=== PATIENT | male | born 1960 | race African-American/Black ===

== ENCOUNTER 2016-12-20 08:03 | Emergency (ER) | payer OTHER ==
--- NOTE | 2016-12-20 08:38 | ED ---
General Adult HPI - General Chief complaint: Extremity Problem,Nontraumatic Stated complaint: leg pain Time Seen by Provider: 12/20/16 08:15 Source: patient, RN notes reviewed Mode of arrival: ambulatory Limitations: no limitations - History of Present Illness Initial comments: Patient 56-year-old male who presents emergency room today with a chief complaint of increased numbness tingling down the left leg with decreased range of motion of his left foot. He states he notices symptoms yesterday. He does admit that he's had history of chronic back pain. States that he's had numbness and tingling down the left leg in the past. States he's had increased numbness and tingling to his left foot with decreased feeling. He states he noticed that his had decreased range of motion of his toes and his ankle on the left side. He states he noticed this yesterday morning. Patient denies any new injury or trauma to the area. He admits that he has some numbness tingling sensation to the right lower leg on the medial aspect of his calf area which she states she's never had in the past. He denies any bowel or bladder incontinence or retention. He denies any saddle anesthesia. Denies any other complaints at this time. Patient denies any recent fever, chills, shortness of breath, chest pain, abdominal pain, nausea or vomiting, dysuria or hematuria, constipation or diarrhea, headaches or visual changes, or any other complaints. - Related Data Previous Rx's Medication Instructions Recorded predniSONE 60 mg PO DAILY 5 Days 12/20/16 Allergies Allergy/AdvReac Type Severity Reaction Status Date / Time No Known Allergies Allergy Verified 12/20/16 08:11 Review of Systems ROS Statement: Those systems with pertinent positive or pertinent negative responses have been documented in the HPI. ROS Other: All systems not noted in ROS Statement are negative. Past Medical History Past Medical History: Hypertension Additional Past Medical History / Comment(s): chronic back pain History of Any Multi-Drug Resistant Organisms: None Reported Past Surgical History: Orthopedic Surgery Additional Past Surgical History / Comment(s): arm Past Psychological History: No Psychological Hx Reported Smoking Status: Never smoker Past Alcohol Use History: None Reported Past Drug Use History: None Reported General Exam - General Exam Comments Initial Comments: General: The patient is awake and alert, in no distress, and does not appear acutely ill. Eye: Pupils are equal, round and reactive to light, extra-ocular movements are intact. No nystagmus. There is normal conjunctiva bilaterally. No signs of icterus. Ears, nose, mouth and throat: There are moist mucous membranes and no oral lesions. Neck: The neck is supple, there is no tenderness or JVD. Cardiovascular: There is a regular rate and rhythm. No murmur, rub or gallop is appreciated. Respiratory: Lungs are clear to auscultation, respirations are non-labored, breath sounds are equal. No wheezes, stridor, rales, or rhonchi. Gastrointestinal: Soft, non-distended, non-tender abdomen without masses or organomegaly noted. There is no rebound or guarding present. No CVA tenderness. Bowel sounds are unremarkable. Musculoskeletal: Patient has normal appearance of thoracic and lumbar spine. No step-offs forms appreciated. Mild tenderness left side of the lower paravertebral area of the lumbar spine. Patient shows limited range of motion with both plantar and dorsiflexion of the left ankle. Sensation is intact to light touch but he admits that it is different feeling than usual and different from the other side. He does have sensation to the medial aspect of the right calf area but again admits that this feels different compared to other areas of the leg. Sensation fully intact to the upper thighs bilaterally. Shows full range of motion of the hips bilaterally, knees bilaterally. Has full range of motion of the right ankle and toes. Patient is able to fully flex and extend at the left ankle with passive range of motion with no pain. There is no redness or swelling in any areas. Pulses equal bilaterally 2+. Neurological: A&O x 3. CN II-XII intact, Coordination appears grossly intact. Speech is normal. Skin: Skin is warm and dry and no rashes or lesions are noted. Psychiatric: Cooperative, appropriate mood & affect, normal judgment. : Normal rectal tone. Limitations: no limitations Course Vital Signs 12/20/16 08:08 Temperature 99.4 F Pulse Rate 89 Respiratory 16 Rate Blood Pressure 138/100 O2 Sat by Pulse 98 Oximetry Medical Decision Making - Medical Decision Making Patient's CT of the lumbar spine reviewed and does show multilevel foraminal encroachment, degenerative disc disease, spinal stenosis, possible mass effect on the left S1 nerve root. Patient does have numbness tingling down to the left foot with decreased range of motion. Case was discussed in detail with attending physician Dr. Foster. Patient states has not had any bowel or bladder incontinence or retention. Patient states he did void just before he came to the emergency room does not need to use the bathroom here. Patient's be given dose of steroids here in the emergency room. No evidence for cauda equina, syndrome. Rectal tone good. Patient will be discharged advised close follow- up tomorrow with family doctor or his orthopedic doctor. He'll be continued on steroids at home. He is advised return if there is any increased worsening of symptoms or any other concerns. Patient states understanding and is in agreement with this plan. Disposition Clinical Impression: Lumbar radiculopathy, acute Disposition: HOME SELF-CARE Condition: Stable Instructions: Lumbar Radiculopathy (ED) Additional Instructions: Please follow-up with orthopedic or family doctor tomorrow. Please use steroids as prescribed. Please return to emergency room if there is any increase or worsening symptoms as discussed or for any other concerns. Prescriptions: predniSONE 60 mg PO DAILY 5 Days Referrals: Christopher Bradshaw DO [Primary Care Provider] - 1-2 days Ravinder Peralta MD [STAFF PHYSICIAN] - 1-2 days Time of Disposition: 09:46
--- NOTE | 2016-12-20 09:34 | CT ---
EXAMINATION TYPE: CT lumbar spine wo con DATE OF EXAM: 12/20/2016 COMPARISON: MR lumbar spine one August 2015 HISTORY: Lt leg numbness and low back pain CT DLP: 867.2 mGycm Automated exposure control for dose reduction was used. An unenhanced CT of the lumbar spine was performed. Bone and soft tissue window settings are submitt ed as well as coronal and sagittal reconstructions. FINDINGS: Alignment is stable, minimal anterolisthesis grade 1 L4-5, retrolisthesis grade 1 L5-S1. Loss of disc height at L4-5 compatible with disc desiccation and degenerative disc disease. Lumbar vertebral bodi es show stable height. Multilevel spondylosis again noted. Hypertrophic changes present at the left s acroiliac joint, there is ankylosis present. L1-L2: Broad-based posterior disc bulge causes mild anterior mass effect on the thecal sac. Circumfer ential extension of endplate disc complex encroaches somewhat on the neural foramina L2-L3: Posterior broad-based disc bulge causes mild anterior mass effect on the thecal sac. Circumfer ential extension endplate disc complex encroaches somewhat on the neural foramina. L3-L4: Hypertrophic change of the ligamentum flavum encroaches somewhat on the lateral recesses. Shor t pedicles contribute to cause foraminal encroachment. Posterior mild disc bulge causes only slight a nterior mass effect on the thecal sac, there is mild central stenosis L4-L5: Listhesis contributes to cause bilateral foraminal encroachment. There is moderate central can al stenosis. There is hypertrophy of ligamentum flavum. Facet arthropathy is present. Broad-based pos terior disc bulge causes slight anterior mass effect on the thecal sac. L5-S1: Broad-based posterior disc bulge is present, suspect there is eccentric disc bulge towards the left which may contact the proximal S1 nerve root. There is facet arthropathy change. Bilateral fora eloisa encroachment is suspected. Some mild central canal stenosis may be present. IMPRESSION: Multilevel foraminal encroachment, degenerative disc disease, spinal stenosis as described, possible mass effect on the left S1 nerve root, correlate for left S1 radiculopathy.
[2016-12-20] MEDS ORDERED: methylPREDNISolone SOD SUCCI 125 MG/2 ML VIAL IM STA (09:43)
[2016-12-20] MEDS ORDERED: HYDROmorphone 1 MG/ML 1 ML SYRINGE IM STA (09:57)
[2016-12-20 10:04] VITALS: BP 163/97; PULSE 71; RESP 18; TEMP 98.2
== END 2016-12-20 10:04 | disposition home or self-care (01) ==
LOC: EC 08:03
DX: M48.07 Spinal stenosis, lumbosacral region (principal); M51.17 Intervertebral disc disorders with radiculopathy, lumbosacral region
CPT/HCPCS: 51798; 72131; 99283; J2930; J1170

== ENCOUNTER 2017-02-11 10:51 | Inpatient (IN) | payer OTHER ==
[2017-02-11 13:07] VITALS: BMI 30.7
[2017-02-11 13:18] LABS: Basophils % (A) 0 %; CH 30.6; CHCM 33.8; Eosinophils # (A) 0.1 k/uL (0-0.7); Eosinophils % (A) 1 %; HCT 36.3 % (39.0-53.0); HGB 12.2 gm/dL (13.0-17.5); Luc # (Auto) 0.12; Luc % (Auto) 1; Lymphocytes # (A) 0.5 k/uL (1.0-4.8); Lymphocytes % (A) 3 %; MCH 30.6 pg (25.0-35.0); MCHC 33.7 g/dL (31.0-37.0); MCV 90.9 fL (80.0-100.0); Mean Platelet Volume 7.5; Monocytes # (A) 0.8 k/uL (0-1.0); Monocytes % (A) 4 %; Neutrophils # (A) 16.9 k/uL (1.3-7.7); Neutrophils % (A) 92 %; RBC 3.99 m/uL (4.30-5.90); RDW 14.3 % (11.5-15.5); WBC 18.4 k/uL (3.8-10.6)
[2017-02-11 13:34] LABS: Anion Gap 12 mmol/L; Blood Urea Nitrogen 22 mg/dL (9-20); Calcium 9.5 mg/dL (8.4-10.2); Carbon Dioxide 24 mmol/L (22-30); Chloride 103 mmol/L (98-107); Glucose 109 mg/dL (74-99); Non-African American GFR(MDRD) >60 (>60 ml/min/1.73 sqM); Potassium 4.5 mmol/L (3.5-5.1); Sodium 139 mmol/L (137-145)
--- NOTE | 2017-02-11 14:21 | P.HPIM ---
History of Present Illness H&P Date: 02/11/17 Chief Complaint: Scrotal swelling and spider bite Mr. Kaiser is a 56-year-old male with a known history of hypertension, sarcoidosis, chronic back pain and other medical problems was sent from Dr. Augustine Wheat's office with complaints of cellulitis. Apparently patient had spider bite on his penis about 3-4 days back and since then patient is having increased swelling of his penis and subjective fevers at home. Patient went to PCPs office and patient was sent to the hospital for IV antibiotics. Otherwise patient denied any, soft chest pain or short of breath no nausea vomiting or abdominal pain. No recent illnesses. Patient does take OxyContin and Percocet for chronic back pain and left hip pain. No recent travel or sick contacts. Patient has failed outpatient therapy with Bactrim. Review of Systems Constitutional: Patient denies any fever or chills . No generalized weakness or weight loss. Abdomen: Patient denied nausea vomiting and diarrhea and abdominal pain. Cardiovascular: Patient denies any chest pain or short of breath no palpitations. Respiratory: patient denied any cough is from production. No shortness of breath Neurologic: Patient denied any numbness or tingling headache. Musculoskeletal: Patient denies any complaints of joint swelling or deformity. Skin: Patient does have left wrist skin wound. Psychiatric: Negative Endocrine: No heat or cold intolerance. No recent weight gain. Genitourinary: No dysuria or hematuria.penile swelling and pain. All other 14 point ROS negative except the above Past Medical History Past Medical History: Hypertension Additional Past Medical History / Comment(s): chronic back pain secondary to injury, sarcoidosis, injury as teenager (fell into plate of glass), History of Any Multi-Drug Resistant Organisms: None Reported Past Surgical History: Orthopedic Surgery Additional Past Surgical History / Comment(s): arm surgery (secondary to injury fell through plate glass). Past Anesthesia/Blood Transfusion Reactions: No Reported Reaction Past Psychological History: No Psychological Hx Reported Smoking Status: Former smoker Past Alcohol Use History: None Reported Past Drug Use History: None Reported - Past Family History Mother Family Medical History: Myocardial Infarction ([place]) Father Family Medical History: Myocardial Infarction ([place]) Medications and Allergies Home Medications Medication Instructions Recorded Confirmed Type Albuterol Inhaler [Ventolin Hfa 2 puff INHALATION RT-Q6H PRN 02/11/17 02/11/17 History Inhaler] Amitriptyline HCl 25 mg PO HS 02/11/17 02/11/17 History Betamethasone Dipropionate 1 applic TOPICAL DAILY 02/11/17 02/11/17 History [Diprolene AF 0.05% Cream] Clotrimazole Cream [Lotrimin Cream] 1 applic TOPICAL BID 02/11/17 02/11/17 History Desvenlafaxine [Pristiq ER] 100 mg PO DAILY 02/11/17 02/11/17 History Hydroxychloroquine Sulfate 200 mg PO DAILY 02/11/17 02/11/17 History [Plaquenil] Ibuprofen [Motrin] 800 mg PO Q8H PRN 02/11/17 02/11/17 History Lisinopril-Hctz 20-25 mg 1 tab PO DAILY 02/11/17 02/11/17 History [Zestoretic 20-25] Multivitamins, Thera [Multivitamin 1 tab PO DAILY 02/11/17 02/11/17 History (formulary)] Niacin 1,000 mg PO HS 02/11/17 02/11/17 History Omeprazole [PriLOSEC] 20 mg PO BID 02/11/17 02/11/17 History Sildenafil Citrate [Viagra] 100 mg PO DAILY PRN 02/11/17 02/11/17 History Sulfamethoxazole/Trimethoprim 1 tab PO BID 02/11/17 02/11/17 History [Bactrim DS 800-160 mg] amLODIPine BESYLATE [Norvasc] 5 mg PO DAILY 02/11/17 02/11/17 History oxyCODONE HCL/ACETAMINOPHEN 1 tab PO Q6HR PRN 02/11/17 02/11/17 History [Percocet 7.5-325 mg] predniSONE 10 mg PO DAILY 02/11/17 02/11/17 History Allergies Allergy/AdvReac Type Severity Reaction Status Date / Time No Known Allergies Allergy Verified 02/11/17 12:38 Physical Exam Vitals: Vital Signs Temp Pulse Resp BP Pulse Ox 02/11/17 12:16 98.6 F 96 18 111/63 98 Intake and Output 02/10/17 02/11/17 02/11/17 22:59 06:59 14:59 Other: Weight 99.7 kg Patient Weight 02/12/17 06:59 Weight 99.7 kg PHYSICAL EXAMINATION: Patient is lying in the bed comfortably, no acute distress, awake alert and oriented.. HEENT: Normocephalic. Neck is supple. Pupils reactive. Nostrils clear. Oral cavity is moist. Ears reveal no drainage. Neck reveals no JVD, carotid bruits, or thyromegaly. CHEST EXAMINATION: Trachea is central. Symmetrical expansion. Lung bhagat clear to auscultation and percussion. CARDIAC: Normal S1, S2 with no gallops. No murmurs ABDOMEN: Soft. Bowel sounds normal. No organomegaly. No abdominal bruits. swelling, redness and tenderness of penis with minimal scrotal swelling. Extremities: reveal no edema. No clubbing or cyanosis Neurologically awake, alert, oriented x3 with well-coordinated movements. No focal deficits noted Skin: No rash or skin lesions. Psychiatric: Operative. Non-suicidal Musculoskeletal: No joint swelling or deformity. Normal range of motion. Results CBC & Chem 7: 02/11/17 13:05 02/11/17 13:05 Labs: Abnormal Lab Results - Last 24 Hours (Table) 02/11/17 02/11/17 Range/Units 13:05 13:05 WBC 18.4 H (3.8-10.6) k/uL RBC 3.99 L (4.30-5.90) m/uL Hgb 12.2 L (13.0-17.5) gm/dL Hct 36.3 L (39.0-53.0) % Neutrophils # 16.9 H (1.3-7.7) k/uL Lymphocytes # 0.5 L (1.0-4.8) k/uL BUN 22 H (9-20) mg/dL Glucose 109 H (74-99) mg/dL Thrombosis Risk Factor Assmnt - DVT/VTE Prophylaxis DVT/VTE Prophylaxis: Pharmacologic Prophylaxis ordered - Choose All That Apply Any of the Below Risk Factors Present?: Yes Each Factor Represents 1 point: Age 41-60 years Other Risk Factors: No Other congenital or acquired thrombophilia - If yes, enter type in comment: No Thrombosis Risk Factor Assessment Total Risk Factor Score: 1 Thrombosis Risk Factor Assessment Level: Low Risk Assessment and Plan Plan: Sepsis secondary to penile cellulitis and patient has leukocytosis and tachycardia on admission Spider bite 3-4 days back Hypertension controlled Sarcoidosis on prednisone and Plaquenil Chronic back pain and left hip pain DVT prophylaxis PLAN: Patient will be continued on antibiotics in the form of Zosyn at this time and urology has been consulted for possible abscess and for further evaluation. Patient currently does not have any problem with urination. Will get blood cultures and follow up closely Further recommendations based on the clinical course. We'll start back on his home medications including pain management. Time with Patient: Greater than 30
[2017-02-11] MEDS: HEPARIN SODIUM,PORCINE 5,000 UNIT/ML 1 ML VIAL SQ SCH ×2 (14:39→23:55)
[2017-02-11] MEDS: DESVENLAFAXINE SUCCINATE 50 MG TAB.ER.24H PO SCH (14:39)
[2017-02-11] MEDS: oxyCODONE-APAP 7.5-325MG 1 EACH TAB PO PRN ×2 (14:41→22:07)
--- NOTE | 2017-02-11 15:46 | P.GSCN ---
History of Present Illness Consult date: 02/11/17 Reason for Consult: Penile abcess/cellulitis History of present illness: The patient is a 56-year-old male who was admitted from Dr. Bradshaw's office for evaluation of a penile infection. The patient says that his problem began approximately 3 days ago when he noted some small openings on the left side of his penis. He thought that this could be from a spider bite although he never actually saw a spider. He initially had some itching and slight puffiness in this region. He said that he squeezed a small area on the side of the penis and some "pus and blood" drained out. He began experiencing more swelling two days ago says that he was given an antibiotic shot and placed on Bactrim by Dr. Bradshaw. The swelling has increased since then. The patient has had no fever or chills and has remained afebrile. He denies any difficulty in voiding and says that he has been voiding in his normal pattern. Review of Systems - Constitutional Denies chills, Denies fever, Denies sweats - Cardiovascular Denies shortness of breath - Respiratory Denies cough, Denies wheezing - Gastrointestinal Denies abdominal pain - Genitourinary Reports as per HPI, Denies discharge, Denies dysuria, Denies hematuria - Integumentary Denies boils Past Medical History Past Medical History: Hypertension Additional Past Medical History / Comment(s): chronic back pain secondary to injury, sarcoidosis, injury as teenager (fell into plate of glass), History of Any Multi-Drug Resistant Organisms: None Reported Past Surgical History: Cholecystectomy, Orthopedic Surgery, Prostate Surgery ( Transurethral incision of prostate-2014) Additional Past Surgical History / Comment(s): arm surgery (secondary to injury fell through plate glass). Past Anesthesia/Blood Transfusion Reactions: No Reported Reaction Past Psychological History: No Psychological Hx Reported Smoking Status: Former smoker (Stopped in 2004) Past Alcohol Use History: None Reported Past Drug Use History: None Reported - Past Family History Mother Family Medical History: Myocardial Infarction ([place]) Father Family Medical History: Myocardial Infarction ([place]) Medications and Allergies Home Medications Medication Instructions Recorded Confirmed Type Albuterol Inhaler [Ventolin Hfa 2 puff INHALATION RT-Q6H PRN 02/11/17 02/11/17 History Inhaler] Amitriptyline HCl 25 mg PO HS 02/11/17 02/11/17 History Betamethasone Dipropionate 1 applic TOPICAL DAILY 02/11/17 02/11/17 History [Diprolene AF 0.05% Cream] Clotrimazole Cream [Lotrimin Cream] 1 applic TOPICAL BID 02/11/17 02/11/17 History Desvenlafaxine [Pristiq ER] 100 mg PO DAILY 02/11/17 02/11/17 History Hydroxychloroquine Sulfate 200 mg PO DAILY 02/11/17 02/11/17 History [Plaquenil] Ibuprofen [Motrin] 800 mg PO Q8H PRN 02/11/17 02/11/17 History Lisinopril-Hctz 20-25 mg 1 tab PO DAILY 02/11/17 02/11/17 History [Zestoretic 20-25] Multivitamins, Thera [Multivitamin 1 tab PO DAILY 02/11/17 02/11/17 History (formulary)] Niacin 1,000 mg PO HS 02/11/17 02/11/17 History Omeprazole [PriLOSEC] 20 mg PO BID 02/11/17 02/11/17 History Sildenafil Citrate [Viagra] 100 mg PO DAILY PRN 02/11/17 02/11/17 History Sulfamethoxazole/Trimethoprim 1 tab PO BID 02/11/17 02/11/17 History [Bactrim DS 800-160 mg] amLODIPine BESYLATE [Norvasc] 5 mg PO DAILY 02/11/17 02/11/17 History oxyCODONE HCL/ACETAMINOPHEN 1 tab PO Q6HR PRN 02/11/17 02/11/17 History [Percocet 7.5-325 mg] predniSONE 10 mg PO DAILY 02/11/17 02/11/17 History Allergies Allergy/AdvReac Type Severity Reaction Status Date / Time No Known Allergies Allergy Verified 02/11/17 12:38 Surgical - Exam Vital Signs Temp Pulse Resp BP Pulse Ox 98.6 F 96 18 111/63 98 02/11/17 12:16 02/11/17 12:16 02/11/17 12:16 02/11/17 12:16 02/11/17 12:16 - General well developed, no distress, no pain - Eyes no icteric - ENT no congestion - Neck no masses, no lymphadectomy - Respiratory normal expansion - Abdomen Abdomen: non tender, no organomegaly, no masses - Genitourinary testicles present, testicles non-tender, other (There is marked edema of the penis and some induration in the suprapubic area. There is a 3 or 4 mm area which appears to be an eschar on the left mid penile shaft. There is no discharge expressible. On the dorsum of the penis there appears to be an area with a hemorrhagic bulla measuring 7-8 mm in diameter. It is no penile crepitance or palpable abscess.) - Psychiatric oriented to time, oriented to place, memory intact Results - Labs 02/11/17 13:05 02/11/17 13:05 Abnormal Lab Results - Last 24 Hours (Table) 02/11/17 02/11/17 Range/Units 13:05 13:05 WBC 18.4 H (3.8-10.6) k/uL RBC 3.99 L (4.30-5.90) m/uL Hgb 12.2 L (13.0-17.5) gm/dL Hct 36.3 L (39.0-53.0) % Neutrophils # 16.9 H (1.3-7.7) k/uL Lymphocytes # 0.5 L (1.0-4.8) k/uL BUN 22 H (9-20) mg/dL Glucose 109 H (74-99) mg/dL Diabetes panel 02/11/17 Range/Units 13:05 Sodium 139 (137-145) mmol/L Potassium 4.5 (3.5-5.1) mmol/L Chloride 103 (98-107) mmol/L Carbon Dioxide 24 (22-30) mmol/L BUN 22 H (9-20) mg/dL Creatinine 1.20 (0.66-1.25) mg/dL Glucose 109 H (74-99) mg/dL Calcium 9.5 (8.4-10.2) mg/dL Calcium panel 02/11/17 Range/Units 13:05 Calcium 9.5 (8.4-10.2) mg/dL Pituitary panel 02/11/17 Range/Units 13:05 Sodium 139 (137-145) mmol/L Potassium 4.5 (3.5-5.1) mmol/L Chloride 103 (98-107) mmol/L Carbon Dioxide 24 (22-30) mmol/L BUN 22 H (9-20) mg/dL Creatinine 1.20 (0.66-1.25) mg/dL Glucose 109 H (74-99) mg/dL Calcium 9.5 (8.4-10.2) mg/dL Adrenal panel 02/11/17 Range/Units 13:05 Sodium 139 (137-145) mmol/L Potassium 4.5 (3.5-5.1) mmol/L Chloride 103 (98-107) mmol/L Carbon Dioxide 24 (22-30) mmol/L BUN 22 H (9-20) mg/dL Creatinine 1.20 (0.66-1.25) mg/dL Glucose 109 H (74-99) mg/dL Calcium 9.5 (8.4-10.2) mg/dL Assessment and Plan (1) Penis, cellulitis Narrative/Plan: The patient appears to have cellulitis involving the penis. It's unclear whether this was related to a spider bite or whether the patient had a superficial infection which became secondarily infected. Unfortunately he is taking prednisone which will compromise his immune response. He did not appear to respond to Bactrim as an outpatient. He was not certain what antibiotic shot he was given by Dr. Bradshaw but I suspect that this was ceftriaxone. Status: Acute (2) Sarcoidosis of lung Status: Chronic (3) Benign hypertension Status: Chronic Plan: The patient is currently being treated with Zosyn. I believe infectious disease consultation through Dr. Lanier would be helpful as this appears to be a complicated infection due to the patient's chronic use of prednisone. At least at this time did there does not appear to be an underlying penile abscess which will require surgical treatment. Time with Patient: Greater than 30
[2017-02-11] MEDS: PANTOPRAZOLE 40 MG TABLET PO SCH (16:39)
[2017-02-11] MEDS: PIPERACILLIN-TAZOBACTAM 3.375 GM in DEXTROSE/WATER 1 50ML.BAG IVPB SCH ×2 (16:39→23:55)
[2017-02-11 17:52] LABS: Appearance,Urine Clear (Clear); Bilirubin,Urine Negative (Negative); Glucose,Urine (UA) Negative (Negative); Ketones,Urine Negative (Negative); Leukocyte Esterase,Urine Negative (Negative); Nitrite,Urine Negative (Negative); Protein,Urine Trace (Negative); Specific Gravity,Urine 1.023 (1.001-1.035); UA Billing (MACRO vs. MICRO) CHEM; Urobilinogen,Urine >12.0 mg/dL (<2.0)
[2017-02-11] MEDS: DAPTOmycin 500 MG in SODIUM CHLORIDE 0.9% 50 ML IV SCH (20:12)
[2017-02-11] MEDS: IBUPROFEN 800 MG TAB PO PRN (20:17)
[2017-02-11] MEDS: NIACIN TR 500 MG CAPSULE.ER PO SCH (21:03)
[2017-02-11] MEDS: AMITRIPTYLINE HCL 25 MG TAB PO SCH (21:03)
--- NOTE | 2017-02-11 23:07 | P.CONS ---
History of Present Illness - Reason for Consult Consult date: 02/11/17 - Chief Complaint penile abscess - History of Present Illness 56-year-old -[place] male presents to Hospital for further evaluation of infection to his penis. The patient relates several days prior he had developed what he thought was a bug bite on his penis. Possibly a spider bite. He manipulated multiple times trying to get the drainage out. It then became more swollen. He sought care at his primary care physician's office. He received an injection for swelling possibly a steroid as well as oral Bactrim. Despite that he had worsening he was seen today and advised for admission. He has been seen by urological surgery without the need for surgical intervention at this time. Infectious diseases consult for antibiotic therapy. This very is a gentleman does have a known history of sarcoidosis and is on plaque on all and steroids. He has not had significant troubles with infections over time. He is not any difficulties with prior genital infections. He is and has sexual relations only with his . Review of Systems HEENT:Denies headache or acute visual change. Denies sinus or mouth discomforts. Denies neck stiffness or pain. Denies significant oral cavity pain. Denies difficulty on swallowing.did have fever and chills before admiss Lungs: Denies significant shortness of breath, cough, sputum production, or hemoptysis. Cardiovascular: Denies significant shortness of breath, chest pain, chest wall pain, orthopnea, dyspnea on exertion, syncope Gastrointestinal:Denies nausea, vomiting, diarrhea, constipation, hematemesis, melena, hematochezia. No no significant change of bowel habit noticed. Musculoskeletal: denies significant myalgias or arthralgias. No new joint swelling. Denies new back pain. Skin: as per the HPI swelling and lesions of the penis Neuro: Denies headache or visual change. Denies any new onset weakness or difficulty with ambulation. Denies falls or seizures. Psychiatric:Denies anxiety or depression. Endocrine: Denies significant fatigue, denies significant weight loss or weight gain. Past Medical History Past Medical History: Hypertension Additional Past Medical History / Comment(s): chronic back pain secondary to injury, sarcoidosis, injury as teenager (fell into plate of glass), History of Any Multi-Drug Resistant Organisms: None Reported Past Surgical History: Cholecystectomy, Orthopedic Surgery, Prostate Surgery ( Transurethral incision of prostate-2014) Additional Past Surgical History / Comment(s): arm surgery (secondary to injury fell through plate glass). Past Anesthesia/Blood Transfusion Reactions: No Reported Reaction Past Psychological History: No Psychological Hx Reported Additional Psychological History / Comment(s): lives in the family home with his and 2 grandchildren no analysis still. 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 No experience. No international travel. No animal exposures. No tobacco use. No alcohol or recreational drug use. his only sexual partner Smoking Status: Former smoker (Stopped in 2004) Past Alcohol Use History: None Reported Past Drug Use History: None Reported - Past Family History Mother Family Medical History: Myocardial Infarction ([place]) Father Family Medical History: Myocardial Infarction ([place]) Medications and Allergies Home Medications and Allergies Comment(s): Current Medications Amitriptyline HCl (Elavil) 25 mg PO HS [facility] Last Admin: 02/11/17 21:03 Dose: 25 mg Betamethasone Dipropionate (Diprolene Af) 1 applic TOPICAL DAILY [facility] Desvenlafaxine Succinate (Pristiq Er) 100 mg PO DAILY [facility] Last Admin: 02/11/17 14:39 Dose: 100 mg Heparin Sodium (Porcine) (Heparin) 5,000 unit SQ Q8HR [facility] Last Admin: 02/11/17 14:39 Dose: 5,000 unit Hydroxychloroquine Sulfate (Plaquenil) 200 mg PO DAILY [facility] Piperacillin/Tazobactam/ (Dextrose 3.375 gm/ IV Solution) 50 mls @ 12.5 mls/hr IVPB Q8HR [facility] Last Admin: 02/11/17 16:39 Dose: 12.5 mls/hr Daptomycin 500 mg/ Sodium (Chloride) 50 mls @ 100 mls/hr IV Q24H [facility] Last Admin: 02/11/17 20:12 Dose: 100 mls/hr Ibuprofen (Motrin) 800 mg PO Q8H PRN PRN Reason: Mild Pain Last Admin: 02/11/17 20:17 Dose: 800 mg Multivitamins (Theragran) 1 each PO DAILY@1200 [facility] Niacin (Niacin Tr) 1,000 mg PO HS [facility] Last Admin: 02/11/17 21:03 Dose: 1,000 mg Oxycodone/Acetaminophen (Percocet 7.5-325) 1 each PO Q6HR PRN PRN Reason: Pain Last Admin: 02/11/17 22:07 Dose: 1 each Pantoprazole Sodium (Protonix) 40 mg PO AC-BID [facility] Last Admin: 02/11/17 16:39 Dose: 40 mg Prednisone () 10 mg PO DAILY [facility] Home Medications Medication Instructions Recorded Confirmed Type Albuterol Inhaler [Ventolin Hfa 2 puff INHALATION RT-Q6H PRN 02/11/17 02/11/17 History Inhaler] Amitriptyline HCl 25 mg PO HS 02/11/17 02/11/17 History Betamethasone Dipropionate 1 applic TOPICAL DAILY 02/11/17 02/11/17 History [Diprolene AF 0.05% Cream] Clotrimazole Cream [Lotrimin Cream] 1 applic TOPICAL BID 02/11/17 02/11/17 History Desvenlafaxine [Pristiq ER] 100 mg PO DAILY 02/11/17 02/11/17 History Hydroxychloroquine Sulfate 200 mg PO DAILY 02/11/17 02/11/17 History [Plaquenil] Ibuprofen [Motrin] 800 mg PO Q8H PRN 02/11/17 02/11/17 History Lisinopril-Hctz 20-25 mg 1 tab PO DAILY 02/11/17 02/11/17 History [Zestoretic 20-25] Multivitamins, Thera [Multivitamin 1 tab PO DAILY 02/11/17 02/11/17 History (formulary)] Niacin 1,000 mg PO HS 02/11/17 02/11/17 History Omeprazole [PriLOSEC] 20 mg PO BID 02/11/17 02/11/17 History Sildenafil Citrate [Viagra] 100 mg PO DAILY PRN 02/11/17 02/11/17 History Sulfamethoxazole/Trimethoprim 1 tab PO BID 02/11/17 02/11/17 History [Bactrim DS 800-160 mg] amLODIPine BESYLATE [Norvasc] 5 mg PO DAILY 02/11/17 02/11/17 History oxyCODONE HCL/ACETAMINOPHEN 1 tab PO Q6HR PRN 02/11/17 02/11/17 History [Percocet 7.5-325 mg] predniSONE 10 mg PO DAILY 02/11/17 02/11/17 History Allergies Allergy/AdvReac Type Severity Reaction Status Date / Time No Known Allergies Allergy Verified 02/11/17 12:38 Physical Exam Vitals: Vital Signs Temp Pulse Resp BP Pulse Ox 02/11/17 20:15 100.2 F H 02/11/17 15:00 97.9 F 83 16 116/58 98 02/11/17 12:16 98.6 F 96 18 111/63 98 Intake and Output 02/11/17 02/11/17 02/11/17 06:59 14:59 22:59 Other: # Voids 1 Weight 99.7 kg Patient Weight 02/12/17 06:59 Weight 99.7 kg Pleasant 56-year-old male who is somewhat uncomfortable. HEENT: Anicteric conjunctiva are pink and moist nasal mucosa grossly intact without significant lesions, there is no thrush. Neck: The neck is supple without significant lymphadenopathy or thyromegaly. Lungs: There is symmetrical air entry. There are expiratory wheezes. No crackles or bronchial sounds are noted. Heart: Regular rate and rhythm with an audible S1-S2, no S3 no S4. There is no significant murmur click or rub, PMI was nondisplaced. Abdomen: Positive bowel sounds soft and nontender without palpable masses or organomegaly. There was no guarding or rebound. Extremities: The upper extremities have excellent pulses they are symmetric, no significant petechiae or telangiectasia. No splinter hemorrhages were noted. The lower extremities are free from significant edema. The peripheral pulses were 2+ and symmetric. Neuro: Awake alert oriented to person place and time. There are no acute new gross focal sensory motor deficits. Genitalia reveals evidence of the extensive swelling to the penis in the suprapubic area. There is evidence of a bulla on the shaft of the penis midline and then the ulceration that's a bit more lateral. There is no expressible purulence from the ulceration. The bulla is opened and cultures are sent to the laboratory. Results CBC & Chem 7: 02/11/17 13:05 02/11/17 13:05 Labs: Abnormal Lab Results - Last 24 Hours (Table) 02/11/17 02/11/17 02/11/17 Range/Units 13:05 13:05 17:30 WBC 18.4 H (3.8-10.6) k/uL RBC 3.99 L (4.30-5.90) m/uL Hgb 12.2 L (13.0-17.5) gm/dL Hct 36.3 L (39.0-53.0) % Neutrophils # 16.9 H (1.3-7.7) k/uL Lymphocytes # 0.5 L (1.0-4.8) k/uL BUN 22 H (9-20) mg/dL Glucose 109 H (74-99) mg/dL Urine Protein Trace H (Negative) Laboratory Results WBC 18.4 k/uL (3.8-10.6) H 02/11/17 13:05 RBC 3.99 m/uL (4.30-5.90) L 02/11/17 13:05 Hgb 12.2 gm/dL (13.0-17.5) L 02/11/17 13:05 Hct 36.3 % (39.0-53.0) L 02/11/17 13:05 MCV 90.9 fL (80.0-100.0) 02/11/17 13:05 MCH 30.6 pg (25.0-35.0) 02/11/17 13:05 MCHC 33.7 g/dL (31.0-37.0) 02/11/17 13:05 RDW 14.3 % (11.5-15.5) 02/11/17 13:05 Plt Count 248 k/uL (150-450) 02/11/17 13:05 Neutrophils % 92 % 02/11/17 13:05 Lymphocytes % 3 % 02/11/17 13:05 Monocytes % 4 % 02/11/17 13:05 Eosinophils % 1 % 02/11/17 13:05 Basophils % 0 % 02/11/17 13:05 Neutrophils # 16.9 k/uL (1.3-7.7) H 02/11/17 13:05 Lymphocytes # 0.5 k/uL (1.0-4.8) L 02/11/17 13:05 Monocytes # 0.8 k/uL (0-1.0) 02/11/17 13:05 Eosinophils # 0.1 k/uL (0-0.7) 02/11/17 13:05 Basophils # 0.0 k/uL (0-0.2) 02/11/17 13:05 Sodium 139 mmol/L (137-145) 02/11/17 13:05 Potassium 4.5 mmol/L (3.5-5.1) 02/11/17 13:05 Chloride 103 mmol/L (98-107) 02/11/17 13:05 Carbon Dioxide 24 mmol/L (22-30) 02/11/17 13:05 Anion Gap 12 mmol/L 02/11/17 13:05 BUN 22 mg/dL (9-20) H 02/11/17 13:05 Creatinine 1.20 mg/dL (0.66-1.25) 02/11/17 13:05 Est GFR (MDRD) Af Amer >60 (>60 ml/min/1.73 sqM) 02/11/17 13:05 Est GFR (MDRD) Non-Af >60 (>60 ml/min/1.73 sqM) 02/11/17 13:05 Glucose 109 mg/dL (74-99) H 02/11/17 13:05 Plasma Lactic Acid Ger 1.9 mmol/L (0.7-2.0) 02/11/17 15:49 Calcium 9.5 mg/dL (8.4-10.2) 02/11/17 13:05 Urine Color Yellow 02/11/17 17:30 Urine Appearance Clear (Clear) 02/11/17 17:30 Urine pH 6.0 (5.0-8.0) 02/11/17 17:30 Ur Specific [place] 1.023 (1.001-1.035) 02/11/17 17:30 Urine Protein Trace (Negative) H 02/11/17 17:30 Urine Glucose (UA) Negative (Negative) 02/11/17 17:30 Urine Ketones Negative (Negative) 02/11/17 17:30 Urine Blood Negative (Negative) 02/11/17 17:30 Urine Nitrite Negative (Negative) 02/11/17 17:30 Urine Bilirubin Negative (Negative) 02/11/17 17:30 Urine Urobilinogen >12.0 mg/dL (<2.0) 02/11/17 17:30 Ur Leukocyte Esterase Negative (Negative) 02/11/17 17:30 Assessment and Plan (1) Abscess of penis Narrative/Plan: 56-year-old male presents to Hospital with a several-day history of increasing pain and swelling to the shaft of his penis. The patient relates it started as what was like a pimple. It with manipulation it worsen. Despite outpatient oral antibiotic therapy it markedly worsened and upon reevaluation was sent to hospital. He's been seen by urological surgery without the need for surgical intervention. Patient likely has a staphylococcal infection of the penis. Concerns discussed also be streptococcal. Antibiotic therapy with daptomycin and piperacillin tazobactam and use until we have further data. Debility is opened and a thin serous material is drained. There is no evidence of any necrosis of the base of the bulla. There is evidence of some cellulitis that has ascended to the suprapubic area. Bacterial and viral cultures are sent. Not likely to be an STD given his lack of exposure. The patient is immunocompromised. Status: Acute (2) Sarcoidosis of lung Status: Chronic
[2017-02-12] MEDS: oxyCODONE-APAP 7.5-325MG 1 EACH TAB PO PRN ×2 (05:15→15:03)
[2017-02-12] MEDS: PANTOPRAZOLE 40 MG TABLET PO SCH ×2 (07:35→17:48)
[2017-02-12] MEDS: DESVENLAFAXINE SUCCINATE 50 MG TAB.ER.24H PO SCH (07:36)
[2017-02-12] MEDS: BETAMETHASONE DIPROPIONATE 0.05% CREAM 15 GM TUBE TOPICAL SCH (07:36)
[2017-02-12] MEDS: HEPARIN SODIUM,PORCINE 5,000 UNIT/ML 1 ML VIAL SQ SCH ×2 (07:36→15:04)
[2017-02-12] MEDS: PIPERACILLIN-TAZOBACTAM 3.375 GM in DEXTROSE/WATER 1 50ML.BAG IVPB SCH ×2 (07:36→16:45)
[2017-02-12] MEDS: predniSONE 10 MG TAB PO SCH (07:37)
[2017-02-12] MEDS: HYDROXYCHLOROQUINE SULFATE 200 MG TAB PO SCH (07:37)
[2017-02-12 09:22] LABS: Basophils % (A) 0 %; CH 30.4; CHCM 33.5; Eosinophils # (A) 0.2 k/uL (0-0.7); Eosinophils % (A) 1 %; HCT 35.4 % (39.0-53.0); HDW 2.88; HGB 11.9 gm/dL (13.0-17.5); Luc # (Auto) 0.48; Luc % (Auto) 2; Lymphocytes # (A) 1.7 k/uL (1.0-4.8); Lymphocytes % (A) 8 %; MCH 30.6 pg (25.0-35.0); MCHC 33.5 g/dL (31.0-37.0); MCV 91.3 fL (80.0-100.0); Mean Platelet Volume 7.7; Monocytes # (A) 1.6 k/uL (0-1.0); Monocytes % (A) 8 %; Neutrophils # (A) 16.6 k/uL (1.3-7.7); Neutrophils % (A) 81 %; RBC 3.88 m/uL (4.30-5.90); RDW 14.6 % (11.5-15.5); WBC 20.6 k/uL (3.8-10.6); WBC (Perox) 20.27
[2017-02-12 09:38] LABS: Anion Gap 10 mmol/L; Blood Urea Nitrogen 22 mg/dL (9-20); Carbon Dioxide 27 mmol/L (22-30); Chloride 100 mmol/L (98-107); Glucose 96 mg/dL (74-99); Non-African American GFR(MDRD) 56 (>60 ml/min/1.73 sqM); Potassium 3.6 mmol/L (3.5-5.1); Sodium 137 mmol/L (137-145)
[2017-02-12] MEDS: MULTIVITAMINS, THERA 1 EACH TAB PO SCH (12:05)
--- NOTE | 2017-02-12 17:11 | P.PN ---
Subjective Mr. Kaiser is a 56-year-old male with a known history of hypertension, sarcoidosis, chronic back pain and other medical problems was sent from Dr. Augustine Wheat's office with complaints of cellulitis. Apparently patient had spider bite on his penis about 3-4 days back and since then patient is having increased swelling of his penis and subjective fevers at home. Patient went to PCPs office and patient was sent to the hospital for IV antibiotics. Otherwise patient denied any, soft chest pain or short of breath no nausea vomiting or abdominal pain. No recent illnesses. Patient does take OxyContin and Percocet for chronic back pain and left hip pain. No recent travel or sick contacts. Patient has failed outpatient therapy with Bactrim. 02/12/2017 Patient denies having any fevers chills nausea vomiting diarrhea Objective - Vital Signs Vital signs: Vital Signs Temp 99.7 F H 02/12/17 15:00 Pulse 103 H 02/12/17 15:00 Resp 18 02/12/17 15:00 BP 113/57 02/12/17 15:00 Pulse Ox 96 02/12/17 15:00 Intake & Output 02/11/17 02/12/17 02/12/17 18:59 06:59 18:59 Intake Total 700 Balance 700 Weight 99.7 kg Intake: Oral 700 Other: # Voids 1 1 2 # Bowel Movements 1 - Exam Physical exam Gen. appearance oriented 3 in no distress Neck is supple no JVD Lungs good air entry clear to auscultation no rhonchi or wheezing Heart S1-S2 heard regular rate and rhythm no murmurs appreciated Abdomen is soft nontender no organomegaly bowel sounds are intact Neurologically cranial nerves II-12 grossly intact no focal motor or sensory deficits noted Skin no abnormalities appreciated Penile edema with induration no significant tenderness to palpation - Labs CBC & Chem 7: 02/12/17 08:22 02/12/17 08:22 Labs: Abnormal Lab Results - Last 24 Hours (Table) 02/11/17 02/12/17 02/12/17 Range/Units 17:30 08:22 08:22 WBC 20.6 H (3.8-10.6) k/uL RBC 3.88 L (4.30-5.90) m/uL Hgb 11.9 L (13.0-17.5) gm/dL Hct 35.4 L (39.0-53.0) % Neutrophils # 16.6 H (1.3-7.7) k/uL Monocytes # 1.6 H (0-1.0) k/uL BUN 22 H (9-20) mg/dL Creatinine 1.34 H (0.66-1.25) mg/dL Urine Protein Trace H (Negative) Microbiology - Last 24 Hours (Table) 02/11/17 18:11 Gram Stain - Preliminary Penis Wound Culture - Preliminary 02/11/17 18:11 Anaerobic Culture - Preliminary Penis 02/11/17 17:30 Urine Culture - Preliminary Urine,Voided Assessment and Plan Plan: Over 1 acute cellulitis of the penile region due to suspected spider bite #2 history of sarcoidosis #3 chronic lower back pain #4 depression 5 acute kidney injury with slight worsening Plan Continue with empiric antibiotic therapy Continue monitoring of kidney function If patient's clinical A is not improved we'll need to consider if it's a rare granulomatosis of the penis
[2017-02-12] MEDS: DAPTOmycin 500 MG in SODIUM CHLORIDE 0.9% 50 ML IV SCH (20:59)
[2017-02-12] MEDS: AMITRIPTYLINE HCL 25 MG TAB PO SCH (21:17)
[2017-02-12] MEDS: NIACIN TR 500 MG CAPSULE.ER PO SCH (21:17)
[2017-02-12] MEDS: IBUPROFEN 800 MG TAB PO PRN (21:17)
[2017-02-13] MEDS: HEPARIN SODIUM,PORCINE 5,000 UNIT/ML 1 ML VIAL SQ SCH ×4 (00:29→23:50)
[2017-02-13] MEDS: PIPERACILLIN-TAZOBACTAM 3.375 GM in DEXTROSE/WATER 1 50ML.BAG IVPB SCH ×4 (00:29→23:49)
[2017-02-13] MEDS: oxyCODONE-APAP 7.5-325MG 1 EACH TAB PO PRN ×3 (00:31→19:50)
--- NOTE | 2017-02-13 07:23 | P.PN ---
Progress Note - Text The patient is afebrile. His pain has not changed significantly. He is had no difficulty voiding or moving his bowels and is ambulatory. Preliminary wound cultures are growing staph aureus. Physical exam: There continues to be moderately severe edema of the skin of the penis and some slight induration at the base of the penis. No fluctuance or crepitance is present. There is a raw area dorsally measuring approximately 10 x 13 mm which corresponds to an area of bulla which was opened 2 days ago. Impression: Cellulitis with superficial skin infection-probably secondary to Staphylococcus aureus. Patient's infection appears to be more severe due to his immunocompromised state. Recommendation: The patient will be continued on his current antibiotics as per infectious disease's recommendations.
[2017-02-13] MEDS ORDERED: HEPARIN SODIUM,PORCINE 5,000 UNIT/ML 1 ML VIAL SQ SCH (08:00)
[2017-02-13] MEDS: PANTOPRAZOLE 40 MG TABLET PO SCH ×2 (08:54→17:48)
[2017-02-13] MEDS: BETAMETHASONE DIPROPIONATE 0.05% CREAM 15 GM TUBE TOPICAL SCH (08:54)
[2017-02-13] MEDS: predniSONE 10 MG TAB PO SCH (08:55)
[2017-02-13] MEDS: HYDROXYCHLOROQUINE SULFATE 200 MG TAB PO SCH (08:55)
[2017-02-13] MEDS: DESVENLAFAXINE SUCCINATE 50 MG TAB.ER.24H PO SCH (08:55)
[2017-02-13 09:21] LABS: ALT 57 U/L (21-72); AST 34 U/L (17-59); Alkaline Phosphatase 104 U/L (38-126); Anion Gap 10 mmol/L; Blood Urea Nitrogen 20 mg/dL (9-20); Calcium 8.9 mg/dL (8.4-10.2); Carbon Dioxide 26 mmol/L (22-30); Chloride 104 mmol/L (98-107); Glucose 83 mg/dL (74-99); Non-African American GFR(MDRD) >60 (>60 ml/min/1.73 sqM); Potassium 3.5 mmol/L (3.5-5.1); Sodium 140 mmol/L (137-145); Total Bilirubin 0.5 mg/dL (0.2-1.3); Total Protein 5.6 g/dL (6.3-8.2)
[2017-02-13] MEDS: MULTIVITAMINS, THERA 1 EACH TAB PO SCH (13:47)
--- NOTE | 2017-02-13 14:39 | P.PN ---
Subjective Mr. Kaiser is a 56-year-old male with a known history of hypertension, sarcoidosis, chronic back pain and other medical problems was sent from Dr. Augustine Wheat's office with complaints of cellulitis. Apparently patient had spider bite on his penis about 3-4 days back and since then patient is having increased swelling of his penis and subjective fevers at home. Patient went to PCPs office and patient was sent to the hospital for IV antibiotics. Otherwise patient denied any, soft chest pain or short of breath no nausea vomiting or abdominal pain. No recent illnesses. Patient does take OxyContin and Percocet for chronic back pain and left hip pain. No recent travel or sick contacts. Patient has failed outpatient therapy with Bactrim. 02/12/2017 Patient denies having any fevers chills nausea vomiting diarrhea 08/16/2016 Patient denies having any fevers chills nausea vomiting. Patient states that he 's had slight improvement however there is some discharge that is noted from the penile region Objective - Vital Signs Vital signs: Vital Signs Temp 96.4 F L 02/13/17 07:00 Pulse 54 L 02/13/17 07:00 Resp 18 02/13/17 07:00 BP 122/63 02/13/17 07:00 Pulse Ox 97 02/13/17 07:00 Intake & Output 02/12/17 02/13/17 02/13/17 18:59 06:59 18:59 Other: Voiding Method Toilet # Voids 2 1 1 # Bowel Movements 1 1 - Exam Physical exam Gen. appearance oriented 3 in no distress Neck is supple no JVD Lungs good air entry clear to auscultation no rhonchi or wheezing Heart S1-S2 heard regular rate and rhythm no murmurs appreciated Abdomen is soft nontender no organomegaly bowel sounds are intact Neurologically cranial nerves II-12 grossly intact no focal motor or sensory deficits noted Skin no abnormalities appreciated Penile edema with induration no significant tenderness to palpation - Labs CBC & Chem 7: 02/12/17 08:22 02/13/17 07:45 Labs: Abnormal Lab Results - Last 24 Hours (Table) 02/13/17 Range/Units 07:45 Total Protein 5.6 L (6.3-8.2) g/dL Albumin 3.1 L (3.5-5.0) g/dL Microbiology - Last 24 Hours (Table) 02/11/17 17:30 Urine Culture - Final Urine,Voided 02/11/17 18:11 Gram Stain - Preliminary Penis Wound Culture - Preliminary Presumptive Staph aureus 02/11/17 15:07 Blood Culture - Preliminary Blood No Growth after 24 hours Assessment and Plan Plan: Over 1 acute cellulitis of the penile region due to suspected spider bite #2 history of sarcoidosis #3 chronic lower back pain #4 depression 5 acute kidney injury with slight worsening Plan Continue with empiric antibiotic therapy Continue monitoring of kidney function may need detention abx via IV
[2017-02-13] MEDS: DAPTOmycin 500 MG in SODIUM CHLORIDE 0.9% 50 ML IV SCH (19:54)
[2017-02-13] MEDS: NIACIN TR 500 MG CAPSULE.ER PO SCH (21:53)
[2017-02-13] MEDS: AMITRIPTYLINE HCL 25 MG TAB PO SCH (21:53)
[2017-02-14] MEDS: PIPERACILLIN-TAZOBACTAM 3.375 GM in DEXTROSE/WATER 1 50ML.BAG IVPB SCH ×2 (08:30→18:08)
[2017-02-14] MEDS: oxyCODONE-APAP 7.5-325MG 1 EACH TAB PO PRN ×3 (08:30→22:45)
[2017-02-14] MEDS: predniSONE 10 MG TAB PO SCH (08:34)
[2017-02-14] MEDS: HEPARIN SODIUM,PORCINE 5,000 UNIT/ML 1 ML VIAL SQ SCH ×3 (08:34→23:38)
[2017-02-14] MEDS: DESVENLAFAXINE SUCCINATE 50 MG TAB.ER.24H PO SCH (08:34)
[2017-02-14] MEDS: HYDROXYCHLOROQUINE SULFATE 200 MG TAB PO SCH (08:34)
[2017-02-14] MEDS: PANTOPRAZOLE 40 MG TABLET PO SCH ×2 (08:34→18:09)
[2017-02-14] MEDS: BETAMETHASONE DIPROPIONATE 0.05% CREAM 15 GM TUBE TOPICAL SCH (08:35)
[2017-02-14] MEDS: MULTIVITAMINS, THERA 1 EACH TAB PO SCH (12:23)
--- NOTE | 2017-02-14 12:38 | P.PN ---
Progress Note - Text The patient's penile pain continues and he appears to have more significant penile edema. There also appears to be several areas of necrotic tissue both dorsally and near the cruz. The findings are suggestive of necrotizing fasciitis. I discussed penile exploration with excision of devitalized tissue with the patient and this will be set up later today.
[2017-02-14] MEDS ORDERED: HYDROmorphone 1 MG/ML 1 ML SYRINGE IVP STA (14:19)
[2017-02-14] MEDS ORDERED: LACTATED RINGERS 1,000 ML IV ONE (14:43)
[2017-02-14] MEDS ORDERED: HYDROmorphone 1 MG/ML 1 ML SYRINGE IVP PRN (14:48)
[2017-02-14] MEDS ORDERED: ONDANSETRON 4 MG/2 ML VIAL IVP PRN (14:48)
[2017-02-14] MEDS ORDERED: ONDANSETRON 4 MG/2 ML VIAL IVP ONE (14:49)
[2017-02-14] MEDS: LACTATED RINGERS 1,000 ML IV SCH (15:31)
[2017-02-14] MEDS ORDERED: fentaNYL (PF) 50 MCG/ML 2 ML AMP ONE (15:45)
[2017-02-14] MEDS ORDERED: MIDAZOLAM 2 MG/2 ML VIAL ONE (15:45)
[2017-02-14] MEDS ORDERED: HYDROmorphone (PF) 1 MG/ML ONE (15:45)
[2017-02-14] MEDS ORDERED: LIDOCAINE 1% INJ 10MG/ML (20 ML MDV) ONE (15:45)
[2017-02-14] MEDS ORDERED: PROPOFOL 10 MG/ML 20 ML VIAL IV ONE (15:45)
[2017-02-14] MEDS ORDERED: SUCCINYLCHOLINE CHLORIDE 100 MG/5 ML SYR IV ONE (15:45)
--- NOTE | 2017-02-14 17:15 | P.OP ---
Date of Procedure: 02/14/17 Preoperative Diagnosis: Cellulitis of penis-possible necrotizing fasciitis Postoperative Diagnosis: Severe cellulitis of penis with possible necrotizing fasciitis Procedure(s) Performed: Penile and suprapubic exploration with excision of devitalized tissue Implants: Anesthesia: GETA Pathology: other (Wound culture from deep penis) Condition: stable Disposition: PACU Indications for Procedure: The patient is a 56-year-old male with a one-week history of progressive penile swelling. The patient initially thought he had a spider bite on the left side of the penis. He has an treated with IV Zosyn and daptomycin for the last 4 days and over the last 24 hours has developed spontaneous areas of necrosis dorsally and near the cruz of the penis which appeared to be draining necrotic tissue. Penile exploration is planned due to the possibility of necrotizing fasciitis Operative Findings: Description of Procedure: The patient was taken to the operative suite where adequate general anesthesia via orotracheal intubation was instituted. The patient was placed in the supine position. Pneumatic compression stockings were applied to the lower legs. The suprapubic area was shaved. The lower abdomen and groins penis and scrotum were then prepped with Betadine soap, painted with Betadine solution and draped in a sterile fashion. A nearly circumferential skin incision was made near the cruz of the penis in the skin. In doing this several areas of skin necrosis were opened. Necrotic tissue was present and cultures were submitted from this. There appeared to be areas of fat necrosis present in the skin of the penis and underlying penile tissue. Necrotic areas of fat were debrided sharply. Dissection was continued dorsally and to the right and left the midline to near the urethra. Dorsally in the mid penile shaft there was an area of skin necrosis measuring approximately 1.5 cm in diameter. Incision from this was continued more proximally to expose the the is of the penis dorsally where additional necrotic tissue was excised. After excising all tissue that appeared nonviable attention was directed to the suprapubic area where there appeared to be a considerable amount of induration. A 3 cm skin incision was made in the midline over the pubis and carried down to near the pubic bone. There did not appear to be any fat necrosis in this area and for that reason additional dissection in this region was not performed. Saline soaked gauze was placed between the skin and deep tissue the penis and in the suprapubic area. The urethral meatus was prepped with Betadine solution and a 14-Kittitian Urena catheter was inserted and left to gravity drainage. Patient tolerated the procedure well and left the operative room awake in satisfactory condition. Blood loss was less than 30 mL. Final sponge and needle count was correct.
--- NOTE | 2017-02-14 17:34 | P.PN ---
Objective - Vital Signs Vital signs: Vital Signs Temp 97.4 F L 02/14/17 16:54 Pulse 74 02/14/17 17:16 Resp 16 02/14/17 17:16 BP 167/77 02/14/17 17:16 Pulse Ox 100 02/14/17 17:16 Intake & Output 02/13/17 02/14/17 02/14/17 18:59 06:59 18:59 Intake Total 100 100 700 Output Total 10 Balance 100 100 690 Intake: IV 700 Intake, IV Titration 100 100 Amount DAPTOmycin 500 mg In 50 50 Sodium Chloride 0.9% 50 ml @ 100 mls/hr IV Q24H [facility] Rx#:[id number] Piperacillin-Tazobactam 3 50 50 .375 gm In Dextrose/Water 1 50ml.bag @ 12.5 mls/hr IVPB Q8HR [facility] Rx#: [id number] Output: Estimated Blood Loss 10 Other: Voiding Method Toilet Toilet Toilet # Voids 1 2 3 # Bowel Movements 1 - Labs CBC & Chem 7: 02/12/17 08:22 02/13/17 07:45 Labs: Microbiology - Last 24 Hours (Table) 02/11/17 15:07 Blood Culture - Preliminary Blood No Growth after 72 hours 02/11/17 18:11 Anaerobic Culture - Preliminary Penis 02/11/17 18:11 Gram Stain - Final Penis Wound Culture - Final Staphylococcus aureus Assessment and Plan Plan: 1 acute cellulitis of the penile region due to suspected spider bite #2 history of sarcoidosis #3 chronic lower back pain #4 depression 5 acute kidney injury with improvement Plan Continue with empiric antibiotic therapy Continue monitoring of kidney function may need senior care abx via IV s/p i/D was not able to see the pt today, as pt was in the OR attempted twice
[2017-02-14] MEDS: DAPTOmycin 500 MG in SODIUM CHLORIDE 0.9% 50 ML IV SCH (20:16)
[2017-02-14] MEDS: AMITRIPTYLINE HCL 25 MG TAB PO SCH (20:16)
[2017-02-14] MEDS: NIACIN TR 500 MG CAPSULE.ER PO SCH (20:16)
--- NOTE | 2017-02-14 22:23 | P.PN ---
Subjective Principal diagnosis: penile abscess 56-year-old -[place] male presents to Hospital for further evaluation of infection to his penis. The patient relates several days prior he had developed what he thought was a bug bite on his penis. Possibly a spider bite. He manipulated multiple times trying to get the drainage out. It then became more swollen. He sought care at his primary care physician's office. He received an injection for swelling possibly a steroid as well as oral Bactrim. Despite that he had worsening he was seen today and advised for admission. He has been seen by urological surgery without the need for surgical intervention at this time. Infectious diseases consult for antibiotic therapy. This very is a gentleman does have a known history of sarcoidosis and is on plaque on all and steroids. He has not had significant troubles with infections over time. He is not any difficulties with prior genital infections. He is and has sexual relations only with his . Patient had some worsening to the abscess of the penis. He was taken to the operating room today where the incision and drainage of the penis occurred. Not related there was evidence of necrotizing fasciitis. He is doing well pain in the postoperative time frame. Cultures show evidence of staph aureus. Objective - Vital Signs Vital signs: Vital Signs Temp 97.4 F L 02/14/17 16:54 Pulse 77 02/14/17 17:30 Resp 16 02/14/17 17:30 BP 158/88 02/14/17 17:30 Pulse Ox 97 02/14/17 17:30 Intake & Output 02/14/17 02/14/17 02/15/17 06:59 18:59 06:59 Intake Total 100 725 200 Output Total 10 Balance 100 715 200 Intake: IV 725 Intake, IV Titration 100 Amount DAPTOmycin 500 mg In 50 Sodium Chloride 0.9% 50 ml @ 100 mls/hr IV Q24H [facility] Rx#:[id number] Piperacillin-Tazobactam 3 50 .375 gm In Dextrose/Water 1 50ml.bag @ 12.5 mls/hr IVPB Q8HR [facility] Rx#: [id number] Oral 200 Output: Estimated Blood Loss 10 Other: Voiding Method Toilet Toilet # Voids 2 3 - Exam Pleasant 56-year-old male who is somewhat uncomfortable. HEENT: Anicteric conjunctiva are pink and moist nasal mucosa grossly intact without significant lesions, there is no thrush. Neck: The neck is supple without significant lymphadenopathy or thyromegaly. Lungs: There is symmetrical air entry. There are expiratory wheezes. No crackles or bronchial sounds are noted. Heart: Regular rate and rhythm with an audible S1-S2, no S3 no S4. There is no significant murmur click or rub, PMI was nondisplaced. Abdomen: Positive bowel sounds soft and nontender without palpable masses or organomegaly. There was no guarding or rebound. Extremities: The upper extremities have excellent pulses they are symmetric, no significant petechiae or telangiectasia. No splinter hemorrhages were noted. The lower extremities are free from significant edema. The peripheral pulses were 2+ and symmetric. Neuro: Awake alert oriented to person place and time. There are no acute new gross focal sensory motor deficits. Genitalia reveals evidence of the extensive swelling to the penis in the suprapubic area. The postoperative dressings are not removed given the short timeframe since surgery - Labs CBC & Chem 7: 02/12/17 08:22 02/13/17 07:45 Labs: Microbiology - Last 24 Hours (Table) 02/11/17 15:07 Blood Culture - Preliminary Blood No Growth after 72 hours 02/11/17 18:11 Anaerobic Culture - Preliminary Penis Laboratory Results WBC 20.6 k/uL (3.8-10.6) H 02/12/17 08:22 RBC 3.88 m/uL (4.30-5.90) L 02/12/17 08:22 Hgb 11.9 gm/dL (13.0-17.5) L 02/12/17 08:22 Hct 35.4 % (39.0-53.0) L 02/12/17 08:22 MCV 91.3 fL (80.0-100.0) 02/12/17 08:22 MCH 30.6 pg (25.0-35.0) 02/12/17 08:22 MCHC 33.5 g/dL (31.0-37.0) 02/12/17 08:22 RDW 14.6 % (11.5-15.5) 02/12/17 08:22 Plt Count 249 k/uL (150-450) 02/12/17 08:22 Neutrophils % 81 % 02/12/17 08:22 Lymphocytes % 8 % 02/12/17 08:22 Monocytes % 8 % 02/12/17 08:22 Eosinophils % 1 % 02/12/17 08:22 Basophils % 0 % 02/12/17 08:22 Neutrophils # 16.6 k/uL (1.3-7.7) H 02/12/17 08:22 Lymphocytes # 1.7 k/uL (1.0-4.8) 02/12/17 08:22 Monocytes # 1.6 k/uL (0-1.0) H 02/12/17 08:22 Eosinophils # 0.2 k/uL (0-0.7) 02/12/17 08:22 Basophils # 0.0 k/uL (0-0.2) 02/12/17 08:22 Sodium 140 mmol/L (137-145) 02/13/17 07:45 Potassium 3.5 mmol/L (3.5-5.1) 02/13/17 07:45 Chloride 104 mmol/L (98-107) 02/13/17 07:45 Carbon Dioxide 26 mmol/L (22-30) 02/13/17 07:45 Anion Gap 10 mmol/L 02/13/17 07:45 BUN 20 mg/dL (9-20) 02/13/17 07:45 Creatinine 1.07 mg/dL (0.66-1.25) 02/13/17 07:45 Est GFR (MDRD) Af Amer >60 (>60 ml/min/1.73 sqM) 02/13/17 07:45 Est GFR (MDRD) Non-Af >60 (>60 ml/min/1.73 sqM) 02/13/17 07:45 Glucose 83 mg/dL (74-99) 02/13/17 07:45 Plasma Lactic Acid Ger 1.9 mmol/L (0.7-2.0) 02/11/17 15:49 Calcium 8.9 mg/dL (8.4-10.2) 02/13/17 07:45 Total Bilirubin 0.5 mg/dL (0.2-1.3) 02/13/17 07:45 AST 34 U/L (17-59) 02/13/17 07:45 ALT 57 U/L (21-72) 02/13/17 07:45 Alkaline Phosphatase 104 U/L (38-126) 02/13/17 07:45 Total Protein 5.6 g/dL (6.3-8.2) L 02/13/17 07:45 Albumin 3.1 g/dL (3.5-5.0) L 02/13/17 07:45 Urine Color Yellow 02/11/17 17:30 Urine Appearance Clear (Clear) 02/11/17 17:30 Urine pH 6.0 (5.0-8.0) 02/11/17 17:30 Ur Specific [place] 1.023 (1.001-1.035) 02/11/17 17:30 Urine Protein Trace (Negative) H 02/11/17 17:30 Urine Glucose (UA) Negative (Negative) 02/11/17 17:30 Urine Ketones Negative (Negative) 02/11/17 17:30 Urine Blood Negative (Negative) 02/11/17 17:30 Urine Nitrite Negative (Negative) 02/11/17 17:30 Urine Bilirubin Negative (Negative) 02/11/17 17:30 Urine Urobilinogen >12.0 mg/dL (<2.0) 02/11/17 17:30 Ur Leukocyte Esterase Negative (Negative) 02/11/17 17:30 Virus Source See Below 02/11/17 18:11 Viral Test See Below 02/11/17 18:11 Virus Analysis Interp See Below 02/11/17 18:11 Microbiology 02/11/17 15:07 Blood Blood Culture - Preliminary No Growth after 72 hours 02/11/17 18:11 Penis Anaerobic Culture - Preliminary 02/11/17 18:11 Penis Gram Stain - Final 02/11/17 18:11 Penis Wound Culture - Final Staphylococcus aureus 02/11/17 17:30 Urine,Voided Urine Culture - Final Assessment and Plan (1) Abscess of penis Narrative/Plan: 56-year-old male presents to Hospital with a several-day history of increasing pain and swelling to the shaft of his penis. The patient relates it started as what was like a pimple. It with manipulation it worsen. Despite outpatient oral antibiotic therapy it markedly worsened and upon reevaluation was sent to hospital. He's been seen by urological surgery without the need for surgical intervention. Patient likely has a staphylococcal infection of the penis. Concerns discussed also be streptococcal. Antibiotic therapy with daptomycin and piperacillin tazobactam and use until we have further data. Debility is opened and a thin serous material is drained. There is no evidence of any necrosis of the base of the bulla. There is evidence of some cellulitis that has ascended to the suprapubic area. Bacterial and viral cultures are sent. Bacterial culture show evidence of MSSA. Viral cultures are negative. At this time and a by therapy can be altered to high-dose cefazolin and with no other pathogens being found. We'll plan outpatient intravenous antibiotic therapy at discharge given his complex infection in his immunocompromised status. Status: Acute (2) Sarcoidosis of lung Status: Chronic
[2017-02-15] MEDS: ceFAZolin 2 GM in SODIUM CHLORIDE 0.9% 100 ML IVPB SCH ×4 (01:18→23:39)
--- NOTE | 2017-02-15 07:33 | P.PN ---
Progress Note - Text The patient is afebrile. He has penile pain as expected following debridement of devitalized tissue along the penile shaft. On examination there is less edema of the penile skin. All skin areas appear viable. There is some serous drainage from the incisions on the packing but no gross purulence. The patient' s dressings will be changed every shift he will he continued on his current antibiotics. Tissue culture from the necrotic material was obtained at the time of surgery yesterday.
[2017-02-15] MEDS ORDERED: MORPHINE SULFATE 10 MG/ML SYRINGE IVP PRN (08:04)
[2017-02-15] MEDS: PANTOPRAZOLE 40 MG TABLET PO SCH ×2 (08:07→16:31)
[2017-02-15] MEDS: BETAMETHASONE DIPROPIONATE 0.05% CREAM 15 GM TUBE TOPICAL SCH (08:08)
[2017-02-15] MEDS: DESVENLAFAXINE SUCCINATE 50 MG TAB.ER.24H PO SCH (08:08)
[2017-02-15] MEDS: HEPARIN SODIUM,PORCINE 5,000 UNIT/ML 1 ML VIAL SQ SCH ×3 (08:08→23:39)
[2017-02-15] MEDS: predniSONE 10 MG TAB PO SCH (08:09)
[2017-02-15] MEDS: HYDROXYCHLOROQUINE SULFATE 200 MG TAB PO SCH (08:09)
[2017-02-15] MEDS: oxyCODONE-APAP 7.5-325MG 1 EACH TAB PO PRN ×3 (08:14→23:42)
[2017-02-15 09:07] LABS: Basophils # (A) 0.1 k/uL (0-0.2); Basophils % (A) 1 %; CH 29.9; CHCM 32.9; Eosinophils # (A) 0.3 k/uL (0-0.7); Eosinophils % (A) 3 %; HCT 33.4 % (39.0-53.0); HDW 3.02; HGB 11.2 gm/dL (13.0-17.5); Luc # (Auto) 0.33; Luc % (Auto) 3; Lymphocytes # (A) 2.4 k/uL (1.0-4.8); Lymphocytes % (A) 24 %; MCH 30.5 pg (25.0-35.0); MCHC 33.4 g/dL (31.0-37.0); MCV 91.4 fL (80.0-100.0); Mean Platelet Volume 7.3; Monocytes # (A) 0.6 k/uL (0-1.0); Monocytes % (A) 6 %; Neutrophils # (A) 6.3 k/uL (1.3-7.7); Neutrophils % (A) 63 %; RBC 3.65 m/uL (4.30-5.90); RDW 14.4 % (11.5-15.5); WBC (Perox) 10.12
[2017-02-15] MEDS: MULTIVITAMINS, THERA 1 EACH TAB PO SCH (13:05)
[2017-02-15] MEDS: MORPHINE SULFATE ER 15 MG TABLET PO SCH ×2 (16:30→20:18)
[2017-02-15] MEDS: LACTATED RINGERS 1,000 ML IV SCH (16:32)
--- NOTE | 2017-02-15 17:48 | P.PN ---
Subjective Mr. Kaiser is a 56-year-old male with a known history of hypertension, sarcoidosis, chronic back pain and other medical problems was sent from Dr. Augustine Wheat's office with complaints of cellulitis. Apparently patient had spider bite on his penis about 3-4 days back and since then patient is having increased swelling of his penis and subjective fevers at home. Patient went to PCPs office and patient was sent to the hospital for IV antibiotics. Otherwise patient denied any, soft chest pain or short of breath no nausea vomiting or abdominal pain. No recent illnesses. Patient does take OxyContin and Percocet for chronic back pain and left hip pain. No recent travel or sick contacts. Patient has failed outpatient therapy with Bactrim. 02/12/2017 Patient denies having any fevers chills nausea vomiting diarrhea 08/16/2016 Patient denies having any fevers chills nausea vomiting. Patient states that he 's had slight improvement however there is some discharge that is noted from the penile region 02/15/17 seen today s/p surgical exploration of the penis in significant pain NO fevers, chills, nausea, vomiting, diarrhea is reported Objective - Vital Signs Vital signs: Vital Signs Temp 97.7 F 02/15/17 15:00 Pulse 77 02/15/17 15:00 Resp 18 02/15/17 15:00 BP 141/67 02/15/17 15:00 Pulse Ox 95 02/15/17 15:00 Intake & Output 02/14/17 02/15/17 02/15/17 18:59 06:59 18:59 Intake Total 725 300 Output Total 10 800 650 Balance 715 -500 -650 Intake: IV 725 Oral 300 Output: Urine 800 650 Urine/Stool Mix 0 Estimated Blood Loss 10 Other: Voiding Method Toilet Indwelling Catheter Indwelling Catheter # Voids 3 400 1 # Bowel Movements 1 - Exam Physical exam Gen. appearance oriented 3 in no distress Neck is supple no JVD Lungs good air entry clear to auscultation no rhonchi or wheezing Heart S1-S2 heard regular rate and rhythm no murmurs appreciated Abdomen is soft nontender no organomegaly bowel sounds are intact Neurologically cranial nerves II-12 grossly intact no focal motor or sensory deficits noted Skin no abnormalities appreciated Penile edema suprapubic incision multiple penile incisions with dressing - Labs CBC & Chem 7: 02/15/17 08:39 02/13/17 07:45 Labs: Abnormal Lab Results - Last 24 Hours (Table) 02/15/17 Range/Units 08:39 RBC 3.65 L (4.30-5.90) m/uL Hgb 11.2 L (13.0-17.5) gm/dL Hct 33.4 L (39.0-53.0) % Microbiology - Last 24 Hours (Table) 02/11/17 15:07 Blood Culture - Preliminary Blood No Growth after 96 hours 02/14/17 16:12 Gram Stain - Preliminary Penis Wound Culture - Preliminary 02/14/17 16:12 Anaerobic Culture - Preliminary Penis Assessment and Plan Plan: 1 acute cellulitis of the penile region due to suspected spider bite #2 history of sarcoidosis #3 chronic lower back pain #4 depression 5 acute kidney injury with improvement Plan Continue with empiric antibiotic therapy Continue monitoring of kidney function may need group home abx via IV s/p i/D start morphine 15mg bid xr slowly titrate down use of iv narcotics
[2017-02-15] MEDS: NIACIN TR 500 MG CAPSULE.ER PO SCH (20:20)
[2017-02-15] MEDS: AMITRIPTYLINE HCL 25 MG TAB PO SCH (20:21)
--- NOTE | 2017-02-15 22:39 | P.PN ---
Subjective Principal diagnosis: penile abscess 56-year-old -[place] male presents to Hospital for further evaluation of infection to his penis. The patient relates several days prior he had developed what he thought was a bug bite on his penis. Possibly a spider bite. He manipulated multiple times trying to get the drainage out. It then became more swollen. He sought care at his primary care physician's office. He received an injection for swelling possibly a steroid as well as oral Bactrim. Despite that he had worsening he was seen today and advised for admission. He has been seen by urological surgery without the need for surgical intervention at this time. Infectious diseases consult for antibiotic therapy. This very is a gentleman does have a known history of sarcoidosis and is on plaque on all and steroids. He has not had significant troubles with infections over time. He is not any difficulties with prior genital infections. He is and has sexual relations only with his . Patient had some worsening to the abscess of the penis. He was taken to the operating room today where the incision and drainage of the penis occurred. Not related there was evidence of necrotizing fasciitis. He is doing well pain in the postoperative time frame. Cultures show evidence of staph aureus. Is having some pain at the time of dressing changes. Objective - Vital Signs Vital signs: Vital Signs Temp 97.7 F 02/15/17 15:00 Pulse 77 02/15/17 15:00 Resp 18 02/15/17 15:00 BP 141/67 02/15/17 15:00 Pulse Ox 95 02/15/17 15:00 Intake & Output 02/15/17 02/15/17 02/16/17 06:59 18:59 06:59 Intake Total 300 Output Total 800 650 Balance -500 -650 Intake: Oral 300 Output: Urine 800 650 Urine/Stool Mix 0 Other: Voiding Method Indwelling Catheter Indwelling Catheter # Voids 400 1 # Bowel Movements 1 - Exam Pleasant 56-year-old male who is somewhat uncomfortable. HEENT: Anicteric conjunctiva are pink and moist nasal mucosa grossly intact without significant lesions, there is no thrush. Neck: The neck is supple without significant lymphadenopathy or thyromegaly. Lungs: There is symmetrical air entry. There are expiratory wheezes. No crackles or bronchial sounds are noted. Heart: Regular rate and rhythm with an audible S1-S2, no S3 no S4. There is no significant murmur click or rub, PMI was nondisplaced. Abdomen: Positive bowel sounds soft and nontender without palpable masses or organomegaly. There was no guarding or rebound. Extremities: The upper extremities have excellent pulses they are symmetric, no significant petechiae or telangiectasia. No splinter hemorrhages were noted. The lower extremities are free from significant edema. The peripheral pulses were 2+ and symmetric. Neuro: Awake alert oriented to person place and time. There are no acute new gross focal sensory motor deficits. Genitalia reveals evidence of the extensive swelling to the penis in the suprapubic area. The postoperative dressings are not removed given the short timeframe since surgery - Labs CBC & Chem 7: 02/15/17 08:39 02/13/17 07:45 Labs: Abnormal Lab Results - Last 24 Hours (Table) 02/15/17 Range/Units 08:39 RBC 3.65 L (4.30-5.90) m/uL Hgb 11.2 L (13.0-17.5) gm/dL Hct 33.4 L (39.0-53.0) % Microbiology - Last 24 Hours (Table) 02/14/17 16:12 Gram Stain - Preliminary Penis Wound Culture - Preliminary Presumptive Staph aureus 02/11/17 18:11 Anaerobic Culture - Final Penis 02/11/17 15:07 Blood Culture - Preliminary Blood No Growth after 96 hours 02/14/17 16:12 Anaerobic Culture - Preliminary Penis Laboratory Results WBC 10.0 k/uL (3.8-10.6) 02/15/17 08:39 RBC 3.65 m/uL (4.30-5.90) L 02/15/17 08:39 Hgb 11.2 gm/dL (13.0-17.5) L 02/15/17 08:39 Hct 33.4 % (39.0-53.0) L 02/15/17 08:39 MCV 91.4 fL (80.0-100.0) 02/15/17 08:39 MCH 30.5 pg (25.0-35.0) 02/15/17 08:39 MCHC 33.4 g/dL (31.0-37.0) 02/15/17 08:39 RDW 14.4 % (11.5-15.5) 02/15/17 08:39 Plt Count 328 k/uL (150-450) 02/15/17 08:39 Neutrophils % 63 % 02/15/17 08:39 Lymphocytes % 24 % 02/15/17 08:39 Monocytes % 6 % 02/15/17 08:39 Eosinophils % 3 % 02/15/17 08:39 Basophils % 1 % 02/15/17 08:39 Neutrophils # 6.3 k/uL (1.3-7.7) 02/15/17 08:39 Lymphocytes # 2.4 k/uL (1.0-4.8) 02/15/17 08:39 Monocytes # 0.6 k/uL (0-1.0) 02/15/17 08:39 Eosinophils # 0.3 k/uL (0-0.7) 02/15/17 08:39 Basophils # 0.1 k/uL (0-0.2) 02/15/17 08:39 Sodium 140 mmol/L (137-145) 02/13/17 07:45 Potassium 3.5 mmol/L (3.5-5.1) 02/13/17 07:45 Chloride 104 mmol/L (98-107) 02/13/17 07:45 Carbon Dioxide 26 mmol/L (22-30) 02/13/17 07:45 Anion Gap 10 mmol/L 02/13/17 07:45 BUN 20 mg/dL (9-20) 02/13/17 07:45 Creatinine 1.07 mg/dL (0.66-1.25) 02/13/17 07:45 Est GFR (MDRD) Af Amer >60 (>60 ml/min/1.73 sqM) 02/13/17 07:45 Est GFR (MDRD) Non-Af >60 (>60 ml/min/1.73 sqM) 02/13/17 07:45 Glucose 83 mg/dL (74-99) 02/13/17 07:45 Plasma Lactic Acid Ger 1.9 mmol/L (0.7-2.0) 02/11/17 15:49 Calcium 8.9 mg/dL (8.4-10.2) 02/13/17 07:45 Total Bilirubin 0.5 mg/dL (0.2-1.3) 02/13/17 07:45 AST 34 U/L (17-59) 02/13/17 07:45 ALT 57 U/L (21-72) 02/13/17 07:45 Alkaline Phosphatase 104 U/L (38-126) 02/13/17 07:45 Total Protein 5.6 g/dL (6.3-8.2) L 02/13/17 07:45 Albumin 3.1 g/dL (3.5-5.0) L 02/13/17 07:45 Urine Color Yellow 02/11/17 17:30 Urine Appearance Clear (Clear) 02/11/17 17:30 Urine pH 6.0 (5.0-8.0) 02/11/17 17:30 Ur Specific [place] 1.023 (1.001-1.035) 02/11/17 17:30 Urine Protein Trace (Negative) H 02/11/17 17:30 Urine Glucose (UA) Negative (Negative) 02/11/17 17:30 Urine Ketones Negative (Negative) 02/11/17 17:30 Urine Blood Negative (Negative) 02/11/17 17:30 Urine Nitrite Negative (Negative) 02/11/17 17:30 Urine Bilirubin Negative (Negative) 02/11/17 17:30 Urine Urobilinogen >12.0 mg/dL (<2.0) 02/11/17 17:30 Ur Leukocyte Esterase Negative (Negative) 02/11/17 17:30 Virus Source See Below 02/11/17 18:11 Viral Test See Below 02/11/17 18:11 Virus Analysis Interp See Below 02/11/17 18:11 Microbiology 02/14/17 16:12 Penis Gram Stain - Preliminary 02/14/17 16:12 Penis Wound Culture - Preliminary Presumptive Staph aureus 02/11/17 18:11 Penis Anaerobic Culture - Final 02/11/17 15:07 Blood Blood Culture - Preliminary No Growth after 96 hours 02/14/17 16:12 Penis Anaerobic Culture - Preliminary 02/11/17 18:11 Penis Gram Stain - Final 02/11/17 18:11 Penis Wound Culture - Final Staphylococcus aureus 02/11/17 17:30 Urine,Voided Urine Culture - Final Assessment and Plan (1) Abscess of penis Narrative/Plan: 56-year-old male presents to Hospital with a several-day history of increasing pain and swelling to the shaft of his penis. The patient relates it started as what was like a pimple. It with manipulation it worsen. Despite outpatient oral antibiotic therapy it markedly worsened and upon reevaluation was sent to hospital. He's been seen by urological surgery without the need for surgical intervention. Patient likely has a staphylococcal infection of the penis. Concerns discussed also be streptococcal. Antibiotic therapy with daptomycin and piperacillin tazobactam and use until we have further data. Debility is opened and a thin serous material is drained. There is no evidence of any necrosis of the base of the bulla. There is evidence of some cellulitis that has ascended to the suprapubic area. Bacterial and viral cultures are sent. Bacterial culture show evidence of MSSA. Viral cultures are negative. At this time and a by therapy can be altered to high-dose cefazolin and with no other pathogens being found. We'll plan outpatient intravenous antibiotic therapy at discharge given his complex infection in his immunocompromised status. PICC line requested. Dressing changes twice per day May change to a silver dressing Status: Acute (2) Sarcoidosis of lung Status: Chronic
[2017-02-16] MEDS: MORPHINE SULFATE 4 MG/ML SYRINGE IVP PRN ×2 (05:04→17:28)
[2017-02-16] MEDS: HEPARIN SODIUM,PORCINE 5,000 UNIT/ML 1 ML VIAL SQ SCH ×3 (08:47→23:16)
[2017-02-16] MEDS: ceFAZolin 2 GM in SODIUM CHLORIDE 0.9% 100 ML IVPB SCH ×3 (08:47→23:17)
[2017-02-16] MEDS: BETAMETHASONE DIPROPIONATE 0.05% CREAM 15 GM TUBE TOPICAL SCH (08:47)
[2017-02-16] MEDS: PANTOPRAZOLE 40 MG TABLET PO SCH ×2 (08:47→16:15)
[2017-02-16] MEDS: DESVENLAFAXINE SUCCINATE 50 MG TAB.ER.24H PO SCH (08:48)
[2017-02-16] MEDS: HYDROXYCHLOROQUINE SULFATE 200 MG TAB PO SCH (08:48)
[2017-02-16] MEDS: predniSONE 10 MG TAB PO SCH (08:48)
[2017-02-16] MEDS: oxyCODONE-APAP 7.5-325MG 1 EACH TAB PO PRN ×3 (08:49→23:21)
[2017-02-16] MEDS: MORPHINE SULFATE ER 15 MG TABLET PO SCH ×2 (08:52→20:08)
--- NOTE | 2017-02-16 08:57 | P.PN ---
Progress Note - Text The patient continues to improve. He is afebrile and says he wants to go home today. He will be having a PICC line placed for IV antibiotics following discharge. An examination there appears to be much less penile edema. All skin flaps are viable and there appears to be less drainage. There is less edema of the glans as well. Suprapubic opening is clean. I told the patient that from my standpoint he could go home on IV antibiotics if we can set up home nursing for dressing changes. I will be gone for the next 2 weeks and ideally the patient could be seen back either by Dr. Lanier or Clif next week. The patient's catheter could be removed either later today or in the morning.
[2017-02-16] MEDS ORDERED: LIDOCAINE 2% INJ 20 MG/ML SQ ONE (10:45)
[2017-02-16] MEDS: MULTIVITAMINS, THERA 1 EACH TAB PO SCH (12:07)
--- NOTE | 2017-02-16 13:39 | IR ---
EXAMINATION TYPE: IR cvc insert >=5 years DATE OF EXAM: 02/16/2017 COMPARISON: NONE CLINICAL HISTORY: Infection Needs long-term intravenous access for antibiotics. PROCEDURE: After informed consent, the skin overlying the upper extremity vein was localized with ultrasound and noted to be compressible and patent. An ultrasound image was obtained and submitted on the patient' s chart. The overlying skin was prepped and draped and Lidocaine was used for local anesthesia. A s kin areli was made with a scalpel. Access was gained to the vein under ultrasound guidance with a 21 gauge needle and a 0.018 inch wire was advanced. Access site was dilated with Peel-Away sheath and c atheter tailored to the appropriate length and advanced such that the distal tip is at the cavoatrial junction. Spot image was obtained verifying placement. Catheter was fixed to the skin with suture and a sterile dressing was placed following hemostasis. Catheter was aspirated and flushed with sali ne. Patient was discharged in stable condition without complication. Maximal barrier technique is ut ilized. Ultrasound image is documented on the chart. Ultrasound used with sterile technique. Fluoro time and fluoroscopic images submitted to document procedure: 0.3 minutes fluoroscopy time, 19 1 intraoperative C-arm images document the procedure IMPRESSION: STATUS POST ULTRASOUND AND FLUOROSCOPIC GUIDED PICC LINE PLACEMENT, READY FOR USE. THIS PROCEDURE WAS PERFORMED BY THE UNDERSIGNED.
[2017-02-16] MEDS: LACTATED RINGERS 1,000 ML IV SCH (16:13)
--- NOTE | 2017-02-16 16:39 | P.PN ---
Subjective Mr. Kaiser is a 56-year-old male with a known history of hypertension, sarcoidosis, chronic back pain and other medical problems was sent from Dr. Augustine Wheat's office with complaints of cellulitis. Apparently patient had spider bite on his penis about 3-4 days back and since then patient is having increased swelling of his penis and subjective fevers at home. Patient went to PCPs office and patient was sent to the hospital for IV antibiotics. Otherwise patient denied any, soft chest pain or short of breath no nausea vomiting or abdominal pain. No recent illnesses. Patient does take OxyContin and Percocet for chronic back pain and left hip pain. No recent travel or sick contacts. Patient has failed outpatient therapy with Bactrim. 02/12/2017 Patient denies having any fevers chills nausea vomiting diarrhea 08/16/2016 Patient denies having any fevers chills nausea vomiting. Patient states that he 's had slight improvement however there is some discharge that is noted from the penile region 02/15/17 seen today s/p surgical exploration of the penis in significant pain NO fevers, chills, nausea, vomiting, diarrhea is reported 02/16/17 pain is better controlled no fevers, chills, nausea, vomiting, diarrhea Objective - Vital Signs Vital signs: Vital Signs Temp 97.7 F 02/16/17 07:00 Pulse 73 02/16/17 07:00 Resp 18 02/16/17 07:00 BP 137/85 02/16/17 07:00 Pulse Ox 99 02/16/17 07:00 Intake & Output 02/15/17 02/16/17 02/16/17 18:59 06:59 18:59 Intake Total 240 Output Total 650 800 Balance -650 -560 Intake: Oral 240 Output: Urine 650 800 Other: Voiding Method Indwelling Catheter Indwelling Catheter # Voids 1 # Bowel Movements 1 - Exam Physical exam Gen. appearance oriented 3 in no distress Neck is supple no JVD Lungs good air entry clear to auscultation no rhonchi or wheezing Heart S1-S2 heard regular rate and rhythm no murmurs appreciated Abdomen is soft nontender no organomegaly bowel sounds are intact Neurologically cranial nerves II-12 grossly intact no focal motor or sensory deficits noted Skin no abnormalities appreciated Penile edema suprapubic incision multiple penile incisions with dressing - Labs CBC & Chem 7: 02/15/17 08:39 02/13/17 07:45 Labs: Microbiology - Last 24 Hours (Table) 02/14/17 16:12 Gram Stain - Preliminary Penis Wound Culture - Preliminary Presumptive Staph aureus 02/11/17 18:11 Anaerobic Culture - Final Penis 02/11/17 15:07 Blood Culture - Preliminary Blood No Growth after 96 hours Assessment and Plan Plan: 1 acute cellulitis of the penile region due to suspected spider bite #2 history of sarcoidosis #3 chronic lower back pain #4 depression 5 acute kidney injury with improvement Plan PICC in place iv abx dc to [facility] for dressing changes iv abx s/p i/D start morphine 15mg bid xr slowly titrate down use of iv narcotics
[2017-02-16] MEDS: NIACIN TR 500 MG CAPSULE.ER PO SCH (20:08)
[2017-02-16] MEDS: AMITRIPTYLINE HCL 25 MG TAB PO SCH (20:08)
--- NOTE | 2017-02-16 21:15 | P.PN ---
Subjective Principal diagnosis: penile abscess 56-year-old -[place] male presents to Hospital for further evaluation of infection to his penis. The patient relates several days prior he had developed what he thought was a bug bite on his penis. Possibly a spider bite. He manipulated multiple times trying to get the drainage out. It then became more swollen. He sought care at his primary care physician's office. He received an injection for swelling possibly a steroid as well as oral Bactrim. Despite that he had worsening he was seen today and advised for admission. He has been seen by urological surgery without the need for surgical intervention at this time. Infectious diseases consult for antibiotic therapy. This very is a gentleman does have a known history of sarcoidosis and is on plaque on all and steroids. He has not had significant troubles with infections over time. He is not any difficulties with prior genital infections. He is and has sexual relations only with his . Patient had some worsening to the abscess of the penis. He was taken to the operating room where the incision and drainage of the penis occurred. related there was NO evidence of necrotizing fasciitis. He is doing well pain in the postoperative time frame. Cultures show evidence of staph aureus. Is having some pain at the time of dressing changes. Objective - Vital Signs Vital signs: Vital Signs Temp 98.5 F 02/16/17 15:00 Pulse 90 02/16/17 15:00 Resp 16 02/16/17 15:00 BP 156/80 02/16/17 15:00 Pulse Ox 98 02/16/17 15:00 Intake & Output 02/16/17 02/16/17 02/17/17 06:59 18:59 06:59 Intake Total 240 Output Total 800 700 Balance -560 -700 Intake: Oral 240 Output: Urine 800 700 Other: Voiding Method Indwelling Catheter - Exam Pleasant 56-year-old male who is somewhat uncomfortable. HEENT: Anicteric conjunctiva are pink and moist nasal mucosa grossly intact without significant lesions, there is no thrush. Neck: The neck is supple without significant lymphadenopathy or thyromegaly. Lungs: There is symmetrical air entry. There are expiratory wheezes. No crackles or bronchial sounds are noted. Heart: Regular rate and rhythm with an audible S1-S2, no S3 no S4. There is no significant murmur click or rub, PMI was nondisplaced. Abdomen: Positive bowel sounds soft and nontender without palpable masses or organomegaly. There was no guarding or rebound. Extremities: The upper extremities have excellent pulses they are symmetric, no significant petechiae or telangiectasia. No splinter hemorrhages were noted. The lower extremities are free from significant edema. The peripheral pulses were 2+ and symmetric. Neuro: Awake alert oriented to person place and time. There are no acute new gross focal sensory motor deficits. Genitalia reveals evidence of the extensive swelling to the penis in the suprapubic area. The dressing is changed. The areas of surgical debridement are cleaned with saline and Aquacel silver is put into place. Wrapped and place and packed into the suprapubic site also. - Labs CBC & Chem 7: 02/15/17 08:39 02/13/17 07:45 Labs: Microbiology - Last 24 Hours (Table) 02/14/17 16:12 Gram Stain - Final Penis Wound Culture - Final Staphylococcus aureus 02/11/17 15:07 Blood Culture - Preliminary Blood No Growth after 120 hours 02/11/17 18:11 Anaerobic Culture - Final Penis Laboratory Results WBC 10.0 k/uL (3.8-10.6) 02/15/17 08:39 RBC 3.65 m/uL (4.30-5.90) L 02/15/17 08:39 Hgb 11.2 gm/dL (13.0-17.5) L 02/15/17 08:39 Hct 33.4 % (39.0-53.0) L 02/15/17 08:39 MCV 91.4 fL (80.0-100.0) 02/15/17 08:39 MCH 30.5 pg (25.0-35.0) 02/15/17 08:39 MCHC 33.4 g/dL (31.0-37.0) 02/15/17 08:39 RDW 14.4 % (11.5-15.5) 02/15/17 08:39 Plt Count 328 k/uL (150-450) 02/15/17 08:39 Neutrophils % 63 % 02/15/17 08:39 Lymphocytes % 24 % 02/15/17 08:39 Monocytes % 6 % 02/15/17 08:39 Eosinophils % 3 % 02/15/17 08:39 Basophils % 1 % 02/15/17 08:39 Neutrophils # 6.3 k/uL (1.3-7.7) 02/15/17 08:39 Lymphocytes # 2.4 k/uL (1.0-4.8) 02/15/17 08:39 Monocytes # 0.6 k/uL (0-1.0) 02/15/17 08:39 Eosinophils # 0.3 k/uL (0-0.7) 02/15/17 08:39 Basophils # 0.1 k/uL (0-0.2) 02/15/17 08:39 Sodium 140 mmol/L (137-145) 02/13/17 07:45 Potassium 3.5 mmol/L (3.5-5.1) 02/13/17 07:45 Chloride 104 mmol/L (98-107) 02/13/17 07:45 Carbon Dioxide 26 mmol/L (22-30) 02/13/17 07:45 Anion Gap 10 mmol/L 02/13/17 07:45 BUN 20 mg/dL (9-20) 02/13/17 07:45 Creatinine 1.07 mg/dL (0.66-1.25) 02/13/17 07:45 Est GFR (MDRD) Af Amer >60 (>60 ml/min/1.73 sqM) 02/13/17 07:45 Est GFR (MDRD) Non-Af >60 (>60 ml/min/1.73 sqM) 02/13/17 07:45 Glucose 83 mg/dL (74-99) 02/13/17 07:45 Plasma Lactic Acid Ger 1.9 mmol/L (0.7-2.0) 02/11/17 15:49 Calcium 8.9 mg/dL (8.4-10.2) 02/13/17 07:45 Total Bilirubin 0.5 mg/dL (0.2-1.3) 02/13/17 07:45 AST 34 U/L (17-59) 02/13/17 07:45 ALT 57 U/L (21-72) 02/13/17 07:45 Alkaline Phosphatase 104 U/L (38-126) 02/13/17 07:45 Total Protein 5.6 g/dL (6.3-8.2) L 02/13/17 07:45 Albumin 3.1 g/dL (3.5-5.0) L 02/13/17 07:45 Urine Color Yellow 02/11/17 17:30 Urine Appearance Clear (Clear) 02/11/17 17:30 Urine pH 6.0 (5.0-8.0) 02/11/17 17:30 Ur Specific [place] 1.023 (1.001-1.035) 02/11/17 17:30 Urine Protein Trace (Negative) H 02/11/17 17:30 Urine Glucose (UA) Negative (Negative) 02/11/17 17:30 Urine Ketones Negative (Negative) 02/11/17 17:30 Urine Blood Negative (Negative) 02/11/17 17:30 Urine Nitrite Negative (Negative) 02/11/17 17:30 Urine Bilirubin Negative (Negative) 02/11/17 17:30 Urine Urobilinogen >12.0 mg/dL (<2.0) 02/11/17 17:30 Ur Leukocyte Esterase Negative (Negative) 02/11/17 17:30 Virus Source See Below 02/11/17 18:11 Viral Test See Below 02/11/17 18:11 Virus Analysis Interp See Below 02/11/17 18:11 Microbiology 02/14/17 16:12 Penis Gram Stain - Final 02/14/17 16:12 Penis Wound Culture - Final Staphylococcus aureus 02/11/17 15:07 Blood Blood Culture - Preliminary No Growth after 120 hours 02/11/17 18:11 Penis Anaerobic Culture - Final 02/14/17 16:12 Penis Anaerobic Culture - Preliminary 02/11/17 18:11 Penis Gram Stain - Final 02/11/17 18:11 Penis Wound Culture - Final Staphylococcus aureus 02/11/17 17:30 Urine,Voided Urine Culture - Final Assessment and Plan (1) Abscess of penis Narrative/Plan: 56-year-old male presents to Hospital with a several-day history of increasing pain and swelling to the shaft of his penis. The patient relates it started as what was like a pimple. It with manipulation it worsen. Despite outpatient oral antibiotic therapy it markedly worsened and upon reevaluation was sent to hospital. He's been seen by urological surgery without the need for surgical intervention. Patient likely has a staphylococcal infection of the penis. Concerns discussed also be streptococcal. Antibiotic therapy with daptomycin and piperacillin tazobactam and use until we have further data. Debility is opened and a thin serous material is drained. There is no evidence of any necrosis of the base of the bulla. There is evidence of some cellulitis that has ascended to the suprapubic area. Bacterial and viral cultures are sent. Bacterial culture show evidence of MSSA. Viral cultures are negative. At this time and a by therapy can be altered to high-dose cefazolin and with no other pathogens being found. We'll plan outpatient intravenous antibiotic therapy at discharge given his complex infection in his immunocompromised status. PICC line requested. Dressings are now switched to Aquacel Silver. This can be changed every Tuesday. This anymore amenable to home care. Hopefully receive the infusion in the office setting. Status: Acute (2) Sarcoidosis of lung Status: Chronic
[2017-02-17 08:01] VITALS: RESP 16
[2017-02-17] MEDS: HEPARIN SODIUM,PORCINE 5,000 UNIT/ML 1 ML VIAL SQ SCH (08:03)
[2017-02-17] MEDS: PANTOPRAZOLE 40 MG TABLET PO SCH (08:03)
[2017-02-17] MEDS: ceFAZolin 2 GM in SODIUM CHLORIDE 0.9% 100 ML IVPB SCH (08:03)
[2017-02-17] MEDS: MORPHINE SULFATE ER 15 MG TABLET PO SCH (08:05)
[2017-02-17] MEDS: HYDROXYCHLOROQUINE SULFATE 200 MG TAB PO SCH (08:05)
[2017-02-17] MEDS: predniSONE 10 MG TAB PO SCH (08:05)
[2017-02-17] MEDS: oxyCODONE-APAP 7.5-325MG 1 EACH TAB PO PRN ×2 (08:08→16:31)
[2017-02-17 08:51] LABS: ALT 73 U/L (21-72); AST 63 U/L (17-59); Alkaline Phosphatase 116 U/L (38-126); Anion Gap 7 mmol/L; Blood Urea Nitrogen 11 mg/dL (9-20); Carbon Dioxide 32 mmol/L (22-30); Chloride 102 mmol/L (98-107); Glucose 90 mg/dL (74-99); Non-African American GFR(MDRD) >60 (>60 ml/min/1.73 sqM); Sodium 141 mmol/L (137-145); Total Bilirubin 0.2 mg/dL (0.2-1.3); Total Protein 5.6 g/dL (6.3-8.2)
[2017-02-17 08:58] LABS: Basophils # (A) 0.1 k/uL (0-0.2); Basophils % (A) 1 %; CH 29.7; CHCM 33.2; Eosinophils # (A) 0.4 k/uL (0-0.7); Eosinophils % (A) 3 %; HCT 36.1 % (39.0-53.0); HDW 2.99; HGB 11.9 gm/dL (13.0-17.5); Luc # (Auto) 0.28; Luc % (Auto) 2; Lymphocytes # (A) 3.1 k/uL (1.0-4.8); Lymphocytes % (A) 24 %; MCH 29.7 pg (25.0-35.0); MCV 90.2 fL (80.0-100.0); Mean Platelet Volume 6.9; Monocytes # (A) 0.6 k/uL (0-1.0); Monocytes % (A) 5 %; Neutrophils # (A) 8.5 k/uL (1.3-7.7); Neutrophils % (A) 66 %; RBC 4.01 m/uL (4.30-5.90); RDW 14.6 % (11.5-15.5); WBC 12.9 k/uL (3.8-10.6); WBC (Perox) 12.82
[2017-02-17] MEDS: DESVENLAFAXINE SUCCINATE 50 MG TAB.ER.24H PO SCH (09:20)
[2017-02-17] MEDS: BETAMETHASONE DIPROPIONATE 0.05% CREAM 15 GM TUBE TOPICAL SCH (09:21)
[2017-02-17] MEDS: MULTIVITAMINS, THERA 1 EACH TAB PO SCH (11:54)
[2017-02-17 14:19] VITALS: BP 152/94; PULSE 90; TEMP 98.9
--- NOTE | 2017-02-17 15:19 | P.DS ---
Providers Date of admission: 02/11/17 11:40 Attending physician: Radha Stark Consults: 02/11/17 12:53 Consult Physician Routine Consulting Provider: Woody Dwyer Consult Reason/Comments: penile abscess Do you want consulting provider notified?: Yes 02/11/17 15:21 Consult Physician Routine Consulting Provider: Dany Lanier Consult Reason/Comments: penile abscess Do you want consulting provider notified?: Yes Primary care physician: Christopherkat Bradshaw [facility] Course: Mr. Kaiser is a 56-year-old male with a known history of hypertension, sarcoidosis, chronic back pain and other medical problems was sent from Dr. Augustine Wheat's office with complaints of cellulitis. Apparently patient had spider bite on his penis about 3-4 days back and since then patient is having increased swelling of his penis and subjective fevers at home. Patient went to PCPs office and patient was sent to the hospital for IV antibiotics. Otherwise patient denied any, soft chest pain or short of breath no nausea vomiting or abdominal pain. No recent illnesses. Patient does take OxyContin and Percocet for chronic back pain and left hip pain. No recent travel or sick contacts. Patient has failed outpatient therapy with Bactrim. 02/12/2017 Patient denies having any fevers chills nausea vomiting diarrhea 08/16/2016 Patient denies having any fevers chills nausea vomiting. Patient states that he 's had slight improvement however there is some discharge that is noted from the penile region 02/15/17 seen today s/p surgical exploration of the penis in significant pain NO fevers, chills, nausea, vomiting, diarrhea is reported 02/16/17 pain is better controlled no fevers, chills, nausea, vomiting, diarrhea Objective - Vital Signs Vital signs: Vital Signs Temp 97.7 F 02/16/17 07:00 Pulse 73 02/16/17 07:00 Resp 18 02/16/17 07:00 BP 137/85 02/16/17 07:00 Pulse Ox 99 02/16/17 07:00 Intake & Output 02/15/17 02/16/17 02/16/17 18:59 06:59 18:59 Intake Total 240 Output Total 650 800 Balance -650 -560 Intake: Oral 240 Output: Urine 650 800 Other: Voiding Method Indwelling Catheter Indwelling Catheter # Voids 1 # Bowel Movements 1 - Exam Physical exam Gen. appearance oriented 3 in no distress Neck is supple no JVD Lungs good air entry clear to auscultation no rhonchi or wheezing Heart S1-S2 heard regular rate and rhythm no murmurs appreciated Abdomen is soft nontender no organomegaly bowel sounds are intact Neurologically cranial nerves II-12 grossly intact no focal motor or sensory deficits noted Skin no abnormalities appreciated Penile edema suprapubic incision multiple penile incisions with dressing Assessment and Plan Plan: 1 acute cellulitis of the penile region due to suspected spider bite #2 history of sarcoidosis #3 chronic lower back pain #4 depression 5 acute kidney injury likely prerenal with improvement Continue IV antibiotics with Invanz Wound care with Dr. Lanier 3 times a week Follow-up with Dr. Dwyer Plan - Discharge Summary New Discharge Prescriptions: New cefTRIAXone [Rocephin] 2,000 mg IVPB DAILY #21 vial Morphine Sulfate ER [Ms Contin] 15 mg PO Q12HR #30 tab Continue Albuterol Inhaler [Ventolin Hfa Inhaler] 2 puff INHALATION RT-Q6H PRN PRN Reason: Shortness Of Breath predniSONE 10 mg PO DAILY oxyCODONE HCL/ACETAMINOPHEN [Percocet 7.5-325 mg] 1 tab PO Q6HR PRN PRN Reason: Pain Hydroxychloroquine Sulfate [Plaquenil] 200 mg PO DAILY Desvenlafaxine [Pristiq ER] 100 mg PO DAILY amLODIPine BESYLATE [Norvasc] 5 mg PO DAILY Omeprazole [PriLOSEC] 20 mg PO BID Betamethasone Dipropionate [Diprolene AF 0.05% Cream] 1 applic TOPICAL DAILY Niacin 1,000 mg PO HS Lisinopril-Hctz 20-25 mg [Zestoretic 20-25] 1 tab PO DAILY Ibuprofen [Motrin] 800 mg PO Q8H PRN PRN Reason: Pain Multivitamins, Thera [Multivitamin (formulary)] 1 tab PO DAILY Amitriptyline HCl 25 mg PO HS Discontinued Sildenafil Citrate [Viagra] 100 mg PO DAILY PRN PRN Reason: ERECTILE DYSFUNCTION Clotrimazole Cream [Lotrimin Cream] 1 applic TOPICAL BID Sulfamethoxazole/Trimethoprim [Bactrim DS 800-160 mg] 1 tab PO BID Discharge Medication List Albuterol Inhaler [Ventolin Hfa Inhaler] 2 puff INHALATION RT-Q6H PRN 02/11/17 [ History] Amitriptyline HCl 25 mg PO HS 02/11/17 [History] Betamethasone Dipropionate [Diprolene AF 0.05% Cream] 1 applic TOPICAL DAILY [History] Desvenlafaxine [Pristiq ER] 100 mg PO DAILY 02/11/17 [History] Hydroxychloroquine Sulfate [Plaquenil] 200 mg PO DAILY 02/11/17 [History] Ibuprofen [Motrin] 800 mg PO Q8H PRN 02/11/17 [History] Lisinopril-Hctz 20-25 mg [Zestoretic 20-25] 1 tab PO DAILY 02/11/17 [History] Multivitamins, Thera [Multivitamin (formulary)] 1 tab PO DAILY 02/11/17 [History ] Niacin 1,000 mg PO HS 02/11/17 [History] Omeprazole [PriLOSEC] 20 mg PO BID 02/11/17 [History] amLODIPine BESYLATE [Norvasc] 5 mg PO DAILY 02/11/17 [History] oxyCODONE HCL/ACETAMINOPHEN [Percocet 7.5-325 mg] 1 tab PO Q6HR PRN 02/11/17 [ History] predniSONE 10 mg PO DAILY 02/11/17 [History] cefTRIAXone [Rocephin] 2,000 mg IVPB DAILY #21 vial 02/15/17 [Rx] Morphine Sulfate ER [Ms Contin] 15 mg PO Q12HR #30 tab 02/17/17 [Rx] Follow up Appointment(s)/Referral(s): Dany Lanier MD [STAFF PHYSICIAN] - 02/18/17 (anytime between 830-3) [facility], [NON-STAFF] - Woody Dwyer MD [STAFF PHYSICIAN] - 02/24/17 9:00 am Christopher Bradshaw DO [Primary Care Provider] - 02/22/17 1:45 pm Patient Instructions/Handouts: Urena Catheter Placement and Care (DC), Acute Wound Care (GEN), Urinary Leg Bag (GEN) Activity/Diet/Wound Care/Special Instructions: Go to Dr Lanier's office for daily iv antibiotic infusion. Begin on 02/18 any time between 8:30-3 pm and then they will assign you a daily time [id number] #[phone] Discharge Disposition: HOME WITH HOME HEALTH SERVICES
[2017-02-17] MEDS: LACTATED RINGERS 1,000 ML IV SCH (16:30)
== END 2017-02-17 16:36 | disposition home health service (06) | DRG 855 ==
LOC: 4MS4W 11:40
PROVIDERS: ADMIT Internal Medicine; ATTEND Internal Medicine
PROC: 0HBAXZZ Excision of Inguinal Skin, External Approach (ICD-10-PCS; principal; 2017-02-14 08:40)
PROC: 02HV33Z Insertion of Infusion Device into Superior Vena Cava, Percutaneous Approach (ICD-10-PCS; 2017-02-16 10:05)
PROC: B548ZZA Ultrasonography of Superior Vena Cava, Guidance (ICD-10-PCS; 2017-02-16 10:05)
DX: A41.9 Sepsis, unspecified organism (principal); D89.9 Disorder involving the immune mechanism, unspecified; N48.22 Cellulitis of corpus cavernosum and penis; N48.21 Abscess of corpus cavernosum and penis; B95.61 Methicillin susceptible Staphylococcus aureus infection as the cause of diseases classified elsewhere; N48.89 Other specified disorders of penis; N50.89 Other specified disorders of the male genital organs; G89.21 Chronic pain due to trauma; I10 Essential (primary) hypertension; T63.301A Toxic effect of unspecified spider venom, accidental (unintentional), initial encounter; D86.0 Sarcoidosis of lung; M54.5 Low back pain; M25.552 Pain in left hip; F32.9 Major depressive disorder, single episode, unspecified; Z90.49 Acquired absence of other specified parts of digestive tract; Z79.891 Long term (current) use of opiate analgesic; Z79.52 Long term (current) use of systemic steroids; Z79.899 Other long term (current) drug therapy; Z87.891 Personal history of nicotine dependence
CPT/HCPCS: 36569; 76937; 77001; 80048; 80053; 81003; 83605; 85025; 87040; 87070; 87075; 87077; 87086; 87186; 87205; 87252; 87498; 87529; 87798

== ENCOUNTER 2017-04-06 03:43 | Inpatient (IN) | payer OTHER ==
[2017-04-06] MEDS ORDERED: HYDROcodone/APAP 10-325MG 1 EACH TAB PO ONE (04:15)
--- NOTE | 2017-04-06 04:27 | ED ---
Fall HPI - General Chief Complaint: Fall Stated Complaint: SOB, Fall Time Seen by Provider: 04/06/17 03:49 Source: patient, EMS Mode of arrival: EMS - History of Present Illness Initial Comments: This patient is a 56-year-old man who presents following a left foot injury. The patient reports losing his balance in the bathroom falling and having his foot straight something. Family heard a fall and found the patient in the bathroom and there was broken glass on the floor as well. They noted that his left foot was bleeding so they brought him here to be evaluated. The patient's daughter states that she did wrap the injury at home. Patient denies loss sensation to the foot. Patient states that his last tetanus shot was within the past couple years. MD Complaint: other -: minutes(s) Fall From: standing When Fall Occurred: 1 hour DRI[employer]SF[employer] Fall Witnessed: no Place Fall Occurred: home Loss of Consciousness: none Prolonged Down Time?: no Symptoms Prior to Fall: none Location - Extremities: Left: Foot Severity: moderate Quality: sharp Context: tripped/slipped, history of frequent falls Associated Symptoms: denies - Related Data Home Medications Medication Instructions Recorded Confirmed Albuterol Inhaler [Ventolin Hfa 2 puff INHALATION RT-Q6H PRN 02/11/17 02/11/17 Inhaler] Amitriptyline HCl 25 mg PO HS 02/11/17 02/11/17 Betamethasone Dipropionate 1 applic TOPICAL DAILY 02/11/17 02/11/17 [Diprolene AF 0.05% Cream] Desvenlafaxine [Pristiq ER] 100 mg PO DAILY 02/11/17 02/11/17 Hydroxychloroquine Sulfate 200 mg PO DAILY 02/11/17 02/11/17 [Plaquenil] Ibuprofen [Motrin] 800 mg PO Q8H PRN 02/11/17 02/11/17 Lisinopril-Hctz 20-25 mg 1 tab PO DAILY 02/11/17 02/11/17 [Zestoretic 20-25] Multivitamins, Thera [Multivitamin 1 tab PO DAILY 02/11/17 02/11/17 (formulary)] Niacin 1,000 mg PO HS 02/11/17 02/11/17 Omeprazole [PriLOSEC] 20 mg PO BID 02/11/17 02/11/17 amLODIPine BESYLATE [Norvasc] 5 mg PO DAILY 02/11/17 02/11/17 oxyCODONE HCL/ACETAMINOPHEN 1 tab PO Q6HR PRN 02/11/17 02/11/17 [Percocet 7.5-325 mg] predniSONE 10 mg PO DAILY 02/11/17 02/11/17 Previous Rx's Medication Instructions Recorded cefTRIAXone [Rocephin] 2,000 mg IVPB DAILY #21 vial 02/15/17 Morphine Sulfate ER [Ms Contin] 15 mg PO Q12HR #30 tab 02/17/17 Allergies Allergy/AdvReac Type Severity Reaction Status Date / Time No Known Allergies Allergy Verified 02/14/17 14:44 Review of Systems ROS Statement: Those systems with pertinent positive or pertinent negative responses have been documented in the HPI. ROS Other: All systems not noted in ROS Statement are negative. Constitutional: Denies: fever Respiratory: Reports: dyspnea (Chronic, due to sarcoidosis). Denies: cough Cardiovascular: Denies: chest pain Gastrointestinal: Denies: abdominal pain Genitourinary: Reports: other ((Injury) Musculoskeletal: Reports: back pain (Chronic) Skin: Reports: other (Left foot injury). Denies: rash Neurological: Denies: weakness, numbness Hematological/Lymphatic: Denies: easy bleeding Past Medical History Past Medical History: Hypertension Additional Past Medical History / Comment(s): chronic back pain secondary to injury, sarcoidosis, injury as teenager (fell into plate of glass), History of Any Multi-Drug Resistant Organisms: None Reported Past Surgical History: Cholecystectomy, Orthopedic Surgery, Prostate Surgery Additional Past Surgical History / Comment(s): arm surgery (secondary to injury fell through plate glass). Past Anesthesia/Blood Transfusion Reactions: No Reported Reaction Past Psychological History: No Psychological Hx Reported Smoking Status: Former smoker Past Alcohol Use History: None Reported Past Drug Use History: None Reported - Past Family History Mother Family Medical History: Myocardial Infarction (MD) Father Family Medical History: Myocardial Infarction (MD) General Exam General appearance: alert, in no apparent distress Respiratory exam: Present: respiratory distress (There is mild tachypnea), wheezes. Absent: rales, rhonchi, stridor Cardiovascular Exam: Present: normal rhythm, tachycardia, normal heart sounds GI/Abdominal exam: Present: soft. Absent: distended, tenderness, guarding Extremities exam: Present: full ROM, tenderness, normal capillary refill, other (See the skin exam). Absent: normal inspection Neurological exam: Present: alert. Absent: motor sensory deficit Skin exam: Present: warm, dry, normal color, other (The patient has had sloughing of the epidermis of the left foot involving the first great toe and the plantar aspect of the foot below the first MTP joint area) Course Vital Signs 04/06/17 04/06/17 03:45 04:17 Temperature 98.1 F Pulse Rate 110 H Respiratory 24 22 Rate Blood Pressure 118/60 O2 Sat by Pulse 92 L Oximetry - Reevaluation(s) Reevaluation #1: 04/06/17 06:34 Repeatedly during my exam, the patient had stated that his breathing seemed okay , however the pulse ox numbers remained in the 80s. When I attempted to take him off the nasal cannula the numbers decreased below that. The patient is not on home oxygen, and despite his initially declining workup, I did not feel comfortable sending him home with these numbers, and the patient did agree to have further workup. Medical Decision Making - Lab Data Result diagrams: 04/06/17 04:00 04/06/17 04:00 Lab Results 04/06/17 04/06/17 04/06/17 Range/Units 04:00 04:00 04:00 WBC 13.0 H (3.8-10.6) k/uL RBC 3.82 L (4.30-5.90) m/uL Hgb 11.5 L (13.0-17.5) gm/dL Hct 34.6 L (39.0-53.0) % MCV 90.5 (80.0-100.0) fL MCH 30.2 (25.0-35.0) pg MCHC 33.3 (31.0-37.0) g/dL RDW 16.0 H (11.5-15.5) % Plt Count 206 (150-450) k/uL Neutrophils % 83 % Lymphocytes % 7 % Monocytes % 6 % Eosinophils % 2 % Basophils % 0 % Neutrophils # 10.8 H (1.3-7.7) k/uL Lymphocytes # 0.9 L (1.0-4.8) k/uL Monocytes # 0.8 (0-1.0) k/uL Eosinophils # 0.2 (0-0.7) k/uL Basophils # 0.1 (0-0.2) k/uL PT (9.0-12.0) sec INR (<1.2) APTT (22.0-30.0) sec D-Dimer (<0.60) mg/L FEU Sodium 144 (137-145) mmol/L Potassium 4.2 (3.5-5.1) mmol/L Chloride 108 H (98-107) mmol/L Carbon Dioxide 19 L (22-30) mmol/L Anion Gap 17 mmol/L BUN 38 H (9-20) mg/dL Creatinine 2.11 H (0.66-1.25) mg/dL Est GFR (MDRD) Af Amer 40 (>60 ml/min/1.73 sqM) Est GFR (MDRD) Non-Af 33 (>60 ml/min/1.73 sqM) Glucose 69 L (74-99) mg/dL Calcium 9.2 (8.4-10.2) mg/dL Total Bilirubin 0.5 (0.2-1.3) mg/dL AST 68 H (17-59) U/L ALT 61 (21-72) U/L Alkaline Phosphatase 105 (38-126) U/L Total Creatine Kinase 697 H (55-170) U/L NT-Pro-B Natriuret Pep pg/mL Total Protein 6.8 (6.3-8.2) g/dL Albumin 3.8 (3.5-5.0) g/dL 04/06/17 04/06/17 Range/Units 04:00 04:00 WBC (3.8-10.6) k/uL RBC (4.30-5.90) m/uL Hgb (13.0-17.5) gm/dL Hct (39.0-53.0) % MCV (80.0-100.0) fL MCH (25.0-35.0) pg MCHC (31.0-37.0) g/dL RDW (11.5-15.5) % Plt Count (150-450) k/uL Neutrophils % % Lymphocytes % % Monocytes % % Eosinophils % % Basophils % % Neutrophils # (1.3-7.7) k/uL Lymphocytes # (1.0-4.8) k/uL Monocytes # (0-1.0) k/uL Eosinophils # (0-0.7) k/uL Basophils # (0-0.2) k/uL PT 11.2 (9.0-12.0) sec INR 1.1 (<1.2) APTT 26.1 (22.0-30.0) sec D-Dimer 1.78 H (<0.60) mg/L FEU Sodium (137-145) mmol/L Potassium (3.5-5.1) mmol/L Chloride (98-107) mmol/L Carbon Dioxide (22-30) mmol/L Anion Gap mmol/L BUN (9-20) mg/dL Creatinine (0.66-1.25) mg/dL Est GFR (MDRD) Af Amer (>60 ml/min/1.73 sqM) Est GFR (MDRD) Non-Af (>60 ml/min/1.73 sqM) Glucose (74-99) mg/dL Calcium (8.4-10.2) mg/dL Total Bilirubin (0.2-1.3) mg/dL AST (17-59) U/L ALT (21-72) U/L Alkaline Phosphatase (38-126) U/L Total Creatine Kinase (55-170) U/L NT-Pro-B Natriuret Pep 1260 pg/mL Total Protein (6.3-8.2) g/dL Albumin (3.5-5.0) g/dL - EKG Data -: EKG Interpreted by Co EKG shows normal: sinus rhythm, axis (Normal), intervals (Normal), ST-T waves ( Normal) Rate: tachycardia (Rate approximately 110 bpm) Interpretation: other (There is possible left atrial enlargement) Disposition Clinical Impression: Fall, Sarcoidosis of lung, Dyspnea, Acute renal failure Disposition: ADMITTED IP TO THIS [facility] Condition: Poor
--- NOTE | 2017-04-06 05:16 | XR ---
EXAM: XR Left Foot Complete, 3 or More Views CLINICAL HISTORY: Reason: trauma TECHNIQUE: Frontal, lateral and oblique views of the left foot. COMPARISON: No relevant prior studies available. FINDINGS: Bones/joints: No acute fracture or malalignment. Small dorsal calcaneal enthesophyte. Soft tissues: Unremarkable. No radiopaque foreign body. IMPRESSION: No acute fracture or malalignment.
[2017-04-06 07:24] LABS: Basophils # (A) 0.1 k/uL (0-0.2); Basophils % (A) 0 %; CH 30.3; CHCM 33.7; Eosinophils # (A) 0.2 k/uL (0-0.7); Eosinophils % (A) 2 %; HCT 34.6 % (39.0-53.0); HDW 3.09; HGB 11.5 gm/dL (13.0-17.5); Luc # (Auto) 0.24; Luc % (Auto) 2; Lymphocytes # (A) 0.9 k/uL (1.0-4.8); Lymphocytes % (A) 7 %; MCH 30.2 pg (25.0-35.0); MCHC 33.3 g/dL (31.0-37.0); MCV 90.5 fL (80.0-100.0); Mean Platelet Volume 9.6; Monocytes # (A) 0.8 k/uL (0-1.0); Monocytes % (A) 6 %; Neutrophils # (A) 10.8 k/uL (1.3-7.7); Neutrophils % (A) 83 %; RBC 3.82 m/uL (4.30-5.90)
[2017-04-06 07:38] LABS: Calcium 9.2 mg/dL (8.4-10.2); Potassium 4.2 mmol/L (3.5-5.1); Total Bilirubin 0.5 mg/dL (0.2-1.3); Total Protein 6.8 g/dL (6.3-8.2)
[2017-04-06 07:39] LABS: INR 1.1 (<1.2); Partial Thromboplastin Time 26.1 sec (22.0-30.0); Prothrombin Time 11.2 sec (9.0-12.0)
[2017-04-06] MEDS ORDERED: methylPREDNISolone SOD SUCCI 125 MG/2 ML VIAL IV STA (07:39)
[2017-04-06] MEDS ORDERED: SODIUM CHLORIDE 0.9% 500 ML IV STA (07:43)
--- NOTE | 2017-04-06 07:43 | XR ---
EXAMINATION TYPE: XR chest 1V portable DATE OF EXAM: 04/06/2017 HISTORY: Shortness of breath. COMPARISON: 01/11/2011 TECHNIQUE: Single view of the chest is submitted. FINDINGS: Demonstrated are scattered senescent parenchymal change. Perihilar and basilar alveolar infiltrates identified. Correlate for underlying pneumonia. The heart is stable. Hilar and mediastinal structures are within normal limits. Degenerative changes are seen of the dorsal spine. IMPRESSION: 1. Perihilar and basilar alveolar infiltrates identified. Correlate for underlying pneumonia.
[2017-04-06] MEDS ORDERED: SODIUM CHLORIDE 0.9% 1,000 ML IV SCH (07:45)
[2017-04-06] MEDS ORDERED: ALBUTEROL NEBULIZED 2.5 MG/3 ML INHALATION SCH (08:00)
[2017-04-06 08:01] LABS: Creatine Kinase 697 U/L (55-170)
[2017-04-06] MEDS ORDERED: ENOXAPARIN 100 MG/ML SYRINGE SQ STA (08:08)
[2017-04-06 08:13] LABS: Troponin I <0.012 ng/mL (0.000-0.034)
[2017-04-06 08:14] LABS: Creatine Kinase MB 30.2 ng/mL (0.0-2.4)
[2017-04-06] MEDS: IPRATROPIUM-ALBUTEROL 3 ML NEB INHALATION SCH ×5 (08:33→20:17)
[2017-04-06] MEDS ORDERED: LEVOFLOXACIN 500 MG TAB PO SCH (09:00)
--- NOTE | 2017-04-06 11:27 | NM ---
EXAMINATION TYPE: NM pul vent and perfuse DATE OF EXAM: 04/06/2017 COMPARISON: NONE HISTORY: Shortness of breath TECHNIQUE: Utilizing inhalation of 71.5 mCi Tc 99m DTPA aerosol and intravenous injection of 5.5 mCi of Tc 99m MAA, ventilation and perfusion images are acquired post injection in multiple projections. FINDINGS: There is patchy distribution of the radiotracer on the ventilation portion of the study suggesting CO PD. Several matched defects are seen. No evidence for perfusion mismatch identified at this time. IMPRESSION: Low probability for pulmonary embolism.
[2017-04-06] MEDS ORDERED: methylPREDNISolone SOD SUCCI 125 MG/2 ML VIAL IV SCH (12:00)
--- NOTE | 2017-04-06 12:00 | US ---
EXAMINATION TYPE: US kidneys/renal and bladder DATE OF EXAM: 04/06/2017 COMPARISON: NONE CLINICAL HISTORY: marko. MARKO EXAM MEASUREMENTS: Right Kidney: 11.5 x 6.1 x 5.0 cm Left Kidney: 12.9 x 5.5 x 5.1 cm Right Kidney: appeared wnl Left Kidney: wnl, lower pole gassed out Bladder: wnl Bilateral Jets seen: No There is no evidence for hydronephrosis at this point in time. No nephrolithiasis is seen. No leana s are identified. The urinary bladder is anechoic. Bilateral ureteral jets are seen. IMPRESSION: No definite abnormality identified.
--- NOTE | 2017-04-06 12:14 | P.CNPUL ---
History of Present Illness Consult date: 04/06/17 Reason for consult: dyspnea, abnormal CXR/CT Chief complaint: Shortness of breath History of present illness: Consult dated 04/06/2017 This is a 56-year-old male with a history of a left foot injury. He apparently fell in the bathroom at home having injured his left foot. Family heard a fall and found the patient in the bathroom and he was broken glass on the floor as well. The left foot was bleeding so they applied pressure and brought him into the emergency room to be evaluated. The patient also apparently was complaining about being short of breath. The patient does have a history of hypertension and sarcoidosis. The patient's foot x-ray revealed no evidence of any fracture. Chest x-ray showed diffuse bilateral infiltrates. A ventilation perfusion scan was read as low probability. The patient's home medications included Ventolin elavil steroid cream Pristiq plaquenil ibuprofen lisinopril/ hydrochlorothiazide multiple vitamins and niacin Prilosec amlodipine oxycodone and prednisone. He previously was on morphine in the form of MS Contin and Rocephin. He has no ALLERGIES. It appears based on his medication profile that he is being treated for active sarcoidosis. He sees my partner for the sarcoidosis. Review of Systems A 12 point review of system is positive for shortness of breath and saturations in the emergency room and found to be low. Past Medical History Past Medical History: Hypertension Additional Past Medical History / Comment(s): Spouse states that pt has had increased congestion/cough last couple days-he was coughing and after that was experiencing difficulty hearing. Spouse states that the past couple days he has had some periods of confusion. 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 History of Any Multi-Drug Resistant Organisms: None Reported Past Surgical History: Cholecystectomy, Orthopedic Surgery, Prostate Surgery Additional Past Surgical History / Comment(s): 02/14/17 I&D penile abscess, PICC line since removed, R arm surgery (secondary to injury fell through plate glass) . Past Anesthesia/Blood Transfusion Reactions: No Reported Reaction Smoking Status: Former smoker - Past Family History Mother Family Medical History: Coronary Artery Disease (CAD) Additional Family Medical History / Comment(s): Mother at the age of 86yrs. Father Family Medical History: No Reported History Additional Family Medical History / Comment(s): Father was healthy and lived into his late 70's. Medications and Allergies Home Medications Medication Instructions Recorded Confirmed Type Albuterol Inhaler [Ventolin Hfa 2 puff INHALATION RT-Q6H PRN 02/11/17 04/06/17 History Inhaler] Amitriptyline HCl 25 mg PO HS 02/11/17 04/06/17 History Betamethasone Dipropionate 1 applic TOPICAL DAILY 02/11/17 04/06/17 History [Diprolene AF 0.05% Cream] Desvenlafaxine [Pristiq ER] 100 mg PO DAILY 02/11/17 04/06/17 History Hydroxychloroquine Sulfate 200 mg PO DAILY 02/11/17 04/06/17 History [Plaquenil] Ibuprofen [Motrin] 800 mg PO Q8H PRN 02/11/17 04/06/17 History Lisinopril-Hctz 20-25 mg 1 tab PO DAILY 02/11/17 04/06/17 History [Zestoretic 20-25] Multivitamins, Thera [Multivitamin 1 tab PO DAILY 02/11/17 04/06/17 History (formulary)] Niacin 1,000 mg PO HS 02/11/17 04/06/17 History Omeprazole [PriLOSEC] 20 mg PO BID 02/11/17 04/06/17 History predniSONE 10 mg PO DAILY 02/11/17 04/06/17 History Pregabalin [Lyrica] 75 mg PO BID 04/06/17 04/06/17 History amLODIPine [Norvasc] 10 mg PO DAILY 04/06/17 04/06/17 History Allergies Allergy/AdvReac Type Severity Reaction Status Date / Time No Known Allergies Allergy Verified 04/06/17 08:25 Physical Exam Osteopathic Statement: *. No significant issues noted on an osteopathic structural exam other than those noted in the History and Physical/Consult. Vitals: Vital Signs Temp Pulse Pulse Resp BP BP Pulse Ox 04/06/17 08:51 104 H 04/06/17 08:42 103 H 94 L 04/06/17 08:35 98.0 F 111 H 18 117/65 95 04/06/17 08:00 98.5 F 109 H 20 143/71 92 L 04/06/17 04:17 22 04/06/17 03:45 98.1 F 110 H 24 118/60 92 L Intake and Output 04/05/17 04/06/17 04/06/17 22:59 06:59 14:59 Other: Weight 86.183 kg No acute distress, oriented 3. HEENT examination is grossly unremarkable. Mixed mucous membranes are moist. Neck supple. Full range of motion. No adenopathy or thyromegaly. Cardiovascular examination reveals regular rhythm rate. S1-S2 normal. No S3- S4 or murmur. Lungs reveal few scattered rhonchi. No wheezes. No crackles. Abdomen soft bowel sounds are heard. Extremities are intact. No cyanosis clubbing or edema. Skin without rash. Neurologic examination is prepared nonfocal. Results - Laboratory Findings CBC and BMP: 04/06/17 04:00 04/06/17 04:00 PT/INR, D-dimer PT 11.2 sec (9.0-12.0) 04/06/17 04:00 INR 1.1 (<1.2) 04/06/17 04:00 D-Dimer 1.78 mg/L FEU (<0.60) H 04/06/17 04:00 Abnormal lab findings: Abnormal Labs 04/06/17 04/06/17 04/06/17 04:00 04:00 04:00 WBC 13.0 H RBC 3.82 L Hgb 11.5 L Hct 34.6 L RDW 16.0 H Neutrophils # 10.8 H Lymphocytes # 0.9 L D-Dimer Chloride 108 H Carbon Dioxide 19 L BUN 38 H Creatinine 2.11 H Glucose 69 L AST 68 H Total Creatine Kinase 697 H CK-MB (CK-2) 30.2 H* 04/06/17 04:00 WBC RBC Hgb Hct RDW Neutrophils # Lymphocytes # D-Dimer 1.78 H Chloride Carbon Dioxide BUN Creatinine Glucose AST Total Creatine Kinase CK-MB (CK-2) - Diagnostic Findings Chest x-ray: image reviewed (X-rays labs and medications are all reviewed.) Assessment and Plan (1) Pneumonia Status: Acute (2) Chronic back pain Status: Acute (3) Acute renal failure Status: Acute (4) Dyspnea Status: Acute (5) Fall Status: Acute (6) Sarcoidosis of lung Status: Chronic (7) Benign hypertension Status: Chronic Plan: Plan dated 04/06/2017 The patient's labs x-rays medications are all reviewed. The patient appears to be treated for active sarcoidosis as he is currently on hydroxychloroquine and prednisone. We'll look back to see what an old chest x-ray looks like. He may benefit from a CAT scan of the chest. Additional recommendations and suggestions are forthcoming. Time with Patient: Greater than 30
[2017-04-06] MEDS ORDERED: ALBUTEROL NEBULIZED 2.5 MG/3 ML INHALATION PRN (12:22)
[2017-04-06] MEDS ORDERED: HYDROXYCHLOROQUINE SULFATE 200 MG TAB PO SCH ×2 (12:30→21:00)
[2017-04-06] MEDS: PANTOPRAZOLE 40 MG TABLET PO SCH (13:08)
[2017-04-06] MEDS: amLODIPine 10 MG TAB PO SCH (13:08)
[2017-04-06] MEDS: LACTATED RINGERS 1,000 ML IV SCH ×2 (13:09→23:00)
[2017-04-06] MEDS: DESVENLAFAXINE SUCCINATE 50 MG TAB.ER.24H PO SCH (13:10)
[2017-04-06 13:46] LABS: Appearance,Urine Clear (Clear); Bilirubin,Urine Negative (Negative); Glucose,Urine (UA) Negative (Negative); Ketones,Urine Negative (Negative); Leukocyte Esterase,Urine Negative (Negative); Nitrite,Urine Negative (Negative); PH, Urine 5.5 (5.0-8.0); Protein,Urine Trace (Negative); Specific Gravity,Urine 1.013 (1.001-1.035); UA Billing (MACRO vs. MICRO) CHEM; Urobilinogen,Urine <2.0 mg/dL (<2.0)
--- NOTE | 2017-04-06 14:03 | HP ---
HISTORY AND PHYSICAL DATE OF ADMISSION: 04/06/2017 PRESENTING COMPLAINT: Left big toe injury. HISTORY OF PRESENTING COMPLAINT: This is a pleasant 56-year-old patient of Dr. Bradshaw, chronic stable medical conditions include sarcoidosis, depression, hypertension, and he has got longstanding left foot drop. Patient sometime wears a brace. Patient went to the bathroom, missed a step, fell down. His left foot hit the support of the sink breaking the ceramic and he cut it, hence he was brought in. There was nothing else that was precipitating the fall, though he does feel a bit weak and tired. Skin is avulsed superficially from the toe. REVIEW OF SYSTEMS: CONSTITUTIONAL: Tired. HEENT: None RESPIRATORY: None. CARDIOVASCULAR: None. GASTROINTESTINAL: None GENITOURINARY: None. MUSCULOSKELETAL: As above. DERMATOLOGICAL: As above. HEMATOLOGICAL: As above. PSYCHIATRY: Depression, controlled. NEUROLOGICAL: Left foot drop. PAST MEDICAL HISTORY: Depression, hypertension, sarcoidosis, chronic back pain, left foot drop. PAST SURGERY HISTORY: Cholecystectomy, prostate surgery, recent penile abscess, right arm surgery secondary injury from plate glass. SOCIAL HISTORY: , smoked for 25 years, stopped in 2003. Uses a cane. No alcohol. FAMILY HISTORY: Coronary artery disease. HOME MEDICATIONS: 1. Niacin 1000 mg p.o. q.h.s. 2. Prednisone 10 mg p.o. daily. 3. Norvasc 10 mg p.o. daily. 4. Lyrica 25 mg p.o. b.i.d. 5. Prilosec 20 mg b.i.d. 6. Multivitamin 1 tablet p.o. daily. 7. Zestoretic 25/25 one tablet p.o. daily. 8. Motrin 800 mg p.o. q.8 p.r.n. 9. Plaquenil 200 mg p.o. daily. 10.Pristiq ER 100 mg p.o. daily. 11.Diprolene on application topical daily. 12.Amitriptyline 25 mg p.o. q.h.s. 13.Ventolin HFA 2 puffs q.6 p.r.n. ALLERGIES: None. PHYSICAL EXAMINATION: Vital signs on presentation, Temperature 98.1, pulse 110, respirations 24, blood pressure 100/60, pulse ox 92% on 4 L. . GENERAL APPEARANCE: Average build, sitting up, not in distress. EYES: Pupils equal, conjunctivae normal. HEENT: Oral cavity normal. NECK: JVD not raised. Mass not palpable. RESPIRATORY: Effort normal. LUNGS: Decreased breath sounds. CARDIOVASCULAR: First and second sounds heard. No edema. ABDOMEN: Soft, nontender. Liver and spleen not palpable. LYMPHATIC: No lymph node enlargement in neck and axillae. PSYCHIATRY: Alert and oriented x3. Mood and affect slightly low-appearing. NEUROLOGICAL: Left foot drop. DERMATOLOGICAL: Status superficial avulsion of the skin of the left big toe. The nail is intact. INVESTIGATIONS: White count 13, hemoglobin 11.5, potassium 4.2, BUN 38, creatinine 2.11. The patient's BUN and creatinine on 02/17/17 was 11/0.76. ASSESSMENT: 1. Acute left big toe superficial skin avulsion secondary to local trauma from a fall. 2. Acute renal failure, probably drug induced. Could be acute tubular necrosis. Creatinine count from 0.76 to 2.11. 3. Chronic sarcoidosis, controlled. 4. Depression, not otherwise specified. 5. Essential hypertension. 6. Chronic left foot drop. Cause not known. PLAN: The patient is Zestoretic and Motrin both will be held. Patient will be put on IV fluids. Repeat labs in the morning. Silvadene cream will be used topically on the left big toe. Will get opinion from Orthopedics. Care was discussed with the patient. MMODL / IJN: [id number] /
--- NOTE | 2017-04-06 15:37 | CT ---
EXAMINATION TYPE: CT chest wo con DATE OF EXAM: 04/06/2017 COMPARISON: 03/19/2014 HISTORY: 56-year-old male Shortness of breath TECHNIQUE: Contiguous axial scanning of the chest without IV contrast. Coronal and sagittal reconstru ctions performed. CT DLP: 785 mGycm Automated exposure control for dose reduction was used. FINDINGS: The heart is normal size without pericardial effusion. Numerous calcified mediastinal and hilar lymph nodes are noted. Large caliber to the main right and the pulmonary arteries at 2.8 and 3.0 cm, respectively, suggestin g underlying pulmonary artery hypertension. Upper lung predominant interstitial fibrosis is redemonstrated with diffuse increased groundglass thr oughout the lungs. No pleural effusion. Visualized upper abdomen shows cholecystectomy clips and moderate stool burden. Bones: No osseous destructive process. IMPRESSION: 1. UPPER LUNG PREDOMINANT PULMONARY FIBROSIS REDEMONSTRATED. SOME DIFFERENTIAL CONSIDERATIONS ESPECIA LLY GIVEN THE EXTENSIVE CALCIFIED MEDIASTINAL/HILAR LYMPH NODES INCLUDE SARCOIDOSIS, PNEUMOCONIOSIS, AND PRIOR FUNGAL/MYCOBACTERIAL INFECTION. 2. NEW EXTENSIVE SUPERIMPOSED GROUNDGLASS THROUGHOUT THE LUNGS. SOME DIFFERENTIAL CONSIDERATIONS INCL UDE ACUTE ATYPICAL INFECTION, HYPERSENSITIVITY PNEUMONITIS, ACUTE EXACERBATION OF INTERSTITIAL LUNG D ISEASE, DRUG REACTION, DAH, AND INTERSTITIAL PNEUMONITIS. EARLY ARDS IS ALSO A POSSIBILITY. NO PLEURA L EFFUSIONS TO HELP SUPPORT PULMONARY EDEMA THOUGH THIS IS ALSO POSSIBLE. FURTHER CLINICAL CORRELATIO N RECOMMENDED.
[2017-04-06] MEDS: PREGABALIN 75 MG CAP PO SCH (15:56)
--- NOTE | 2017-04-06 16:28 | P.CNOR ---
History of Present Illness - [facility] Consult date: 04/06/17 Consult reason: other History of present illness: This is a 56-year-old male who was seen and evaluated today at [facility] after sustaining a fall in his home. Patient had immediate pain and bleeding noted at the left great toe. He is brought to the hospital, imaging and lab tests were done. Edges were negative for any acute fractures or dislocations. Wound care was provided. Patient had developed significant deficits in his O2 saturation, he was admitted for further workup. Patient was admitted under internal medicine, with both orthopedics and pulmonology consult. At bedside today, the patient is resting comfortably. He notes some discomfort in the left big toe with movement. He also notes diminished sensation to light touch throughout the left foot, he states this is been going on for months. He also has a known history of a foot drop involving the left side. He states there is been no significant workup with regards to this problem, he notes that he has mentioned it to his primary care provider. There is documentation from internal medicine that he does have a brace that he wears occasionally. Patient denies any previous surgery involving the left lower extremity. Patient denies any previous trauma besides the recent fall. Patient has a history of sarcoidosis, and does also see a information architect. He is being worked up for further treatment of this during this hospital stay. Review of Systems Constitutional: Reports as per [facility] Past Medical History Past Medical History: Hypertension Additional Past Medical History / Comment(s): Spouse states that pt has had increased congestion/cough last couple days-he was coughing and after that was experiencing difficulty hearing. Spouse states that the past couple days he has had some periods of confusion. 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 History of Any Multi-Drug Resistant Organisms: None Reported Past Surgical History: Cholecystectomy, Orthopedic Surgery, Prostate Surgery Additional Past Surgical History / Comment(s): 02/14/17 I&D penile abscess, PICC line since removed, R arm surgery (secondary to injury fell through plate glass) . Past Anesthesia/Blood Transfusion Reactions: No Reported Reaction Smoking Status: Former smoker - Past Family History Mother Family Medical History: Coronary Artery Disease (CAD) Additional Family Medical History / Comment(s): Mother at the age of 86yrs. Father Family Medical History: No Reported History Additional Family Medical History / Comment(s): Father was healthy and lived into his late 70's. Medications and Allergies Home Medications Medication Instructions Recorded Confirmed Type Albuterol Inhaler [Ventolin Hfa 2 puff INHALATION RT-Q6H PRN 02/11/17 04/06/17 History Inhaler] Amitriptyline HCl 25 mg PO HS 02/11/17 04/06/17 History Betamethasone Dipropionate 1 applic TOPICAL DAILY 02/11/17 04/06/17 History [Diprolene AF 0.05% Cream] Desvenlafaxine [Pristiq ER] 100 mg PO DAILY 02/11/17 04/06/17 History Hydroxychloroquine Sulfate 200 mg PO DAILY 02/11/17 04/06/17 History [Plaquenil] Ibuprofen [Motrin] 800 mg PO Q8H PRN 02/11/17 04/06/17 History Lisinopril-Hctz 20-25 mg 1 tab PO DAILY 02/11/17 04/06/17 History [Zestoretic 20-25] Multivitamins, Thera [Multivitamin 1 tab PO DAILY 02/11/17 04/06/17 History (formulary)] Niacin 1,000 mg PO HS 02/11/17 04/06/17 History Omeprazole [PriLOSEC] 20 mg PO BID 02/11/17 04/06/17 History predniSONE 10 mg PO DAILY 02/11/17 04/06/17 History Pregabalin [Lyrica] 75 mg PO BID 04/06/17 04/06/17 History amLODIPine [Norvasc] 10 mg PO DAILY 04/06/17 04/06/17 History Allergies Allergy/AdvReac Type Severity Reaction Status Date / Time No Known Allergies Allergy Verified 04/06/17 08:25 Physical Examination Left lower extremity: Initial bandage is removed for observation. There is Silvadene cream present along the medial aspect of the big toe. There is ecchymosis and dried blood noted along the medial aspect of the great toe down to the MTP joint. On the dorsal aspect, there is superficial loss of the skin. There is no obvious lacerations, no obvious tendon involvement. No other open lesions present throughout the left foot or ankle. His range of motion is very limited, he is unable to extend any of the toes this also including the ankle. Sensation to light touch is diminished significantly throughout the left foot and ankle. His dorsal pedis pulses 2+ Calf is soft, there is no tenderness with palpation. Results - Labs Labs: Abnormal Lab Results - Last 24 Hours (Table) 04/06/17 04/06/17 04/06/17 Range/Units 04:00 04:00 04:00 WBC 13.0 H (3.8-10.6) k/uL RBC 3.82 L (4.30-5.90) m/uL Hgb 11.5 L (13.0-17.5) gm/dL Hct 34.6 L (39.0-53.0) % RDW 16.0 H (11.5-15.5) % Neutrophils # 10.8 H (1.3-7.7) k/uL Lymphocytes # 0.9 L (1.0-4.8) k/uL D-Dimer (<0.60) mg/L FEU Chloride 108 H (98-107) mmol/L Carbon Dioxide 19 L (22-30) mmol/L BUN 38 H (9-20) mg/dL Creatinine 2.11 H (0.66-1.25) mg/dL Glucose 69 L (74-99) mg/dL AST 68 H (17-59) U/L Total Creatine Kinase 697 H (55-170) U/L CK-MB (CK-2) 30.2 H* (0.0-2.4) ng/mL Urine Protein (Negative) 04/06/17 04/06/17 Range/Units 04:00 12:05 WBC (3.8-10.6) k/uL RBC (4.30-5.90) m/uL Hgb (13.0-17.5) gm/dL Hct (39.0-53.0) % RDW (11.5-15.5) % Neutrophils # (1.3-7.7) k/uL Lymphocytes # (1.0-4.8) k/uL D-Dimer 1.78 H (<0.60) mg/L FEU Chloride (98-107) mmol/L Carbon Dioxide (22-30) mmol/L BUN (9-20) mg/dL Creatinine (0.66-1.25) mg/dL Glucose (74-99) mg/dL AST (17-59) U/L Total Creatine Kinase (55-170) U/L CK-MB (CK-2) (0.0-2.4) ng/mL Urine Protein Trace H (Negative) H & H 04/06/17 Range/Units 04:00 Hgb 11.5 L (13.0-17.5) gm/dL Hct 34.6 L (39.0-53.0) % Coagulation 04/06/17 Range/Units 04:00 INR 1.1 (<1.2) Result Diagrams: 04/06/17 04:00 04/06/17 04:00 - Diagnostic results Ankle/Foot x-ray: report reviewed, image reviewed Assessment and Plan Plan: Imaging: Multiple views of the left foot were obtained. Images demonstrate no acute fractures or dislocation. No obvious foreign objects visualized. Assessment: 1. Left big toe abrasion 2. Status post fall from standing 3. Left foot drop 4. Other medical comorbidities Plan: 1. I was able to discuss this case, including both physical exam findings and imaging studies with Dr. Trejo. No orthopedic surgical intervention needed at this time. Recommend local wound care with daily dressing changes. Advise ice and elevation for her symptomatically. Avoid excess activity left foot 2. Recommend neurology recommendation for further workup of left foot drop 3. Medical and pulmonary recommendations 4. Pain control 5. GI and DVT prophylaxis per medical recommendation 6. We'll be available for any further questions regarding this patient Time with Patient: Less than 30
--- NOTE | 2017-04-06 16:47 | P.NPCON ---
History of Present Illness - Reason for Consult acute renal failure - History of Present Illness Reason for consultation: Acute kidney injury History of present illness: Patient is a 56-year-old male seen in renal consultation for acute kidney injury. His baseline creatinine is 1 and elevated at 2.11 on admission. Patient presented after he sustained a fall at home and injured his left foot. There is no evidence of fracture. In his home medications I do note that he was taking an JERRY inhibitor as well as a thiazide diuretic. He also admits to taking Motrin 2-3 times daily for the last 2 months. States oral intake has been fair. Admits to good urine output. No hematuria or dysuria. Denies any vomiting or diarrhea. Denies any family history of renal disease. Urinalysis was noted to be quite benign and no evidence of hydronephrosis was noted on renal ultrasound. It appears patient has history of sarcoidosis and follows with pulmonology as an outpatient. Hemodynamically he's been quite stable. Vital signs are stable. General: The patient appeared well nourished and normally developed. HEENT: Head exam is unremarkable. Neck is without jugular venous distension. LUNGS: Lungs are clear to auscultation and percussion. Breath sounds decreased. HEART: Rate and Rhythm are regular. First and second heart sounds normal. No murmurs, rubs or gallops. ABDOMEN: Abdominal exam reveals normal bowel sounds. Non-tender and non- distended. No evidence of peritonitis. EXTREMITITES: No clubbing, cyanosis, or edema. Past Medical History Past Medical History: Hypertension Additional Past Medical History / Comment(s): Spouse states that pt has had increased congestion/cough last couple days-he was coughing and after that was experiencing difficulty hearing. Spouse states that the past couple days he has had some periods of confusion. 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 History of Any Multi-Drug Resistant Organisms: None Reported Past Surgical History: Cholecystectomy, Orthopedic Surgery, Prostate Surgery Additional Past Surgical History / Comment(s): 02/14/17 I&D penile abscess, PICC line since removed, R arm surgery (secondary to injury fell through plate glass) . Past Anesthesia/Blood Transfusion Reactions: No Reported Reaction Smoking Status: Former smoker - Past Family History Mother Family Medical History: Coronary Artery Disease (CAD) Additional Family Medical History / Comment(s): Mother at the age of 86yrs. Father Family Medical History: No Reported History Additional Family Medical History / Comment(s): Father was healthy and lived into his late 70's. Medications and Allergies Home Medications Medication Instructions Recorded Confirmed Type Albuterol Inhaler [Ventolin Hfa 2 puff INHALATION RT-Q6H PRN 02/11/17 04/06/17 History Inhaler] Amitriptyline HCl 25 mg PO HS 02/11/17 04/06/17 History Betamethasone Dipropionate 1 applic TOPICAL DAILY 02/11/17 04/06/17 History [Diprolene AF 0.05% Cream] Desvenlafaxine [Pristiq ER] 100 mg PO DAILY 02/11/17 04/06/17 History Hydroxychloroquine Sulfate 200 mg PO DAILY 02/11/17 04/06/17 History [Plaquenil] Ibuprofen [Motrin] 800 mg PO Q8H PRN 02/11/17 04/06/17 History Lisinopril-Hctz 20-25 mg 1 tab PO DAILY 02/11/17 04/06/17 History [Zestoretic 20-25] Multivitamins, Thera [Multivitamin 1 tab PO DAILY 02/11/17 04/06/17 History (formulary)] Niacin 1,000 mg PO HS 02/11/17 04/06/17 History Omeprazole [PriLOSEC] 20 mg PO BID 02/11/17 04/06/17 History predniSONE 10 mg PO DAILY 02/11/17 04/06/17 History Pregabalin [Lyrica] 75 mg PO BID 04/06/17 04/06/17 History amLODIPine [Norvasc] 10 mg PO DAILY 04/06/17 04/06/17 History Allergies Allergy/AdvReac Type Severity Reaction Status Date / Time No Known Allergies Allergy Verified 04/06/17 08:25 Physical Exam Vitals: Vital Signs Temp Pulse Pulse Resp BP BP Pulse Ox 04/06/17 16:00 91 L 04/06/17 15:49 89 L 04/06/17 15:48 109 H 18 04/06/17 15:38 109 H 18 04/06/17 15:00 97.8 F 110 H 18 114/73 87 L 04/06/17 08:51 104 H 04/06/17 08:42 103 H 94 L 04/06/17 08:35 98.0 F 111 H 18 117/65 95 04/06/17 08:00 98.5 F 109 H 20 143/71 92 L 04/06/17 04:17 22 04/06/17 03:45 98.1 F 110 H 24 118/60 92 L Intake and Output 04/06/17 04/06/17 04/06/17 06:59 14:59 22:59 Intake Total 200 Balance 200 Intake: IV 200 Lactated Ringers 1,000 ml 200 @ 100 mls/hr IV .Q10H JERAMY Rx#:[id number] Other: Weight 86.183 kg Results - Lab Results Most recent lab results Calcium 9.2 mg/dL (8.4-10.2) 04/06/17 04:00 04/06/17 04:00 04/06/17 04:00 Assessment and Plan Plan: Assessment: #1. Nonoliguric acute kidney injury mostly prerenal secondary to NSAIDs and further worsened with the use of diuretics and JERRY inhibitor. Creatinine 2.11 on admission. Urinalysis quite benign. No evidence of hydronephrosis. Baseline creatinine is 1. #2. Metabolic acidosis secondary to acute kidney injury. #3. History of sarcoidosis maintained on prednisone and Plaquenil. Pulmonology following. #4. Benign hypertension. Controlled. Plan: Continue lactated Ringer's at 100 mL an hour. Avoid nephrotoxic agents and hypotensive episodes. Diuretics, JERRY inhibitor as well as NSAIDs held for now. Repeat electrolytes in the morning. May need to add sodium bicarbonate if no improvement. Thank you for the consultation. I will continue to follow the patient with you during his hospital stay.
[2017-04-06] MEDS ORDERED: LORazepam 2 MG/ML SYRINGE IV PRN (17:29)
[2017-04-06] MEDS ORDERED: LORazepam 2 MG/ML SYRINGE IV STA (17:29)
[2017-04-06 19:04] LABS: ABG Base Excess -5.7 mmol/L; ABG HCO3 18 mmol/L (21-25); ABG PCO2 26 mmHg (35-45); ABG PH 7.45 (7.35-7.45); ABG PO2 48 mmHg (83-108); ABG TCO2 19 mmol/L (19-24)
[2017-04-06] MEDS ORDERED: PROPOFOL 1,000 MG/100 ML VIAL IV ONE (19:22)
[2017-04-06] MEDS: PROPOFOL 1,000 MG/100 ML VIAL IV SCH ×2 (20:00→22:14)
--- NOTE | 2017-04-06 20:15 | XR ---
EXAMINATION TYPE: XR chest 1V portable DATE OF EXAM: 04/06/2017 COMPARISON: Today HISTORY: Postintubation. Unresponsive. TECHNIQUE: Single frontal view of the chest is obtained. FINDINGS: There is moderate pulmonary edema. Endotracheal tube is in good position. There is a nasog astric tube. There are chest leads. IMPRESSION: Endotracheal tube is in good position. There is pulmonary edema there is slightly worse than exam this morning at 7:00 AM.
[2017-04-06] MEDS ORDERED: NALOXONE 0.4 MG/ML 1 ML VIAL IV PRN (20:16)
[2017-04-06] MEDS ORDERED: ACETAMINOPHEN IV (For NPO) 1,000 MG in EMPTY BAG 1 BAG IVPB PRN (20:16)
[2017-04-06 20:25] LABS: ABG PCO2 51 mmHg (35-45); ABG PH 7.25 (7.35-7.45)
[2017-04-06 20:26] LABS: ABG Base Excess -4.3 mmol/L; ABG HCO3 22 mmol/L (21-25); ABG PO2 55 mmHg (83-108); ABG TCO2 23 mmol/L (19-24)
[2017-04-06 20:47] LABS: Appearance,Urine Clear (Clear); Bilirubin,Urine Negative (Negative); Glucose,Urine (UA) Negative (Negative); Ketones,Urine Negative (Negative); Leukocyte Esterase,Urine Negative (Negative); Nitrite,Urine Negative (Negative); PH, Urine 5.5 (5.0-8.0); Protein,Urine Trace (Negative); Specific Gravity,Urine 1.013 (1.001-1.035); UA Billing (MACRO vs. MICRO) CHEM; Urobilinogen,Urine <2.0 mg/dL (<2.0)
[2017-04-06] MEDS: HYDROmorphone 1 MG/ML 1 ML SYRINGE IVP PRN (21:43)
[2017-04-06] MEDS: methylPREDNISolone SOD SUCCI 40 MG/ML 1 ML VIAL IV SCH (22:01)
[2017-04-06] MEDS: CHLORHEXIDINE GLUCONATE 15 ML CUP MUCOUS MEM SCH (22:02)
[2017-04-06] MEDS: AMITRIPTYLINE HCL 25 MG TAB PO SCH (22:02)
[2017-04-06] MEDS ORDERED: SODIUM CHLORIDE 0.9% 2,000 ML IV ONE (23:20)
[2017-04-07] MEDS: PROPOFOL 1,000 MG/100 ML VIAL IV SCH ×6 (00:19→19:56)
[2017-04-07] MEDS: HYDROmorphone 1 MG/ML 1 ML SYRINGE IVP PRN ×5 (00:27→20:39)
[2017-04-07] MEDS: methylPREDNISolone SOD SUCCI 40 MG/ML 1 ML VIAL IV SCH ×4 (02:18→17:04)
[2017-04-07] MEDS: PREGABALIN 75 MG CAP PO SCH ×3 (04:10→21:35)
[2017-04-07] MEDS: NIACIN TR 500 MG CAPSULE.ER PO SCH ×2 (04:10→20:13)
[2017-04-07 05:16] LABS: Basophils % (A) 0 %; CH 29.3; CHCM 32.7; Eosinophils % (A) 0 %; HCT 30.4 % (39.0-53.0); HGB 10.1 gm/dL (13.0-17.5); Luc # (Auto) 0.09; Luc % (Auto) 1; Lymphocytes # (A) 0.5 k/uL (1.0-4.8); Lymphocytes % (A) 5 %; MCH 30.1 pg (25.0-35.0); MCHC 33.3 g/dL (31.0-37.0); MCV 90.5 fL (80.0-100.0); Mean Platelet Volume 8.1; Monocytes # (A) 0.3 k/uL (0-1.0); Monocytes % (A) 3 %; Neutrophils # (A) 10.2 k/uL (1.3-7.7); Neutrophils % (A) 92 %; RBC 3.36 m/uL (4.30-5.90); RDW 14.9 % (11.5-15.5); WBC 11.1 k/uL (3.8-10.6); WBC (Perox) 12.13
[2017-04-07 05:22] LABS: ABG Base Excess -5.4 mmol/L; ABG HCO3 19 mmol/L (21-25); ABG PCO2 33 mmHg (35-45); ABG PH 7.37 (7.35-7.45); ABG PO2 58 mmHg (83-108); ABG TCO2 20 mmol/L (19-24)
[2017-04-07 05:28] LABS: ALT 53 U/L (21-72); AST 43 U/L (17-59); Alkaline Phosphatase 99 U/L (38-126); Anion Gap 12 mmol/L; Blood Urea Nitrogen 29 mg/dL (9-20); Calcium 8.2 mg/dL (8.4-10.2); Carbon Dioxide 17 mmol/L (22-30); Chloride 111 mmol/L (98-107); Glucose 120 mg/dL (74-99); Non-African American GFR(MDRD) 58 (>60 ml/min/1.73 sqM); Phosphorous 5.1 mg/dL (2.5-4.5); Potassium 4.2 mmol/L (3.5-5.1); Sodium 140 mmol/L (137-145); Total Bilirubin 0.3 mg/dL (0.2-1.3); Total Protein 5.8 g/dL (6.3-8.2)
[2017-04-07] MEDS ORDERED: Magnesium Replacement Protocol 1 EACH MISC MISCELLANE PRN (05:56)
[2017-04-07] MEDS ORDERED: CISATRACURIUM 2 MG/ML 5 ML VIAL IV ONE ×3 (06:30→10:24)
[2017-04-07] MEDS ORDERED: NOREPINEPHRIN 4 MG-0.9% NS PMX 4 MG/250 ML ML IV ONE (06:31)
[2017-04-07] MEDS ORDERED: SODIUM CHLORIDE 0.9% 1,000 ML IV ONE (06:36)
[2017-04-07] MEDS: CISATRACURIUM 200 MG in SODIUM CHLORIDE 0.9% 180 ML IV SCH (06:42)
[2017-04-07] MEDS ORDERED: NOREPINEPHRIN 4 MG-0.9% NS PMX 4 MG/250 ML ML IV SCH (06:45)
[2017-04-07] MEDS: IPRATROPIUM-ALBUTEROL 3 ML NEB INHALATION SCH ×5 (07:16→23:01)
[2017-04-07] MEDS: HYDROmorphone 2 MG/ML 1 ML SYRINGE IM PRN (07:17)
--- NOTE | 2017-04-07 07:32 | XR ---
EXAMINATION TYPE: XR chest 1V portable DATE OF EXAM: 04/07/2017 CLINICAL HISTORY: Difficulty breathing and intubated progress study. TECHNIQUE: Single AP portable upright view of the chest is obtained. COMPARISON: Chest x-ray from one day earlier and older studies. FINDINGS: An endotracheal tube and orogastric tube are stable in appearance. There is persistent igor eolar and reticular interstitial opacities bilaterally and diffusely. No large pleural effusion or pn eumothorax is seen. Cardiac silhouette size is upper limits of normal. Osseous structures are intact. IMPRESSION: Overall stable findings, background chronic upper lungs parenchymal fibrosis with diffu se bilateral alveolar and interstitial edema and/or infiltrates.
[2017-04-07] MEDS: MAGNESIUM SULFATE-D5W PMX 1 GM in DEXTROSE/WATER 1 100ML.BAG IVPB SCH ×2 (08:11→09:13)
[2017-04-07] MEDS: CHLORHEXIDINE GLUCONATE 15 ML CUP MUCOUS MEM SCH ×2 (08:12→19:53)
[2017-04-07] MEDS: ENOXAPARIN 40 MG/0.4 ML SYRINGE SQ SCH (08:13)
[2017-04-07] MEDS: BETAMETHASONE DIPROPIONATE 0.05% CREAM 15 GM TUBE TOPICAL SCH (08:35)
[2017-04-07] MEDS: ARTIFICIAL TEARS-HYPROMELLOSE DROPS 15 ML BTL BOTH EYES SCH ×4 (08:35→20:13)
[2017-04-07] MEDS ORDERED: predniSONE 10 MG TAB PO SCH (09:00)
[2017-04-07] MEDS ORDERED: predniSONE 20 MG TAB PO SCH (09:00)
[2017-04-07] MEDS ORDERED: LEVOFLOXACIN 250 MG TAB PO SCH (09:00)
[2017-04-07] MEDS: PANTOPRAZOLE 40 MG/10 ML VIAL IVP SCH (09:07)
[2017-04-07] MEDS: LEVOFLOXACIN 750MG-D5W PMX 750 MG in DEXTROSE/WATER 1 150ML.BAG IVPB SCH (09:08)
[2017-04-07] MEDS: amLODIPine 10 MG TAB PO SCH (09:16)
[2017-04-07] MEDS: LACTATED RINGERS 1,000 ML IV SCH ×3 (09:18→18:26)
--- NOTE | 2017-04-07 09:43 | P.PN ---
Subjective Progress note dated 04/07/2017 56-year-old white male who was seen yesterday. He initially was presented to the emergency department with complaints of having fallen and lacerating his left foot. Subsequent to that, the patient developed acute respiratory distress and an 18 was called. He was initially on the fourth floor. The patient was then transferred up to the ICU after I spoke to our charge nurse, Roxanne. The patient developed diffuse bilateral infiltrates. The etiology of which is not known. This could be infection fluid overload early acute lung injury/ARDS sepsis aspiration, etc. Anyway the patient gave us a lot of difficulty yesterday and initially was refusing all treatments. We ended up intubating the patient placement patient on the ventilator. Sedation and narcotics could not settle the patient downstairs the patient had be paralyzed. He was actually intubated on April 06. Currently is on lactated Ringer's at 100 mL an hour since atracurium at 1.5 mcg/kg/m DIP or van at 50 mcg/kg/m and the benefits currently on hold. He is on the ventilator on the assist control mode rate of 22 tidal Lyme 450 FiO2 100% PEEP of 13. Blood gases that were done on 90% and PEEP of 10 show a PaO2 of 58 pCO2 33. 7.37. Updrafts have been added every 4 hours. The patient will need a bronchoscopy BAL central line and an art line. That'll be done this morning. Objective - Vital Signs Vital signs: Vital Signs Temp 98.8 F 04/07/17 08:00 Pulse 107 H 04/07/17 08:00 Resp 14 04/07/17 08:00 BP 142/64 04/07/17 08:00 Pulse Ox 100 04/07/17 08:00 Intake & Output 04/06/17 04/07/17 04/07/17 18:59 06:59 18:59 Intake Total 200 3427.433 1222.493 Output Total 1570 155 Balance 200 7094.287 0974.493 Weight 103.8 kg Intake: IV 200 3200 1200 Lactated Ringers 1,000 ml 200 1200 200 @ 100 mls/hr IV .Q10H [facility] Rx#:[id number] Sodium Chloride 0.9% 2, 2000 1000 000 ml @ 999 mls/hr IV . Q2H1M ONE Rx#:[id number] Intake, IV Titration 227.433 22.493 Amount Propofol 1,000 mg In 100 227.433 22.493 ml @ Titrate IV .Q0M [facility] Rx#:[id number] Output: Urine 1570 155 Other: Voiding Method Indwelling Catheter - Exam The patient's sedated and paralyzed and intubated. No history or any other complaints could be obtained from him. HEENT examination is grossly unremarkable. Oral endotracheal tube and NG tube is noted. Neck supple. Full range of motion. No adenopathy or thyromegaly. Cardiac vascular examination reveals distant heart sounds. Heart rate 90. S1- S2 normal. No murmur. Lungs reveal coarse rhonchi. Breath sounds are diminished. No wheezes. No crackles. Abdomen soft bowel sounds are heard. Extremities are intact. Skin without rash. Laceration noted on left foot. Neurologic examination cannot be performed. - Labs CBC & Chem 7: 04/07/17 04:29 04/07/17 04:29 Labs: Abnormal Lab Results - Last 24 Hours (Table) 04/06/17 04/06/17 04/06/17 Range/Units 12:05 18:51 20:00 WBC (3.8-10.6) k/uL RBC (4.30-5.90) m/uL Hgb (13.0-17.5) gm/dL Hct (39.0-53.0) % Neutrophils # (1.3-7.7) k/uL Lymphocytes # (1.0-4.8) k/uL ABG pH (7.35-7.45) ABG pCO2 26 L (35-45) mmHg ABG pO2 48 L (83-108) mmHg ABG HCO3 18 L (21-25) mmol/L ABG O2 Saturation 87.0 L (94-97) % Chloride (98-107) mmol/L Carbon Dioxide (22-30) mmol/L BUN (9-20) mg/dL Creatinine (0.66-1.25) mg/dL Glucose (74-99) mg/dL Calcium (8.4-10.2) mg/dL Phosphorus (2.5-4.5) mg/dL Total Protein (6.3-8.2) g/dL Albumin (3.5-5.0) g/dL Urine Protein Trace H Trace H (Negative) 04/06/17 04/07/17 04/07/17 Range/Units 20:10 04:29 04:29 WBC 11.1 H (3.8-10.6) k/uL RBC 3.36 L (4.30-5.90) m/uL Hgb 10.1 L (13.0-17.5) gm/dL Hct 30.4 L (39.0-53.0) % Neutrophils # 10.2 H (1.3-7.7) k/uL Lymphocytes # 0.5 L (1.0-4.8) k/uL ABG pH 7.25 L (7.35-7.45) ABG pCO2 51 H (35-45) mmHg ABG pO2 55 L (83-108) mmHg ABG HCO3 (21-25) mmol/L ABG O2 Saturation 83.0 L (94-97) % Chloride 111 H (98-107) mmol/L Carbon Dioxide 17 L (22-30) mmol/L BUN 29 H (9-20) mg/dL Creatinine 1.30 H (0.66-1.25) mg/dL Glucose 120 H (74-99) mg/dL Calcium 8.2 L (8.4-10.2) mg/dL Phosphorus 5.1 H (2.5-4.5) mg/dL Total Protein 5.8 L (6.3-8.2) g/dL Albumin 3.0 L (3.5-5.0) g/dL Urine Protein (Negative) 04/07/17 Range/Units 05:19 WBC (3.8-10.6) k/uL RBC (4.30-5.90) m/uL Hgb (13.0-17.5) gm/dL Hct (39.0-53.0) % Neutrophils # (1.3-7.7) k/uL Lymphocytes # (1.0-4.8) k/uL ABG pH (7.35-7.45) ABG pCO2 33 L (35-45) mmHg ABG pO2 58 L (83-108) mmHg ABG HCO3 19 L (21-25) mmol/L ABG O2 Saturation 89.0 L (94-97) % Chloride (98-107) mmol/L Carbon Dioxide (22-30) mmol/L BUN (9-20) mg/dL Creatinine (0.66-1.25) mg/dL Glucose (74-99) mg/dL Calcium (8.4-10.2) mg/dL Phosphorus (2.5-4.5) mg/dL Total Protein (6.3-8.2) g/dL Albumin (3.5-5.0) g/dL Urine Protein (Negative) Microbiology - Last 24 Hours (Table) 04/06/17 20:07 Gram Stain - Preliminary Sputum Sputum Culture - Preliminary Assessment and Plan (1) Pneumonia Status: Acute (2) Chronic back pain Status: Acute (3) Acute renal failure Status: Acute (4) Dyspnea Status: Acute (5) Fall Status: Acute (6) Sarcoidosis of lung Status: Chronic (7) Benign hypertension Status: Chronic (8) Respiratory failure Status: Acute (9) ARDS (adult respiratory distress syndrome) Status: Acute Plan: Plan dated 04/06/2017 The patient's labs x-rays medications are all reviewed. The patient appears to be treated for active sarcoidosis as he is currently on hydroxychloroquine and prednisone. We'll look back to see what an old chest x-ray looks like. He may benefit from a CAT scan of the chest. Additional recommendations and suggestions are forthcoming. Plan dated 04/07/2017 The patient will need bronchoscopy airway examination BAL today. That will be sent for diagnostic purposes. In addition, we'll place an art line and a central line. No additional recommendations are made. Prognosis is guarded. We'll review labs x-rays a medications. Updrafts added every 4 hours with no vent changes at this time. The patient's currently paralyzed will be paralyzed for 48 hours. Additional recommendations and suggestions are forthcoming. Time with Patient: Greater than 30
--- NOTE | 2017-04-07 10:16 | P.PCN ---
Date of Procedure: 04/07/17 Preoperative Diagnosis: Acute respiratory distress syndrome Postoperative Diagnosis: Acute respiratory distress syndrome Procedure(s) Performed: Bronchoscopy with BAL Anesthesia: other (Propofol and Nimbex on and intubated ICU patient) Surgeon: Richard Ying [employer] Repairer #1: Vee Matute Estimated Blood Loss (ml): 0 Disposition: ICU (Current ICU patient, procedure done in ICU) Indications for Procedure: Acute hypoxic respiratory failure Operative Findings: Relatively normal bronchial findings Description of Procedure: This procedure was performed in the intensive care unit on the patient who is intubated and on the mechanical ventilator. He was previous sedated with propofol and Nimbex. An adapter was placed on the endobronchial tube which allowed passage of the bronchoscope. The tube was approximately 2 cm above the brad. The scope was then passed into the left mainstem to the left upper lobe, lingula and middle lobe segments. Following that the bronchoscope was passed into the right mainstem and into the right upper lobe, right middle lobe, right lower lobe with elevated segments examined as well. There was no significant mucous, no erythema. Relatively normal bronchial findings. A bronchial alveolar lavage was performed in the right middle lobe. Washings were sent to pathology and to the lab for evaluation including cultures and viral evaluation. The bronchoscope was subsequently removed. The endotracheal tube remained in place. There were no complications. The patient remained stable throughout the procedure.
--- NOTE | 2017-04-07 10:53 | P.PN ---
Subjective Patient is seen in follow-up for acute kidney injury. His baseline creatinine is 1 and was elevated at 2.1 on admission. He started maintain a lactated Ringer's at 100 mL an hour and creatinine is 1-1.3 today. Urinalysis is noted to be quite benign. Patient became dyspneic and went into acute hypoxic respiratory failure yesterday. He is currently in the intensive care unit requiring 100% FiO2 support. He underwent a bronchoscopy this morning as well. Hemodynamically he is stable. He is nonoliguric. Vital signs are stable. General: The patient appeared well nourished and normally developed. Intubated. HEENT: Head exam is unremarkable. Neck is without jugular venous distension. LUNGS: Rhonchi at bases. Breath sounds decreased. HEART: Rate and Rhythm are regular. First and second heart sounds normal. No murmurs, rubs or gallops. ABDOMEN: Abdominal exam reveals normal bowel sounds. Non-tender and non- distended. No evidence of peritonitis. EXTREMITITES: No clubbing, cyanosis, or edema. Objective - Vital Signs Vital signs: Vital Signs Temp 98.8 F 04/07/17 08:00 Pulse 107 H 04/07/17 08:00 Resp 14 04/07/17 08:00 BP 142/64 04/07/17 08:00 Pulse Ox 100 04/07/17 08:00 Intake & Output 04/06/17 04/07/17 04/07/17 18:59 06:59 18:59 Intake Total 200 3427.433 1222.493 Output Total 1570 155 Balance 200 0489.513 0288.493 Weight 103.8 kg 103.8 kg Intake: IV 200 3200 1200 Lactated Ringers 1,000 ml 200 1200 200 @ 100 mls/hr IV .Q10H [facility] Rx#:[id number] Sodium Chloride 0.9% 2, 2000 1000 000 ml @ 999 mls/hr IV . Q2H1M [facility] Rx#:[id number] Intake, IV Titration 227.433 22.493 Amount Propofol 1,000 mg In 100 227.433 22.493 ml @ Titrate IV .Q0M [facility] Rx#:[id number] Output: Urine 1570 155 Other: Voiding Method Indwelling Catheter - Labs CBC & Chem 7: 04/07/17 04:29 04/07/17 04:29 Labs: Abnormal Lab Results - Last 24 Hours (Table) 04/06/17 04/06/17 04/06/17 Range/Units 12:05 18:51 20:00 WBC (3.8-10.6) k/uL RBC (4.30-5.90) m/uL Hgb (13.0-17.5) gm/dL Hct (39.0-53.0) % Neutrophils # (1.3-7.7) k/uL Lymphocytes # (1.0-4.8) k/uL ABG pH (7.35-7.45) ABG pCO2 26 L (35-45) mmHg ABG pO2 48 L (83-108) mmHg ABG HCO3 18 L (21-25) mmol/L ABG O2 Saturation 87.0 L (94-97) % Chloride (98-107) mmol/L Carbon Dioxide (22-30) mmol/L BUN (9-20) mg/dL Creatinine (0.66-1.25) mg/dL Glucose (74-99) mg/dL Calcium (8.4-10.2) mg/dL Phosphorus (2.5-4.5) mg/dL Total Protein (6.3-8.2) g/dL Albumin (3.5-5.0) g/dL Urine Protein Trace H Trace H (Negative) 04/06/17 04/07/17 04/07/17 Range/Units 20:10 04:29 04:29 WBC 11.1 H (3.8-10.6) k/uL RBC 3.36 L (4.30-5.90) m/uL Hgb 10.1 L (13.0-17.5) gm/dL Hct 30.4 L (39.0-53.0) % Neutrophils # 10.2 H (1.3-7.7) k/uL Lymphocytes # 0.5 L (1.0-4.8) k/uL ABG pH 7.25 L (7.35-7.45) ABG pCO2 51 H (35-45) mmHg ABG pO2 55 L (83-108) mmHg ABG HCO3 (21-25) mmol/L ABG O2 Saturation 83.0 L (94-97) % Chloride 111 H (98-107) mmol/L Carbon Dioxide 17 L (22-30) mmol/L BUN 29 H (9-20) mg/dL Creatinine 1.30 H (0.66-1.25) mg/dL Glucose 120 H (74-99) mg/dL Calcium 8.2 L (8.4-10.2) mg/dL Phosphorus 5.1 H (2.5-4.5) mg/dL Total Protein 5.8 L (6.3-8.2) g/dL Albumin 3.0 L (3.5-5.0) g/dL Urine Protein (Negative) 04/07/17 Range/Units 05:19 WBC (3.8-10.6) k/uL RBC (4.30-5.90) m/uL Hgb (13.0-17.5) gm/dL Hct (39.0-53.0) % Neutrophils # (1.3-7.7) k/uL Lymphocytes # (1.0-4.8) k/uL ABG pH (7.35-7.45) ABG pCO2 33 L (35-45) mmHg ABG pO2 58 L (83-108) mmHg ABG HCO3 19 L (21-25) mmol/L ABG O2 Saturation 89.0 L (94-97) % Chloride (98-107) mmol/L Carbon Dioxide (22-30) mmol/L BUN (9-20) mg/dL Creatinine (0.66-1.25) mg/dL Glucose (74-99) mg/dL Calcium (8.4-10.2) mg/dL Phosphorus (2.5-4.5) mg/dL Total Protein (6.3-8.2) g/dL Albumin (3.5-5.0) g/dL Urine Protein (Negative) Microbiology - Last 24 Hours (Table) 04/06/17 20:07 Gram Stain - Preliminary Sputum Sputum Culture - Preliminary Assessment and Plan Plan: Assessment: #1. Nonoliguric acute kidney injury mostly prerenal secondary to NSAIDs and further worsened with the use of diuretics and JERRY inhibitor. Creatinine 2.11 on admission and down to 1.3 today. Urinalysis quite benign and no evidence of pulmonary renal syndrome or other glomerulonephritis. No evidence of hydronephrosis. Baseline creatinine is 1. #2. Metabolic acidosis secondary to acute kidney injury. #3. History of sarcoidosis maintained on prednisone and Plaquenil. Pulmonology following. #4. Benign hypertension. Controlled. #5. Acute hypoxic respiratory failure status post bronchoscopy this morning. Concern for aspiration pneumonia. Plan: Continue lactated Ringer's at 100 mL an hour for now but will decrease the rate to 70 mL an hour once tube feeds are initiated. Avoid nephrotoxic agents and hypotensive episodes. Diuretics, JERRY inhibitor as well as NSAIDs held for now. Repeat electrolytes in the morning. Add oral sodium bicarbonate.
--- NOTE | 2017-04-07 11:02 | PCN ---
PROCEDURE NOTE RIGHT RADIAL ARTERIAL LINE PLACEMENT: INDICATION: Hemodynamic monitoring. A time-out was completed verifying correct patient, procedure, site, positioning, and implant(s) or special equipment if applicable. Rk's test was performed to ensure adequate perfusion. The patient's right wrist was prepped and draped in sterile fashion. 1% Lidocaine was used to anesthetize the area. An 18G Arrow arterial line was introduced into the radial artery. The catheter was threaded over the guide wire and the needle was removed with appropriate pulsatile blood return. Blood loss was minimal. The catheter was then sutured in place to the skin and a sterile dressing applied. Perfusion to the extremity distal to the point of catheter insertion was checked and found to be adequate. The patient tolerated the procedure well and there were no complications. Good blood flow. Good wave form. The catheter was sutured in place. There were no immediate complications. Sterile dressing was applied by the nurse. LEFT INTERNAL JUGULAR TRIPLE-LUMEN CATHETER: PREOPERATIVE DIAGNOSIS: Administration of fluids and pressors. POSTOPERATIVE DIAGNOSIS: Administration of fluids and pressors. A time-out was completed verifying correct patient, procedure, site, positioning and implant or special equipment if applicable. The patient was placed in a dependent position for triple lumen catheter placement based on the vein to be cannulated. The patient's left neck was prepped and draped in sterile fashion. 1% Lidocaine was used to anesthetize the surrounding skin area. A triple lumen 9F Cordis catheter was introduced into the internal jugular vein using Seldinger technique. The catheter was threaded smoothly over the guidewire and appropriate blood return was obtained. Each lumen of the catheter was evaluated with air and flushed with sterile saline. The catheter was then sutured in place to the skin and a sterile dressing applied. Perfusion to the extremity distal to the catheter point of insertion was checked and found to be adequate. There was no immediate complication. Good blood return from all 3 ports. The catheter was sutured in place. Sterile dressing was applied by the nurse. Chest x-ray is ordered to check placement and rule out pneumothorax. Patient tolerated the procedure well. MMODL / IJN: [id number] /
--- NOTE | 2017-04-07 11:04 | XR ---
EXAMINATION TYPE: XR chest 1V portable DATE OF EXAM: 04/07/2017 CLINICAL HISTORY: Central line placement. TECHNIQUE: Single AP portable semiupright view of the chest is obtained. COMPARISON: Chest x-ray from earlier today FINDINGS: There is new left internal jugular central venous catheter with tip in right atrium. An endotracheal and orogastric tube are stable in appearance. There is persistent alveolar and reticu lar interstitial opacities bilaterally and diffusely. No large pleural effusion or pneumothorax is se en. Cardiac silhouette size is stable and upper limits of normal. Osseous structures are intact. IMPRESSION: New left internal jugular central venous catheter with tip in right atrium, no evidence o f sizable pneumothorax after central line placement. Other findings stable.
[2017-04-07 11:08] LABS: ABG PH 7.08 (7.35-7.45)
[2017-04-07 11:09] LABS: ABG Base Excess -5.6 mmol/L; ABG HCO3 23 mmol/L (21-25); ABG Oxygen Saturation 98.1 % (94-97); ABG PCO2 82 mmHg (35-45); ABG PO2 151 mmHg (83-108); ABG TCO2 26 mmol/L (19-24)
[2017-04-07 12:19] LABS: Glucose,Whole Blood 160 mg/dL (75-99)
[2017-04-07] MEDS: DESVENLAFAXINE SUCCINATE 50 MG TAB.ER.24H PO SCH (13:14)
[2017-04-07] MEDS: SODIUM BICARBONATE TAB 650 MG TAB PO SCH ×2 (13:23→20:24)
[2017-04-07] MEDS ORDERED: INSULIN LISPRO (humaLOG) 300 UNIT/3 ML VIAL SQ SCH (13:45)
[2017-04-07 14:06] LABS: Glucose,Whole Blood 156 mg/dL (75-99)
[2017-04-07] MEDS: INSULIN LISPRO (humaLOG) 300 UNIT/3 ML VIAL SQ SCH (17:08)
[2017-04-07 17:10] LABS: Glucose,Whole Blood 136 mg/dL (75-99)
[2017-04-07 19:34] LABS: Hemoglobin A1C 5.5 % (4.2-6.1)
[2017-04-07 20:01] LABS: Glucose,Whole Blood 159 mg/dL (75-99)
[2017-04-07] MEDS: AMITRIPTYLINE HCL 25 MG TAB PO SCH (20:13)
[2017-04-07 21:58] LABS: RBC, Body Fluid 5450 /uL
[2017-04-07] MEDS: PANTOPRAZOLE 40 MG TABLET PO SCH (22:54)
[2017-04-08] MEDS: CISATRACURIUM 200 MG in SODIUM CHLORIDE 0.9% 180 ML IV SCH ×2 (00:28→18:38)
[2017-04-08 00:39] LABS: Glucose,Whole Blood 131 mg/dL (75-99)
[2017-04-08] MEDS: INSULIN LISPRO (humaLOG) 300 UNIT/3 ML VIAL SQ SCH ×4 (00:44→18:04)
[2017-04-08] MEDS: methylPREDNISolone SOD SUCCI 40 MG/ML 1 ML VIAL IV SCH ×4 (00:45→18:05)
[2017-04-08] MEDS: ARTIFICIAL TEARS-HYPROMELLOSE DROPS 15 ML BTL BOTH EYES SCH ×6 (00:45→20:23)
[2017-04-08 01:15] LABS: Anion Gap 8 mmol/L; Blood Urea Nitrogen 23 mg/dL (9-20); Calcium 8.5 mg/dL (8.4-10.2); Carbon Dioxide 27 mmol/L (22-30); Chloride 109 mmol/L (98-107); Glucose 146 mg/dL (74-99); Non-African American GFR(MDRD) >60 (>60 ml/min/1.73 sqM); Potassium 5.1 mmol/L (3.5-5.1); Sodium 144 mmol/L (137-145)
[2017-04-08] MEDS: HYDROmorphone 1 MG/ML 1 ML SYRINGE IVP PRN ×7 (01:48→23:13)
[2017-04-08] MEDS: PROPOFOL 1,000 MG/100 ML VIAL IV SCH ×6 (01:49→23:12)
[2017-04-08] MEDS: IPRATROPIUM-ALBUTEROL 3 ML NEB INHALATION SCH ×6 (02:49→22:54)
[2017-04-08 04:22] LABS: Basophils % (A) 0 %; CH 29.9; CHCM 32.3; Eosinophils % (A) 0 %; HCT 32.9 % (39.0-53.0); HDW 3.18; HGB 10.4 gm/dL (13.0-17.5); Luc # (Auto) 0.16; Luc % (Auto) 1; Lymphocytes # (A) 0.4 k/uL (1.0-4.8); Lymphocytes % (A) 4 %; MCH 29.7 pg (25.0-35.0); MCHC 31.7 g/dL (31.0-37.0); MCV 93.6 fL (80.0-100.0); Mean Platelet Volume 8.6; Monocytes # (A) 0.6 k/uL (0-1.0); Monocytes % (A) 5 %; Neutrophils # (A) 10.6 k/uL (1.3-7.7); Neutrophils % (A) 90 %; RBC 3.52 m/uL (4.30-5.90); RDW 15.8 % (11.5-15.5); WBC 11.8 k/uL (3.8-10.6); WBC (Perox) 12.16
[2017-04-08 04:31] LABS: ALT 51 U/L (21-72); AST 31 U/L (17-59); Alkaline Phosphatase 110 U/L (38-126); Anion Gap 5 mmol/L; Blood Urea Nitrogen 22 mg/dL (9-20); Calcium 8.5 mg/dL (8.4-10.2); Carbon Dioxide 28 mmol/L (22-30); Chloride 110 mmol/L (98-107); Glucose 152 mg/dL (74-99); Magnesium 2.4 mg/dL (1.6-2.3); Non-African American GFR(MDRD) >60 (>60 ml/min/1.73 sqM); Phosphorous 3.7 mg/dL (2.5-4.5); Potassium 5.1 mmol/L (3.5-5.1); Sodium 143 mmol/L (137-145); Total Bilirubin 0.3 mg/dL (0.2-1.3); Total Protein 6.1 g/dL (6.3-8.2)
[2017-04-08 04:45] LABS: ABG Base Excess -0.1 mmol/L; ABG HCO3 26 mmol/L (21-25); ABG PCO2 63 mmHg (35-45); ABG PH 7.25 (7.35-7.45); ABG PO2 110 mmHg (83-108); ABG TCO2 28 mmol/L (19-24)
[2017-04-08 05:48] LABS: Glucose,Whole Blood 158 mg/dL (75-99)
--- NOTE | 2017-04-08 07:35 | XR ---
EXAMINATION TYPE: XR chest 1V portable DATE OF EXAM: 04/08/2017 COMPARISON: 04/07/2017 INDICATION: Tube placement TECHNIQUE: Single frontal view of the chest is obtained. FINDINGS: The heart size is normal. The pulmonary vasculature is prominent. There is diffuse increased lung markings. Correlate for underlying edema and ARDS. An endotracheal tube is present with tip above the brad. Nasogastric tube transverses the thorax th e tip in the left upper quadrant of the abdomen. Left central venous catheter is present with the tip in the right atrium. IMPRESSION: 1. Clinical correlation recommended for pulmonary edema or ARDS. 2. Lines and catheters discussed above
[2017-04-08] MEDS: CHLORHEXIDINE GLUCONATE 15 ML CUP MUCOUS MEM SCH ×2 (07:48→20:12)
[2017-04-08] MEDS: ENOXAPARIN 40 MG/0.4 ML SYRINGE SQ SCH (07:49)
[2017-04-08] MEDS: LEVOFLOXACIN 750MG-D5W PMX 750 MG in DEXTROSE/WATER 1 150ML.BAG IVPB SCH (07:56)
[2017-04-08] MEDS: PANTOPRAZOLE 40 MG/10 ML VIAL IVP SCH (07:56)
[2017-04-08] MEDS: BETAMETHASONE DIPROPIONATE 0.05% CREAM 15 GM TUBE TOPICAL SCH (08:50)
[2017-04-08] MEDS: DESVENLAFAXINE SUCCINATE 50 MG TAB.ER.24H PO SCH (08:52)
[2017-04-08] MEDS: SODIUM BICARBONATE TAB 650 MG TAB PO SCH (08:59)
[2017-04-08] MEDS: PREGABALIN 75 MG CAP PO SCH ×2 (09:00→20:27)
--- NOTE | 2017-04-08 09:40 | P.PN ---
Subjective Progress note dated 04/07/2017 56-year-old white male who was seen yesterday. He initially was presented to the emergency department with complaints of having fallen and lacerating his left foot. Subsequent to that, the patient developed acute respiratory distress and an 18 was called. He was initially on the fourth floor. The patient was then transferred up to the ICU after I spoke to our charge nurse, Roxanne. The patient developed diffuse bilateral infiltrates. The etiology of which is not known. This could be infection fluid overload early acute lung injury/ARDS sepsis aspiration, etc. Anyway the patient gave us a lot of difficulty yesterday and initially was refusing all treatments. We ended up intubating the patient placement patient on the ventilator. Sedation and narcotics could not settle the patient downstairs the patient had be paralyzed. He was actually intubated on April 06. Currently is on lactated Ringer's at 100 mL an hour since atracurium at 1.5 mcg/kg/m DIP or van at 50 mcg/kg/m and the benefits currently on hold. He is on the ventilator on the assist control mode rate of 22 tidal Lyme 450 FiO2 100% PEEP of 13. Blood gases that were done on 90% and PEEP of 10 show a PaO2 of 58 pCO2 33. 7.37. Updrafts have been added every 4 hours. The patient will need a bronchoscopy BAL central line and an art line. That'll be done this morning. Progress note dated 04/08/2017 56-year-old black male who came in because of a laceration to the foot side. Subsequently developed shortness of breath with acute respiratory failure with profound hypoxemia. The etiology of his acute respiratory failure is not clear. I'm not sure if this represents some sort of infection or possible aspiration. His of the sarcoidosis, he was on prednisone 10 mg a day and hydroxychloroquine 200 mg twice a day. This represents some sort of immunocompromise situation. Anyway, the patient is mechanically ventilated. INR line and central line replaced. We've goal gone with a low titer Lyme strategy and high PEEP levels. We will be able to wean his FiO2 down to 50%. Arterial blood gases are currently pending. The patient's vent settings include the assist control mode, respiratory rate 32 tidal Lyme's 4 50 mL FiO2 60% to be dropped on the 50% with PEEP of 13. Blood gases show a by mouth PaO2 of 110 PaCO2 63 and a pH of 7.25. The patient is getting lactated Ringer's at 70 mL an hour appointment 9 at 20 mL an hour since atracurium at 1.5 mcg/kg/m and propofol at 50 mcg/kg/m. In addition, the patient's on 2 feeds are vital HPI at a rate of 28 with a goal of 28. Chest x-ray shows improved bilateral infiltrates. We are having some blood pressure issues of advanced instructed the nurse to give the patient tended 20 mg of labetalol IV every 4 hours if the systolic blood pressures greater than 160 or the mean arterial pressures greater than 100. In addition, we may have to use cleviprex if we cannot control the blood pressure. Again blood gases are pending. Objective - Vital Signs Vital signs: Vital Signs Temp 98.1 F 04/08/17 08:00 Pulse 98 04/08/17 09:00 Resp 32 H 04/08/17 09:00 BP 147/77 04/08/17 08:00 Pulse Ox 100 04/08/17 09:00 Intake & Output 04/07/17 04/08/17 04/08/17 18:59 06:59 18:59 Intake Total 2272.949 1484.239 362 Output Total 1305 3390 1225 Balance 967.949 -1905.761 -863 Weight 103.8 kg 110.7 kg Intake: IV 2020 1060 250 0.9 Sodium Chloride 40 Lactated Ringers 1,000 ml 1020 560 210 @ 70 mls/hr IV .[id number] [facility] Rx#:[id number] Sodium Chloride 0.9% 2, 1000 500 000 ml @ 999 mls/hr IV . Q2H1M [facility] Rx#:[id number] Intake, IV Titration 252.949 384.239 Amount Cisatracurium 200 mg In 68.489 70.908 Sodium Chloride 0.9% 180 ml @ 2 MCG/KG/MIN 12.45 mls/hr IV .Q16H4M [facility] Rx# :[id number] Propofol 1,000 mg In 100 184.460 313.331 ml @ Titrate IV .Q0M [facility] Rx#:[id number] Tube Feeding 40 112 Output: Urine 1305 3390 1225 Other: Voiding Method Indwelling Catheter Indwelling Catheter Indwelling Catheter ABP, PAP, CO, CI - Last Documented Arterial Blood Pressure 123/56 - Exam The patient's sedated and paralyzed and intubated. No history or any other complaints could be obtained from him. HEENT examination is grossly unremarkable. Oral endotracheal tube and NG tube is noted. Neck supple. Full range of motion. No adenopathy or thyromegaly. Cardiac vascular examination reveals distant heart sounds. Heart rate 90. S1- S2 normal. No murmur. Lungs reveal coarse rhonchi. Breath sounds are diminished. No wheezes. No crackles. Abdomen soft bowel sounds are heard. Extremities are intact. Skin without rash. Laceration noted on left foot. Neurologic examination cannot be performed. - Labs CBC & Chem 7: 04/08/17 04:07 04/08/17 04:07 Labs: Abnormal Lab Results - Last 24 Hours (Table) 04/06/17 04/07/17 04/07/17 Range/Units 18:23 10:55 14:04 WBC (3.8-10.6) k/uL RBC (4.30-5.90) m/uL Hgb (13.0-17.5) gm/dL Hct (39.0-53.0) % RDW (11.5-15.5) % Neutrophils # (1.3-7.7) k/uL Lymphocytes # (1.0-4.8) k/uL ABG pH 7.08 L* (7.35-7.45) ABG pCO2 82 H* (35-45) mmHg ABG pO2 151 H (83-108) mmHg ABG HCO3 (21-25) mmol/L ABG Total CO2 26 H (19-24) mmol/L ABG O2 Saturation 98.1 H (94-97) % Chloride (98-107) mmol/L BUN (9-20) mg/dL Glucose (74-99) mg/dL POC Glucose (mg/dL) 160 H 156 H (75-99) mg/dL Magnesium (1.6-2.3) mg/dL Total Protein (6.3-8.2) g/dL Albumin (3.5-5.0) g/dL 04/07/17 04/07/17 04/08/17 Range/Units 17:07 19:48 00:35 WBC (3.8-10.6) k/uL RBC (4.30-5.90) m/uL Hgb (13.0-17.5) gm/dL Hct (39.0-53.0) % RDW (11.5-15.5) % Neutrophils # (1.3-7.7) k/uL Lymphocytes # (1.0-4.8) k/uL ABG pH (7.35-7.45) ABG pCO2 (35-45) mmHg ABG pO2 (83-108) mmHg ABG HCO3 (21-25) mmol/L ABG Total CO2 (19-24) mmol/L ABG O2 Saturation (94-97) % Chloride (98-107) mmol/L BUN (9-20) mg/dL Glucose (74-99) mg/dL POC Glucose (mg/dL) 136 H 159 H 131 H (75-99) mg/dL Magnesium (1.6-2.3) mg/dL Total Protein (6.3-8.2) g/dL Albumin (3.5-5.0) g/dL 04/08/17 04/08/17 04/08/17 Range/Units 00:59 04:07 04:07 WBC 11.8 H (3.8-10.6) k/uL RBC 3.52 L (4.30-5.90) m/uL Hgb 10.4 L (13.0-17.5) gm/dL Hct 32.9 L (39.0-53.0) % RDW 15.8 H (11.5-15.5) % Neutrophils # 10.6 H (1.3-7.7) k/uL Lymphocytes # 0.4 L (1.0-4.8) k/uL ABG pH (7.35-7.45) ABG pCO2 (35-45) mmHg ABG pO2 (83-108) mmHg ABG HCO3 (21-25) mmol/L ABG Total CO2 (19-24) mmol/L ABG O2 Saturation (94-97) % Chloride 109 H 110 H (98-107) mmol/L BUN 23 H 22 H (9-20) mg/dL Glucose 146 H 152 H (74-99) mg/dL POC Glucose (mg/dL) (75-99) mg/dL Magnesium 2.4 H (1.6-2.3) mg/dL Total Protein 6.1 L (6.3-8.2) g/dL Albumin 3.2 L (3.5-5.0) g/dL 04/08/17 04/08/17 Range/Units 04:39 05:46 WBC (3.8-10.6) k/uL RBC (4.30-5.90) m/uL Hgb (13.0-17.5) gm/dL Hct (39.0-53.0) % RDW (11.5-15.5) % Neutrophils # (1.3-7.7) k/uL Lymphocytes # (1.0-4.8) k/uL ABG pH 7.25 L (7.35-7.45) ABG pCO2 63 H (35-45) mmHg ABG pO2 110 H (83-108) mmHg ABG HCO3 26 H (21-25) mmol/L ABG Total CO2 28 H (19-24) mmol/L ABG O2 Saturation (94-97) % Chloride (98-107) mmol/L BUN (9-20) mg/dL Glucose (74-99) mg/dL POC Glucose (mg/dL) 158 H (75-99) mg/dL Magnesium (1.6-2.3) mg/dL Total Protein (6.3-8.2) g/dL Albumin (3.5-5.0) g/dL Microbiology - Last 24 Hours (Table) 04/07/17 10:05 Acid Fast Bacilli Smear - Final Bronchial Washings - Right Acid Fast Bacilli Culture - Preliminary 04/07/17 10:05 Gram Stain - Preliminary Bronchial Washings - Right Bronchial Washings Culture - Preliminary 04/06/17 21:10 Blood Culture - Preliminary Blood No Growth after 24 hours 04/06/17 20:00 Urine Culture - Preliminary Urine,Catheterized 04/07/17 10:05 Fungal Culture - Preliminary Bronchial Washings - Right Assessment and Plan (1) Pneumonia Status: Acute (2) Chronic back pain Status: Acute (3) Acute renal failure Status: Acute (4) Dyspnea Status: Acute (5) Fall Status: Acute (6) Sarcoidosis of lung Status: Chronic (7) Benign hypertension Status: Chronic (8) Respiratory failure Status: Acute (9) ARDS (adult respiratory distress syndrome) Status: Acute Plan: Plan dated 04/06/2017 The patient's labs x-rays medications are all reviewed. The patient appears to be treated for active sarcoidosis as he is currently on hydroxychloroquine and prednisone. We'll look back to see what an old chest x-ray looks like. He may benefit from a CAT scan of the chest. Additional recommendations and suggestions are forthcoming. Plan dated 04/07/2017 The patient will need bronchoscopy airway examination BAL today. That will be sent for diagnostic purposes. In addition, we'll place an art line and a central line. No additional recommendations are made. Prognosis is guarded. We'll review labs x-rays a medications. Updrafts added every 4 hours with no vent changes at this time. The patient's currently paralyzed will be paralyzed for 48 hours. Additional recommendations and suggestions are forthcoming. Plan dated 04/08/2017 The patient by definition has moderate ARDS. This is based on the new [place] criteria. The patient will remain be maintained on the ventilator. A blood gas is pending and 1 hour. The FiO2 was dropped to 60-50%. We may make a PEEP change if the blood gases are reasonable. The patient is being nourished enterally. Central line and art line were placed yesterday. Bronchoscopy was done yesterday. Microbiology is pending or negative. The bronchoscopic findings were relatively normal. There was no purulence. The patient's overall condition is slightly improved today. Again paralysis we'll continue to about 7:00 tomorrow morning. Additional recommendations suggestions are forthcoming. Labs x-rays a medications are reviewed. We'll attempt to control the blood pressure with IV labetalol. If that does not work we will use IV infusion of cleviprex. Time with Patient: Greater than 30
[2017-04-08 10:50] LABS: ABG HCO3 28 mmol/L (21-25); ABG PCO2 62 mmHg (35-45); ABG PH 7.28 (7.35-7.45); ABG PO2 104 mmHg (83-108)
[2017-04-08 10:51] LABS: ABG Base Excess 2.1 mmol/L; ABG TCO2 30 mmol/L (19-24)
--- NOTE | 2017-04-08 11:06 | P.PN ---
Subjective Patient is seen in follow-up for acute kidney injury. His baseline creatinine is 1 and was elevated at 2.1 on admission. He is maintained on lactated Ringer' s at 70 mL an hour and creatinine is 0.9 today. He is also on tube feeds. Urinalysis is noted to be quite benign. Patient became dyspneic and went into acute hypoxic respiratory failure and is currently requiring ventilator support. FiO2 requirements are down to 60%. He underwent a bronchoscopy on April 07 which is quite benign. Hemodynamically he is stable. He is nonoliguric. Vital signs are stable. General: The patient appeared well nourished and normally developed. Intubated. HEENT: Head exam is unremarkable. Neck is without jugular venous distension. LUNGS: Rhonchi at bases. Breath sounds decreased. HEART: Rate and Rhythm are regular. First and second heart sounds normal. No murmurs, rubs or gallops. ABDOMEN: Abdominal exam reveals normal bowel sounds. Non-tender and non- distended. No evidence of peritonitis. EXTREMITITES: No clubbing, cyanosis, or edema. Objective - Vital Signs Vital signs: Vital Signs Temp 98.1 F 04/08/17 08:00 Pulse 119 H 04/08/17 10:00 Resp 31 H 04/08/17 10:00 BP 144/71 04/08/17 10:00 Pulse Ox 100 04/08/17 10:00 Intake & Output 04/07/17 04/08/17 04/08/17 18:59 06:59 18:59 Intake Total 2272.949 1484.239 570 Output Total 1305 3390 1450 Balance 967.949 -1905.761 -880 Weight 103.8 kg 110.7 kg Intake: IV 2020 1060 340 0.9 Sodium Chloride 60 Lactated Ringers 1,000 ml 1020 560 280 @ 70 mls/hr IV .[id number] [facility] Rx#:[id number] Sodium Chloride 0.9% 2, 1000 500 000 ml @ 999 mls/hr IV . Q2H1M [facility] Rx#:[id number] Intake, IV Titration 252.949 384.239 Amount Cisatracurium 200 mg In 68.489 70.908 Sodium Chloride 0.9% 180 ml @ 2 MCG/KG/MIN 12.45 mls/hr IV .Q16H4M [facility] Rx# :[id number] Propofol 1,000 mg In 100 184.460 313.331 ml @ Titrate IV .Q0M [facility] Rx#:[id number] Tube Feeding 40 140 Other 90 Output: Urine 1305 3390 1450 Other: Voiding Method Indwelling Catheter Indwelling Catheter Indwelling Catheter ABP, PAP, CO, CI - Last Documented Arterial Blood Pressure 140/64 - Labs CBC & Chem 7: 04/08/17 04:07 04/08/17 04:07 Labs: Abnormal Lab Results - Last 24 Hours (Table) 04/06/17 04/07/17 04/07/17 Range/Units 18:23 10:55 14:04 WBC (3.8-10.6) k/uL RBC (4.30-5.90) m/uL Hgb (13.0-17.5) gm/dL Hct (39.0-53.0) % RDW (11.5-15.5) % Neutrophils # (1.3-7.7) k/uL Lymphocytes # (1.0-4.8) k/uL ABG pH 7.08 L* (7.35-7.45) ABG pCO2 82 H* (35-45) mmHg ABG pO2 151 H (83-108) mmHg ABG HCO3 (21-25) mmol/L ABG Total CO2 26 H (19-24) mmol/L ABG O2 Saturation 98.1 H (94-97) % Chloride (98-107) mmol/L BUN (9-20) mg/dL Glucose (74-99) mg/dL POC Glucose (mg/dL) 160 H 156 H (75-99) mg/dL Magnesium (1.6-2.3) mg/dL Total Protein (6.3-8.2) g/dL Albumin (3.5-5.0) g/dL 04/07/17 04/07/17 04/08/17 Range/Units 17:07 19:48 00:35 WBC (3.8-10.6) k/uL RBC (4.30-5.90) m/uL Hgb (13.0-17.5) gm/dL Hct (39.0-53.0) % RDW (11.5-15.5) % Neutrophils # (1.3-7.7) k/uL Lymphocytes # (1.0-4.8) k/uL ABG pH (7.35-7.45) ABG pCO2 (35-45) mmHg ABG pO2 (83-108) mmHg ABG HCO3 (21-25) mmol/L ABG Total CO2 (19-24) mmol/L ABG O2 Saturation (94-97) % Chloride (98-107) mmol/L BUN (9-20) mg/dL Glucose (74-99) mg/dL POC Glucose (mg/dL) 136 H 159 H 131 H (75-99) mg/dL Magnesium (1.6-2.3) mg/dL Total Protein (6.3-8.2) g/dL Albumin (3.5-5.0) g/dL 04/08/17 04/08/17 04/08/17 Range/Units 00:59 04:07 04:07 WBC 11.8 H (3.8-10.6) k/uL RBC 3.52 L (4.30-5.90) m/uL Hgb 10.4 L (13.0-17.5) gm/dL Hct 32.9 L (39.0-53.0) % RDW 15.8 H (11.5-15.5) % Neutrophils # 10.6 H (1.3-7.7) k/uL Lymphocytes # 0.4 L (1.0-4.8) k/uL ABG pH (7.35-7.45) ABG pCO2 (35-45) mmHg ABG pO2 (83-108) mmHg ABG HCO3 (21-25) mmol/L ABG Total CO2 (19-24) mmol/L ABG O2 Saturation (94-97) % Chloride 109 H 110 H (98-107) mmol/L BUN 23 H 22 H (9-20) mg/dL Glucose 146 H 152 H (74-99) mg/dL POC Glucose (mg/dL) (75-99) mg/dL Magnesium 2.4 H (1.6-2.3) mg/dL Total Protein 6.1 L (6.3-8.2) g/dL Albumin 3.2 L (3.5-5.0) g/dL 04/08/17 04/08/17 04/08/17 Range/Units 04:39 05:46 10:48 WBC (3.8-10.6) k/uL RBC (4.30-5.90) m/uL Hgb (13.0-17.5) gm/dL Hct (39.0-53.0) % RDW (11.5-15.5) % Neutrophils # (1.3-7.7) k/uL Lymphocytes # (1.0-4.8) k/uL ABG pH 7.25 L 7.28 L (7.35-7.45) ABG pCO2 63 H 62 H (35-45) mmHg ABG pO2 110 H (83-108) mmHg ABG HCO3 26 H 28 H (21-25) mmol/L ABG Total CO2 28 H 30 H (19-24) mmol/L ABG O2 Saturation (94-97) % Chloride (98-107) mmol/L BUN (9-20) mg/dL Glucose (74-99) mg/dL POC Glucose (mg/dL) 158 H (75-99) mg/dL Magnesium (1.6-2.3) mg/dL Total Protein (6.3-8.2) g/dL Albumin (3.5-5.0) g/dL Microbiology - Last 24 Hours (Table) 04/07/17 10:05 Acid Fast Bacilli Smear - Final Bronchial Washings - Right Acid Fast Bacilli Culture - Preliminary 04/07/17 10:05 Gram Stain - Preliminary Bronchial Washings - Right Bronchial Washings Culture - Preliminary 04/06/17 21:10 Blood Culture - Preliminary Blood No Growth after 24 hours 04/06/17 20:00 Urine Culture - Preliminary Urine,Catheterized 04/07/17 10:05 Fungal Culture - Preliminary Bronchial Washings - Right Assessment and Plan Plan: Assessment: #1. Nonoliguric acute kidney injury mostly prerenal secondary to NSAIDs and further worsened with the use of diuretics and JERRY inhibitor. Creatinine 2.11 on admission and down to 0.9 today. Urinalysis quite benign and no evidence of pulmonary renal syndrome or other glomerulonephritis. No evidence of hydronephrosis. Baseline creatinine is 1. #2. Metabolic acidosis secondary to acute kidney injury. Resolved. #3. History of sarcoidosis maintained on prednisone and Plaquenil. Pulmonology following. #4. Benign hypertension. Controlled. #5. Acute hypoxic respiratory failure status post bronchoscopy on April 07. Concern for aspiration pneumonia. Plan: Continue lactated Ringer's - further decrease rate to 50 mL an hour. Continue with tube feeds. Avoid nephrotoxic agents and hypotensive episodes. Diuretics, JERRY inhibitor as well as NSAIDs held for now. Repeat electrolytes in the morning. Discontinue sodium bicarbonate. Continue with labetalol as needed for blood pressure control. Follow-up cultures.
[2017-04-08] MEDS: LABETALOL SYRINGE 5 MG/ML IVP PRN ×2 (11:22→15:32)
[2017-04-08 12:44] LABS: Glucose,Whole Blood 152 mg/dL (75-99)
--- NOTE | 2017-04-08 15:25 | P.PN ---
Subjective Principal diagnosis: Respiratory failure secondary to ARDS Patient is a 56-year-old male with a known history of sarcoidosis, depression, hypertension and also has history of long-standing left foot drop was admitted to the hospital status post fall in the bathroom. Patient had injury to the left foot and was brought to the hospital. Patient felt that he is weak and tired. Patient was initially admitted to MedSurg unit. Patient went into respiratory failure while in the hospital and is currently intubated and sedated. Patient is also being treated for pneumonia. Patient was suspected to have ARDS. On 04/07/2017 Patient underwent bronchoscopy today and BAL was sent for analysis. patient is sedated and intubated. He is on assist control with PEEP of 13. Chest x-ray showed new left internal jugular central venous catheter with tip in the right atrium no evidence of sizable pneumothorax. No fever no chills. WBC count at 11.1 Complete review of systems could not be obtained from the patient Objective - Vital Signs Vital signs: Vital Signs Temp 99 F 04/07/17 19:00 Pulse 107 H 04/07/17 21:30 Resp 25 H 04/07/17 21:30 BP 149/70 04/07/17 19:30 Pulse Ox 99 04/07/17 21:30 Intake & Output 04/07/17 04/07/17 04/08/17 06:59 18:59 06:59 Intake Total 3427.433 2272.949 404.46 Output Total 1570 1305 630 Balance 1857.433 967.949 -225.54 Weight 103.8 kg 103.8 kg 106.3 kg Intake: IV 3200 2020 320 Lactated Ringers 1,000 ml 1200 1020 70 @ 70 mls/hr IV .[id number] [facility] Rx#:[id number] Sodium Chloride 0.9% 2, 2000 1000 250 000 ml @ 999 mls/hr IV . Q2H1M [facility] Rx#:[id number] Intake, IV Titration 227.433 252.949 84.46 Amount Cisatracurium 200 mg In 68.489 Sodium Chloride 0.9% 180 ml @ 2 MCG/KG/MIN 12.45 mls/hr IV .Q16H4M [facility] Rx# :[id number] Propofol 1,000 mg In 100 227.433 184.460 84.46 ml @ Titrate IV .Q0M [facility] Rx#:[id number] Output: Urine 1570 1305 630 Other: Voiding Method Indwelling Catheter Indwelling Catheter Indwelling Catheter ABP, PAP, CO, CI - Last Documented Arterial Blood Pressure 114/61 - Exam PHYSICAL EXAMINATION: Patient is lying in the bed comfortably, no acute distress. Currently on mechanical ventilator HEENT: Normocephalic. Neck is supple. Pupils reactive. Nostrils clear. Oral cavity is moist. Ears reveal no drainage. Neck reveals no JVD, carotid bruits, or thyromegaly. CHEST EXAMINATION: Trachea is central. Symmetrical expansion. Bilateral air entry is present. No wheezing. Mild rhonchi positive CARDIAC: Normal S1, S2 with no gallops. No murmurs ABDOMEN: Soft. Bowel sounds normal. No organomegaly. No abdominal bruits. Extremities: reveal no edema. No clubbing or cyanosis Neurologically patient is currently sedated and intubated. No focal deficits noted Skin: No rash or skin lesions. Except on the foot Psychiatric: Could not assessed Musculoskeletal: No joint swelling or deformity. - Labs CBC & Chem 7: 04/08/17 04:07 04/08/17 04:07 Labs: Abnormal Lab Results - Last 24 Hours (Table) 04/06/17 04/07/17 04/07/17 Range/Units 18:23 04:29 04:29 WBC 11.1 H (3.8-10.6) k/uL RBC 3.36 L (4.30-5.90) m/uL Hgb 10.1 L (13.0-17.5) gm/dL Hct 30.4 L (39.0-53.0) % Neutrophils # 10.2 H (1.3-7.7) k/uL Lymphocytes # 0.5 L (1.0-4.8) k/uL ABG pH (7.35-7.45) ABG pCO2 (35-45) mmHg ABG pO2 (83-108) mmHg ABG HCO3 (21-25) mmol/L ABG Total CO2 (19-24) mmol/L ABG O2 Saturation (94-97) % Chloride 111 H (98-107) mmol/L Carbon Dioxide 17 L (22-30) mmol/L BUN 29 H (9-20) mg/dL Creatinine 1.30 H (0.66-1.25) mg/dL Glucose 120 H (74-99) mg/dL POC Glucose (mg/dL) 160 H (75-99) mg/dL Calcium 8.2 L (8.4-10.2) mg/dL Phosphorus 5.1 H (2.5-4.5) mg/dL Total Protein 5.8 L (6.3-8.2) g/dL Albumin 3.0 L (3.5-5.0) g/dL 04/07/17 04/07/17 04/07/17 Range/Units 05:19 10:55 14:04 WBC (3.8-10.6) k/uL RBC (4.30-5.90) m/uL Hgb (13.0-17.5) gm/dL Hct (39.0-53.0) % Neutrophils # (1.3-7.7) k/uL Lymphocytes # (1.0-4.8) k/uL ABG pH 7.08 L* (7.35-7.45) ABG pCO2 33 L 82 H* (35-45) mmHg ABG pO2 58 L 151 H (83-108) mmHg ABG HCO3 19 L (21-25) mmol/L ABG Total CO2 26 H (19-24) mmol/L ABG O2 Saturation 89.0 L 98.1 H (94-97) % Chloride (98-107) mmol/L Carbon Dioxide (22-30) mmol/L BUN (9-20) mg/dL Creatinine (0.66-1.25) mg/dL Glucose (74-99) mg/dL POC Glucose (mg/dL) 156 H (75-99) mg/dL Calcium (8.4-10.2) mg/dL Phosphorus (2.5-4.5) mg/dL Total Protein (6.3-8.2) g/dL Albumin (3.5-5.0) g/dL 04/07/17 04/07/17 Range/Units 17:07 19:48 WBC (3.8-10.6) k/uL RBC (4.30-5.90) m/uL Hgb (13.0-17.5) gm/dL Hct (39.0-53.0) % Neutrophils # (1.3-7.7) k/uL Lymphocytes # (1.0-4.8) k/uL ABG pH (7.35-7.45) ABG pCO2 (35-45) mmHg ABG pO2 (83-108) mmHg ABG HCO3 (21-25) mmol/L ABG Total CO2 (19-24) mmol/L ABG O2 Saturation (94-97) % Chloride (98-107) mmol/L Carbon Dioxide (22-30) mmol/L BUN (9-20) mg/dL Creatinine (0.66-1.25) mg/dL Glucose (74-99) mg/dL POC Glucose (mg/dL) 136 H 159 H (75-99) mg/dL Calcium (8.4-10.2) mg/dL Phosphorus (2.5-4.5) mg/dL Total Protein (6.3-8.2) g/dL Albumin (3.5-5.0) g/dL Microbiology - Last 24 Hours (Table) 04/06/17 20:00 Urine Culture - Preliminary Urine,Catheterized 04/07/17 10:05 Acid Fast Bacilli Culture - Preliminary Bronchial Washings - Right 04/07/17 10:05 Bronchial Washings Culture - Preliminary Bronchial Washings - Right 04/07/17 10:05 Fungal Culture - Preliminary Bronchial Washings - Right 04/06/17 20:07 Gram Stain - Preliminary Sputum Sputum Culture - Preliminary Assessment and Plan Plan: #1 acute hypoxic respiratory failure. Suspected ARDS #2 status post fall and left foot injury #3 nonoliguric acute kidney injury with creatinine level II.11. Came down to 1.3 today. baseline creatinine 1.0 #4 suspected pneumonia #5 sarcoidosis on active treatment with prednisone and plaquenil #6 hypertension #7 chronic back pain. On NSAID use at home #8 DVT prophylaxis with Lovenox #9 depression #10 normocytic anemia Plan: Patient will be continued on breathing treatments and antibiotics. And mechanical ventilation for ARDS. Exact etiology is unknown at this time. Continue with the hydration and follow-up renal function. Patient had bronchoscopy done today and will follow up culture report. Pulmonary and nephrology is following this patient. Further recommendations based on the clinical course. Prognosis is guarded. Time with Patient: Greater than 30
--- NOTE | 2017-04-08 15:31 | P.PN ---
Subjective Principal diagnosis: Respiratory failure secondary to ARDS Patient is a 56-year-old male with a known history of sarcoidosis, depression, hypertension and also has history of long-standing left foot drop was admitted to the hospital status post fall in the bathroom. Patient had injury to the left foot and was brought to the hospital. Patient felt that he is weak and tired. Patient was initially admitted to MedSurg unit. Patient went into respiratory failure while in the hospital and is currently intubated and sedated. Patient is also being treated for pneumonia. Patient was suspected to have ARDS. On 04/07/2017 Patient underwent bronchoscopy today and BAL was sent for analysis. patient is sedated and intubated. He is on assist control with PEEP of 13. Chest x-ray showed new left internal jugular central venous catheter with tip in the right atrium no evidence of sizable pneumothorax. No fever no chills. WBC count at 11.1 On 04/08/2017 Patient is currently intubated and sedated. Patient was started on enteral nutrition. Chest x-ray showed clinical correlation recommended for pulmonary edema or ARDS. Improvement in clinical condition. No fever no chills overnight. Complete review of systems could not be obtained from the patient. Objective - Vital Signs Vital signs: Vital Signs Temp 98.1 F 04/08/17 12:00 Pulse 99 04/08/17 15:00 Resp 32 H 04/08/17 15:00 BP 144/71 04/08/17 11:00 Pulse Ox 99 04/08/17 15:00 Intake & Output 04/07/17 04/08/17 04/08/17 18:59 06:59 18:59 Intake Total 2272.949 4218.596 4012 Output Total 1305 3390 3900 Balance 967.949 -3960.971 -5664 Weight 103.8 kg 110.7 kg 110.7 kg Intake: IV 2019 1060 690 0.9 Sodium Chloride 160 Lactated Ringers 1,000 ml 1020 560 530 @ 50 mls/hr IV .Q20H [facility] Rx#:[id number] Sodium Chloride 0.9% 2, 1000 500 000 ml @ 999 mls/hr IV . Q2H1M [facility] Rx#:[id number] Intake, IV Titration 252.949 384.239 Amount Cisatracurium 200 mg In 68.489 70.908 Sodium Chloride 0.9% 180 ml @ 2 MCG/KG/MIN 12.45 mls/hr IV .Q16H4M [facility] Rx# :[id number] Propofol 1,000 mg In 100 184.460 313.331 ml @ Titrate IV .Q0M [facility] Rx#:[id number] Tube Feeding 40 252 Other 120 Output: Urine 1305 3390 3900 Other: Voiding Method Indwelling Catheter Indwelling Catheter Indwelling Catheter ABP, PAP, CO, CI - Last Documented Arterial Blood Pressure 157/76 - Exam PHYSICAL EXAMINATION: Patient is lying in the bed comfortably, no acute distress. Currently on mechanical ventilator HEENT: Normocephalic. Neck is supple. Pupils reactive. Nostrils clear. Oral cavity is moist. Ears reveal no drainage. Neck reveals no JVD, carotid bruits, or thyromegaly. CHEST EXAMINATION: Trachea is central. Symmetrical expansion. Bilateral air entry is present. No wheezing. Mild rhonchi positive CARDIAC: Normal S1, S2 with no gallops. No murmurs ABDOMEN: Soft. Bowel sounds normal. No organomegaly. No abdominal bruits. Extremities: reveal no edema. No clubbing or cyanosis Neurologically patient is currently sedated and intubated. No focal deficits noted Skin: No rash or skin lesions. Except on the foot Psychiatric: Could not assessed Musculoskeletal: No joint swelling or deformity. - Labs CBC & Chem 7: 04/08/17 04:07 04/08/17 04:07 Labs: Abnormal Lab Results - Last 24 Hours (Table) 04/07/17 04/07/17 04/07/17 Range/Units 10:05 17:07 19:48 WBC (3.8-10.6) k/uL RBC (4.30-5.90) m/uL Hgb (13.0-17.5) gm/dL Hct (39.0-53.0) % RDW (11.5-15.5) % Neutrophils # (1.3-7.7) k/uL Lymphocytes # (1.0-4.8) k/uL ABG pH (7.35-7.45) ABG pCO2 (35-45) mmHg ABG pO2 (83-108) mmHg ABG HCO3 (21-25) mmol/L ABG Total CO2 (19-24) mmol/L Chloride (98-107) mmol/L BUN (9-20) mg/dL Glucose (74-99) mg/dL POC Glucose (mg/dL) 136 H 159 H (75-99) mg/dL Magnesium (1.6-2.3) mg/dL Total Protein (6.3-8.2) g/dL Albumin (3.5-5.0) g/dL Viral Test See Below H 04/08/17 04/08/17 04/08/17 Range/Units 00:35 00:59 04:07 WBC 11.8 H (3.8-10.6) k/uL RBC 3.52 L (4.30-5.90) m/uL Hgb 10.4 L (13.0-17.5) gm/dL Hct 32.9 L (39.0-53.0) % RDW 15.8 H (11.5-15.5) % Neutrophils # 10.6 H (1.3-7.7) k/uL Lymphocytes # 0.4 L (1.0-4.8) k/uL ABG pH (7.35-7.45) ABG pCO2 (35-45) mmHg ABG pO2 (83-108) mmHg ABG HCO3 (21-25) mmol/L ABG Total CO2 (19-24) mmol/L Chloride 109 H (98-107) mmol/L BUN 23 H (9-20) mg/dL Glucose 146 H (74-99) mg/dL POC Glucose (mg/dL) 131 H (75-99) mg/dL Magnesium (1.6-2.3) mg/dL Total Protein (6.3-8.2) g/dL Albumin (3.5-5.0) g/dL Viral Test 04/08/17 04/08/17 04/08/17 Range/Units 04:07 04:39 05:46 WBC (3.8-10.6) k/uL RBC (4.30-5.90) m/uL Hgb (13.0-17.5) gm/dL Hct (39.0-53.0) % RDW (11.5-15.5) % Neutrophils # (1.3-7.7) k/uL Lymphocytes # (1.0-4.8) k/uL ABG pH 7.25 L (7.35-7.45) ABG pCO2 63 H (35-45) mmHg ABG pO2 110 H (83-108) mmHg ABG HCO3 26 H (21-25) mmol/L ABG Total CO2 28 H (19-24) mmol/L Chloride 110 H (98-107) mmol/L BUN 22 H (9-20) mg/dL Glucose 152 H (74-99) mg/dL POC Glucose (mg/dL) 158 H (75-99) mg/dL Magnesium 2.4 H (1.6-2.3) mg/dL Total Protein 6.1 L (6.3-8.2) g/dL Albumin 3.2 L (3.5-5.0) g/dL Viral Test 04/08/17 04/08/17 Range/Units 10:48 12:41 WBC (3.8-10.6) k/uL RBC (4.30-5.90) m/uL Hgb (13.0-17.5) gm/dL Hct (39.0-53.0) % RDW (11.5-15.5) % Neutrophils # (1.3-7.7) k/uL Lymphocytes # (1.0-4.8) k/uL ABG pH 7.28 L (7.35-7.45) ABG pCO2 62 H (35-45) mmHg ABG pO2 (83-108) mmHg ABG HCO3 28 H (21-25) mmol/L ABG Total CO2 30 H (19-24) mmol/L Chloride (98-107) mmol/L BUN (9-20) mg/dL Glucose (74-99) mg/dL POC Glucose (mg/dL) 152 H (75-99) mg/dL Magnesium (1.6-2.3) mg/dL Total Protein (6.3-8.2) g/dL Albumin (3.5-5.0) g/dL Viral Test Microbiology - Last 24 Hours (Table) 04/07/17 10:05 Acid Fast Bacilli Smear - Final Bronchial Washings - Right Acid Fast Bacilli Culture - Preliminary 04/07/17 10:05 Gram Stain - Preliminary Bronchial Washings - Right Bronchial Washings Culture - Preliminary 04/06/17 21:10 Blood Culture - Preliminary Blood No Growth after 24 hours 04/06/17 20:00 Urine Culture - Preliminary Urine,Catheterized 04/07/17 10:05 Fungal Culture - Preliminary Bronchial Washings - Right Assessment and Plan Plan: #1 acute hypoxic respiratory failure due to ARDS #2 status post fall and left foot injury #3 nonoliguric acute kidney injury with creatinine level II.11. Came down to 1.3 ---0.9 today. baseline creatinine 1.0 #4 suspected pneumonia #5 sarcoidosis on active treatment with prednisone and plaquenil #6 hypertension #7 chronic back pain. On NSAID use at home #8 DVT prophylaxis with Lovenox #9 depression #10 normocytic anemia Plan: Patient will be continued on breathing treatments and antibiotics. And mechanical ventilation for ARDS. Exact etiology is unknown at this time. Continue with the hydration and follow-up renal function. Patient had bronchoscopy done on 04/07/2017, BAL cultures including Gram stain, fungal culture and AFB is negative so far As per preliminary report. We will repeat chest x-ray tomorrow. Pulmonary and nephrology is following this patient. Further recommendations based on the clinical course. Prognosis is guarded. Time with Patient: Greater than 30
[2017-04-08 18:04] LABS: Glucose,Whole Blood 169 mg/dL (75-99)
[2017-04-08] MEDS: LACTATED RINGERS 1,000 ML IV SCH (19:14)
[2017-04-08] MEDS: AMITRIPTYLINE HCL 25 MG TAB PO SCH (20:27)
[2017-04-08] MEDS: NIACIN TR 500 MG CAPSULE.ER PO SCH (20:28)
[2017-04-09 00:16] LABS: Glucose,Whole Blood 142 mg/dL (75-99)
[2017-04-09] MEDS: INSULIN LISPRO (humaLOG) 300 UNIT/3 ML VIAL SQ SCH ×4 (00:18→17:59)
[2017-04-09] MEDS: methylPREDNISolone SOD SUCCI 40 MG/ML 1 ML VIAL IV SCH ×4 (00:20→18:03)
[2017-04-09] MEDS: ARTIFICIAL TEARS-HYPROMELLOSE DROPS 15 ML BTL BOTH EYES SCH ×6 (00:20→20:43)
[2017-04-09] MEDS: PROPOFOL 1,000 MG/100 ML VIAL IV SCH ×3 (01:16→11:40)
[2017-04-09] MEDS: HYDROmorphone 2 MG/ML 1 ML SYRINGE IM PRN ×10 (01:18→22:53)
[2017-04-09] MEDS: LACTATED RINGERS 1,000 ML IV SCH ×2 (02:20→05:44)
[2017-04-09] MEDS: IPRATROPIUM-ALBUTEROL 3 ML NEB INHALATION SCH ×6 (03:07→20:17)
[2017-04-09 03:26] LABS: Basophils % (A) 0 %; CH 29.3; CHCM 32.1; Eosinophils % (A) 0 %; HCT 34.3 % (39.0-53.0); HDW 3.17; Luc # (Auto) 0.12; Luc % (Auto) 1; Lymphocytes # (A) 0.5 k/uL (1.0-4.8); Lymphocytes % (A) 5 %; MCH 29.6 pg (25.0-35.0); MCHC 32.2 g/dL (31.0-37.0); MCV 91.9 fL (80.0-100.0); Monocytes # (A) 0.5 k/uL (0-1.0); Monocytes % (A) 4 %; Neutrophils # (A) 10.7 k/uL (1.3-7.7); Neutrophils % (A) 90 %; RBC 3.73 m/uL (4.30-5.90); RDW 14.8 % (11.5-15.5); WBC 11.9 k/uL (3.8-10.6); WBC (Perox) 12.45
[2017-04-09 03:37] LABS: ALT 41 U/L (21-72); AST 17 U/L (17-59); Alkaline Phosphatase 98 U/L (38-126); Anion Gap 6 mmol/L; Blood Urea Nitrogen 24 mg/dL (9-20); Calcium 8.9 mg/dL (8.4-10.2); Carbon Dioxide 33 mmol/L (22-30); Chloride 105 mmol/L (98-107); Glucose 159 mg/dL (74-99); Magnesium 2.2 mg/dL (1.6-2.3); Non-African American GFR(MDRD) >60 (>60 ml/min/1.73 sqM); Phosphorous 2.7 mg/dL (2.5-4.5); Potassium 4.5 mmol/L (3.5-5.1); Sodium 144 mmol/L (137-145); Total Bilirubin 0.3 mg/dL (0.2-1.3); Total Protein 5.9 g/dL (6.3-8.2)
[2017-04-09] MEDS: LABETALOL SYRINGE 5 MG/ML IVP PRN ×4 (04:01→22:18)
[2017-04-09 04:03] LABS: ABG HCO3 32 mmol/L (21-25); ABG PCO2 53 mmHg (35-45); ABG PO2 138 mmHg (83-108); ABG TCO2 34 mmol/L (19-24)
[2017-04-09 04:47] LABS: Glucose,Whole Blood 141 mg/dL (75-99)
[2017-04-09] MEDS: CISATRACURIUM 200 MG in SODIUM CHLORIDE 0.9% 180 ML IV SCH (05:51)
[2017-04-09 06:10] LABS: Glucose,Whole Blood 152 mg/dL (75-99)
--- NOTE | 2017-04-09 06:55 | XR ---
EXAMINATION TYPE: XR chest 1V portable DATE OF EXAM: 04/09/2017 HISTORY: Tube placement. REFERENCE: Previous study dated 04/08/2017. FINDINGS: The patient is ET tube and NG tube remain in place, unchanged in appearance. There is a rig ht internal jugular catheter in place. It is also unchanged. Its tip is in the right atrium. Heart size upper limits of normal. There is vascular congestion. There is slight improvement in the d egree of edema. I suspect do not see evidence of pleural fluid. IMPRESSION: SLIGHT IMPROVEMENT IN THE APPEARANCE OF THE CHEST, LIKELY REPRESENTING IMPROVING EDEMA.
[2017-04-09] MEDS: PANTOPRAZOLE 40 MG/10 ML VIAL IVP SCH (08:02)
[2017-04-09] MEDS: ENOXAPARIN 40 MG/0.4 ML SYRINGE SQ SCH (08:09)
[2017-04-09] MEDS: DESVENLAFAXINE SUCCINATE 50 MG TAB.ER.24H PO SCH (08:11)
[2017-04-09] MEDS: LEVOFLOXACIN 750MG-D5W PMX 750 MG in DEXTROSE/WATER 1 150ML.BAG IVPB SCH (08:30)
[2017-04-09] MEDS: BETAMETHASONE DIPROPIONATE 0.05% CREAM 15 GM TUBE TOPICAL SCH (08:38)
[2017-04-09] MEDS: CHLORHEXIDINE GLUCONATE 15 ML CUP MUCOUS MEM SCH (08:38)
[2017-04-09] MEDS: PREGABALIN 75 MG CAP PO SCH ×2 (08:54→20:43)
[2017-04-09] MEDS: DEXMEDETOMIDINE/0.9% NACL(PMX) 400 MCG in EMPTY BAG 1 BAG IV SCH (11:44)
[2017-04-09 12:03] LABS: ABG PCO2 51 mmHg (35-45); ABG PH 7.42 (7.35-7.45)
[2017-04-09 12:04] LABS: ABG Base Excess 7.7 mmol/L; ABG HCO3 32 mmol/L (21-25); ABG PO2 79 mmHg (83-108); ABG TCO2 34 mmol/L (19-24)
[2017-04-09 12:15] LABS: Glucose,Whole Blood 113 mg/dL (75-99)
--- NOTE | 2017-04-09 12:35 | P.PN ---
Subjective This is a 56-year-old male with a history of a left foot injury. He apparently fell in the bathroom at home having injured his left foot. Family heard a fall and found the patient in the bathroom and he was broken glass on the floor as well. The left foot was bleeding so they applied pressure and brought him into the emergency room to be evaluated. The patient also apparently was complaining about being short of breath. The patient does have a history of hypertension and sarcoidosis. The patient's foot x-ray revealed no evidence of any fracture. Chest x-ray showed diffuse bilateral infiltrates. A ventilation perfusion scan was read as low probability. The patient's home medications included Ventolin elavil steroid cream Pristiq plaquenil ibuprofen lisinopril/ hydrochlorothiazide multiple vitamins and niacin Prilosec amlodipine oxycodone and prednisone. He previously was on morphine in the form of MS Contin and Rocephin. He has no ALLERGIES. It appears based on his medication profile that he is being treated for active sarcoidosis. He sees my partner for the sarcoidosis. Patient is seen again today 04/09/2017 in follow-up in the intensive care unit. He remains intubated and on the mechanical ventilator. Current settings assist control 32, tidal volume 450, FiO2 50% and a PEEP of 10. Morning blood gases reveal pO2 of 138, pCO2 53, pH 7.4. He remains off the Nimbex since 7 AM this morning. He is currently on propofol at 40 mcg/m per nasal cannula. He has a lactated Ringer's running at 70 miles per hour. He is being nourished via tube feeds of Lance HP at 28 mL per hour which is his goal. Cultures from the bronchial BAL revealed no growth to date. Afebrile. Current white count 11.9. Hemoglobin 11.0. Hemodynamically stable. Objective - Vital Signs Vital signs: Vital Signs Temp 98.4 F 04/09/17 12:00 Pulse 98 04/09/17 12:00 Resp 12 04/09/17 12:00 BP 118/62 04/09/17 12:00 Pulse Ox 99 04/09/17 12:00 Intake & Output 04/08/17 04/09/17 04/09/17 18:59 06:59 18:59 Intake Total 1593.381 963.202 693.000 Output Total 4950 2185 675 Balance -3356.619 -1221.798 18.000 Weight 110.7 kg 108.1 kg Intake: IV 860 600 375 0.9 Sodium Chloride 180 200 75 Lactated Ringers 1,000 ml 680 400 300 @ 50 mls/hr IV .Q20H [facility] Rx#:[id number] Intake, IV Titration 275.381 223.202 318.000 Amount Cisatracurium 200 mg In 105.572 69.768 Sodium Chloride 0.9% 180 ml @ 2 MCG/KG/MIN 12.45 mls/hr IV .Q16H4M [facility] Rx# :[id number] Levofloxacin 750Mg-D5w 150 Pmx 750 mg In Dextrose/ Water 1 150ml.bag @ 100 mls/hr IVPB Q24H [facility] Rx#: [id number] Propofol 1,000 mg In 100 169.809 153.434 168.000 ml @ Titrate IV .Q0M [facility] Rx#:[id number] Tube Feeding 308 140 Other 150 Output: Urine 4950 2185 675 Other: Voiding Method Indwelling Catheter Indwelling Catheter Indwelling Catheter # Bowel Movements 0 ABP, PAP, CO, CI - Last Documented Arterial Blood Pressure 113/56 - Exam Intubated, sedated. HEENT examination is grossly unremarkable. NG tube remains in place. Mixed mucous membranes are moist. Neck supple. Full range of motion. No adenopathy or thyromegaly. Cardiovascular examination reveals regular rhythm rate. Frequent PACs. S1-S2 normal. No S3-S4 or murmur. Lungs reveal few scattered rhonchi. No wheezes. No crackles. Abdomen soft bowel sounds are heard. Extremities: Peripheral pulses are intact. No cyanosis clubbing or edema. Skin without rash. Neurologic examination, sedated. - Labs CBC & Chem 7: 04/09/17 03:15 04/09/17 03:15 Labs: Abnormal Lab Results - Last 24 Hours (Table) 04/07/17 04/08/17 04/08/17 Range/Units 10:05 12:41 18:02 WBC (3.8-10.6) k/uL RBC (4.30-5.90) m/uL Hgb (13.0-17.5) gm/dL Hct (39.0-53.0) % Neutrophils # (1.3-7.7) k/uL Lymphocytes # (1.0-4.8) k/uL ABG pCO2 (35-45) mmHg ABG pO2 (83-108) mmHg ABG HCO3 (21-25) mmol/L ABG Total CO2 (19-24) mmol/L ABG O2 Saturation (94-97) % Carbon Dioxide (22-30) mmol/L BUN (9-20) mg/dL Glucose (74-99) mg/dL POC Glucose (mg/dL) 152 H 169 H (75-99) mg/dL Total Protein (6.3-8.2) g/dL Albumin (3.5-5.0) g/dL Viral Test See Below H 04/09/17 04/09/17 04/09/17 Range/Units 00:13 03:15 03:15 WBC 11.9 H (3.8-10.6) k/uL RBC 3.73 L (4.30-5.90) m/uL Hgb 11.0 L (13.0-17.5) gm/dL Hct 34.3 L (39.0-53.0) % Neutrophils # 10.7 H (1.3-7.7) k/uL Lymphocytes # 0.5 L (1.0-4.8) k/uL ABG pCO2 (35-45) mmHg ABG pO2 (83-108) mmHg ABG HCO3 (21-25) mmol/L ABG Total CO2 (19-24) mmol/L ABG O2 Saturation (94-97) % Carbon Dioxide 33 H (22-30) mmol/L BUN 24 H (9-20) mg/dL Glucose 159 H (74-99) mg/dL POC Glucose (mg/dL) 142 H (75-99) mg/dL Total Protein 5.9 L (6.3-8.2) g/dL Albumin 3.0 L (3.5-5.0) g/dL Viral Test 04/09/17 04/09/17 04/09/17 Range/Units 04:02 04:33 06:09 WBC (3.8-10.6) k/uL RBC (4.30-5.90) m/uL Hgb (13.0-17.5) gm/dL Hct (39.0-53.0) % Neutrophils # (1.3-7.7) k/uL Lymphocytes # (1.0-4.8) k/uL ABG pCO2 53 H (35-45) mmHg ABG pO2 138 H (83-108) mmHg ABG HCO3 32 H (21-25) mmol/L ABG Total CO2 34 H (19-24) mmol/L ABG O2 Saturation 99.0 H (94-97) % Carbon Dioxide (22-30) mmol/L BUN (9-20) mg/dL Glucose (74-99) mg/dL POC Glucose (mg/dL) 141 H 152 H (75-99) mg/dL Total Protein (6.3-8.2) g/dL Albumin (3.5-5.0) g/dL Viral Test 04/09/17 04/09/17 Range/Units 11:55 12:11 WBC (3.8-10.6) k/uL RBC (4.30-5.90) m/uL Hgb (13.0-17.5) gm/dL Hct (39.0-53.0) % Neutrophils # (1.3-7.7) k/uL Lymphocytes # (1.0-4.8) k/uL ABG pCO2 51 H (35-45) mmHg ABG pO2 79 L (83-108) mmHg ABG HCO3 32 H (21-25) mmol/L ABG Total CO2 34 H (19-24) mmol/L ABG O2 Saturation (94-97) % Carbon Dioxide (22-30) mmol/L BUN (9-20) mg/dL Glucose (74-99) mg/dL POC Glucose (mg/dL) 113 H (75-99) mg/dL Total Protein (6.3-8.2) g/dL Albumin (3.5-5.0) g/dL Viral Test Microbiology - Last 24 Hours (Table) 04/06/17 20:07 Gram Stain - Final Sputum Sputum Culture - Final 04/07/17 10:05 Gram Stain - Final Bronchial Washings - Right Bronchial Washings Culture - Final 04/06/17 21:10 Blood Culture - Preliminary Blood No Growth after 48 hours 04/06/17 20:00 Urine Culture - Final Urine,Catheterized Assessment and Plan Plan: Impression: #1 Acute hypoxic respiratory failure secondary to acute pneumonia during intubation and mechanical ventilatory support. Underlying pulmonary edema and acute respiratory distress syndrome remain in the differential. Status post bronchoscopy with BAL on 04/07/2017. Cultures are negative. #2 history of pulmonary sarcoidosis. On Plaquenil and prednisone in the outpatient setting. #3 Nonoliguric acute kidney injury. #4 Hypertension. #5 History of depression. #6 Chronic back pain. Plan: The patient was seen and evaluated by Dr. Ying. Her chest x-ray, ABGs and labs were all reviewed. We will give the patient as sedation holiday and weaning trial. He may be able to be extubated later this morning. We'll continue with his current medications. We'll repeat a chest x-ray in the a.m. We'll continue to follow. Critical care time 38 minutes. I performed a history and physical examination of the patient along with my nurse practitioner. I agree with the above findings and discussed the plan of care. From the pulmonary standpoint lungs remain with scattered rhonchi bilaterally, few crackles in the bilateral posterior bases. Time with Patient: Greater than 30
[2017-04-09] MEDS ORDERED: cloNIDine 0.2 MG/24HR PATCH 1 PATCH PATCH TRANSDERM SCH (17:00)
--- NOTE | 2017-04-09 17:42 | P.PN ---
Subjective Patient is seen in follow-up for acute kidney injury. His baseline creatinine is 1 and was elevated at 2.1 on admission. He is maintained on lactated Ringer' s at 50 mL an hour and creatinine is 0.7 today. He was extubated this morning. He is quite confused. Urinalysis is noted to be quite benign. He underwent a bronchoscopy on April 07 which is quite benign. Hemodynamically he is stable. He is nonoliguric. Vital signs are stable. General: The patient appeared well nourished and normally developed. Intubated. HEENT: Head exam is unremarkable. Neck is without jugular venous distension. LUNGS: Rhonchi at bases. Breath sounds decreased. HEART: Rate and Rhythm are regular. First and second heart sounds normal. No murmurs, rubs or gallops. ABDOMEN: Abdominal exam reveals normal bowel sounds. Non-tender and non- distended. No evidence of peritonitis. EXTREMITITES: No clubbing, cyanosis, or edema. Objective - Vital Signs Vital signs: Vital Signs Temp 98.4 F 04/09/17 16:00 Pulse 96 04/09/17 16:00 Resp 12 04/09/17 16:00 BP 153/89 04/09/17 16:00 Pulse Ox 94 L 04/09/17 15:31 Intake & Output 04/08/17 04/09/17 04/09/17 18:59 06:59 18:59 Intake Total 1593.381 963.202 953.710 Output Total 4950 2185 1700 Balance -3356.619 -1221.798 -746.290 Weight 110.7 kg 108.1 kg Intake: IV 860 600 625 0.9 Sodium Chloride 180 200 75 Lactated Ringers 1,000 ml 680 400 550 @ 50 mls/hr IV .Q20H [facility] Rx#:[id number] Intake, IV Titration 275.381 223.202 328.710 Amount Cisatracurium 200 mg In 105.572 69.768 Sodium Chloride 0.9% 180 ml @ 2 MCG/KG/MIN 12.45 mls/hr IV .Q16H4M [facility] Rx# :[id number] Dexmedetomidine/0.9% NaCl 10.71 (Pmx) 400 mcg In Empty Bag 1 bag @ Titrate IV . Q0M [facility] Rx#:[id number] Levofloxacin 750Mg-D5w 150 Pmx 750 mg In Dextrose/ Water 1 150ml.bag @ 100 mls/hr IVPB Q24H [facility] Rx#: [id number] Propofol 1,000 mg In 100 169.809 153.434 168.000 ml @ Titrate IV .Q0M [facility] Rx#:[id number] Tube Feeding 308 140 Other 150 Output: Urine 4950 2185 1700 Other: Voiding Method Indwelling Catheter Indwelling Catheter Indwelling Catheter # Bowel Movements 0 ABP, PAP, CO, CI - Last Documented Arterial Blood Pressure 176/83 - Labs CBC & Chem 7: 04/09/17 03:15 04/09/17 03:15 Labs: Abnormal Lab Results - Last 24 Hours (Table) 04/08/17 04/09/17 04/09/17 Range/Units 18:02 00:13 03:15 WBC 11.9 H (3.8-10.6) k/uL RBC 3.73 L (4.30-5.90) m/uL Hgb 11.0 L (13.0-17.5) gm/dL Hct 34.3 L (39.0-53.0) % Neutrophils # 10.7 H (1.3-7.7) k/uL Lymphocytes # 0.5 L (1.0-4.8) k/uL ABG pCO2 (35-45) mmHg ABG pO2 (83-108) mmHg ABG HCO3 (21-25) mmol/L ABG Total CO2 (19-24) mmol/L ABG O2 Saturation (94-97) % Carbon Dioxide (22-30) mmol/L BUN (9-20) mg/dL Glucose (74-99) mg/dL POC Glucose (mg/dL) 169 H 142 H (75-99) mg/dL Total Protein (6.3-8.2) g/dL Albumin (3.5-5.0) g/dL 04/09/17 04/09/17 04/09/17 Range/Units 03:15 04:02 04:33 WBC (3.8-10.6) k/uL RBC (4.30-5.90) m/uL Hgb (13.0-17.5) gm/dL Hct (39.0-53.0) % Neutrophils # (1.3-7.7) k/uL Lymphocytes # (1.0-4.8) k/uL ABG pCO2 53 H (35-45) mmHg ABG pO2 138 H (83-108) mmHg ABG HCO3 32 H (21-25) mmol/L ABG Total CO2 34 H (19-24) mmol/L ABG O2 Saturation 99.0 H (94-97) % Carbon Dioxide 33 H (22-30) mmol/L BUN 24 H (9-20) mg/dL Glucose 159 H (74-99) mg/dL POC Glucose (mg/dL) 141 H (75-99) mg/dL Total Protein 5.9 L (6.3-8.2) g/dL Albumin 3.0 L (3.5-5.0) g/dL 04/09/17 04/09/17 04/09/17 Range/Units 06:09 11:55 12:11 WBC (3.8-10.6) k/uL RBC (4.30-5.90) m/uL Hgb (13.0-17.5) gm/dL Hct (39.0-53.0) % Neutrophils # (1.3-7.7) k/uL Lymphocytes # (1.0-4.8) k/uL ABG pCO2 51 H (35-45) mmHg ABG pO2 79 L (83-108) mmHg ABG HCO3 32 H (21-25) mmol/L ABG Total CO2 34 H (19-24) mmol/L ABG O2 Saturation (94-97) % Carbon Dioxide (22-30) mmol/L BUN (9-20) mg/dL Glucose (74-99) mg/dL POC Glucose (mg/dL) 152 H 113 H (75-99) mg/dL Total Protein (6.3-8.2) g/dL Albumin (3.5-5.0) g/dL Microbiology - Last 24 Hours (Table) 04/06/17 20:07 Gram Stain - Final Sputum Sputum Culture - Final 04/07/17 10:05 Gram Stain - Final Bronchial Washings - Right Bronchial Washings Culture - Final 04/06/17 21:10 Blood Culture - Preliminary Blood No Growth after 48 hours 04/06/17 20:00 Urine Culture - Final Urine,Catheterized Assessment and Plan Plan: Assessment: #1. Nonoliguric acute kidney injury mostly prerenal secondary to NSAIDs and further worsened with the use of diuretics and JERRY inhibitor. Creatinine 2.11 on admission and down to 0.7 today. Urinalysis quite benign and no evidence of pulmonary renal syndrome or other glomerulonephritis. No evidence of hydronephrosis. Baseline creatinine is 1. #2. Metabolic acidosis secondary to acute kidney injury. Resolved. #3. History of sarcoidosis maintained on prednisone and Plaquenil. Pulmonology following. #4. Benign hypertension. Controlled. #5. Acute hypoxic respiratory failure status post bronchoscopy on April 07. Concern for aspiration pneumonia. #6. Encephalopathy. This concern for anoxia secondary to hypoxia. May also be due to effects of anesthesia. Plan: Continue with maintenance fluids at 50 mL an hour. Avoid nephrotoxic agents and hypotensive episodes. Diuretics, JERRY inhibitor as well as NSAIDs held for now. Repeat electrolytes in the morning. Discontinued sodium bicarbonate. Continue with labetalol as needed for blood pressure control. Also on a clonidine patch. Follow-up cultures.
[2017-04-09 18:01] LABS: Glucose,Whole Blood 114 mg/dL (75-99)
[2017-04-09] MEDS ORDERED: IPRATROPIUM-ALBUTEROL 3 ML NEB INHALATION PRN (20:18)
[2017-04-09] MEDS: NIACIN TR 500 MG CAPSULE.ER PO SCH (20:43)
[2017-04-09] MEDS: AMITRIPTYLINE HCL 25 MG TAB PO SCH (20:43)
[2017-04-09 21:10] LABS: Anion Gap 4 mmol/L; Blood Urea Nitrogen 30 mg/dL (9-20); Calcium 9.2 mg/dL (8.4-10.2); Carbon Dioxide 34 mmol/L (22-30); Chloride 106 mmol/L (98-107); Glucose 135 mg/dL (74-99); Magnesium 2.1 mg/dL (1.6-2.3); Non-African American GFR(MDRD) >60 (>60 ml/min/1.73 sqM); Potassium 4.1 mmol/L (3.5-5.1); Sodium 144 mmol/L (137-145)
[2017-04-10 00:20] LABS: Glucose,Whole Blood 119 mg/dL (75-99)
[2017-04-10] MEDS: methylPREDNISolone SOD SUCCI 40 MG/ML 1 ML VIAL IV SCH ×4 (00:20→18:11)
[2017-04-10] MEDS: ARTIFICIAL TEARS-HYPROMELLOSE DROPS 15 ML BTL BOTH EYES SCH ×2 (00:20→04:49)
[2017-04-10] MEDS: INSULIN LISPRO (humaLOG) 300 UNIT/3 ML VIAL SQ SCH ×4 (00:22→18:18)
[2017-04-10] MEDS: DEXMEDETOMIDINE/0.9% NACL(PMX) 400 MCG in EMPTY BAG 1 BAG IV SCH (01:09)
[2017-04-10] MEDS: HYDROmorphone 2 MG/ML 1 ML SYRINGE IM PRN ×9 (01:31→21:30)
[2017-04-10] MEDS: HYDROmorphone 1 MG/ML 1 ML SYRINGE IVP PRN ×2 (03:58→23:17)
[2017-04-10 04:31] LABS: Basophils % (A) 0 %; CH 30.1; CHCM 33.5; Eosinophils % (A) 0 %; HCT 34.8 % (39.0-53.0); HDW 2.85; HGB 11.3 gm/dL (13.0-17.5); Luc # (Auto) 0.17; Luc % (Auto) 1; Lymphocytes # (A) 0.9 k/uL (1.0-4.8); Lymphocytes % (A) 7 %; MCH 29.4 pg (25.0-35.0); MCHC 32.5 g/dL (31.0-37.0); MCV 90.3 fL (80.0-100.0); Mean Platelet Volume 8.4; Monocytes # (A) 0.6 k/uL (0-1.0); Monocytes % (A) 4 %; Neutrophils # (A) 12.5 k/uL (1.3-7.7); Neutrophils % (A) 88 %; RBC 3.85 m/uL (4.30-5.90); RDW 14.9 % (11.5-15.5); WBC 14.2 k/uL (3.8-10.6); WBC (Perox) 14.34
[2017-04-10 04:44] LABS: ALT 45 U/L (21-72); AST 21 U/L (17-59); Alkaline Phosphatase 97 U/L (38-126); Anion Gap 6 mmol/L; Blood Urea Nitrogen 30 mg/dL (9-20); Calcium 9.1 mg/dL (8.4-10.2); Carbon Dioxide 34 mmol/L (22-30); Chloride 105 mmol/L (98-107); Glucose 118 mg/dL (74-99); Magnesium 2.2 mg/dL (1.6-2.3); Non-African American GFR(MDRD) >60 (>60 ml/min/1.73 sqM); Potassium 4.3 mmol/L (3.5-5.1); Sodium 145 mmol/L (137-145); Total Bilirubin 0.4 mg/dL (0.2-1.3); Total Protein 5.8 g/dL (6.3-8.2)
[2017-04-10 06:43] LABS: Glucose,Whole Blood 115 mg/dL (75-99)
[2017-04-10] MEDS: IPRATROPIUM-ALBUTEROL 3 ML NEB INHALATION SCH ×4 (07:19→19:59)
--- NOTE | 2017-04-10 07:28 | XR ---
EXAMINATION TYPE: XR chest 1V portable DATE OF EXAM: 04/10/2017 HISTORY: Tube placement. REFERENCE: Previous study dated 04/09/2017. FINDINGS: The patient has been extubated. The ET tube has been removed. There continues to be a left internal jugular catheter. Its tip is in the right atrium. Heart size appears more prominent on the previous study. There is continuing vascular congestion and interstitial change. This has improved slightly. I could not exclude small, bilateral effusions. IMPRESSION: 1. ENLARGING CARDIAC SILHOUETTE. 2. IMPROVING CHANGES OF PULMONARY EDEMA.
[2017-04-10] MEDS: DESVENLAFAXINE SUCCINATE 50 MG TAB.ER.24H PO SCH (08:29)
[2017-04-10] MEDS: PREGABALIN 75 MG CAP PO SCH ×2 (08:29→20:08)
[2017-04-10] MEDS: PANTOPRAZOLE 40 MG/10 ML VIAL IVP SCH (08:32)
[2017-04-10] MEDS: ENOXAPARIN 40 MG/0.4 ML SYRINGE SQ SCH (08:36)
[2017-04-10] MEDS: BETAMETHASONE DIPROPIONATE 0.05% CREAM 15 GM TUBE TOPICAL SCH (08:37)
[2017-04-10] MEDS: LEVOFLOXACIN 750MG-D5W PMX 750 MG in DEXTROSE/WATER 1 150ML.BAG IVPB SCH (09:07)
[2017-04-10] MEDS: LABETALOL SYRINGE 5 MG/ML IVP PRN ×2 (09:45→18:43)
[2017-04-10] MEDS ORDERED: CLEVIDIPINE BUTYRATE 25 MG/50 ML VIAL IV ONE (10:11)
[2017-04-10] MEDS: CLEVIDIPINE BUTYRATE 25 MG in EMPTY BAG 1 BAG IV SCH ×4 (10:20→16:24)
--- NOTE | 2017-04-10 10:21 | P.PN ---
Subjective Progress note dated 04/07/2017 56-year-old white male who was seen yesterday. He initially was presented to the emergency department with complaints of having fallen and lacerating his left foot. Subsequent to that, the patient developed acute respiratory distress and an 18 was called. He was initially on the fourth floor. The patient was then transferred up to the ICU after I spoke to our charge nurse, Roxanne. The patient developed diffuse bilateral infiltrates. The etiology of which is not known. This could be infection fluid overload early acute lung injury/ARDS sepsis aspiration, etc. Anyway the patient gave us a lot of difficulty yesterday and initially was refusing all treatments. We ended up intubating the patient placement patient on the ventilator. Sedation and narcotics could not settle the patient downstairs the patient had be paralyzed. He was actually intubated on April 06. Currently is on lactated Ringer's at 100 mL an hour since atracurium at 1.5 mcg/kg/m DIP or van at 50 mcg/kg/m and the benefits currently on hold. He is on the ventilator on the assist control mode rate of 22 tidal Lyme 450 FiO2 100% PEEP of 13. Blood gases that were done on 90% and PEEP of 10 show a PaO2 of 58 pCO2 33. 7.37. Updrafts have been added every 4 hours. The patient will need a bronchoscopy BAL central line and an art line. That'll be done this morning. Progress note dated 04/08/2017 56-year-old black male who came in because of a laceration to the foot side. Subsequently developed shortness of breath with acute respiratory failure with profound hypoxemia. The etiology of his acute respiratory failure is not clear. I'm not sure if this represents some sort of infection or possible aspiration. His of the sarcoidosis, he was on prednisone 10 mg a day and hydroxychloroquine 200 mg twice a day. This represents some sort of immunocompromise situation. Anyway, the patient is mechanically ventilated. INR line and central line replaced. We've goal gone with a low titer Lyme strategy and high PEEP levels. We will be able to wean his FiO2 down to 50%. Arterial blood gases are currently pending. The patient's vent settings include the assist control mode, respiratory rate 32 tidal Lyme's 4 50 mL FiO2 60% to be dropped on the 50% with PEEP of 13. Blood gases show a by mouth PaO2 of 110 PaCO2 63 and a pH of 7.25. The patient is getting lactated Ringer's at 70 mL an hour appointment 9 at 20 mL an hour since atracurium at 1.5 mcg/kg/m and propofol at 50 mcg/kg/m. In addition, the patient's on 2 feeds are vital HPI at a rate of 28 with a goal of 28. Chest x-ray shows improved bilateral infiltrates. We are having some blood pressure issues of advanced instructed the nurse to give the patient tended 20 mg of labetalol IV every 4 hours if the systolic blood pressures greater than 160 or the mean arterial pressures greater than 100. In addition, we may have to use cleviprex if we cannot control the blood pressure. Again blood gases are pending. Progress note dated 04/10/2017 56-year-old white male admitted with a diagnosis of hypoxemic respiratory failure and acute respiratory distress syndrome. The patient was extubated yesterday. Doing okay today. The patient's maintain on 7 L of high flow oxygen was on Precedex but has been discontinued. Also receiving lactated Ringer's at 50 mL an hour. The biggest issue for this patient remained his mental status. Seemed very confused. The patient on the CT of the brain and probably a neurology consult. No addition, for blood pressure control will start him on Cleviprex. He's also will be maintained nothing by mouth for now. He was extubated yesterday on the . Chest x-ray shows bilateral infiltrates which have improved. Again the biggest issue right now is his mental status. Hemodynamically the patient stable. Objective - Vital Signs Vital signs: Vital Signs Temp 98.0 F 04/10/17 08:00 Pulse 86 04/10/17 09:00 Resp 11 L 04/10/17 09:00 BP 160/80 04/10/17 09:00 Pulse Ox 92 L 04/10/17 09:00 Intake & Output 04/09/17 04/10/17 04/10/17 18:59 06:59 18:59 Intake Total 1053.710 741.705 160 Output Total 2350 2650 575 Balance -1296.290 -1908.295 -415 Weight 105.7 kg Intake: IV 725 690 160 0.9 Sodium Chloride 75 140 10 Lactated Ringers 1,000 ml 650 550 150 @ 50 mls/hr IV .Q20H [facility]ER[facility] Rx#:[id number] Intake, IV Titration 328.710 51.705 Amount Dexmedetomidine/0.9% NaCl 10.71 51.705 (Pmx) 400 mcg In Empty Bag 1 bag @ Titrate IV . Q0M [facility] Rx#:[id number] Levofloxacin 750Mg-D5w 150 Pmx 750 mg In Dextrose/ Water 1 150ml.bag @ 100 mls/hr IVPB Q24H [facility] Rx#: [id number] Propofol 1,000 mg In 100 168.000 ml @ Titrate IV .Q0M [facility] Rx#:[id number] Output: Urine 2350 2650 575 Other: Voiding Method Indwelling Catheter Indwelling Catheter Indwelling Catheter # Bowel Movements 0 ABP, PAP, CO, CI - Last Documented Arterial Blood Pressure 160/73 - Exam The patient's alert but not oriented. Nasal O2 in place HEENT examination is grossly unremarkable. Mucous membranes are moist. No oral lesions. Neck supple. Full range of motion. No adenopathy or thyromegaly. Cardiac vascular examination reveals distant heart sounds. Heart rate 90. S1- S2 normal. No murmur. Lungs reveal coarse rhonchi. Breath sounds are diminished. No wheezes. No crackles. Abdomen soft bowel sounds are heard. Extremities are intact. Skin without rash. Laceration noted on left foot. Neurologic examination cannot be accurately performed. - Labs CBC & Chem 7: 04/10/17 04:00 04/10/17 04:00 Labs: Abnormal Lab Results - Last 24 Hours (Table) 04/09/17 04/09/17 04/09/17 Range/Units 11:55 12:11 17:58 WBC (3.8-10.6) k/uL RBC (4.30-5.90) m/uL Hgb (13.0-17.5) gm/dL Hct (39.0-53.0) % Neutrophils # (1.3-7.7) k/uL Lymphocytes # (1.0-4.8) k/uL ABG pCO2 51 H (35-45) mmHg ABG pO2 79 L (83-108) mmHg ABG HCO3 32 H (21-25) mmol/L ABG Total CO2 34 H (19-24) mmol/L Carbon Dioxide (22-30) mmol/L BUN (9-20) mg/dL Glucose (74-99) mg/dL POC Glucose (mg/dL) 113 H 114 H (75-99) mg/dL Total Protein (6.3-8.2) g/dL Albumin (3.5-5.0) g/dL 04/09/17 04/10/17 04/10/17 Range/Units 20:25 00:17 04:00 WBC 14.2 H (3.8-10.6) k/uL RBC 3.85 L (4.30-5.90) m/uL Hgb 11.3 L (13.0-17.5) gm/dL Hct 34.8 L (39.0-53.0) % Neutrophils # 12.5 H (1.3-7.7) k/uL Lymphocytes # 0.9 L (1.0-4.8) k/uL ABG pCO2 (35-45) mmHg ABG pO2 (83-108) mmHg ABG HCO3 (21-25) mmol/L ABG Total CO2 (19-24) mmol/L Carbon Dioxide 34 H (22-30) mmol/L BUN 30 H (9-20) mg/dL Glucose 135 H (74-99) mg/dL POC Glucose (mg/dL) 119 H (75-99) mg/dL Total Protein (6.3-8.2) g/dL Albumin (3.5-5.0) g/dL 04/10/17 04/10/17 Range/Units 04:00 06:29 WBC (3.8-10.6) k/uL RBC (4.30-5.90) m/uL Hgb (13.0-17.5) gm/dL Hct (39.0-53.0) % Neutrophils # (1.3-7.7) k/uL Lymphocytes # (1.0-4.8) k/uL ABG pCO2 (35-45) mmHg ABG pO2 (83-108) mmHg ABG HCO3 (21-25) mmol/L ABG Total CO2 (19-24) mmol/L Carbon Dioxide 34 H (22-30) mmol/L BUN 30 H (9-20) mg/dL Glucose 118 H (74-99) mg/dL POC Glucose (mg/dL) 115 H (75-99) mg/dL Total Protein 5.8 L (6.3-8.2) g/dL Albumin 2.9 L (3.5-5.0) g/dL Microbiology - Last 24 Hours (Table) 04/06/17 21:10 Blood Culture - Preliminary Blood No Growth after 72 hours 04/06/17 20:07 Gram Stain - Final Sputum Sputum Culture - Final 04/07/17 10:05 Gram Stain - Final Bronchial Washings - Right Bronchial Washings Culture - Final Assessment and Plan (1) Pneumonia Status: Acute (2) Chronic back pain Status: Acute (3) Acute renal failure Status: Acute (4) Dyspnea Status: Acute (5) Fall Status: Acute (6) Sarcoidosis of lung Status: Chronic (7) Benign hypertension Status: Chronic (8) Respiratory failure Status: Acute (9) ARDS (adult respiratory distress syndrome) Status: Acute (10) Altered mental status Status: Acute Plan: Plan dated 04/06/2017 The patient's labs x-rays medications are all reviewed. The patient appears to be treated for active sarcoidosis as he is currently on hydroxychloroquine and prednisone. We'll look back to see what an old chest x-ray looks like. He may benefit from a CAT scan of the chest. Additional recommendations and suggestions are forthcoming. Plan dated 04/07/2017 The patient will need bronchoscopy airway examination BAL today. That will be sent for diagnostic purposes. In addition, we'll place an art line and a central line. No additional recommendations are made. Prognosis is guarded. We'll review labs x-rays a medications. Updrafts added every 4 hours with no vent changes at this time. The patient's currently paralyzed will be paralyzed for 48 hours. Additional recommendations and suggestions are forthcoming. Plan dated 04/08/2017 The patient by definition has moderate ARDS. This is based on the new [place] criteria. The patient will remain be maintained on the ventilator. A blood gas is pending and 1 hour. The FiO2 was dropped to 60-50%. We may make a PEEP change if the blood gases are reasonable. The patient is being nourished enterally. Central line and art line were placed yesterday. Bronchoscopy was done yesterday. Microbiology is pending or negative. The bronchoscopic findings were relatively normal. There was no purulence. The patient's overall condition is slightly improved today. Again paralysis we'll continue to about 7:00 tomorrow morning. Additional recommendations suggestions are forthcoming. Labs x-rays a medications are reviewed. We'll attempt to control the blood pressure with IV labetalol. If that does not work we will use IV infusion of cleviprex. Plan dated 04/10/2017 The patient was extubated yesterday. Patient seemed be doing relatively well from a hemodynamic and respiratory standpoint. The big issue right now some mental status. The patient will have a CT of the brain. We also put him on Cleviprex for blood pressure control. He is nothing by mouth. We'll concern about a swallowing. The dexmedetomidine was discontinued. Additional recommendations insect suggestions are forthcoming. Time with Patient: Less than 30
[2017-04-10] MEDS: hydrALAZINE HCL 20 MG/ML 1 ML VIAL IVP SCH ×3 (10:31→21:55)
--- NOTE | 2017-04-10 10:53 | P.PN ---
Subjective Patient is seen in follow-up for acute kidney injury. His baseline creatinine is 1 and was elevated at 2.1 on admission. He is maintained on lactated Ringer' s at 50 mL an hour and creatinine is 0.8 today. He was extubated on April 09. He remains quite confused. Urinalysis is noted to be quite benign. He underwent a bronchoscopy on April 07 which is quite benign. He is nonoliguric. Blood pressures have been running high. Vital signs are stable. General: The patient appeared well nourished and normally developed. Intubated. HEENT: Head exam is unremarkable. Neck is without jugular venous distension. LUNGS: Rhonchi at bases. Breath sounds decreased. HEART: Rate and Rhythm are regular. First and second heart sounds normal. No murmurs, rubs or gallops. ABDOMEN: Abdominal exam reveals normal bowel sounds. Non-tender and non- distended. No evidence of peritonitis. EXTREMITITES: No clubbing, cyanosis, or edema. Objective - Vital Signs Vital signs: Vital Signs Temp 98.0 F 04/10/17 08:00 Pulse 107 H 04/10/17 10:44 Resp 11 L 04/10/17 09:00 BP 160/80 04/10/17 09:00 Pulse Ox 92 L 04/10/17 09:00 Intake & Output 04/09/17 04/10/17 04/10/17 18:59 06:59 18:59 Intake Total 1053.710 741.705 160 Output Total 2350 2650 575 Balance -1296.290 -1908.295 -415 Weight 105.7 kg Intake: IV 725 690 160 0.9 Sodium Chloride 75 140 10 Lactated Ringers 1,000 ml 650 550 150 @ 50 mls/hr IV .Q20H [facility] Rx#:[id number] Intake, IV Titration 328.710 51.705 Amount Dexmedetomidine/0.9% NaCl 10.71 51.705 (Pmx) 400 mcg In Empty Bag 1 bag @ Titrate IV . Q0M [facility] Rx#:[id number] Levofloxacin 750Mg-D5w 150 Pmx 750 mg In Dextrose/ Water 1 150ml.bag @ 100 mls/hr IVPB Q24H [facility] Rx#: [id number] Propofol 1,000 mg In 100 168.000 ml @ Titrate IV .Q0M [facility] Rx#:[id number] Output: Urine 5794 6326 575 Other: Voiding Method Indwelling Catheter Indwelling Catheter Indwelling Catheter # Bowel Movements 0 ABP, PAP, CO, CI - Last Documented Arterial Blood Pressure 160/73 - Labs CBC & Chem 7: 04/10/17 04:00 04/10/17 04:00 Labs: Abnormal Lab Results - Last 24 Hours (Table) 04/09/17 04/09/17 04/09/17 Range/Units 11:55 12:11 17:58 WBC (3.8-10.6) k/uL RBC (4.30-5.90) m/uL Hgb (13.0-17.5) gm/dL Hct (39.0-53.0) % Neutrophils # (1.3-7.7) k/uL Lymphocytes # (1.0-4.8) k/uL ABG pCO2 51 H (35-45) mmHg ABG pO2 79 L (83-108) mmHg ABG HCO3 32 H (21-25) mmol/L ABG Total CO2 34 H (19-24) mmol/L Carbon Dioxide (22-30) mmol/L BUN (9-20) mg/dL Glucose (74-99) mg/dL POC Glucose (mg/dL) 113 H 114 H (75-99) mg/dL Total Protein (6.3-8.2) g/dL Albumin (3.5-5.0) g/dL 04/09/17 04/10/17 04/10/17 Range/Units 20:25 00:17 04:00 WBC 14.2 H (3.8-10.6) k/uL RBC 3.85 L (4.30-5.90) m/uL Hgb 11.3 L (13.0-17.5) gm/dL Hct 34.8 L (39.0-53.0) % Neutrophils # 12.5 H (1.3-7.7) k/uL Lymphocytes # 0.9 L (1.0-4.8) k/uL ABG pCO2 (35-45) mmHg ABG pO2 (83-108) mmHg ABG HCO3 (21-25) mmol/L ABG Total CO2 (19-24) mmol/L Carbon Dioxide 34 H (22-30) mmol/L BUN 30 H (9-20) mg/dL Glucose 135 H (74-99) mg/dL POC Glucose (mg/dL) 119 H (75-99) mg/dL Total Protein (6.3-8.2) g/dL Albumin (3.5-5.0) g/dL 04/10/17 04/10/17 Range/Units 04:00 06:29 WBC (3.8-10.6) k/uL RBC (4.30-5.90) m/uL Hgb (13.0-17.5) gm/dL Hct (39.0-53.0) % Neutrophils # (1.3-7.7) k/uL Lymphocytes # (1.0-4.8) k/uL ABG pCO2 (35-45) mmHg ABG pO2 (83-108) mmHg ABG HCO3 (21-25) mmol/L ABG Total CO2 (19-24) mmol/L Carbon Dioxide 34 H (22-30) mmol/L BUN 30 H (9-20) mg/dL Glucose 118 H (74-99) mg/dL POC Glucose (mg/dL) 115 H (75-99) mg/dL Total Protein 5.8 L (6.3-8.2) g/dL Albumin 2.9 L (3.5-5.0) g/dL Microbiology - Last 24 Hours (Table) 04/06/17 21:10 Blood Culture - Preliminary Blood No Growth after 72 hours 04/06/17 20:07 Gram Stain - Final Sputum Sputum Culture - Final 04/07/17 10:05 Gram Stain - Final Bronchial Washings - Right Bronchial Washings Culture - Final Assessment and Plan Plan: Assessment: #1. Nonoliguric acute kidney injury mostly prerenal secondary to NSAIDs and further worsened with the use of diuretics and JERRY inhibitor. Creatinine 2.11 on admission and stable at 0.8 today. Urinalysis quite benign and no evidence of pulmonary renal syndrome or other glomerulonephritis. No evidence of hydronephrosis. Baseline creatinine is 1. #2. Metabolic acidosis secondary to acute kidney injury. Resolved. #3. History of sarcoidosis maintained on prednisone and Plaquenil. Pulmonology following. #4. Benign hypertension. Uncontrolled. #5. Acute hypoxic respiratory failure status post bronchoscopy on April 07. Concern for aspiration pneumonia. #6. Encephalopathy. This concern for anoxia secondary to hypoxia. May also be due to effects of anesthesia. Plan: Continue with maintenance fluids at 50 mL an hour. Avoid nephrotoxic agents and hypotensive episodes. Diuretics, JERRY inhibitor as well as NSAIDs held for now. Repeat electrolytes in the morning. Discontinued sodium bicarbonate. Continue with labetalol as needed for blood pressure control. Also on a clonidine patch. Add hydralazine 10 mg every 4 hours. For now he will also be started on cleviprex per bar back. Follow-up cultures.
--- NOTE | 2017-04-10 12:37 | CT ---
EXAMINATION TYPE: CT brain wo con DATE OF EXAM: 04/10/2017 COMPARISON: NONE HISTORY: Altered mental status CT DLP: 995.50 mGycm Automated exposure control for dose reduction was used. FINDINGS: Central structures are midline. There is no evidence of hydrocephalus. No acute focal lesion, mass ef fect or midline shift is seen. I do not see evidence of intracranial blood. Visualized portions of the paranasal sinuses and mastoids are clear. IMPRESSION: NO ACUTE INTRACRANIAL ABNORMALITY.
[2017-04-10] MEDS: DILTIAZEM 125 MG in SODIUM CHLORIDE 0.9% 100 ML IV SCH ×2 (12:50→22:25)
[2017-04-10 13:08] LABS: Glucose,Whole Blood 126 mg/dL (75-99)
[2017-04-10] MEDS ORDERED: HALOPERIDOL LACTATE 5 MG/ML 1 ML VIAL IVP PRN ×2 (14:13)
[2017-04-10] MEDS: LACTATED RINGERS 1,000 ML IV SCH (18:15)
[2017-04-10 18:22] LABS: Glucose,Whole Blood 118 mg/dL (75-99)
--- NOTE | 2017-04-10 19:23 | P.CNNES ---
History of Present Illness Consult date: 04/10/17 Reason for Consult: Patient being evaluated for altered mental status following extubation. History of Present Illness: This patient is a 56-year-old right-handed -[place] male who was admitted to the hospital on 04/06/2017 after he sustained a fall at home. He apparently had a laceration to his left foot and was admitted to hospital for further treatment. Soon after admission the patient developed acute respiratory distress. An 18 code was called. Patient was transferred into the ICU where he apparently remained very combative and agitated. He was intubated and placed on sedation. He was extubated 2 days ago and was initially placed on a combination of Nimbex and Diprivan. He has been off of both medications for 2 days. His chest x-ray revealed evidence of early ARDS findings. Since extubation he has shown increase confusion and disorientation. He does not follow commands. He was sent for a computed tomography scan of the brain today which reveals no evidence of acute intracranial abnormality. The patient remains somewhat agitated in the ICU setting at this time. He has glove protection for both hands as he becomes slightly aggressive at times. The patient does not answer directly to questions. He does per doubt occasional words. According to the ICU nursing staff he developed new onset of atrial fibrillation today. According to the staff also he did show some confusion and multiple falls 2 days prior to his admission to the hospital. The patient appears to be encephalopathic at this time in the ICU. He does not answer questions directly. He seems to gaze off into space. Patient has no previous history of TIA or stroke. His clinical history is suggesting a degree of diffuse encephalopathy secondary to hypoxia. His blood pressure also has been very elevated for the last several days. This also brings up the possibility of hypertensive encephalopathy for the patient. The patient is now been admitted and neurology is been consulted for further evaluation and recommendations. Review of Systems Constitutional: Denies chills, Denies fever Eyes: denies blurred vision, denies pain Ears, nose, mouth and throat: Denies headache, Denies sore throat Cardiovascular: Denies chest pain, Denies shortness of breath Respiratory: Denies cough Gastrointestinal: Denies abdominal pain, Denies diarrhea, Denies nausea, Denies vomiting Musculoskeletal: Denies myalgias Integumentary: Denies pruritus, Denies rash Neurological: Reports aphasia, Reports change in mentation, Reports change in speech, Reports confusion, Reports lack of coordination, Reports memory loss, Denies numbness, Denies weakness Psychiatric: Denies anxiety, Denies depression Endocrine: Denies fatigue, Denies weight change Past Medical History Past Medical History: Hypertension Additional Past Medical History / Comment(s): Spouse states that pt has had increased congestion/cough last couple days-he was coughing and after that was experiencing difficulty hearing. Spouse states that the past couple days he has had some periods of confusion. 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 History of Any Multi-Drug Resistant Organisms: None Reported Past Surgical History: Cholecystectomy, Orthopedic Surgery, Prostate Surgery Additional Past Surgical History / Comment(s): 02/14/17 I&D penile abscess, PICC line since removed, R arm surgery (secondary to injury fell through plate glass) . Past Anesthesia/Blood Transfusion Reactions: No Reported Reaction Smoking Status: Former smoker - Past Family History Mother Family Medical History: Coronary Artery Disease (CAD) Additional Family Medical History / Comment(s): Mother at the age of 86yrs. Father Family Medical History: No Reported History Additional Family Medical History / Comment(s): Father was healthy and lived into his late 70's. Medications and Allergies Home Medications Medication Instructions Recorded Confirmed Type Albuterol Inhaler [Ventolin Hfa 2 puff INHALATION RT-Q6H PRN 02/11/17 04/06/17 History Inhaler] Amitriptyline HCl 25 mg PO HS 02/11/17 04/06/17 History Betamethasone Dipropionate 1 applic TOPICAL DAILY 02/11/17 04/06/17 History [Diprolene AF 0.05% Cream] Desvenlafaxine [Pristiq ER] 100 mg PO DAILY 02/11/17 04/06/17 History Hydroxychloroquine Sulfate 200 mg PO DAILY 02/11/17 04/06/17 History [Plaquenil] Ibuprofen [Motrin] 800 mg PO Q8H PRN 02/11/17 04/06/17 History Lisinopril-Hctz 20-25 mg 1 tab PO DAILY 02/11/17 04/06/17 History [Zestoretic 20-25] Multivitamins, Thera [Multivitamin 1 tab PO DAILY 02/11/17 04/06/17 History (formulary)] Niacin 1,000 mg PO HS 02/11/17 04/06/17 History Omeprazole [PriLOSEC] 20 mg PO BID 02/11/17 04/06/17 History predniSONE 10 mg PO DAILY 02/11/17 04/06/17 History Pregabalin [Lyrica] 75 mg PO BID 04/06/17 04/06/17 History amLODIPine [Norvasc] 10 mg PO DAILY 04/06/17 04/06/17 History Allergies Allergy/AdvReac Type Severity Reaction Status Date / Time No Known Allergies Allergy Verified 04/06/17 08:25 Physical Examination - Vital Signs Vital Signs: Vital Signs Temp Pulse Pulse Resp BP Pulse Ox 04/10/17 19:00 98.8 F 102 H 14 93 L 04/10/17 18:00 104 H 0 L 110/59 94 L 04/10/17 17:00 98.1 F 146 H 8 L 110/59 95 04/10/17 16:00 175 H 12 102/80 93 L 04/10/17 15:39 95 15 04/10/17 15:26 123 H 04/10/17 15:10 113 H 98 04/10/17 15:00 100 15 93 L 04/10/17 14:00 98.2 F 107 H 9 L 144/64 92 L 04/10/17 13:00 105 H 13 144/64 94 L 04/10/17 12:00 109 H 140/63 04/10/17 11:04 95 13 04/10/17 11:00 101 H 13 140/63 93 L 04/10/17 10:57 95 04/10/17 10:44 107 H 04/10/17 10:00 87 40 H 190/82 98 04/10/17 09:00 86 11 L 160/80 92 L 04/10/17 08:00 98.0 F 90 12 170/90 95 04/10/17 07:32 86 04/10/17 07:21 89 96 04/10/17 07:00 89 12 153/85 95 04/10/17 06:00 85 10 L 178/90 94 L 04/10/17 05:00 75 16 151/83 96 04/10/17 04:00 99 F 86 95 16 166/84 95 04/10/17 03:00 97 16 138/74 95 04/10/17 02:00 81 14 142/74 95 04/10/17 01:00 107 H 16 151/75 97 04/10/17 00:00 97.7 F 95 95 4 L 145/75 95 04/09/17 23:21 14 95 04/09/17 23:10 99 8 L 157/89 93 L 04/09/17 23:00 96 17 157/89 94 L 04/09/17 22:00 105 H 10 L 167/81 96 04/09/17 21:00 90 24 173/93 93 L 04/09/17 20:00 99 F 96 96 10 L 148/74 94 L 04/09/17 19:13 96 Intake and Output 04/10/17 04/10/17 04/10/17 06:59 14:59 22:59 Intake Total 509.035 397.167 326.266 Output Total 1675 1550 850 Balance -1165.965 -1152.833 -523.734 Intake: IV 490 310 250 0.9 Sodium Chloride 90 10 Lactated Ringers 1,000 ml 400 300 250 @ 50 mls/hr IV .Q20H [facility] Rx#:[id number] Intake, IV Titration 19.035 87.167 76.266 Amount Clevidipine Butyrate 25 77.167 76.266 mg In Empty Bag 1 bag @ 1 MG/HR 2 mls/hr IV .Q24H [facility] Rx#:[id number] Dexmedetomidine/0.9% NaCl 19.035 (Pmx) 400 mcg In Empty Bag 1 bag @ Titrate IV . Q0M [facility] Rx#:[id number] Diltiazem 125 mg In 10 Sodium Chloride 0.9% 100 ml @ 10 MG/HR 10 mls/hr IV .[id number] [facility] Rx#: [id number] Output: Urine 1675 1550 850 Other: Voiding Method Indwelling Catheter Indwelling Catheter Indwelling Catheter # Bowel Movements 0 Weight 105.7 kg ABP, PAP, CO, CI - Last 8 Hours Arterial Blood Pressure 122/66 Arterial Blood Pressure 122/52 Arterial Blood Pressure 107/54 Arterial Blood Pressure 112/57 Arterial Blood Pressure 125/70 Arterial Blood Pressure 122/68 Arterial Blood Pressure 134/67 - Constitutional General appearance: average body habitus, cooperative - EENT EENT: PERRL, mucous membranes moist - Respiratory Respiratory: lungs clear, normal breath sounds - Cardiovascular Cardiovascular: normal S1, normal S2 Extremities: no peripheral edema bilaterally - Gastrointestinal Gastrointestinal: normoactive bowel sounds - Integumentary Integumentary: normal - Neurologic Cranial nerve examination: PERRL, EOMI, VFF, V1/V2/V3 grossly intact, face symmetric, intact shoulder shrug, intact gag reflex, intact vestibulo-ocular reflex, normal palatal elevation Speech examination: intact Sensorimotor examination: intact Detailed motor examination: grossly full strength in all extremities Motor examination - right side: 4/5: biceps, triceps, wrist flexion, wrist extension, terminal block assembler, hip flexors, knee extensors, dorsiflexion, toe extension (EHL) , plantarflexion Motor examination - left side: 4/5: biceps, triceps, wrist flexion, wrist extension, terminal block assembler, hip flexors, knee extensors, dorsiflexion, toe extension (EHL) , plantarflexion Detailed sensory examination: intact Reflex and gait examination: intact Reflexes: 1+: ankle, bicep, knee, tricep - Musculoskeletal Musculoskeletal: no pain - Psychiatric Psychiatric: mood/affect appropriate, cooperative Results - Laboratory Findings CBC and BMP: 04/10/17 04:00 04/10/17 04:00 Abnormal Lab Findings: Abnormal Labs 04/06/17 04/06/17 04/06/17 04:00 04:00 04:00 WBC 13.0 H RBC 3.82 L Hgb 11.5 L Hct 34.6 L RDW 16.0 H Neutrophils # 10.8 H Lymphocytes # 0.9 L D-Dimer ABG pH ABG pCO2 ABG pO2 ABG HCO3 ABG Total CO2 ABG O2 Saturation Chloride 108 H Carbon Dioxide 19 L BUN 38 H Creatinine 2.11 H Glucose 69 L POC Glucose (mg/dL) Calcium Phosphorus Magnesium AST 68 H Total Creatine Kinase 697 H CK-MB (CK-2) 30.2 H* Total Protein Albumin Urine Protein Viral Test 04/06/17 04/06/17 04/06/17 04:00 12:05 18:23 WBC RBC Hgb Hct RDW Neutrophils # Lymphocytes # D-Dimer 1.78 H ABG pH ABG pCO2 ABG pO2 ABG HCO3 ABG Total CO2 ABG O2 Saturation Chloride Carbon Dioxide BUN Creatinine Glucose POC Glucose (mg/dL) 160 H Calcium Phosphorus Magnesium AST Total Creatine Kinase CK-MB (CK-2) Total Protein Albumin Urine Protein Trace H Viral Test 04/06/17 04/06/17 04/06/17 18:51 20:00 20:10 WBC RBC Hgb Hct RDW Neutrophils # Lymphocytes # D-Dimer ABG pH 7.25 L ABG pCO2 26 L 51 H ABG pO2 48 L 55 L ABG HCO3 18 L ABG Total CO2 ABG O2 Saturation 87.0 L 83.0 L Chloride Carbon Dioxide BUN Creatinine Glucose POC Glucose (mg/dL) Calcium Phosphorus Magnesium AST Total Creatine Kinase CK-MB (CK-2) Total Protein Albumin Urine Protein Trace H Viral Test 04/07/17 04/07/17 04/07/17 04:29 04:29 05:19 WBC 11.1 H RBC 3.36 L Hgb 10.1 L Hct 30.4 L RDW Neutrophils # 10.2 H Lymphocytes # 0.5 L D-Dimer ABG pH ABG pCO2 33 L ABG pO2 58 L ABG HCO3 19 L ABG Total CO2 ABG O2 Saturation 89.0 L Chloride 111 H Carbon Dioxide 17 L BUN 29 H Creatinine 1.30 H Glucose 120 H POC Glucose (mg/dL) Calcium 8.2 L Phosphorus 5.1 H Magnesium AST Total Creatine Kinase CK-MB (CK-2) Total Protein 5.8 L Albumin 3.0 L Urine Protein Viral Test 04/07/17 04/07/17 04/07/17 10:05 10:55 14:04 WBC RBC Hgb Hct RDW Neutrophils # Lymphocytes # D-Dimer ABG pH 7.08 L* ABG pCO2 82 H* ABG pO2 151 H ABG HCO3 ABG Total CO2 26 H ABG O2 Saturation 98.1 H Chloride Carbon Dioxide BUN Creatinine Glucose POC Glucose (mg/dL) 156 H Calcium Phosphorus Magnesium AST Total Creatine Kinase CK-MB (CK-2) Total Protein Albumin Urine Protein Viral Test See Below H 04/07/17 04/07/17 04/08/17 17:07 19:48 00:35 WBC RBC Hgb Hct RDW Neutrophils # Lymphocytes # D-Dimer ABG pH ABG pCO2 ABG pO2 ABG HCO3 ABG Total CO2 ABG O2 Saturation Chloride Carbon Dioxide BUN Creatinine Glucose POC Glucose (mg/dL) 136 H 159 H 131 H Calcium Phosphorus Magnesium AST Total Creatine Kinase CK-MB (CK-2) Total Protein Albumin Urine Protein Viral Test 04/08/17 04/08/17 04/08/17 00:59 04:07 04:07 WBC 11.8 H RBC 3.52 L Hgb 10.4 L Hct 32.9 L RDW 15.8 H Neutrophils # 10.6 H Lymphocytes # 0.4 L D-Dimer ABG pH ABG pCO2 ABG pO2 ABG HCO3 ABG Total CO2 ABG O2 Saturation Chloride 109 H 110 H Carbon Dioxide BUN 23 H 22 H Creatinine Glucose 146 H 152 H POC Glucose (mg/dL) Calcium Phosphorus Magnesium 2.4 H AST Total Creatine Kinase CK-MB (CK-2) Total Protein 6.1 L Albumin 3.2 L Urine Protein Viral Test 04/08/17 04/08/17 04/08/17 04:39 05:46 10:48 WBC RBC Hgb Hct RDW Neutrophils # Lymphocytes # D-Dimer ABG pH 7.25 L 7.28 L ABG pCO2 63 H 62 H ABG pO2 110 H ABG HCO3 26 H 28 H ABG Total CO2 28 H 30 H ABG O2 Saturation Chloride Carbon Dioxide BUN Creatinine Glucose POC Glucose (mg/dL) 158 H Calcium Phosphorus Magnesium AST Total Creatine Kinase CK-MB (CK-2) Total Protein Albumin Urine Protein Viral Test 04/08/17 04/08/17 04/09/17 12:41 18:02 00:13 WBC RBC Hgb Hct RDW Neutrophils # Lymphocytes # D-Dimer ABG pH ABG pCO2 ABG pO2 ABG HCO3 ABG Total CO2 ABG O2 Saturation Chloride Carbon Dioxide BUN Creatinine Glucose POC Glucose (mg/dL) 152 H 169 H 142 H Calcium Phosphorus Magnesium AST Total Creatine Kinase CK-MB (CK-2) Total Protein Albumin Urine Protein Viral Test 04/09/17 04/09/17 04/09/17 03:15 03:15 04:02 WBC 11.9 H RBC 3.73 L Hgb 11.0 L Hct 34.3 L RDW Neutrophils # 10.7 H Lymphocytes # 0.5 L D-Dimer ABG pH ABG pCO2 53 H ABG pO2 138 H ABG HCO3 32 H ABG Total CO2 34 H ABG O2 Saturation 99.0 H Chloride Carbon Dioxide 33 H BUN 24 H Creatinine Glucose 159 H POC Glucose (mg/dL) Calcium Phosphorus Magnesium AST Total Creatine Kinase CK-MB (CK-2) Total Protein 5.9 L Albumin 3.0 L Urine Protein Viral Test 04/09/17 04/09/17 04/09/17 04:33 06:09 11:55 WBC RBC Hgb Hct RDW Neutrophils # Lymphocytes # D-Dimer ABG pH ABG pCO2 51 H ABG pO2 79 L ABG HCO3 32 H ABG Total CO2 34 H ABG O2 Saturation Chloride Carbon Dioxide BUN Creatinine Glucose POC Glucose (mg/dL) 141 H 152 H Calcium Phosphorus Magnesium AST Total Creatine Kinase CK-MB (CK-2) Total Protein Albumin Urine Protein Viral Test 04/09/17 04/09/17 04/09/17 12:11 17:58 20:25 WBC RBC Hgb Hct RDW Neutrophils # Lymphocytes # D-Dimer ABG pH ABG pCO2 ABG pO2 ABG HCO3 ABG Total CO2 ABG O2 Saturation Chloride Carbon Dioxide 34 H BUN 30 H Creatinine Glucose 135 H POC Glucose (mg/dL) 113 H 114 H Calcium Phosphorus Magnesium AST Total Creatine Kinase CK-MB (CK-2) Total Protein Albumin Urine Protein Viral Test 04/10/17 04/10/17 04/10/17 00:17 04:00 04:00 WBC 14.2 H RBC 3.85 L Hgb 11.3 L Hct 34.8 L RDW Neutrophils # 12.5 H Lymphocytes # 0.9 L D-Dimer ABG pH ABG pCO2 ABG pO2 ABG HCO3 ABG Total CO2 ABG O2 Saturation Chloride Carbon Dioxide 34 H BUN 30 H Creatinine Glucose 118 H POC Glucose (mg/dL) 119 H Calcium Phosphorus Magnesium AST Total Creatine Kinase CK-MB (CK-2) Total Protein 5.8 L Albumin 2.9 L Urine Protein Viral Test 04/10/17 04/10/17 04/10/17 06:29 12:42 18:17 WBC RBC Hgb Hct RDW Neutrophils # Lymphocytes # D-Dimer ABG pH ABG pCO2 ABG pO2 ABG HCO3 ABG Total CO2 ABG O2 Saturation Chloride Carbon Dioxide BUN Creatinine Glucose POC Glucose (mg/dL) 115 H 126 H 118 H Calcium Phosphorus Magnesium AST Total Creatine Kinase CK-MB (CK-2) Total Protein Albumin Urine Protein Viral Test Assessment and Plan (1) Acute encephalopathy Status: Acute Code(s): G93.40 - ENCEPHALOPATHY, UNSPECIFIED (2) ARDS (adult respiratory distress syndrome) Status: Acute Code(s): J80 - ACUTE RESPIRATORY DISTRESS SYNDROME (3) Acute renal failure Status: Acute (4) Sarcoidosis of lung Status: Chronic Plan: This patient is a 56-year-old -[place] male who was transferred to the intensive care unit after developing severe respiratory distress. He was initially intubated in the ICU and was extubated 2 days ago. Since extubation he has shown very little improvement in his mental status. He remains very confused. He was sent for a computed tomography scan of the brain today which revealed no acute intracranial abnormality. He does have evidence of some degree of hypoxic injury following his pulmonary disorder. The patient does have history of sarcoidosis of the lung and does require close pulmonary follow- up. His neurological examination at this time is consistent with a diffuse metabolic encephalopathy. We recommend he undergo an MRI of the brain for further evaluation as he is now been found to have new onset of atrial fibrillation. We would like to rule out any possibility of small stroke. The patient's overall prognosis at this time remains very guarded. We will continue close neurological follow-up with this patient in the intensive care unit. His overall prognosis at this time remains very guarded. Time with Patient: Greater than 30
[2017-04-10] MEDS: AMITRIPTYLINE HCL 25 MG TAB PO SCH (20:08)
[2017-04-10] MEDS: NIACIN TR 500 MG CAPSULE.ER PO SCH (20:08)
--- NOTE | 2017-04-11 00:27 | P.PN ---
Subjective Principal diagnosis: Respiratory failure secondary to ARDS Patient is a 56-year-old male with a known history of sarcoidosis, depression, hypertension and also has history of long-standing left foot drop was admitted to the hospital status post fall in the bathroom. Patient had injury to the left foot and was brought to the hospital. Patient felt that he is weak and tired. Patient was initially admitted to MedSurg unit. Patient went into respiratory failure while in the hospital and is currently intubated and sedated. Patient is also being treated for pneumonia. Patient was suspected to have ARDS. On 04/07/2017 Patient underwent bronchoscopy today and BAL was sent for analysis. patient is sedated and intubated. He is on assist control with PEEP of 13. Chest x-ray showed new left internal jugular central venous catheter with tip in the right atrium no evidence of sizable pneumothorax. No fever no chills. WBC count at 11.1 On 04/08/2017 Patient is currently intubated and sedated. Patient was started on enteral nutrition. Chest x-ray showed clinical correlation recommended for pulmonary edema or ARDS. Improvement in clinical condition. No fever no chills overnight. 04/09/2017 Patient was successfully extubated today. Patient is seems to be confused and combative and trying to get out of bed patient was currently restrained. Neurology has been consulted. Denied any chest pain. Complete review of systems could not be obtained from the patient. Objective - Vital Signs Vital signs: Vital Signs Temp 98.4 F 04/09/17 12:00 Pulse 112 H 04/09/17 15:31 Resp 16 04/09/17 14:00 BP 166/86 04/09/17 14:00 Pulse Ox 94 L 04/09/17 15:31 Intake & Output 04/08/17 04/09/17 04/09/17 18:59 06:59 18:59 Intake Total 1593.381 963.202 848.940 Output Total 4950 2185 1150 Balance -3356.619 -1221.798 -301.060 Weight 110.7 kg 108.1 kg Intake: IV 860 600 525 0.9 Sodium Chloride 180 200 75 Lactated Ringers 1,000 ml 680 400 450 @ 50 mls/hr IV .Q20H [facility] Rx#:[id number] Intake, IV Titration 275.381 223.202 323.940 Amount Cisatracurium 200 mg In 105.572 69.768 Sodium Chloride 0.9% 180 ml @ 2 MCG/KG/MIN 12.45 mls/hr IV .Q16H4M [facility] Rx# :[id number] Dexmedetomidine/0.9% NaCl 5.94 (Pmx) 400 mcg In Empty Bag 1 bag @ Titrate IV . Q0M [facility] Rx#:[id number] Levofloxacin 750Mg-D5w 150 Pmx 750 mg In Dextrose/ Water 1 150ml.bag @ 100 mls/hr IVPB Q24H [facility] Rx#: [id number] Propofol 1,000 mg In 100 169.809 153.434 168.000 ml @ Titrate IV .Q0M [facility] Rx#:[id number] Tube Feeding 308 140 Other 150 Output: Urine 4950 2185 1150 Other: Voiding Method Indwelling Catheter Indwelling Catheter Indwelling Catheter # Bowel Movements 0 ABP, PAP, CO, CI - Last Documented Arterial Blood Pressure 189/81 - Exam PHYSICAL EXAMINATION: Patient is lying in the bed comfortably, no acute distress. Patient is confused and trying to get out of the bed. HEENT: Normocephalic. Neck is supple. Pupils reactive. Nostrils clear. Oral cavity is moist. Ears reveal no drainage. Neck reveals no JVD, carotid bruits, or thyromegaly. CHEST EXAMINATION: Trachea is central. Symmetrical expansion. Bilateral air entry is present. No wheezing. Mild rhonchi positive CARDIAC: Normal S1, S2 with no gallops. No murmurs ABDOMEN: Soft. Bowel sounds normal. No organomegaly. No abdominal bruits. Extremities: reveal no edema. No clubbing or cyanosis Neurologically : Patient is alert but confused and combative. No focal deficits noted Skin: No rash or skin lesions. Except on the foot Psychiatric: Could not assessed Musculoskeletal: No joint swelling or deformity. - Labs CBC & Chem 7: 04/10/17 04:00 04/10/17 04:00 Labs: Abnormal Lab Results - Last 24 Hours (Table) 04/08/17 04/09/17 04/09/17 Range/Units 18:02 00:13 03:15 WBC 11.9 H (3.8-10.6) k/uL RBC 3.73 L (4.30-5.90) m/uL Hgb 11.0 L (13.0-17.5) gm/dL Hct 34.3 L (39.0-53.0) % Neutrophils # 10.7 H (1.3-7.7) k/uL Lymphocytes # 0.5 L (1.0-4.8) k/uL ABG pCO2 (35-45) mmHg ABG pO2 (83-108) mmHg ABG HCO3 (21-25) mmol/L ABG Total CO2 (19-24) mmol/L ABG O2 Saturation (94-97) % Carbon Dioxide (22-30) mmol/L BUN (9-20) mg/dL Glucose (74-99) mg/dL POC Glucose (mg/dL) 169 H 142 H (75-99) mg/dL Total Protein (6.3-8.2) g/dL Albumin (3.5-5.0) g/dL 04/09/17 04/09/17 04/09/17 Range/Units 03:15 04:02 04:33 WBC (3.8-10.6) k/uL RBC (4.30-5.90) m/uL Hgb (13.0-17.5) gm/dL Hct (39.0-53.0) % Neutrophils # (1.3-7.7) k/uL Lymphocytes # (1.0-4.8) k/uL ABG pCO2 53 H (35-45) mmHg ABG pO2 138 H (83-108) mmHg ABG HCO3 32 H (21-25) mmol/L ABG Total CO2 34 H (19-24) mmol/L ABG O2 Saturation 99.0 H (94-97) % Carbon Dioxide 33 H (22-30) mmol/L BUN 24 H (9-20) mg/dL Glucose 159 H (74-99) mg/dL POC Glucose (mg/dL) 141 H (75-99) mg/dL Total Protein 5.9 L (6.3-8.2) g/dL Albumin 3.0 L (3.5-5.0) g/dL 04/09/17 04/09/17 04/09/17 Range/Units 06:09 11:55 12:11 WBC (3.8-10.6) k/uL RBC (4.30-5.90) m/uL Hgb (13.0-17.5) gm/dL Hct (39.0-53.0) % Neutrophils # (1.3-7.7) k/uL Lymphocytes # (1.0-4.8) k/uL ABG pCO2 51 H (35-45) mmHg ABG pO2 79 L (83-108) mmHg ABG HCO3 32 H (21-25) mmol/L ABG Total CO2 34 H (19-24) mmol/L ABG O2 Saturation (94-97) % Carbon Dioxide (22-30) mmol/L BUN (9-20) mg/dL Glucose (74-99) mg/dL POC Glucose (mg/dL) 152 H 113 H (75-99) mg/dL Total Protein (6.3-8.2) g/dL Albumin (3.5-5.0) g/dL Microbiology - Last 24 Hours (Table) 04/06/17 20:07 Gram Stain - Final Sputum Sputum Culture - Final 04/07/17 10:05 Gram Stain - Final Bronchial Washings - Right Bronchial Washings Culture - Final 04/06/17 21:10 Blood Culture - Preliminary Blood No Growth after 48 hours 04/06/17 20:00 Urine Culture - Final Urine,Catheterized Assessment and Plan Plan: #1 acute hypoxic respiratory failure due to ARDS. Extubated now. #2 status post fall and left foot injury #3 nonoliguric acute kidney injury with creatinine level II.11. Came down to 1.3 ---0.9--0.8 today. baseline creatinine 1.0 #4 suspected pneumonia #5 sarcoidosis on active treatment with prednisone and plaquenil #6 hypertension #7 chronic back pain. On NSAID use at home #8 DVT prophylaxis with Lovenox #9 depression #10 normocytic anemia Plan: Patient will be continued on breathing treatments and antibiotics. And mechanical ventilation for ARDS. Exact etiology is unknown at this time. Continue with the hydration and follow-up renal function. Patient had bronchoscopy done on 04/07/2017, BAL cultures including Gram stain, fungal culture and AFB is negative so far As per preliminary report. We will repeat chest x-ray tomorrow. Pulmonary and nephrology is following this patient. Further recommendations based on the clinical course. Prognosis is guarded.
[2017-04-11] MEDS: CLEVIDIPINE BUTYRATE 25 MG in EMPTY BAG 1 BAG IV SCH ×4 (00:30→14:23)
--- NOTE | 2017-04-11 00:35 | P.PN ---
Subjective Principal diagnosis: Respiratory failure secondary to ARDS Patient is a 56-year-old male with a known history of sarcoidosis, depression, hypertension and also has history of long-standing left foot drop was admitted to the hospital status post fall in the bathroom. Patient had injury to the left foot and was brought to the hospital. Patient felt that he is weak and tired. Patient was initially admitted to [facility] unit. Patient went into respiratory failure while in the hospital and is currently intubated and sedated. Patient is also being treated for pneumonia. Patient was suspected to have ARDS. On 04/07/2017 Patient underwent bronchoscopy today and BAL was sent for analysis. patient is sedated and intubated. He is on assist control with PEEP of 13. Chest x-ray showed new left internal jugular central venous catheter with tip in the right atrium no evidence of sizable pneumothorax. No fever no chills. WBC count at 11.1 On 04/08/2017 Patient is currently intubated and sedated. Patient was started on enteral nutrition. Chest x-ray showed clinical correlation recommended for pulmonary edema or ARDS. Improvement in clinical condition. No fever no chills overnight. 04/09/2017 Patient was successfully extubated today. Patient is seems to be confused and combative and trying to get out of bed patient was currently restrained. Neurology has been consulted. Denied any chest pain. 04/10/2017 Patient remained to be confused. Could not provide any history. Family is at bedside and discussed with the family in detail. Apparently patient has been confused 3-4 days prior to admission as well. Chest x-ray showed some improvement. In pulmonary edema. Neurology has seen the patient and CT head was done which showed no acute abnormality. Neurology records MRI in view of new onset atrial fibrillation. No fever no chills. Patient is on Cardizem drip due to new onset A. fib.. Complete review of systems could not be obtained from the patient. Objective - Vital Signs Vital signs: Vital Signs Temp 98.9 F 04/10/17 20:00 Pulse 93 04/10/17 20:16 Resp 14 04/10/17 20:00 BP 110/59 04/10/17 18:00 Pulse Ox 98 04/10/17 20:00 Intake & Output 04/10/17 04/10/17 04/11/17 06:59 18:59 06:59 Intake Total 741.705 723.433 60 Output Total 2650 2400 250 Balance -1908.295 -1676.567 -190 Weight 105.7 kg Intake: IV 690 560 60 0.9 Sodium Chloride 140 10 10 Lactated Ringers 1,000 ml 550 550 50 @ 50 mls/hr IV .Q20H [facility] Rx#:[id number] Intake, IV Titration 51.705 163.433 Amount Clevidipine Butyrate 25 153.433 mg In Empty Bag 1 bag @ 1 MG/HR 2 mls/hr IV .Q24H [facility] Rx#:[id number] Dexmedetomidine/0.9% NaCl 51.705 (Pmx) 400 mcg In Empty Bag 1 bag @ Titrate IV . Q0M [facility] Rx#:[id number] Diltiazem 125 mg In 10 Sodium Chloride 0.9% 100 ml @ 10 MG/HR 10 mls/hr IV .[id number] [facility] Rx#: [id number] Output: Urine 2650 2400 250 Other: Voiding Method Indwelling Catheter Indwelling Catheter Indwelling Catheter # Bowel Movements 0 0 ABP, PAP, CO, CI - Last Documented Arterial Blood Pressure 132/67 - Exam PHYSICAL EXAMINATION: Patient is lying in the bed comfortably, no acute distress. Patient is confused and trying to get out of the bed. HEENT: Normocephalic. Neck is supple. Pupils reactive. Nostrils clear. Oral cavity is moist. Ears reveal no drainage. Neck reveals no JVD, carotid bruits, or thyromegaly. CHEST EXAMINATION: Trachea is central. Symmetrical expansion. Bilateral air entry is present. No wheezing. Mild rhonchi positive CARDIAC: Normal S1, S2 with no gallops. No murmurs ABDOMEN: Soft. Bowel sounds normal. No organomegaly. No abdominal bruits. Extremities: reveal no edema. No clubbing or cyanosis Neurologically : Patient is alert but confused and combative. No focal deficits noted Skin: No rash or skin lesions. Except on the foot Psychiatric: Could not assessed Musculoskeletal: No joint swelling or deformity. - Labs CBC & Chem 7: 04/10/17 04:00 04/10/17 04:00 Labs: Abnormal Lab Results - Last 24 Hours (Table) 04/10/17 04/10/17 04/10/17 Range/Units :17 04:00 04:00 WBC 14.2 H (3.8-10.6) k/uL RBC 3.85 L (4.30-5.90) m/uL Hgb 11.3 L (13.0-17.5) gm/dL Hct 34.8 L (39.0-53.0) % Neutrophils # 12.5 H (1.3-7.7) k/uL Lymphocytes # 0.9 L (1.0-4.8) k/uL Carbon Dioxide 34 H (22-30) mmol/L BUN 30 H (9-20) mg/dL Glucose 118 H (74-99) mg/dL POC Glucose (mg/dL) 119 H (75-99) mg/dL Total Protein 5.8 L (6.3-8.2) g/dL Albumin 2.9 L (3.5-5.0) g/dL 04/10/17 04/10/17 04/10/17 Range/Units 06:29 12:42 18:17 WBC (3.8-10.6) k/uL RBC (4.30-5.90) m/uL Hgb (13.0-17.5) gm/dL Hct (39.0-53.0) % Neutrophils # (1.3-7.7) k/uL Lymphocytes # (1.0-4.8) k/uL Carbon Dioxide (22-30) mmol/L BUN (9-20) mg/dL Glucose (74-99) mg/dL POC Glucose (mg/dL) 115 H 126 H 118 H (75-99) mg/dL Total Protein (6.3-8.2) g/dL Albumin (3.5-5.0) g/dL Microbiology - Last 24 Hours (Table) 04/06/17 21:10 Blood Culture - Preliminary Blood No Growth after 72 hours Assessment and Plan Plan: #1 acute encephalopathy. Metabolic and hypoxic suspected #2 atrial fibrillation. Possible new onset. Rate controlled on Cardizem drip. #1 acute hypoxic respiratory failure due to ARDS. Extubated now. #2 status post fall and left foot injury #3 nonoliguric acute kidney injury with creatinine level II.11. Came down to 1.3 ---0.9--0.8 today. baseline creatinine 1.0 #4 suspected pneumonia #5 sarcoidosis on active treatment with prednisone and plaquenil #6 hypertension uncontrolled. On Catapres patch. #7 chronic back pain. On NSAID use at home #8 DVT prophylaxis with Lovenox #9 depression #10 normocytic anemia Plan: Patient will be continued on breathing treatments and antibiotics. Patient had CT of the head showed no acute abnormality. MRI was ordered as per neurology recommendations due to cephalopathy and it fibrillation Continue with the hydration and follow-up renal function. Patient had bronchoscopy done on 2016, BAL cultures including Gram stain, fungal culture and AFB is negative so far. We will repeat chest x-ray tomorrow. Pulmonary and nephrology is following this patient. Discussed with family at bedside in detail. Further recommendations based on the clinical course. Prognosis is guarded. Time with Patient: Greater than 30
[2017-04-11] MEDS: HYDROmorphone 1 MG/ML 1 ML SYRINGE IVP PRN ×3 (01:14→06:22)
[2017-04-11] MEDS: hydrALAZINE HCL 20 MG/ML 1 ML VIAL IVP SCH ×4 (01:14→11:57)
[2017-04-11] MEDS: methylPREDNISolone SOD SUCCI 40 MG/ML 1 ML VIAL IV SCH ×4 (01:15→17:38)
[2017-04-11] MEDS: INSULIN LISPRO (humaLOG) 300 UNIT/3 ML VIAL SQ SCH ×5 (01:27→22:05)
[2017-04-11 01:31] LABS: Glucose,Whole Blood 129 mg/dL (75-99)
[2017-04-11] MEDS: HYDROmorphone 2 MG/ML 1 ML SYRINGE IM PRN (04:22)
[2017-04-11 05:24] LABS: ALT 43 U/L (21-72); AST 27 U/L (17-59); Alkaline Phosphatase 94 U/L (38-126); Anion Gap 7 mmol/L; Blood Urea Nitrogen 31 mg/dL (9-20); Calcium 9.2 mg/dL (8.4-10.2); Carbon Dioxide 30 mmol/L (22-30); Chloride 107 mmol/L (98-107); Glucose 137 mg/dL (74-99); Magnesium 2.2 mg/dL (1.6-2.3); Non-African American GFR(MDRD) >60 (>60 ml/min/1.73 sqM); Phosphorous 3.8 mg/dL (2.5-4.5); Potassium 4.3 mmol/L (3.5-5.1); Sodium 144 mmol/L (137-145); Total Bilirubin 0.6 mg/dL (0.2-1.3); Total Protein 6.4 g/dL (6.3-8.2)
[2017-04-11 06:18] LABS: Glucose,Whole Blood 145 mg/dL (75-99)
[2017-04-11 06:25] LABS: Basophils % (A) 0 %; CHCM 33.7; Eosinophils % (A) 0 %; HDW 2.63; Luc # (Auto) 0.18; Luc % (Auto) 1; Lymphocytes % (A) 6 %; MCHC 32.4 g/dL (31.0-37.0); MCV 89.6 fL (80.0-100.0); Mean Platelet Volume 8.2; Monocytes # (A) 0.5 k/uL (0-1.0); Monocytes % (A) 3 %; Neutrophils # (A) 14.2 k/uL (1.3-7.7); Neutrophils % (A) 89 %; RBC 4.13 m/uL (4.30-5.90); RDW 14.8 % (11.5-15.5); WBC 15.9 k/uL (3.8-10.6)
--- NOTE | 2017-04-11 07:17 | XR ---
EXAMINATION TYPE: XR chest 1V portable DATE OF EXAM: 04/11/2017 Comparison: 04/10/2017 Clinical History: 56-year-old male Tube placement Findings: Left CVC tip remains in the right atrium. Heart remains borderline enlarged. Diffuse prominence and i ndistinctness of the pulmonary vasculature persists. Some hazy left basilar opacity may be minimally increased. Impression: Findings suggest CHF with pulmonary vascular congestion and interstitial edema relatively similar to prior. Trace left pleural effusion with adjacent atelectasis and/or consolidation.
[2017-04-11] MEDS: ENOXAPARIN 40 MG/0.4 ML SYRINGE SQ SCH (08:23)
[2017-04-11] MEDS: LEVOFLOXACIN 750MG-D5W PMX 750 MG in DEXTROSE/WATER 1 150ML.BAG IVPB SCH (08:29)
[2017-04-11] MEDS: BETAMETHASONE DIPROPIONATE 0.05% CREAM 15 GM TUBE TOPICAL SCH (08:29)
[2017-04-11] MEDS: PANTOPRAZOLE 40 MG/10 ML VIAL IVP SCH (08:29)
[2017-04-11] MEDS: IPRATROPIUM-ALBUTEROL 3 ML NEB INHALATION SCH ×5 (09:09→21:17)
[2017-04-11 09:25] VITALS: BMI 31.6
[2017-04-11] MEDS: DILTIAZEM 125 MG in SODIUM CHLORIDE 0.9% 100 ML IV SCH ×2 (09:54→22:07)
[2017-04-11] MEDS: SODIUM CHLORIDE 0.45% 1,000 ML IV SCH ×2 (09:54→23:59)
[2017-04-11] MEDS: DESVENLAFAXINE SUCCINATE 50 MG TAB.ER.24H PO SCH (09:54)
[2017-04-11] MEDS: PREGABALIN 75 MG CAP PO SCH ×2 (09:55→21:37)
--- NOTE | 2017-04-11 10:14 | P.PN ---
Subjective Patient is seen in follow-up for acute kidney injury. His baseline creatinine is 1 and was elevated at 2.1 on admission. He is maintained on lactated Ringer' s at 50 mL an hour and creatinine is 0.7 today. He was extubated on April 09. He remains quite confused. Urinalysis is noted to be quite benign. He underwent a bronchoscopy on April 07 which is quite benign. He is nonoliguric. Blood pressures have been labile. Patient remains quite agitated. Vital signs are stable. General: The patient appeared well nourished and normally developed. Intubated. HEENT: Head exam is unremarkable. Neck is without jugular venous distension. LUNGS: Rhonchi at bases. Breath sounds decreased. HEART: Rate and Rhythm are regular. First and second heart sounds normal. No murmurs, rubs or gallops. ABDOMEN: Abdominal exam reveals normal bowel sounds. Non-tender and non- distended. No evidence of peritonitis. EXTREMITITES: No clubbing, cyanosis, or edema. Objective - Vital Signs Vital signs: Vital Signs Temp 98.2 F 04/11/17 08:00 Pulse 117 H 04/11/17 09:21 Resp 24 04/11/17 09:00 BP 151/67 04/11/17 06:00 Pulse Ox 96 04/11/17 09:00 Intake & Output 04/10/17 04/11/17 04/11/17 18:59 06:59 18:59 Intake Total 723.433 910.900 375.466 Output Total 2400 2520 525 Balance -1676.567 -1609.100 -149.534 Weight 102.9 kg 102.9 kg Intake: IV 560 756 228 0.9 Sodium Chloride 10 110 10 Lactated Ringers 1,000 ml 550 550 100 @ 50 mls/hr IV .Q20H [facility] Rx#:[id number] Levofloxacin 750Mg-D5w 100 Pmx 750 mg In Dextrose/ Water 1 150ml.bag @ 100 mls/hr IVPB Q24H [facility] Rx#: [id number] pressure bags 96 18 Intake, IV Titration 163.433 154.900 147.466 Amount Clevidipine Butyrate 25 153.433 59.067 32.633 mg In Empty Bag 1 bag @ 1 MG/HR 2 mls/hr IV .Q24H [facility] Rx#:[id number] Diltiazem 125 mg In 10 95.833 114.833 Sodium Chloride 0.9% 100 ml @ 10 MG/HR 10 mls/hr IV .[id number] [facility] Rx#: [id number] Output: Urine 2400 2520 525 Other: Voiding Method Indwelling Catheter Indwelling Catheter # Bowel Movements 0 0 ABP, PAP, CO, CI - Last Documented Arterial Blood Pressure 122/68 - Labs CBC & Chem 7: 04/11/17 06:20 04/11/17 05:00 Labs: Abnormal Lab Results - Last 24 Hours (Table) 04/10/17 04/10/17 04/11/17 Range/Units 12:42 18:17 01:26 WBC (3.8-10.6) k/uL RBC (4.30-5.90) m/uL Hgb (13.0-17.5) gm/dL Hct (39.0-53.0) % Neutrophils # (1.3-7.7) k/uL BUN (9-20) mg/dL Glucose (74-99) mg/dL POC Glucose (mg/dL) 126 H 118 H 129 H (75-99) mg/dL Albumin (3.5-5.0) g/dL 04/11/17 04/11/17 04/11/17 Range/Units 05:00 06:17 06:20 WBC 15.9 H (3.8-10.6) k/uL RBC 4.13 L (4.30-5.90) m/uL Hgb 12.0 L (13.0-17.5) gm/dL Hct 37.0 L (39.0-53.0) % Neutrophils # 14.2 H (1.3-7.7) k/uL BUN 31 H (9-20) mg/dL Glucose 137 H (74-99) mg/dL POC Glucose (mg/dL) 145 H (75-99) mg/dL Albumin 3.2 L (3.5-5.0) g/dL Microbiology - Last 24 Hours (Table) 04/06/17 21:10 Blood Culture - Preliminary Blood No Growth after 96 hours Assessment and Plan Plan: Assessment: #1. Nonoliguric acute kidney injury mostly prerenal secondary to NSAIDs and further worsened with the use of diuretics and JERRY inhibitor. Creatinine 2.11 on admission and stable at 0.7 today. Urinalysis quite benign and no evidence of pulmonary renal syndrome or other glomerulonephritis. No evidence of hydronephrosis. Baseline creatinine is 1. #2. Metabolic acidosis secondary to acute kidney injury. Resolved. #3. History of sarcoidosis maintained on prednisone and Plaquenil. Pulmonology following. #4. Benign hypertension. Partially related to agitation. Blood pressures have been labile. #5. Acute hypoxic respiratory failure status post bronchoscopy on April 07. Concern for aspiration pneumonia. #6. Encephalopathy. This concern for anoxia secondary to hypoxia. #7. Mild hypernatremia related to lack of oral water intake. There may also be a component of centrally mediated diabetes insipidus. Plan: Discontinue lactated Ringer's. Start half normal saline to be run at 70 mL an hour. Check urine osmolality. Avoid nephrotoxic agents and hypotensive episodes. Diuretics, JERRY inhibitor as well as NSAIDs held for now. Repeat electrolytes in the morning. Discontinued sodium bicarbonate. Continue with labetalol as needed for blood pressure control. Also on a clonidine patch. Hydralazine 10 mg every 4 hours also added. Wean cleviprex. Neurology following.
[2017-04-11] MEDS ORDERED: METOPROLOL SUCCINATE (ER) 50 MG TAB.ER.24H PO SCH (11:00)
--- NOTE | 2017-04-11 11:08 | P.PN ---
Subjective This patient is a 56-year-old right-handed -[place] male who was admitted to the hospital on 04/06/2017 after he sustained a fall at home. He apparently had a laceration to his left foot and was admitted to hospital for further treatment. Soon after admission the patient developed acute respiratory distress. An 18 code was called. Patient was transferred into the ICU where he apparently remained very combative and agitated. He was intubated and placed on sedation. He was extubated 2 days ago and was initially placed on a combination of Nimbex and Diprivan. He has been off of both medications for 2 days. During this respiratory failure, the patient developed diffuse bilateral pulmonary infiltrates. He also had a CAT scan of the chest that showed that showed diffuse groundglass pulmonary infiltrates throughout the lung bhagat bilaterally. There was also evidence of extensive calcification of the mediastinal and hilar lymph nodes related to his previous sarcoidosis. The exact nature of this pulmonary infiltrates were not normal although the possibilities could've been CHF, acute interstitial pneumonias, acute atypical pneumonias, acute viral pneumonias, acute sarcoidosis flare which is felt to be less likely knowing that the patient sarcoidosis been essentially stable and burned out over this past 5-7 years. The patient has been maintained on 10 mg of prednisone on outpatient basis. In any rate, at a time of the intubation bronchoscopy and the bronchioloalveolar lavage was done and it showed no microbial growth. The patient was placed on Levaquin. The patient was placed on IV Solu-Medrol. Subsequently his infiltrates improved and the patient was extubated. This morning his chest x-ray shows improvement in the bilateral pulmonary infiltrates although they're not completely recovered. The patient is currently on oxygen at 5 L/m nasal cannula and his pulse ox is around 93-94% . He was able to recognize me. He mentioned my name. He is slow in answering questions. He does not have any lytic thinking yet. I was told that he was confused even prior to the intubation process. There was also a brief time where his pulse ox dropped below 90% and there could've been an underlying hypoxic encephalopathy in addition. No seizure activity has been noted. 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 Back then, the patient was seen by Dr. Hwang. The CAT scan of the brain showed no acute intracranial process. Also, the patient is having some cardiac arrhythmias. On his cardiac rhythm the patient's rhythm is sinus at this point however it looks like it's multifocal and there are frequent PACs and PVCs. He is also tachycardic. His blood pressure was also elevated. He was placed on a combination of Cardizem drip and Cleviprex. The first is running at 10 mg an hour and the second is running at 3 mg per hour. His blood pressure is under better control. Note that he was taken lisinopril/ hydrochlorothiazide on outpatient basis. No previous history of cardiac sarcoidosis. No cardiac blocks. MRI of the brain was scheduled and the patient will be taken down to an MRI after being off the the drips. Objective - Vital Signs Vital signs: Vital Signs Temp 98.2 F 04/11/17 08:00 Pulse 98 04/11/17 10:00 Resp 18 04/11/17 10:00 BP 151/67 04/11/17 06:00 Pulse Ox 97 04/11/17 10:00 Intake & Output 04/10/17 04/11/17 04/11/17 18:59 06:59 18:59 Intake Total 723.433 910.900 501.466 Output Total 2400 2520 760 Balance -1676.567 -1609.100 -258.534 Weight 102.9 kg 102.9 kg Intake: IV 560 756 284 0.9 Sodium Chloride 10 110 10 Lactated Ringers 1,000 ml 550 550 100 @ 50 mls/hr IV .Q20H [facility] Rx#:[id number] Levofloxacin 750Mg-D5w 150 Pmx 750 mg In Dextrose/ Water 1 150ml.bag @ 100 mls/hr IVPB Q24H [facility] Rx#: [id number] pressure bags 96 24 Intake, IV Titration 163.433 154.900 217.466 Amount Clevidipine Butyrate 25 153.433 59.067 32.633 mg In Empty Bag 1 bag @ 1 MG/HR 2 mls/hr IV .Q24H [facility] Rx#:[id number] Diltiazem 125 mg In 10 95.833 114.833 Sodium Chloride 0.9% 100 ml @ 10 MG/HR 10 mls/hr IV .[id number] [facility] Rx#: [id number] Sodium Chloride 0.45% 1, 70 000 ml @ 70 mls/hr IV . [id number] [facility] Rx#:[id number] Output: Urine 2400 2520 760 Other: Voiding Method Indwelling Catheter Indwelling Catheter Indwelling Catheter # Bowel Movements 0 0 ABP, PAP, CO, CI - Last Documented Arterial Blood Pressure 135/68 - Constitutional General appearance: Present: mild distress, obese - EENT Eyes: Present: normal appearance ENT: Present: normal oropharynx Ears: bilateral: normal - Neck Neck: Present: normal ROM Carotids: bilateral: upstroke normal Thyroid: bilateral: normal size - Respiratory Respiratory: bilateral: diminished, rales - Cardiovascular Rhythm: regularly irregular Heart sounds: normal: S1, S2 - Gastrointestinal General gastrointestinal: Present: normal bowel sounds, soft - Integumentary Integumentary: Present: normal, normal turgor - Neurologic Neurologic: Present: CNII-XII intact - Musculoskeletal Musculoskeletal: Present: generalized weakness - Labs CBC & Chem 7: 04/11/17 06:20 04/11/17 05:00 Labs: Abnormal Lab Results - Last 24 Hours (Table) 04/10/17 04/10/17 04/11/17 Range/Units 12:42 18:17 01:26 WBC (3.8-10.6) k/uL RBC (4.30-5.90) m/uL Hgb (13.0-17.5) gm/dL Hct (39.0-53.0) % Neutrophils # (1.3-7.7) k/uL BUN (9-20) mg/dL Glucose (74-99) mg/dL POC Glucose (mg/dL) 126 H 118 H 129 H (75-99) mg/dL Albumin (3.5-5.0) g/dL 04/11/17 04/11/17 04/11/17 Range/Units 05:00 06:17 06:20 WBC 15.9 H (3.8-10.6) k/uL RBC 4.13 L (4.30-5.90) m/uL Hgb 12.0 L (13.0-17.5) gm/dL Hct 37.0 L (39.0-53.0) % Neutrophils # 14.2 H (1.3-7.7) k/uL BUN 31 H (9-20) mg/dL Glucose 137 H (74-99) mg/dL POC Glucose (mg/dL) 145 H (75-99) mg/dL Albumin 3.2 L (3.5-5.0) g/dL Microbiology - Last 24 Hours (Table) 04/06/17 21:10 Blood Culture - Preliminary Blood No Growth after 96 hours Assessment and Plan Plan: Assessment 1 diffuse bilateral groundglass pulmonary infiltrates with secondary respiratory failure. The patient was extubated and the bronchoscopy and the bronchioloalveolar lavage showed no microbial growth. Exact cause of this diffuse bilateral pulmonary felt it is not clear. Rule out acute lung injury/ ARDS of an unknown cause, rule out acute viral pneumonias, rule out acute atypical pneumonias, rule out acute sarcoidosis, rule out CHF with decompensated heart failure. 2 acute hypoxic respiratory failure, requiring intubation mechanical ventilation and the patient was extubated without any major difficulties and currently is on 5 L of oxygen nasal cannula 3 mediastinal lymph node and hilar calcification related to history of sarcoidosis 4 sarcoidosis, history of 5 remote history of neurosarcoidosis 6 change in mental status with some episodes of confusion and agitation earlier. Currently is resting comfortably in bed and the patient is more appropriate. CAT scan of the brain is negative. Awaiting MRI of the brain 7 paroxysmal atrial fibrillation/supraventricular tachyarrhythmias with sinus tachycardia at this point. The patient is on Cardizem drip 8 hypertension with poor blood pressure control currently on Extra for blood pressure control 9 obesity 10 chronic back pain secondary to a remote history of an injury 11. Penile abscess related to staph aureus/MSSA 12 acute kidney injury at the time of admission, recovered Plan Monitor mental status very closely. MRI of the brain was the patient is off the drips. Start the patient on metoprolol 50 mg twice a day and is up to 20 mg by mouth daily. Obtain a stat echocardiogram. Obtain angiotensin enzyme inhibitor level. Obtain sed rate. Obtain Legionella urine antigen. Continue Levaquin. Continue the steroids. Wean off FiO2 as tolerated. Provide diet. Aspiration precautions. MRI of the brain once stable. We'll continue to follow. Condition is still critical.
[2017-04-11] MEDS: HYDROXYCHLOROQUINE SULFATE 200 MG TAB PO SCH (11:26)
[2017-04-11] MEDS: LISINOPRIL 20 MG TAB PO SCH (11:27)
[2017-04-11] MEDS: METOPROLOL TARTRATE 50 MG TAB PO SCH ×2 (11:36→21:37)
[2017-04-11 11:44] LABS: Glucose,Whole Blood 153 mg/dL (75-99)
[2017-04-11] MEDS ORDERED: cloNIDine 0.2 MG/24HR PATCH 1 PATCH PATCH TRANSDERM SCH (14:00)
[2017-04-11] MEDS: hydrALAZINE HCL 20 MG/ML 1 ML VIAL IVP PRN ×2 (14:15→19:12)
--- NOTE | 2017-04-11 15:30 | ECHOF ---
Referral Reason:chf, sarcoidosis MEASUREMENTS -------- HEIGHT: 180.3 cm WEIGHT: 102.5 kg BP: 135/68 RVIDd: 2.4 cm (< 3.3) IVSd: 1.1 cm (0.6 - 1.1) LVIDd: 3.9 cm (3.9 - 5.3) LVPWd: 1.2 cm (0.6 - 1.1) IVSs: 1.6 cm LVIDs: 2.9 cm LVPWs: 1.6 cm LAESV Index (A-L): 18.10 ml/m Ao Diam: 3.6 cm (2.0 - 3.7) AV Cusp: 1.4 cm (1.5 - 2.6) LA Diam: 3.0 cm (2.7 - 3.8) MV EXCURSION: 18.221 mm (> 18.000) MV EF SLOPE: 99 mm/s (70 - 150) EPSS: 1.1 cm MV E Jourdan: 1.17 m/s MV DecT: 245 ms MV A Jourdan: 0.98 m/s MV E/A Ratio: 1.20 RAP: 5.00 mmHg RVSP: 40.14 mmHg FINDINGS -------- Sinus rhythm. This was a technically adequate study. The left ventricular size is normal. Left ventricular wall thickness is normal. Overall left ventricular systolic function is normal with, an EF between 60 - 65 %. The right ventricle is normal in size and function. Normal LA size by volume 22+/-6 ml/m2. The right atrium is normal in size. Aortic valve is trileaflet and is mildly thickened. There is no evidence of aortic regurgitation. There is no evidence of aortic stenosis. The mitral valve leaflets are mildly thickened. There is trace mitral regurgitation. Trace tricuspid regurgitation present. There is mild pulmonary hypertension. The right ventricular systolic pressure, as measured by Doppler, is 40.14mmHg. The pulmonic valve was not well visualized. The aortic root size is normal. Normal inferior vena cava with normal inspiratory collapse consistent with estimated right atrial pressure of 5 mmHg. There is a trivial pericardial effusion present. CONCLUSIONS -------- 1. Sinus rhythm. 2. There is mild pulmonary hypertension. 3. The right ventricular systolic pressure, as measured by Doppler, is 40.14mmHg. 4. The pulmonic valve was not well visualized. 5. The aortic root size is normal. 6. There is a trivial pericardial effusion present. 7. This was a technically adequate study. 8. The left ventricular size is normal. 9. Overall left ventricular systolic function is normal with, an EF between 60 - 65 %. 10. Normal LA size by volume 22+/-6 ml/m2. 11. Aortic valve is trileaflet and is mildly thickened. 12. The mitral valve leaflets are mildly thickened. 13. There is trace mitral regurgitation. 14. Trace tricuspid regurgitation present. LEGAL TRANSCRIBER: Lukas Mccrary RDCS
[2017-04-11 16:35] LABS: Glucose,Whole Blood 128 mg/dL (75-99)
--- NOTE | 2017-04-11 17:59 | P.PN ---
Progress Note - Text DATE OF SERVICE: 04/11/2017 PRESENTING COMPLAINT: Fall at home HISTORY OF PRESENT ILLNESS: 56-year-old male admitted originally on 04/06/2017 after sustaining a fall at home. Patient developed acute respiratory distress, a team was called, patient transferred to the ICU, combative and agitated, intubated and placed on sedation . Developed bilateral pulmonary infiltrates, computed tomography scan showed diffuse groundglass pulmonary infiltrates throughout lung bhagat bilaterally. Bronchoscopy performed with bronchial alveolar lavage showed no microbial growth, placed on IV antibiotics and Solu-Medrol, infiltrates improved and was subsequently extubated. INTERVAL HISTORY: Patient in the ICU, sitting up in the bed, somewhat confused will not allow nursing staff to feed him place anything into his mouth. Appetite is poor, last BM 04/11/2017, has sarcoidosis does not move his extremities all at well very stiff. Alert to self, slow to respond to questions REVIEW OF SYSTEMS: Done for constitutional ,cardiovascular, GI, pulmonary with relevant findings as above. CURRENT MEDICATIONS DuoNeb's, Elavil 25 mg by mouth at bedtime, Diprolene AF, clevidipine 25 mg of IV solution, clonidine 0.2 mg patch, Haldol 2 mg IV push every 4 hours when necessary for agitation Apresoline 10 mg IV push every 4 hours when necessary Plaquenil 200 mg by mouth daily, labetalol 20 mg IV push every 4 hours, levofloxacin 750 mg in IV solution, Solu-Medrol 40 mg IV every 6 hours, Lopressor 50 mg by mouth twice a day. PHYSICAL EXAM VITAL SIGNS: Temperature 98.9, pulse 97, respiratory rate 16, blood pressure 129/75, oxygen saturation 97% on 4 L. GENERAL APPEARANCE: Sitting up in bed, looks dazed. EYES: Pupils equal. Conjunctiva normal. NECK: JVD not raised. Mass not palpable. RESPIRATORY: Respiratory effort normal. Lungs diminished bilaterally to auscultation. CARDIOVASCULAR: Irregular rhythm. No edema. ABDOMEN: Soft. Liver and spleen not palpable. No tenderness. No mass palpable. PSYCHIATRY: Alert to self, responses slow unable to answer even simple questions. Mood and affect slow to respond. NEUROLOGICAL: Power and sensation grossly intact, follows some very simple commands INVESTIGATIONS: White blood cell count 15.9, hemoglobin 12.0, BUN 31, creatinine 0.70, Accu- Cheks noted. Echocardiogram: EF between 60 and 65% ASSESSMENT: -Acute hypoxic respiratory failure, requiring intubation, mechanical ventilation patient subsequently and extubated currently on 5 L of oxygen nasal cannula. -Sarcoidosis, history of -Acute hypoxic versus metabolic encephalopathy likely due to hypoxic respiratory failure. -Paroxysmal atrial fibrillation/supraventricular tach arrhythmias, improving, currently sinus arrhythmia with PACs -Essential hypertension -Obesity body mass index 31.6 kg/m -Penile abscess related to staph aureus/MSSA -Acute kidney injury PLAN: We'll monitor until status closely, CT scans revealed no new findings, ICU drips for sedation are DC'd. Echocardiogram pleated, continue antibiotic and steroid therapy wean O2 as patient can tolerate. Continue aspiration precautions, when patient is more stabilized MRI to be completed. We'll continue to follow closely AMPOULE SEALER statement: Patient was seen and examined by nurse practitioner Lea Oneill and all elements of the case discussed with attending Dr. Mclaughlin
[2017-04-11] MEDS: NIACIN TR 500 MG CAPSULE.ER PO SCH (21:34)
[2017-04-11] MEDS: AMITRIPTYLINE HCL 25 MG TAB PO SCH (21:36)
[2017-04-11 22:06] LABS: Glucose,Whole Blood 164 mg/dL (75-99)
--- NOTE | 2017-04-11 22:57 | P.PN ---
Progress Note - Text Attending note. Date of service-04/11/2017 This patient was seen and examined by me . Discussed the patient with my nurse practitioner Ms. Oneill. Patient the ICU. I did see the patient initially and at that time patient is actively able to communicate normally. Patient denied suddenly became unwell and became hypoxic. Patient had diffuse infiltrates. Bronchoscopy was unremarkable and normal. Dr. Ross informs me today that the patient had rather burned out sarcoidosis. Patient had been ventilated. Today patient ate some and is coming around. On examination: Lungs-decreased breath sounds, cardiovascular first seconds are normal. Psych-patient knows the year 2016, not sure about a month, knows that he is at the hospital. Investigations: White count 15.9 Assessment and plan: -Acute hypoxic respiratory failure requiring ventilation now extubated likely from acute viral pneumonitis, causing ARDS. 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 Ross from pulmonary. Conjunctivae current medication treatment plan he did think patient's Solu-Medrol can be scaled back patient's the pain medicines are to be scaled back and patient to be switched to oral Cardizem.
--- NOTE | 2017-04-12 05:40 | EEG ---
ELECTROENCEPHALOGRAM REPORT DATE OF SERVICE: 04/11/2017. ELECTROENCEPHALOGRAPHIC EXAMINATION REPORT: INDICATION FOR EXAMINATION: This patient is a 56-year-old male, recently extubated off the ventilator for respiratory distress. The patient now remains confused and disoriented. AGE: 56. EEG FINDINGS: A routine 21 channel awake digital EEG recording was accomplished utilizing the 10-20 international system with bipolar and referential montages. The background activity in the most alert resting state consists of a low to medium amplitude, poorly developed and poorly sustained 6-7 Hertz activity over the posterior head regions. This posterior rhythm attenuates to eye opening. There is a small amount of low amplitude 18-20 Hertz beta activity seen maximally over the anterior head regions. Muscle and movement artifact was observed on a few occasions during the tracing. Hyperventilation was not performed. Photic stimulation at flash frequencies of 2-30 Hertz produced a minimal occipital driving response. The main feature of this tracing is the occurrence on 1 occasion of a right temporoparietal discharge of sharp wave activity lasting 1 second in duration. No other epileptiform discharges were seen. IMPRESSION: This EEG is abnormal due to the diffuse slowing of the EEG background. The EEG also revealed evidence of a right temporoparietal discharge with sharp wave activity. Would recommend a followup EEG for comparison. Also would recommend neuro imaging with MRI of the brain. Clinical correlation is strongly recommended. April 11, 2017 MMODL / IJN: [id number] /
[2017-04-12 05:47] LABS: ALT 48 U/L (21-72); AST 28 U/L (17-59); Alkaline Phosphatase 81 U/L (38-126); Anion Gap 7 mmol/L; Blood Urea Nitrogen 29 mg/dL (9-20); Calcium 8.8 mg/dL (8.4-10.2); Carbon Dioxide 26 mmol/L (22-30); Chloride 104 mmol/L (98-107); Glucose 129 mg/dL (74-99); Non-African American GFR(MDRD) >60 (>60 ml/min/1.73 sqM); Sodium 137 mmol/L (137-145); Total Bilirubin 0.7 mg/dL (0.2-1.3); Total Protein 5.7 g/dL (6.3-8.2)
[2017-04-12] MEDS: methylPREDNISolone SOD SUCCI 40 MG/ML 1 ML VIAL IV SCH ×4 (06:22→17:23)
[2017-04-12 07:02] LABS: Glucose,Whole Blood 79 mg/dL (75-99)
--- NOTE | 2017-04-12 07:10 | XR ---
EXAMINATION TYPE: XR chest 1V portable DATE OF EXAM: 04/12/2017 COMPARISON: 04/11/2017 HISTORY: Shortness of breath TECHNIQUE: Frontal and lateral views of the chest are obtained. FINDINGS: Central venous line unchanged in position. Pulmonary venous congestion with interstitial prominence persists. Continued cardiomegaly. The findin gs may reflect congestive failure. Infiltrates of other etiology not excluded. Mediastinal structures are stable and grossly unremarkable. No evidence for hilar prominence. Degenerative changes dorsal spine. IMPRESSION: 1. Pulmonary venous congestion with interstitial prominence persists. Continued cardiomegaly. The fin dings may reflect congestive failure. Infiltrates of other etiology not excluded.
[2017-04-12] MEDS: INSULIN LISPRO (humaLOG) 300 UNIT/3 ML VIAL SQ SCH ×4 (07:34→21:12)
[2017-04-12] MEDS: IPRATROPIUM-ALBUTEROL 3 ML NEB INHALATION SCH ×4 (07:46→20:08)
[2017-04-12] MEDS: LEVOFLOXACIN 750MG-D5W PMX 750 MG in DEXTROSE/WATER 1 150ML.BAG IVPB SCH (08:04)
[2017-04-12] MEDS: ENOXAPARIN 40 MG/0.4 ML SYRINGE SQ SCH (08:04)
[2017-04-12] MEDS: PANTOPRAZOLE 40 MG/10 ML VIAL IVP SCH (08:04)
[2017-04-12] MEDS: METOPROLOL TARTRATE 50 MG TAB PO SCH ×2 (08:05→21:10)
[2017-04-12] MEDS: HYDROXYCHLOROQUINE SULFATE 200 MG TAB PO SCH (08:06)
[2017-04-12] MEDS: BETAMETHASONE DIPROPIONATE 0.05% CREAM 15 GM TUBE TOPICAL SCH (08:06)
[2017-04-12] MEDS: DESVENLAFAXINE SUCCINATE 50 MG TAB.ER.24H PO SCH (08:06)
[2017-04-12] MEDS: PREGABALIN 75 MG CAP PO SCH ×2 (08:07→21:12)
[2017-04-12 08:18] LABS: Basophils % (A) 0 %; CH 28.9; CHCM 32.9; Eosinophils % (A) 0 %; HCT 33.8 % (39.0-53.0); HDW 2.58; HGB 11.4 gm/dL (13.0-17.5); Luc # (Auto) 0.13; Luc % (Auto) 1; Lymphocytes # (A) 1.3 k/uL (1.0-4.8); Lymphocytes % (A) 7 %; MCH 29.8 pg (25.0-35.0); MCHC 33.8 g/dL (31.0-37.0); MCV 88.2 fL (80.0-100.0); Mean Platelet Volume 8.2; Monocytes # (A) 0.5 k/uL (0-1.0); Monocytes % (A) 3 %; Neutrophils # (A) 16.3 k/uL (1.3-7.7); Neutrophils % (A) 89 %; RBC 3.83 m/uL (4.30-5.90); RDW 14.3 % (11.5-15.5); WBC 18.2 k/uL (3.8-10.6); WBC (Perox) 18.75
--- NOTE | 2017-04-12 09:59 | P.PN ---
Subjective Patient is seen in follow-up for acute kidney injury. His baseline creatinine is 1 and was elevated at 2.1 on admission. He is maintained on half normal saline running at 70 mL an hour and creatinine is 0.8 today. He was extubated on April 09. He is more alert today. Urinalysis noted to be quite benign. He underwent a bronchoscopy on April 07 which is quite benign. He is nonoliguric. Blood pressures are better controlled. He started oral intake yesterday. Vital signs are stable. General: The patient appeared well nourished and normally developed. Intubated. HEENT: Head exam is unremarkable. Neck is without jugular venous distension. LUNGS: Rhonchi at bases. Breath sounds decreased. HEART: Rate and Rhythm are regular. First and second heart sounds normal. No murmurs, rubs or gallops. ABDOMEN: Abdominal exam reveals normal bowel sounds. Non-tender and non- distended. No evidence of peritonitis. EXTREMITITES: No clubbing, cyanosis, or edema. Objective - Vital Signs Vital signs: Vital Signs Temp 98.5 F 04/12/17 08:00 Pulse 117 H 04/12/17 09:00 Resp 20 04/12/17 09:00 BP 133/81 04/12/17 09:00 Pulse Ox 96 04/12/17 09:00 Intake & Output 04/11/17 04/12/17 04/12/17 18:59 06:59 18:59 Intake Total 6077.450 1168.200 509 Output Total 2025 1335 250 Balance -813.334 -45.800 259 Weight 102.9 kg 101.4 kg Intake: IV 1042 1118 259 0.9 Sodium Chloride 90 130 10 Lactated Ringers 1,000 ml 100 @ 50 mls/hr IV .Q20H [facility] Rx#:[id number] Levofloxacin 750Mg-D5w 150 100 Pmx 750 mg In Dextrose/ Water 1 150ml.bag @ 100 mls/hr IVPB Q24H [facility] Rx#: [id number] Sodium Chloride 0.45% 1, 630 910 140 000 ml @ 70 mls/hr IV . [id number] [facility] Rx#:[id number] pressure bags 72 78 9 Intake, IV Titration 169.666 171.200 Amount Clevidipine Butyrate 25 54.833 27.700 mg In Empty Bag 1 bag @ 1 MG/HR 2 mls/hr IV .Q24H [facility] Rx#:[id number] Diltiazem 125 mg In 114.833 143.500 Sodium Chloride 0.9% 100 ml @ 10 MG/HR 10 mls/hr IV .[id number] [facility] Rx#: [id number] Oral 250 Output: Urine 2025 1335 250 Other: Voiding Method Indwelling Catheter Indwelling Catheter Indwelling Catheter # Bowel Movements 1 ABP, PAP, CO, CI - Last Documented Arterial Blood Pressure 126/62 - Labs CBC & Chem 7: 04/12/17 05:30 04/12/17 05:30 Labs: Abnormal Lab Results - Last 24 Hours (Table) 04/11/17 04/11/17 04/11/17 Range/Units 11:41 16:33 22:04 WBC (3.8-10.6) k/uL RBC (4.30-5.90) m/uL Hgb (13.0-17.5) gm/dL Hct (39.0-53.0) % Neutrophils # (1.3-7.7) k/uL BUN (9-20) mg/dL Glucose (74-99) mg/dL POC Glucose (mg/dL) 153 H 128 H 164 H (75-99) mg/dL Total Protein (6.3-8.2) g/dL Albumin (3.5-5.0) g/dL 04/12/17 04/12/17 Range/Units 05:30 05:30 WBC 18.2 H (3.8-10.6) k/uL RBC 3.83 L (4.30-5.90) m/uL Hgb 11.4 L (13.0-17.5) gm/dL Hct 33.8 L (39.0-53.0) % Neutrophils # 16.3 H (1.3-7.7) k/uL BUN 29 H (9-20) mg/dL Glucose 129 H (74-99) mg/dL POC Glucose (mg/dL) (75-99) mg/dL Total Protein 5.7 L (6.3-8.2) g/dL Albumin 2.8 L (3.5-5.0) g/dL Microbiology - Last 24 Hours (Table) 04/06/17 21:10 Blood Culture - Preliminary Blood No Growth after 120 hours Assessment and Plan Plan: Assessment: #1. Nonoliguric acute kidney injury mostly prerenal secondary to NSAIDs and further worsened with the use of diuretics and JERRY inhibitor. Creatinine 2.11 on admission and stable at 0.8 today. Urinalysis quite benign and no evidence of pulmonary renal syndrome or other glomerulonephritis. No evidence of hydronephrosis. Baseline creatinine is 1. #2. Metabolic acidosis secondary to acute kidney injury. Resolved. #3. History of sarcoidosis maintained on prednisone and Plaquenil. Pulmonology following. #4. Benign hypertension. Partially related to agitation. Blood pressures better controlled now. #5. Acute hypoxic respiratory failure status post bronchoscopy on April 07. Concern for aspiration pneumonia. Improved. #6. Encephalopathy. This concern for anoxia secondary to hypoxia. Improved. #7. Mild hypernatremia related to lack of oral water intake. Improved. No evidence of diabetes insipidus as urine osmolality is greater than 500. Plan: Hep-Lock IV fluids. Encouraged oral intake. Avoid nephrotoxic agents and hypotensive episodes. Repeat electrolytes in the morning. Discontinued sodium bicarbonate. Continue current antihypertensives. Cleviprex has been discontinued.
[2017-04-12] MEDS: LISINOPRIL 20 MG TAB PO SCH (10:08)
[2017-04-12 11:46] LABS: Glucose,Whole Blood 115 mg/dL (75-99)
--- NOTE | 2017-04-12 12:27 | P.PN ---
Subjective This patient is a 56-year-old right-handed -Cypriot male who was admitted to the hospital on 04/06/2017 after he sustained a fall at home. He apparently had a laceration to his left foot and was admitted to hospital for further treatment. Soon after admission the patient developed acute respiratory distress. An 18 code was called. Patient was transferred into the ICU where he apparently remained very combative and agitated. He was intubated and placed on sedation. He was extubated 2 days ago and was initially placed on a combination of Nimbex and Diprivan. He has been off of both medications for 2 days. During this respiratory failure, the patient developed diffuse bilateral pulmonary infiltrates. He also had a CAT scan of the chest that showed that showed diffuse groundglass pulmonary infiltrates throughout the lung bhagat bilaterally. There was also evidence of extensive calcification of the mediastinal and hilar lymph nodes related to his previous sarcoidosis. The exact nature of this pulmonary infiltrates were not normal although the possibilities could've been CHF, acute interstitial pneumonias, acute atypical pneumonias, acute viral pneumonias, acute sarcoidosis flare which is felt to be less likely knowing that the patient sarcoidosis been essentially stable and burned out over this past 5-7 years. The patient has been maintained on 10 mg of prednisone on outpatient basis. In any rate, at a time of the intubation bronchoscopy and the bronchioloalveolar lavage was done and it showed no microbial growth. The patient was placed on Levaquin. The patient was placed on IV Solu-Medrol. Subsequently his infiltrates improved and the patient was extubated. This morning his chest x-ray shows improvement in the bilateral pulmonary infiltrates although they're not completely recovered. The patient is currently on oxygen at 5 L/m nasal cannula and his pulse ox is around 93-94% . He was able to recognize me. He mentioned my name. He is slow in answering questions. He does not have any lytic thinking yet. I was told that he was confused even prior to the intubation process. There was also a brief time where his pulse ox dropped below 90% and there could've been an underlying hypoxic encephalopathy in addition. No seizure activity has been noted. 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 Back then, the patient was seen by Dr. Hwang. The CAT scan of the brain showed no acute intracranial process. Also, the patient is having some cardiac arrhythmias. On his cardiac rhythm the patient's rhythm is sinus at this point however it looks like it's multifocal and there are frequent PACs and PVCs. He is also tachycardic. His blood pressure was also elevated. He was placed on a combination of Cardizem drip and Cleviprex. The first is running at 10 mg an hour and the second is running at 3 mg per hour. His blood pressure is under better control. Note that he was taken lisinopril/ hydrochlorothiazide on outpatient basis. No previous history of cardiac sarcoidosis. No cardiac blocks. MRI of the brain was scheduled and the patient will be taken down to an MRI after being off the the drips. On 04/12/2017 I'm seeing this patient for a follow-up. He is much more awake and alert compared to yesterday. He is following commands and answering questions. He is oriented to place and time. He is not having any focal neurological deficits. No headaches. No seizure activity. EEG of the brain was repeated today. MRI of the pain is also to follow. Meanwhile, the patient a follow-up chest x-ray done today and the patient is still having increased incisional infiltrates bilaterally. Bronchoscopy and the bronchioloalveolar lavage was done and it showed no microbial growth and was positive for rhinovirus. The patient is not having any major stroke difficulties. Pulse ox is up to 95% 40s about 2 by nasal cannula. He is on Lovenox for DVT prophylaxis. He is on IV Solu-Medrol 40 mg every 6 hours. Echocardiac Seng was done and showed a preserved LV function. The cardiac arrhythmias have supple and the patient is having occasional PACs and PVCs. The patient is off the Cleviprex. The patient is off Cardizem drip. The patient is currently on a combination of metoprolol for rate control and lisinopril for blood pressure control. No other complaints otherwise for now. Cardiology is on the case. Awaiting Jey levels. Awaiting Legionella urine antigen. Objective - Vital Signs Vital signs: Vital Signs Temp 98.5 F 04/12/17 08:00 Pulse 89 04/12/17 12:03 Resp 20 04/12/17 11:00 BP 106/58 04/12/17 11:00 Pulse Ox 93 L 04/12/17 11:00 Intake & Output 04/11/17 04/12/17 04/12/17 18:59 06:59 18:59 Intake Total 0144.470 9833.200 665 Output Total 20245 485 Balance -813.334 -45.800 180 Weight 102.9 kg 101.4 kg Intake: IV 1042 1118 415 0.9 Sodium Chloride 90 130 40 Lactated Ringers 1,000 ml 100 @ 50 mls/hr IV .Q20H [facility] Rx#:[id number] Levofloxacin 750Mg-D5w 150 150 Pmx 750 mg In Dextrose/ Water 1 150ml.bag @ 100 mls/hr IVPB Q24H [facility] Rx#: [id number] Sodium Chloride 0.45% 1, 630 910 210 000 ml @ 70 mls/hr IV . [id number] [facility] Rx#:[id number] pressure bags 72 78 15 Intake, IV Titration 169.666 171.200 Amount Clevidipine Butyrate 25 54.833 27.700 mg In Empty Bag 1 bag @ 1 MG/HR 2 mls/hr IV .Q24H [facility] Rx#:[id number] Diltiazem 125 mg In 114.833 143.500 Sodium Chloride 0.9% 100 ml @ 10 MG/HR 10 mls/hr IV .[id number] [facility] Rx#: [id number] Oral 250 Output: Urine 2024 1334 485 Other: Voiding Method Indwelling Catheter Indwelling Catheter Indwelling Catheter # Bowel Movements 1 1 ABP, PAP, CO, CI - Last Documented Arterial Blood Pressure 130/63 - Exam - Constitutional General appearance: Present: mild distress, obese - EENT Eyes: Present: normal appearance ENT: Present: normal oropharynx Ears: bilateral: normal - Neck Neck: Present: normal ROM Carotids: bilateral: upstroke normal Thyroid: bilateral: normal size - Respiratory Respiratory: bilateral: diminished, rales, no wheezes or rhonchi - Cardiovascular Rhythm: regularly irregular Heart sounds: normal: S1, S2 - Gastrointestinal General gastrointestinal: Present: normal bowel sounds, soft - Integumentary Integumentary: Present: normal, normal turgor - Neurologic Neurologic: Present: CNII-XII intact, following commands and answering questions appropriately. Neurologic exam is nonfocal at this point. - Musculoskeletal Musculoskeletal: Present: generalized weakness - Labs CBC & Chem 7: 04/12/17 05:30 04/12/17 05:30 Labs: Abnormal Lab Results - Last 24 Hours (Table) 04/11/17 04/11/17 04/12/17 Range/Units 16:33 22:04 05:30 WBC (3.8-10.6) k/uL RBC (4.30-5.90) m/uL Hgb (13.0-17.5) gm/dL Hct (39.0-53.0) % Neutrophils # (1.3-7.7) k/uL BUN 29 H (9-20) mg/dL Glucose 129 H (74-99) mg/dL POC Glucose (mg/dL) 128 H 164 H (75-99) mg/dL Total Protein 5.7 L (6.3-8.2) g/dL Albumin 2.8 L (3.5-5.0) g/dL 04/12/17 04/12/17 Range/Units 05:30 11:45 WBC 18.2 H (3.8-10.6) k/uL RBC 3.83 L (4.30-5.90) m/uL Hgb 11.4 L (13.0-17.5) gm/dL Hct 33.8 L (39.0-53.0) % Neutrophils # 16.3 H (1.3-7.7) k/uL BUN (9-20) mg/dL Glucose (74-99) mg/dL POC Glucose (mg/dL) 115 H (75-99) mg/dL Total Protein (6.3-8.2) g/dL Albumin (3.5-5.0) g/dL Microbiology - Last 24 Hours (Table) 04/06/17 21:10 Blood Culture - Preliminary Blood No Growth after 120 hours Assessment and Plan Plan: Assessment 1 diffuse bilateral groundglass pulmonary infiltrates with secondary respiratory failure. The patient was extubated and the bronchoscopy and the bronchioloalveolar lavage showed no microbial growth. Exact cause of this diffuse bilateral pulmonary felt it is not clear. Rule out acute lung injury/ ARDS of an unknown cause, rule out acute viral pneumonias, rule out acute atypical pneumonias, rule out acute sarcoidosis, rule out CHF with decompensated heart failure. On 04/12/2017 the patient's chest x-ray looks essentially the same. He still has some interstitial infiltrates bilaterally. His bronchioloalveolar lavage was positive for rhinovirus. And the patient is on oxygen at 4 L of oxygen nasal cannula. The patient is not having any major history distress. Overall is improving. Is on systemic steroids. Echocardiogram was noted and the results showed a preserved LV function. 2 acute hypoxic respiratory failure, requiring intubation mechanical ventilation and the patient was extubated without any major difficulties and currently is on 5 L of oxygen nasal cannula On 04/12/2017 the patient is improving in terms of his oxygenation. 3 mediastinal lymph node and hilar calcification related to history of sarcoidosis 4 sarcoidosis, history of 5 remote history of neurosarcoidosis 6 change in mental status , improving and MRI of the brain is still pending for now. 7 paroxysmal atrial fibrillation/supraventricular tachyarrhythmias improved and the patient is currently off Cardizem drip and Cleviprex and the patient is currently on metoprolol 50 mg by mouth twice a day. 8 hypertension the blood pressure control improved with addition of lisinopril and metoprolol. 9 obesity 10 chronic back pain secondary to a remote history of an injury 11. Penile abscess related to staph aureus/MSSA 12 acute kidney injury at the time of admission, recovered Plan Monitor mental status very closely. MRI of the brain to be done today. The patient will be monitored very closely in the ICU. Repeat chest x-ray in the morning. Monitor the pulmonary infiltrates. Wean off FiO2 as tolerated. Continue same antibiotic coverage. Continue monitoring the hemodynamics and the cardiac rhythm. The patient will be asked to gradually advance his diet as tolerated. He is quite weak and he'll be asked to be seen by physical therapy. We'll continue to follow. Keep him in ICU for another 24 hours. Neurology on the case.
--- NOTE | 2017-04-12 17:03 | MR ---
EXAMINATION TYPE: MR brain wo con DATE OF EXAM: 04/12/2017 4:57 PM COMPARISON: September 29, 2009 HISTORY: Altered mental status and agitation FINDINGS: The ventricles, basal cisterns and sulci overlying the cerebral convexities are mildly enlarged. There is evidence of mild periventricular white matter ischemic demyelination. Remote deep white matter insults are also noted. No acute edema is seen on diffusion weighted imaging. There is no evidence for midline shift or mass effect. Acute intracranial hemorrhage or extra-axial collection is not evident. The paranasal sinuses and mastoid air cells are well-aerated. IMPRESSION: Age-related atrophic and chronic small vessel ischemic change. No acute intracranial process at this time.
--- NOTE | 2017-04-12 17:08 | P.PN ---
<Lea Oneill - Last Filed: 04/12/17 16:54> Progress Note - Text DATE OF SERVICE: 04/12/2017 PRESENTING COMPLAINT: Fall at home HISTORY OF PRESENT ILLNESS: 56-year-old male admitted originally on 04/06/2017 after sustaining a fall at home. Patient developed acute respiratory distress, a team was called, patient transferred to the ICU, combative and agitated, intubated and placed on sedation . Developed bilateral pulmonary infiltrates, computed tomography scan showed diffuse groundglass pulmonary infiltrates throughout lung bhagat bilaterally. Bronchoscopy performed with bronchial alveolar lavage showed no microbial growth, placed on IV antibiotics and Solu-Medrol, infiltrates improved and was subsequently extubated. INTERVAL HISTORY: 04/12/2017: Patient remains in the ICU, sitting up in bed, alert, conversing well, able to answer simple questions, able to perform gross motor movement. Appetite improved today, ate 100% of his breakfast, last BM 9017 2016, not yet been out of bed. 04/11/2017: Patient in the ICU, sitting up in the bed, somewhat confused will not allow nursing staff to feed him place anything into his mouth. Appetite is poor, last BM 04/11/2017, has sarcoidosis does not move his extremities all at well very stiff. Alert to self, slow to respond to questions REVIEW OF SYSTEMS: Done for constitutional ,cardiovascular, GI, pulmonary with relevant findings as above. CURRENT MEDICATIONS DuoNeb's, Elavil 25 mg by mouth at bedtime, Diprolene AF, clevidipine 25 mg of IV solution, clonidine 0.2 mg patch, Haldol 2 mg IV push every 4 hours when necessary for agitation Apresoline 10 mg IV push every 4 hours when necessary Plaquenil 200 mg by mouth daily, labetalol 20 mg IV push every 4 hours, levofloxacin 750 mg in IV solution, Solu-Medrol 40 mg IV every 6 hours, Lopressor 50 mg by mouth twice a day. PHYSICAL EXAM VITAL SIGNS: Temperature 99.1, pulse 85, respiratory rate 12, blood pressure 101/54, oxygen saturation 95% on room air. GENERAL APPEARANCE: Sitting up in bed, looks comfortable, initiating and participating in conversation. EYES: Pupils equal. Conjunctiva normal. NECK: JVD not raised. Mass not palpable. RESPIRATORY: Respiratory effort normal. Lungs diminished bilaterally to auscultation. CARDIOVASCULAR: Irregular rhythm. No edema. ABDOMEN: Soft. Liver and spleen not palpable. No tenderness. No mass palpable. PSYCHIATRY: Alert and oriented 3, response time has improved. Mood and affect slow . NEUROLOGICAL: Power and sensation grossly intact, follows some simple commands INVESTIGATIONS: White blood cell count 18.2, hemoglobin 11.4, Accu-Cheks noted. MRI of the brain: Pending ASSESSMENT: Acute hypoxic respiratory failure requiring ventilation now extubated likely from acute viral pneumonitis, causing ARDS. 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 -Acute metabolic encephalopathy multifactorial, improving -Paroxysmal atrial fibrillation -Essential hypertension -Acute kidney injury, nonoliguric, drug-induced present admission now resolved -Acute metabolic acidosis from renal failure now resolved -Acute left big toe superficial skin lotion secondary to local trauma from a fall on presentation -Depression not otherwise specified -Chronic left foot drop -Leukocytosis likely secondary to steroid use PLAN: We'll encourage oral intake, and stop IV fluids, continue to wean oxygen as patient can tolerate, IV antibiotics to continue, await MRI of the brain results. Plan of care discussed at the bedside. We'll continue to follow closely. Likely to be in ICU another 24 hours. SHIPWRIGHT HELPER statement: Patient was seen and examined by nurse practitioner Lea Oneill and all elements of the case discussed with attending Dr. Mclaughlin <Uriah Mclaughlin - Last Filed: 04/12/17 21:17> Progress Note - Text Attending note. Date of service-04/12/2017 This patient was seen and examined by me . Discussed the patient with my nurse practitioner Ms. Oneill. Patient ICU. For more awake. Answering questions more appropriately. Eating better. Able to feed himself. On examination: Lungs have decreased breath sounds, psych pharmacal medicated. Investigations: White count 18.2 Assessment and plan: Acute hypoxic respiratory failure requiring ventilation probably from acute viral pneumonitis causing Rx with clinical improvement. Acute metabolic encephalopathy from of much improved. We'll cutback on Solu-Medrol. Overall doing much better
[2017-04-12 17:24] LABS: Glucose,Whole Blood 123 mg/dL (75-99)
[2017-04-12 21:09] LABS: Glucose,Whole Blood 202 mg/dL (75-99)
[2017-04-12] MEDS: NIACIN TR 500 MG CAPSULE.ER PO SCH (21:10)
[2017-04-12] MEDS: AMITRIPTYLINE HCL 25 MG TAB PO SCH (21:10)
[2017-04-12] MEDS ORDERED: methylPREDNISolone SOD SUCCI 40 MG/ML 1 ML VIAL IV SCH (21:30)
[2017-04-13 05:29] LABS: Basophils % (A) 0 %; CH 29.3; CHCM 33.1; Eosinophils % (A) 0 %; HCT 34.8 % (39.0-53.0); HDW 2.62; HGB 11.6 gm/dL (13.0-17.5); Luc # (Auto) 0.15; Luc % (Auto) 1; Lymphocytes # (A) 0.9 k/uL (1.0-4.8); Lymphocytes % (A) 4 %; MCH 29.8 pg (25.0-35.0); MCHC 33.5 g/dL (31.0-37.0); MCV 89.1 fL (80.0-100.0); Mean Platelet Volume 8.1; Monocytes # (A) 0.7 k/uL (0-1.0); Monocytes % (A) 3 %; Neutrophils % (A) 91 %; RDW 14.3 % (11.5-15.5); WBC 19.7 k/uL (3.8-10.6); WBC (Perox) 19.78
[2017-04-13 05:39] LABS: ALT 68 U/L (21-72); AST 35 U/L (17-59); Alkaline Phosphatase 85 U/L (38-126); Anion Gap 5 mmol/L; Blood Urea Nitrogen 29 mg/dL (9-20); Calcium 8.9 mg/dL (8.4-10.2); Carbon Dioxide 25 mmol/L (22-30); Chloride 107 mmol/L (98-107); Glucose 124 mg/dL (74-99); Magnesium 2.1 mg/dL (1.6-2.3); Non-African American GFR(MDRD) >60 (>60 ml/min/1.73 sqM); Phosphorous 3.1 mg/dL (2.5-4.5); Potassium 4.2 mmol/L (3.5-5.1); Sodium 137 mmol/L (137-145); Total Bilirubin 0.4 mg/dL (0.2-1.3); Total Protein 5.5 g/dL (6.3-8.2)
--- NOTE | 2017-04-13 06:50 | XR ---
EXAMINATION TYPE: XR chest 1V portable DATE OF EXAM: 04/13/2017 CLINICAL HISTORY: Difficulty breathing progress study. TECHNIQUE: Single AP portable upright view of the chest is obtained. COMPARISON: Chest x-ray from one day earlier and older studies. FINDINGS: There is stable left internal jugular central venous catheter. Cardiac silhouette size is stable and within normal limits. There is bilateral upper lung interstitial fibrosis redemonstrated. There is more patchy left basilar atelectasis and/or infiltrate. There is improved diffuse alveolar a nd interstitial edema and/or infiltrates over last several days. Osseous structures are intact. IMPRESSION: Marked improvement in diffuse alveolar and interstitial edema and/or infiltrates since ad mission over last several radiographs suggest resolving ARDS. There is background of bilateral upper lung fibrosis with some residual patchy left basilar atelectasis and/or infiltrate seen. No significa nt change from one day earlier.
--- NOTE | 2017-04-13 07:04 | EEG ---
ELECTROENCEPHALOGRAM REPORT DATE OF SERVICE: 04/12/2017 ELECTROENCEPHALOGRAPHIC EXAMINATION REPORT: INDICATION FOR EXAMINATION: This patient is a 56-year-old male being evaluated for altered mental status and confusion. This is a followup EEG for comparison. AGE: 56 EEG FINDINGS: A routine 21 channel awake digital EEG recording was accomplished utilizing the 10-20 international system with bipolar and referential montages. The background activity in the most alert resting state consists of a low amplitude, poorly developed and poorly sustained 5-6 Hertz activity over the posterior head regions. This posterior rhythm attenuates to eye opening. There is a small amount of low amplitude 18-20 Hertz beta activity seen maximally over the anterior head regions. Muscle and movement artifact was observed on a few occasions during the tracing. Hyperventilation was not performed. Photic stimulation at flash frequencies of 2-30 Hertz produced a minimal occipital driving response. No epileptiform discharges were seen. IMPRESSION: This EEG is moderately abnormal in a diffuse fashion due to slowing of the EEG background. The EEG failed to reveal any focal, lateralized, or epileptiform abnormalities. Compared to a previous EEG performed on 04/11/2017, there is slight slowing of the EEG background. This finding would be consistent with diffuse encephalopathy. Clinical correlation is recommended. MMODL / IJN: [id number] /
[2017-04-13 07:50] LABS: Glucose,Whole Blood 111 mg/dL (75-99)
[2017-04-13] MEDS: INSULIN LISPRO (humaLOG) 300 UNIT/3 ML VIAL SQ SCH ×4 (07:50→20:34)
--- NOTE | 2017-04-13 08:15 | P.PN ---
Subjective This patient is a 56-year-old right-handed -[place] male who was admitted to the hospital on 04/06/2017 after he sustained a fall at home. He apparently had a laceration to his left foot and was admitted to hospital for further treatment. Soon after admission the patient developed acute respiratory distress. An 18 code was called. Patient was transferred into the ICU where he apparently remained very combative and agitated. He was intubated and placed on sedation. He was extubated 2 days ago and was initially placed on a combination of Nimbex and Diprivan. He has been off of both medications for 2 days. During this respiratory failure, the patient developed diffuse bilateral pulmonary infiltrates. He also had a CAT scan of the chest that showed that showed diffuse groundglass pulmonary infiltrates throughout the lung bhagat bilaterally. There was also evidence of extensive calcification of the mediastinal and hilar lymph nodes related to his previous sarcoidosis. The exact nature of this pulmonary infiltrates were not normal although the possibilities could've been CHF, acute interstitial pneumonias, acute atypical pneumonias, acute viral pneumonias, acute sarcoidosis flare which is felt to be less likely knowing that the patient sarcoidosis been essentially stable and burned out over this past 5-7 years. The patient has been maintained on 10 mg of prednisone on outpatient basis. In any rate, at a time of the intubation bronchoscopy and the bronchioloalveolar lavage was done and it showed no microbial growth. The patient was placed on Levaquin. The patient was placed on IV Solu-Medrol. Subsequently his infiltrates improved and the patient was extubated. This morning his chest x-ray shows improvement in the bilateral pulmonary infiltrates although they're not completely recovered. The patient is currently on oxygen at 5 L/m nasal cannula and his pulse ox is around 93-94% . He was able to recognize me. He mentioned my name. He is slow in answering questions. He does not have any lytic thinking yet. I was told that he was confused even prior to the intubation process. There was also a brief time where his pulse ox dropped below 90% and there could've been an underlying hypoxic encephalopathy in addition. No seizure activity has been noted. 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 Back then, the patient was seen by Dr. Hwang. The CAT scan of the brain showed no acute intracranial process. Also, the patient is having some cardiac arrhythmias. On his cardiac rhythm the patient's rhythm is sinus at this point however it looks like it's multifocal and there are frequent PACs and PVCs. He is also tachycardic. His blood pressure was also elevated. He was placed on a combination of Cardizem drip and Cleviprex. The first is running at 10 mg an hour and the second is running at 3 mg per hour. His blood pressure is under better control. Note that he was taken lisinopril/ hydrochlorothiazide on outpatient basis. No previous history of cardiac sarcoidosis. No cardiac blocks. MRI of the brain was scheduled and the patient will be taken down to an MRI after being off the the drips. On 04/12/2017 I'm seeing this patient for a follow-up. He is much more awake and alert compared to yesterday. He is following commands and answering questions. He is oriented to place and time. He is not having any focal neurological deficits. No headaches. No seizure activity. EEG of the brain was repeated today. MRI of the pain is also to follow. Meanwhile, the patient a follow-up chest x-ray done today and the patient is still having increased incisional infiltrates bilaterally. Bronchoscopy and the bronchioloalveolar lavage was done and it showed no microbial growth and was positive for rhinovirus. The patient is not having any major stroke difficulties. Pulse ox is up to 95% 40s about 2 by nasal cannula. He is on Lovenox for DVT prophylaxis. He is on IV Solu-Medrol 40 mg every 6 hours. Echo was done and showed a preserved LV function. The cardiac arrhythmias have supple and the patient is having occasional PACs and PVCs. The patient is off the Cleviprex. The patient is off Cardizem drip. The patient is currently on a combination of metoprolol for rate control and lisinopril for blood pressure control. No other complaints otherwise for now. Cardiology is on the case. Awaiting Jey levels. Awaiting Legionella urine antigen. On 04/13/2017 I'm seeing this patient for a follow-up. The patient is doing extremely well. He is up on a chair. Is tolerating his diet. Is currently off oxygen and his pulse ox is around 92%. His chest x-ray shows further clearing of the bilateral pulmonary infiltrates that were described earlier. MRI of the brain was done and showed diffuse atrophy. No acute abnormalities seen. EEG was repeated and the results are still pending for now. Meanwhile, the patient has no cough or sputum production. No chest that this pain no wheezing. His bronchioloalveolar lavage showed rhinovirus. The patient is on IV Solu-Medrol. The patient is on Levaquin. Cardiac condition is stable he has a normal ejection fraction. He is having frequent PACs. He is on beta blockers with metoprolol 50 mg twice a day. His blood pressures under good control. No other significant events overnight. Urena catheter will be discontinued. The patient will be moved to a medical floor with telemetry. Objective - Vital Signs Vital signs: Vital Signs Temp 98.3 F 04/12/17 20:00 Pulse 96 04/13/17 07:00 Resp 15 04/13/17 07:00 BP 118/78 04/13/17 07:00 Pulse Ox 94 L 04/13/17 07:00 Intake & Output 04/12/17 04/13/17 04/13/17 18:59 06:59 18:59 Intake Total 1251 243 20 Output Total 1070 800 50 Balance 181 -557 -30 Weight 102.9 kg Intake: IV 576 243 20 0.9 Sodium Chloride 180 220 20 Levofloxacin 750Mg-D5w 150 Pmx 750 mg In Dextrose/ Water 1 150ml.bag @ 100 mls/hr IVPB Q24H [facility] Rx#: [id number] Sodium Chloride 0.45% 1, 210 000 ml @ 70 mls/hr IV . [id number] [facility] Rx#:[id number] pressure bags 36 23 Oral 675 Output: Urine 1070 800 50 Other: Voiding Method Indwelling Catheter Indwelling Catheter # Bowel Movements 1 ABP, PAP, CO, CI - Last Documented Arterial Blood Pressure 118/88 - Exam - Constitutional General appearance: Present: Patient is not in acute distress and is calm and comfortable sitting up on a chair. - EENT Eyes: Present: normal appearance ENT: Present: normal oropharynx Ears: bilateral: normal - Neck Neck: Present: normal ROM Carotids: bilateral: upstroke normal Thyroid: bilateral: normal size - Respiratory Respiratory: bilateral: diminished, rales, no wheezes or rhonchi. There is adequate air entry bilaterally - Cardiovascular Rhythm: regularly irregular Heart sounds: normal: S1, S2 - Gastrointestinal General gastrointestinal: Present: normal bowel sounds, soft - Integumentary Integumentary: Present: normal, normal turgor - Neurologic Neurologic: Present: CNII-XII intact, following commands and answering questions appropriately. Neurologic exam is nonfocal at this point. - Musculoskeletal Musculoskeletal: Present: generalized weakness - Labs CBC & Chem 7: 04/13/17 05:00 04/13/17 05:00 Labs: Abnormal Lab Results - Last 24 Hours (Table) 04/12/17 04/12/17 04/12/17 Range/Units 05:30 11:45 17:21 WBC 18.2 H (3.8-10.6) k/uL RBC 3.83 L (4.30-5.90) m/uL Hgb 11.4 L (13.0-17.5) gm/dL Hct 33.8 L (39.0-53.0) % Neutrophils # 16.3 H (1.3-7.7) k/uL Lymphocytes # (1.0-4.8) k/uL BUN (9-20) mg/dL Glucose (74-99) mg/dL POC Glucose (mg/dL) 115 H 123 H (75-99) mg/dL Total Protein (6.3-8.2) g/dL Albumin (3.5-5.0) g/dL 04/12/17 04/13/17 04/13/17 Range/Units 21:06 05:00 05:00 WBC 19.7 H (3.8-10.6) k/uL RBC 3.90 L (4.30-5.90) m/uL Hgb 11.6 L (13.0-17.5) gm/dL Hct 34.8 L (39.0-53.0) % Neutrophils # 18.0 H (1.3-7.7) k/uL Lymphocytes # 0.9 L (1.0-4.8) k/uL BUN 29 H (9-20) mg/dL Glucose 124 H (74-99) mg/dL POC Glucose (mg/dL) 202 H (75-99) mg/dL Total Protein 5.5 L (6.3-8.2) g/dL Albumin 2.8 L (3.5-5.0) g/dL 04/13/17 Range/Units 07:48 WBC (3.8-10.6) k/uL RBC (4.30-5.90) m/uL Hgb (13.0-17.5) gm/dL Hct (39.0-53.0) % Neutrophils # (1.3-7.7) k/uL Lymphocytes # (1.0-4.8) k/uL BUN (9-20) mg/dL Glucose (74-99) mg/dL POC Glucose (mg/dL) 111 H (75-99) mg/dL Total Protein (6.3-8.2) g/dL Albumin (3.5-5.0) g/dL Microbiology - Last 24 Hours (Table) 04/06/17 21:10 Blood Culture - Final Blood No Growth after 144 hours Assessment and Plan Plan: Assessment 1 diffuse bilateral groundglass pulmonary infiltrates with secondary respiratory failure. The patient was extubated and the bronchoscopy and the bronchioloalveolar lavage showed no microbial growth. Exact cause of this diffuse bilateral pulmonary felt it is not clear. Rule out acute lung injury/ ARDS of an unknown cause, rule out acute viral pneumonias, rule out acute atypical pneumonias, rule out acute sarcoidosis, rule out CHF with decompensated heart failure. On 04/12/2017 the patient's chest x-ray looks essentially the same. He still has some interstitial infiltrates bilaterally. His bronchioloalveolar lavage was positive for rhinovirus. And the patient is on oxygen at 4 L of oxygen nasal cannula. The patient is not having any major history distress. Overall is improving. Is on systemic steroids. Echocardiogram was noted and the results showed a preserved LV function. On 04/13/2017 the patient shows complete clearing of the better pulmonary infiltrates. There is been further improvement in his oxygenation. Shows no signs of dyspnea. The patient's bronchioloalveolar lavage showed viral growth with rhinovirus. Otherwise the rest of the cultures were all negative. I'm very pleased with his overall recovery and the patient will be transferred to a medical floor for now. 2 acute hypoxic respiratory failure, requiring intubation mechanical ventilation and the patient was extubated without any major difficulties and currently is on 5 L of oxygen nasal cannula On 04/12/2017 the patient is improving in terms of his oxygenation. On 04/13/2017, patient is improved and the patient is currently on room air. Doubt any acute sarcoidosis flare. This was most likely an infectious complication. 3 mediastinal lymph node and hilar calcification related to history of sarcoidosis 4 sarcoidosis, history of 5 remote history of neurosarcoidosis 6 change in mental status , improving and MRI of the brain shows diffuse atrophy without any acute abnormalities. Results of the MRI of the brain was reviewed. 7 paroxysmal atrial fibrillation/supraventricular tachyarrhythmias improved and the patient is currently off Cardizem drip and Cleviprex and the patient is currently on metoprolol 50 mg by mouth twice a day. 8 hypertension the blood pressure control improved with addition of lisinopril and metoprolol. 9 obesity 10 chronic back pain secondary to a remote history of an injury 11. Penile abscess related to staph aureus/MSSA 12 acute kidney injury at the time of admission, recovered 13 mild leukocytosis, probably steroid-induced Plan Will remove the Urena catheter. Oxidation is improving. This continued IV Solu Medrol and switch this patient to a prednisone burst taper. Switch the patient's Levaquin to oral. We'll increase the level of activity as tolerated. Ambulation. Physical therapy. Chest with this patient to medical for with telemetry. We'll continue to follow.
[2017-04-13] MEDS ORDERED: LEVALBUTEROL NEB 1.25 MG/3 ML AMP INHALATION PRN (08:17)
[2017-04-13] MEDS: IPRATROPIUM-ALBUTEROL 3 ML NEB INHALATION SCH (08:31)
[2017-04-13] MEDS: BETAMETHASONE DIPROPIONATE 0.05% CREAM 15 GM TUBE TOPICAL SCH (09:33)
[2017-04-13] MEDS: predniSONE 10 MG TAB PO SCH (09:33)
[2017-04-13] MEDS: ENOXAPARIN 40 MG/0.4 ML SYRINGE SQ SCH (09:34)
[2017-04-13] MEDS: DESVENLAFAXINE SUCCINATE 50 MG TAB.ER.24H PO SCH (09:34)
[2017-04-13] MEDS: PANTOPRAZOLE 40 MG/10 ML VIAL IVP SCH (09:34)
[2017-04-13] MEDS: HYDROXYCHLOROQUINE SULFATE 200 MG TAB PO SCH (09:35)
[2017-04-13] MEDS: LISINOPRIL 20 MG TAB PO SCH (09:35)
[2017-04-13] MEDS: METOPROLOL TARTRATE 50 MG TAB PO SCH ×2 (09:35→20:34)
[2017-04-13] MEDS: PREGABALIN 75 MG CAP PO SCH ×2 (09:37→20:34)
--- NOTE | 2017-04-13 11:04 | P.PN ---
Subjective This patient is a 56 year old male, seen in the ICU today for neurologi follow- up regarding altered mental status and confusion. Patient was seen in Neurology consultation yeaterday and showed signs of confusion and a metabolic encephalopathy. The patient also had evidence of new onset of atrial fibrillation. He is to undergo MRI Brain latter today for further evaluation. The patient is showing slight improvement in his mental status today. He is able to follow simple commands. His speech still seems to be slightly aphasic at times. He is very slow to respond to questions in the ICU today. We're waiting MRI of the brain to be done to rule out any possibility of acute stroke given his history of new onset atrial fibrillation. His overall prognosis at this time remains guarded. Objective - Vital Signs Vital signs: Vital Signs Temp 98.4 F 04/11/17 12:00 Pulse 93 04/11/17 13:00 Resp 16 04/11/17 13:00 BP 139/71 04/11/17 13:00 Pulse Ox 95 04/11/17 13:00 Intake & Output 04/10/17 04/11/17 04/11/17 18:59 06:59 18:59 Intake Total 723.433 910.900 683.466 Output Total 2400 2520 1025 Balance -1676.567 -1609.100 -341.534 Weight 102.9 kg 102.9 kg Intake: IV 560 756 526 0.9 Sodium Chloride 10 110 30 Lactated Ringers 1,000 ml 550 550 100 @ 50 mls/hr IV .Q20H [facility] Rx#:[id number] Levofloxacin 750Mg-D5w 150 Pmx 750 mg In Dextrose/ Water 1 150ml.bag @ 100 mls/hr IVPB Q24H [facility] Rx#: [id number] Sodium Chloride 0.45% 1, 210 000 ml @ 70 mls/hr IV . [id number] [facility] Rx#:[id number] pressure bags 96 36 Intake, IV Titration 163.433 154.900 157.466 Amount Clevidipine Butyrate 25 153.433 59.067 42.633 mg In Empty Bag 1 bag @ 1 MG/HR 2 mls/hr IV .Q24H [facility] Rx#:[id number] Diltiazem 125 mg In 10 95.833 114.833 Sodium Chloride 0.9% 100 ml @ 10 MG/HR 10 mls/hr IV .[id number] [facility] Rx#: [id number] Output: Urine 2400 2520 1025 Other: Voiding Method Indwelling Catheter Indwelling Catheter Indwelling Catheter # Bowel Movements 0 1 ABP, PAP, CO, CI - Last Documented Arterial Blood Pressure 131/81 - Exam Physical examination: PHYSICAL EXAMINATION: Patient is resting comfortably in bed. VITAL SIGNS: Blood pressure is [125/75]. Heart rate is [97]. Respiration is [16] . Temperature is [98.9]. HEENT: Head is atraumatic, neck is supple, there were no carotid bruits. CHEST: Lungs are clear to auscultation and percussion. CARDIAC: S1, S2 normal rate and rhythm. There is no murmur. ABDOMEN: Soft and nontender. Bowel sounds are present. EXTREMITIES: There is no pedal edema. Peripheral pulses are present. Neurological examination: Patient's neurological examination is unchanged. He remains slightly encephalopathic. - Labs CBC & Chem 7: 04/13/17 05:00 04/13/17 05:00 Labs: Abnormal Lab Results - Last 24 Hours (Table) 04/10/17 04/11/17 04/11/17 Range/Units 18:17 01:26 05:00 WBC (3.8-10.6) k/uL RBC (4.30-5.90) m/uL Hgb (13.0-17.5) gm/dL Hct (39.0-53.0) % Neutrophils # (1.3-7.7) k/uL BUN 31 H (9-20) mg/dL Glucose 137 H (74-99) mg/dL POC Glucose (mg/dL) 118 H 129 H (75-99) mg/dL Albumin 3.2 L (3.5-5.0) g/dL 04/11/17 04/11/17 04/11/17 Range/Units 06:17 06:20 11:41 WBC 15.9 H (3.8-10.6) k/uL RBC 4.13 L (4.30-5.90) m/uL Hgb 12.0 L (13.0-17.5) gm/dL Hct 37.0 L (39.0-53.0) % Neutrophils # 14.2 H (1.3-7.7) k/uL BUN (9-20) mg/dL Glucose (74-99) mg/dL POC Glucose (mg/dL) 145 H 153 H (75-99) mg/dL Albumin (3.5-5.0) g/dL Microbiology - Last 24 Hours (Table) 04/06/17 21:10 Blood Culture - Preliminary Blood No Growth after 96 hours Assessment and Plan (1) Acute encephalopathy Status: Acute Code(s): G93.40 - ENCEPHALOPATHY, UNSPECIFIED (2) ARDS (adult respiratory distress syndrome) Status: Acute Code(s): J80 - ACUTE RESPIRATORY DISTRESS SYNDROME (3) Acute renal failure Status: Acute (4) Sarcoidosis of lung Status: Chronic Plan: This patient is a 56-year-old -[place] male who was transferred to the intensive care unit after developing severe respiratory distress. He was initially intubated in the ICU and was extubated 2 days ago. Since extubation he has shown very little improvement in his mental status. He remains very confused. He was sent for a computed tomography scan of the brain today which revealed no acute intracranial abnormality. He does have evidence of some degree of hypoxic injury following his pulmonary disorder. The patient does have history of sarcoidosis of the lung and does require close pulmonary follow- up. His neurological examination at this time is consistent with a diffuse metabolic encephalopathy. We recommend he undergo an MRI of the brain for further evaluation as he is now been found to have new onset of atrial fibrillation. We would like to rule out any possibility of small stroke. The patient's overall prognosis at this time remains very guarded. We are awaiting MRI of the brain to be done once the patient is off of his IV drips. He is seemingly showing some improvement in his mental status today. We will continue close supervision and neurological monitoring of them in the ICU setting. We will continue close neurological follow-up with this patient in the intensive care unit. His overall prognosis at this time remains very guarded.
--- NOTE | 2017-04-13 11:10 | P.PN ---
Subjective This patient is a 56 year old male, seen in the ICU today for neurologi follow- up regarding altered mental status and confusion. Patient was seen in Neurology consultation yeaterday and showed signs of confusion and a metabolic encephalopathy. The patient also had evidence of new onset of atrial fibrillation. He is to undergo MRI Brain latter today for further evaluation. The patient is doing much better today in the intensive care unit in terms of his mental status. He is sitting up in the chair and is appropriate in his speech and language. He was sent for MRI of the brain today which was reviewed. MRI reveals age-related atrophy and chronic small vessel ischemic changes. No evidence for acute stroke. Patient also underwent a repeat EEG today which was reviewed. EEG was diffusely slow with no evidence of any epileptiform discharges. The patient clinically is showing improvement in his overall cognitive function in mental status. He has a resolving metabolic encephalopathy at this time. He will be closely monitored in the ICU tonight and hopefully will be transferred to the medical floor if he remains stable. We have reviewed the results of the MRI and EEG today with the patient. His overall prognosis at this time remains guarded. Objective - Vital Signs Vital signs: Vital Signs Temp 99.1 F 04/12/17 12:00 Pulse 110 H 04/12/17 20:24 Resp 20 04/12/17 19:00 BP 141/71 04/12/17 19:00 Pulse Ox 95 04/12/17 19:00 Intake & Output 04/12/17 04/12/17 04/13/17 06:59 18:59 06:59 Intake Total 1737.915 5963 23 Output Total 1335 1070 50 Balance -45.800 181 -27 Weight 101.4 kg Intake: IV 1118 576 23 0.9 Sodium Chloride 130 180 20 Levofloxacin 750Mg-D5w 150 Pmx 750 mg In Dextrose/ Water 1 150ml.bag @ 100 mls/hr IVPB Q24H [facility] Rx#: [id number] Sodium Chloride 0.45% 1, 910 210 000 ml @ 70 mls/hr IV . [id number] [facility] Rx#:[id number] pressure bags 78 36 3 Intake, IV Titration 171.200 Amount Clevidipine Butyrate 25 27.700 mg In Empty Bag 1 bag @ 1 MG/HR 2 mls/hr IV .Q24H [facility] Rx#:[id number] Diltiazem 125 mg In 143.500 Sodium Chloride 0.9% 100 ml @ 10 MG/HR 10 mls/hr IV .[id number] [facility] Rx#: [id number] Oral 675 Output: Urine 1335 1070 50 Other: Voiding Method Indwelling Catheter Indwelling Catheter # Bowel Movements 1 ABP, PAP, CO, CI - Last Documented Arterial Blood Pressure 94/83 - Exam Physical examination: PHYSICAL EXAMINATION: Patient is resting comfortably in bed. VITAL SIGNS: Blood pressure is [141/71]. Heart rate is [104]. Respiration is [20 ]. Temperature is [99.1]. HEENT: Head is atraumatic, neck is supple, there were no carotid bruits. CHEST: Lungs are clear to auscultation and percussion. CARDIAC: S1, S2 normal rate and rhythm. There is no murmur. ABDOMEN: Soft and nontender. Bowel sounds are present. EXTREMITIES: There is no pedal edema. Peripheral pulses are present. Neurological examination: Patient's neurological examination is unchanged. Patient is sitting up in chair. He is showing significant improvement in his mental status today. He is answering all questions appropriately. We reviewed all the test results with the patient today in detail. - Labs CBC & Chem 7: 04/13/17 05:00 04/13/17 05:00 Labs: Abnormal Lab Results - Last 24 Hours (Table) 04/11/17 04/12/17 04/12/17 Range/Units 22:04 05:30 05:30 WBC 18.2 H (3.8-10.6) k/uL RBC 3.83 L (4.30-5.90) m/uL Hgb 11.4 L (13.0-17.5) gm/dL Hct 33.8 L (39.0-53.0) % Neutrophils # 16.3 H (1.3-7.7) k/uL BUN 29 H (9-20) mg/dL Glucose 129 H (74-99) mg/dL POC Glucose (mg/dL) 164 H (75-99) mg/dL Total Protein 5.7 L (6.3-8.2) g/dL Albumin 2.8 L (3.5-5.0) g/dL 04/12/17 04/12/17 Range/Units 11:45 17:21 WBC (3.8-10.6) k/uL RBC (4.30-5.90) m/uL Hgb (13.0-17.5) gm/dL Hct (39.0-53.0) % Neutrophils # (1.3-7.7) k/uL BUN (9-20) mg/dL Glucose (74-99) mg/dL POC Glucose (mg/dL) 115 H 123 H (75-99) mg/dL Total Protein (6.3-8.2) g/dL Albumin (3.5-5.0) g/dL Microbiology - Last 24 Hours (Table) 04/06/17 21:10 Blood Culture - Preliminary Blood No Growth after 120 hours Assessment and Plan (1) Acute encephalopathy Status: Acute Code(s): G93.40 - ENCEPHALOPATHY, UNSPECIFIED (2) ARDS (adult respiratory distress syndrome) Status: Acute Code(s): J80 - ACUTE RESPIRATORY DISTRESS SYNDROME (3) Acute renal failure Status: Acute (4) Sarcoidosis of lung Status: Chronic Plan: This patient is a 56-year-old -[place] male who was transferred to the intensive care unit after developing severe respiratory distress. He was initially intubated in the ICU and was extubated 2 days ago. Since extubation he has shown very little improvement in his mental status. He remains very confused. He was sent for a computed tomography scan of the brain today which revealed no acute intracranial abnormality. He does have evidence of some degree of hypoxic injury following his pulmonary disorder. The patient does have history of sarcoidosis of the lung and does require close pulmonary follow- up. His neurological examination at this time is consistent with a diffuse metabolic encephalopathy. We recommend he undergo an MRI of the brain for further evaluation as he is now been found to have new onset of atrial fibrillation. We would like to rule out any possibility of small stroke. The patient's overall prognosis at this time remains very guarded. We are awaiting MRI of the brain to be done once the patient is off of his IV drips. He is seemingly showing some improvement in his mental status today. Patient underwent MRI of the brain today which was reviewed. MRI is negative for any evidence of acute stroke. He also had a follow-up EEG the results of which are noted above. There is no evidence of any epileptiform discharges on this EEG. His neurological exam findings and clinical findings are consistent with a resolving metabolic encephalopathy at this time. The patient is showing significant improvement in his mental status today as compared to yesterday. We will continue close supervision and neurological monitoring of them in the ICU setting. We will continue close neurological follow-up with this patient in the intensive care unit. His overall prognosis at this time remains very guarded.
[2017-04-13 11:32] LABS: Glucose,Whole Blood 132 mg/dL (75-99)
[2017-04-13 12:48] LABS: Glucose,Whole Blood 103 mg/dL (75-99)
--- NOTE | 2017-04-13 15:34 | P.PN ---
<Lea Oneill - Last Filed: 04/13/17 15:26> Progress Note - Text DATE OF SERVICE: 04/13/2017 PRESENTING COMPLAINT: Fall at home HISTORY OF PRESENT ILLNESS: 56-year-old male admitted originally on 04/06/2017 after sustaining a fall at home. Patient developed acute respiratory distress, a team was called, patient transferred to the ICU, combative and agitated, intubated and placed on sedation . Developed bilateral pulmonary infiltrates, computed tomography scan showed diffuse groundglass pulmonary infiltrates throughout lung bhagat bilaterally. Bronchoscopy performed with bronchial alveolar lavage showed no microbial growth, placed on IV antibiotics and Solu-Medrol, infiltrates improved and was subsequently extubated. INTERVAL HISTORY:\ 04/13/2017: Patient sitting up in a chair at the bedside, alert and able to answer all questions, able to perform most movements easily. Appetite improved 800% of his breakfast, last BM 04/12/2017 requires assistance getting around to and from the bed with a walker. Overall condition has improved greatly 04/12/2017: Patient remains in the ICU, sitting up in bed, alert, conversing well, able to answer simple questions, able to perform gross motor movement. Appetite improved today, ate 100% of his breakfast, last BM 902016, not yet been out of bed. 04/11/2017: Patient in the ICU, sitting up in the bed, somewhat confused will not allow nursing staff to feed him place anything into his mouth. Appetite is poor, last BM 04/11/2017, has sarcoidosis does not move his extremities all at well very stiff. Alert to self, slow to respond to questions REVIEW OF SYSTEMS: Done for constitutional ,cardiovascular, GI, pulmonary with relevant findings as above. CURRENT MEDICATIONS DuoNeb's, Elavil 25 mg by mouth at bedtime, Diprolene AF, clevidipine 25 mg of IV solution, clonidine 0.2 mg patch, Haldol 2 mg IV push every 4 hours when necessary for agitation Apresoline 10 mg IV push every 4 hours when necessary Plaquenil 200 mg by mouth daily, labetalol 20 mg IV push every 4 hours, levofloxacin 750 mg in IV solution, Solu-Medrol 40 mg IV every 6 hours, Lopressor 50 mg by mouth twice a day. PHYSICAL EXAM VITAL SIGNS: Temperature 97.8, pulse 96, respiratory rate 20, blood pressure 138/69, oxygen saturation 92% on room air. GENERAL APPEARANCE: Sitting up in a chair, looks comfortable, initiating and participating in conversation. EYES: Pupils equal. Conjunctiva normal. NECK: JVD not raised. Mass not palpable. RESPIRATORY: Respiratory effort normal. Lungs diminished bilaterally to auscultation. CARDIOVASCULAR: Irregular rhythm. No edema. ABDOMEN: Soft. Liver and spleen not palpable. No tenderness. No mass palpable. PSYCHIATRY: Alert and oriented 3, response time has improved. Mood and affect slow . NEUROLOGICAL: Power and sensation grossly intact, follows some simple commands INVESTIGATIONS: White blood cell count 19.7, hemoglobin 11.6, Accu-Cheks noted. Chest x-ray: Marked improvement diffuse alveolar and interstitial anemia and/or infiltrates suggesting resolving ARDS. 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 -Acute metabolic encephalopathy multifactorial, resolved -Paroxysmal atrial fibrillation -Essential hypertension -Acute kidney injury, nonoliguric, drug-induced present admission now resolved -Acute metabolic acidosis from renal failure now resolved -Acute left big toe superficial skin lotion secondary to local trauma from a fall on presentation -Depression not otherwise specified -Chronic left foot drop -Leukocytosis likely secondary to steroid use, slow to respond PLAN: We'll encourage oral intake, and stop IV fluids, continue to wean oxygen as patient can tolerate, IV antibiotics to be discontinued switched to oral, Urena catheter to be removed, IV Solu-Medrol switched to oral patient's overall condition is improved enough for he can be transferred to a regular medical floor. Plan of care discussed at the bedside. We'll continue to follow closely. NUCLEAR RADIOLOGIST statement: Patient was seen and examined by nurse practitioner Lea Oneill and all elements of the case discussed with attending Dr. Mclaughlin <Uriah Mclaughlin - Last Filed: 04/13/17 17:20> Progress Note - Text Attending note. Date of service-04/21/2017 This patient was seen and examined by me . Discussed the patient with my nurse practitioner Ms. Oneill. Continues to improve. In the ICU. Sitting up in a chair. Far more awake and talkative. 8 his breakfast. On room air.. Lungs-decreased breath sounds, psychiatry answering On examination: Lungs-decreased breath sounds, cardio vascular first seconds are normal. Psych AO 3 far more alert today Investigations: White count 19.7, hemoglobin 11.6, potassium 4.2 Assessment and plan: Acute hypoxic respiratory failure likely from viral pneumonitis now with clinical improvement. Steroids are being scaled back. Switch to oral prednisone per pulmonary. Overall doing much better. Can be moved out of the ICU.
[2017-04-13 18:11] LABS: Glucose,Whole Blood 129 mg/dL (75-99)
--- NOTE | 2017-04-13 19:22 | P.PN ---
Subjective This patient is a 56 year old male, seen in the ICU today for neurologi follow- up regarding altered mental status and confusion. Patient was seen in Neurology consultation yeaterday and showed signs of confusion and a metabolic encephalopathy. The patient also had evidence of new onset of atrial fibrillation. He is to undergo MRI Brain latter today for further evaluation. The patient is doing much better today in the intensive care unit in terms of his mental status. He is sitting up in the chair and is appropriate in his speech and language. He was sent for MRI of the brain today which was reviewed. MRI reveals age-related atrophy and chronic small vessel ischemic changes. No evidence for acute stroke. Patient also underwent a repeat EEG today which was reviewed. EEG was diffusely slow with no evidence of any epileptiform discharges. The patient clinically is showing improvement in his overall cognitive function in mental status. He has a resolving metabolic encephalopathy at this time. He will be closely monitored in the ICU tonight and hopefully will be transferred to the medical floor if he remains stable. We have reviewed the results of the MRI and EEG today with the patient. Patient continues to do extremely well in the intensive care unit. He is tolerating his diet well. He is currently off of all oxygen and his pulse ox is around 92%. The patient continues to have frequent PACs. He is on beta blockers with metipranolol 50 mg twice a day. His blood pressure is under good control. Patient's history is consistent with acute hypoxic respiratory failure requiring ventilation. This was felt to be secondary to acute viral pneumonitis. Clinically he is showing significant improvement in his overall respiratory status. He does have history of advanced burned-out sarcoidosis of the lung with a remote history of neurosarcoidosis as well. When questioned about neurosarcoid the patient states that he does not think he has any major difficulty with this condition at this time. His steroids are being scaled back. He is being switched to oral prednisone per pulmonary medicine. He is awaiting transferred to a medical floor when a bed becomes available. Overall his neurological status remains very stable. We will continue close neurological follow-up of this patient in the intensive care unit. His overall prognosis remains guarded. His overall prognosis at this time remains guarded. Objective - Vital Signs Vital signs: Vital Signs Temp 97.8 F 04/13/17 18:00 Pulse 125 H 04/13/17 18:00 Resp 27 H 04/13/17 18:00 BP 134/69 09/20/17 18:00 Pulse Ox 93 L 04/13/17 18:00 Intake & Output 04/13/17 04/13/17 04/14/17 06:59 18:59 06:59 Intake Total 243 1560 Output Total 800 350 Balance -557 1210 Weight 102.9 kg 102.9 kg Intake: IV 243 240 0.9 Sodium Chloride 220 220 pressure bags 23 20 Oral 1320 Output: Urine 800 350 Other: Voiding Method Indwelling Catheter Indwelling Catheter # Voids 1 ABP, PAP, CO, CI - Last Documented Arterial Blood Pressure 118/88 - Exam Physical examination: PHYSICAL EXAMINATION: Patient is resting comfortably in bed. VITAL SIGNS: Blood pressure is [112/58]. Heart rate is [100]. Respiration is [40 ]. Temperature is [97.8]. HEENT: Head is atraumatic, neck is supple, there were no carotid bruits. CHEST: Lungs are clear to auscultation and percussion. CARDIAC: S1, S2 normal rate and rhythm. There is no murmur. ABDOMEN: Soft and nontender. Bowel sounds are present. EXTREMITIES: There is no pedal edema. Peripheral pulses are present. Neurological examination: Patient's neurological examination is unchanged. Patient is sitting up in chair. He is showing significant improvement in his mental status today. He is answering all questions appropriately. We reviewed all the test results with the patient today in detail. - Labs CBC & Chem 7: 04/13/17 05:00 04/13/17 05:00 Labs: Abnormal Lab Results - Last 24 Hours (Table) 04/12/17 04/13/17 04/13/17 Range/Units 21:06 05:00 05:00 WBC 19.7 H (3.8-10.6) k/uL RBC 3.90 L (4.30-5.90) m/uL Hgb 11.6 L (13.0-17.5) gm/dL Hct 34.8 L (39.0-53.0) % Neutrophils # 18.0 H (1.3-7.7) k/uL Lymphocytes # 0.9 L (1.0-4.8) k/uL BUN 29 H (9-20) mg/dL Glucose 124 H (74-99) mg/dL POC Glucose (mg/dL) 202 H (75-99) mg/dL Total Protein 5.5 L (6.3-8.2) g/dL Albumin 2.8 L (3.5-5.0) g/dL 04/13/17 04/13/17 04/13/17 Range/Units 07:48 11:29 12:46 WBC (3.8-10.6) k/uL RBC (4.30-5.90) m/uL Hgb (13.0-17.5) gm/dL Hct (39.0-53.0) % Neutrophils # (1.3-7.7) k/uL Lymphocytes # (1.0-4.8) k/uL BUN (9-20) mg/dL Glucose (74-99) mg/dL POC Glucose (mg/dL) 111 H 132 H 103 H (75-99) mg/dL Total Protein (6.3-8.2) g/dL Albumin (3.5-5.0) g/dL 04/13/17 Range/Units 18:10 WBC (3.8-10.6) k/uL RBC (4.30-5.90) m/uL Hgb (13.0-17.5) gm/dL Hct (39.0-53.0) % Neutrophils # (1.3-7.7) k/uL Lymphocytes # (1.0-4.8) k/uL BUN (9-20) mg/dL Glucose (74-99) mg/dL POC Glucose (mg/dL) 129 H (75-99) mg/dL Total Protein (6.3-8.2) g/dL Albumin (3.5-5.0) g/dL Microbiology - Last 24 Hours (Table) 04/06/17 21:10 Blood Culture - Final Blood No Growth after 144 hours Assessment and Plan (1) Acute encephalopathy Status: Acute Code(s): G93.40 - ENCEPHALOPATHY, UNSPECIFIED (2) ARDS (adult respiratory distress syndrome) Status: Acute Code(s): J80 - ACUTE RESPIRATORY DISTRESS SYNDROME (3) Acute renal failure Status: Acute (4) Sarcoidosis of lung Status: Chronic Plan: This patient is a 56-year-old -[place] male who was transferred to the intensive care unit after developing severe respiratory distress. He was initially intubated in the ICU and was extubated 2 days ago. Since extubation he has shown very little improvement in his mental status. He remains very confused. He was sent for a computed tomography scan of the brain today which revealed no acute intracranial abnormality. He does have evidence of some degree of hypoxic injury following his pulmonary disorder. The patient does have history of sarcoidosis of the lung and does require close pulmonary follow- up. His neurological examination at this time is consistent with a diffuse metabolic encephalopathy. We recommend he undergo an MRI of the brain for further evaluation as he is now been found to have new onset of atrial fibrillation. We would like to rule out any possibility of small stroke. The patient's overall prognosis at this time remains very guarded. We are awaiting MRI of the brain to be done once the patient is off of his IV drips. He is seemingly showing some improvement in his mental status today. Patient underwent MRI of the brain today which was reviewed. MRI is negative for any evidence of acute stroke. He also had a follow-up EEG the results of which are noted above. There is no evidence of any epileptiform discharges on this EEG. His neurological exam findings and clinical findings are consistent with a resolving metabolic encephalopathy at this time. The patient is showing significant improvement in his mental status today as compared to yesterday. Patient was examined today sitting up in his chair at bedside. He is awaiting transferred to the medical floor possibly later today. His overall mental status is shown significant improvement over the last 2 days. He is being treated for acute viral pneumonitis. Pulmonary medicine is following him closely for this condition. His overall pulmonary status has shown significant improvement as well. We will continue close supervision and neurological monitoring of them in the ICU setting. We will continue close neurological follow-up with this patient in the intensive care unit. His overall prognosis at this time remains very guarded.
[2017-04-13 20:33] LABS: Glucose,Whole Blood 197 mg/dL (75-99)
[2017-04-13] MEDS: AMITRIPTYLINE HCL 25 MG TAB PO SCH (20:34)
[2017-04-13] MEDS: NIACIN TR 500 MG CAPSULE.ER PO SCH (20:34)
[2017-04-14 03:59] VITALS: RESP 18
[2017-04-14 05:44] VITALS: PULSE 69
[2017-04-14 07:21] LABS: Glucose,Whole Blood 89 mg/dL (75-99)
[2017-04-14] MEDS: LISINOPRIL 20 MG TAB PO SCH (07:45)
[2017-04-14] MEDS: ENOXAPARIN 40 MG/0.4 ML SYRINGE SQ SCH (07:45)
[2017-04-14] MEDS: HYDROXYCHLOROQUINE SULFATE 200 MG TAB PO SCH (07:45)
[2017-04-14] MEDS: DESVENLAFAXINE SUCCINATE 50 MG TAB.ER.24H PO SCH (07:45)
[2017-04-14] MEDS: predniSONE 10 MG TAB PO SCH (07:45)
[2017-04-14] MEDS: METOPROLOL TARTRATE 50 MG TAB PO SCH (07:45)
[2017-04-14] MEDS: PANTOPRAZOLE 40 MG/10 ML VIAL IVP SCH (07:45)
[2017-04-14] MEDS: PREGABALIN 75 MG CAP PO SCH (07:51)
[2017-04-14] MEDS: HYDROmorphone 1 MG/ML 1 ML SYRINGE IVP PRN (07:51)
[2017-04-14 07:54] VITALS: BP 137/73; TEMP 97.7
[2017-04-14] MEDS: INSULIN LISPRO (humaLOG) 300 UNIT/3 ML VIAL SQ SCH ×2 (07:57→12:00)
[2017-04-14] MEDS: BETAMETHASONE DIPROPIONATE 0.05% CREAM 15 GM TUBE TOPICAL SCH (10:36)
[2017-04-14] MEDS ORDERED: ACETAMINOPHEN TAB 500 MG TAB PO PRN (11:29)
[2017-04-14] MEDS ORDERED: amLODIPine 10 MG TAB PO SCH (11:30)
[2017-04-14 11:52] LABS: Glucose,Whole Blood 115 mg/dL (75-99)
--- NOTE | 2017-04-14 19:48 | P.DS ---
Providers Date of admission: 04/06/17 07:39 Expected date of discharge: 04/14/17 Attending physician: Uriah Mclaughlin Consults: 04/06/17 07:39 Consult Physician Routine Consulting Provider: Regina Ross Consult Reason/Comments: Sarcoidosis. Your patient. Do you want consulting provider notified?: Yes 04/06/17 07:44 Consult Physician Routine Consulting Provider: Quinton Arrington Consult Reason/Comments: acute renal failure Do you want consulting provider notified?: Yes 04/06/17 12:25 Consult Physician Routine Consulting Provider: Hector Trejo Consult Reason/Comments: left toe injury Do you want consulting provider notified?: Yes 04/10/17 14:15 Consult Physician Routine Consulting Provider: Ion Miranda Consult Reason/Comments: delirium Do you want consulting provider notified?: Yes Primary care physician: Christopherkat [facility] Course: FINAL DIAGNOSES: -Acute hypoxic respiratory failure requiring ventilation now extubated likely from acute viral pneumonitis, causing ARDS, 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 He complained of shortness of breath, has a history of hypertension and sarcoidosis. Patient developed acute respiratory distress and a team was called, patient was subsequently transferred to the ICU, patient was refusing treatments and suddenly became more compromised and required intubation. Updrafts were added, it was determined a bronchoscopy BAL was necessary. A central an art lines were placed as well. Nephrology consulted for acute kidney injury Jey inhibitors and NSAIDs held. Requiring additional blood pressure control labetalol added. area Bronchoscopy revealed normal bronchial findings no significant mucus or erythema. Washings were sent to pathology. Enteral feedings initiated. Spontaneous breathing trial and sedation holiday conducted and patient was successfully extubated. Required high levels of oxygen, mental status had not bounced back since extubation, neurology consulted. ETT imaging revealed no acute intracranial abnormality, however does have some degree of hypoxic injury following his pulmonary problems. MRI ordered. Developed new onset atrial fibrillation, however looked more like multifocal infrequent PACs and PVCs. Initiated on Cardizem drip and cleviprex., Both these were stopped per cardiology. Patient's overall condition in the ICU improved was up in a chair tolerating his diet off oxygen also is around 92%. Bilateral pulmonary infiltrates that were described earlier improving. MRI showed diffuse atrophy with no abnormalities. EEG repeated and pending final results. Stable for transfer to medical floor. Continue to improve ambulatory with assistance tolerating his diet, sitting up in a chair, last BM 04/13/2017. CONSULTANTS have cleared patient for discharge patient anxious to go home condition stable and appropriate for discharge. PHYSICAL EXAM: CARDIOVASCULAR: First and second sounds noted no edema RESPIRATORY: Effort normal, decreased breath sounds bilaterally MUSKULOSKELETAL: Has a somewhat unsteady gait requiring the use of a wheeled walker. PSYCHIATRY: Alert and oriented 3, mood and affect somewhat slow to respond but appropriate Patient was seen and examined by nurse practitioner Lea Oneill in all elements of the case discussed with attending Dr. Mclaughlin DISPOSITION: Home with home care Patient Condition at Discharge: Stable Plan - Discharge Summary New Discharge Prescriptions: New Metoprolol Tartrate [Lopressor] 50 mg PO BID #60 tab SILVER sulfADIAZINE CREAM [Silvadene Cream] 1 applic TOPICAL BID dose Continue Albuterol Inhaler [Ventolin Hfa Inhaler] 2 puff INHALATION RT-Q6H PRN PRN Reason: Shortness Of Breath predniSONE 10 mg PO DAILY Hydroxychloroquine Sulfate [Plaquenil] 200 mg PO DAILY Desvenlafaxine [Pristiq ER] 100 mg PO DAILY Omeprazole [PriLOSEC] 20 mg PO BID Betamethasone Dipropionate [Diprolene AF 0.05% Cream] 1 applic TOPICAL DAILY Niacin 1,000 mg PO HS Lisinopril-Hctz 20-25 mg [Zestoretic 20-25] 1 tab PO DAILY Ibuprofen [Motrin] 800 mg PO Q8H PRN PRN Reason: Pain Multivitamins, Thera [Multivitamin (formulary)] 1 tab PO DAILY Amitriptyline HCl 25 mg PO HS amLODIPine [Norvasc] 10 mg PO DAILY Pregabalin [Lyrica] 75 mg PO BID Discharge Medication List Albuterol Inhaler [Ventolin Hfa Inhaler] 2 puff INHALATION RT-Q6H PRN 02/11/17 [ History] Amitriptyline HCl 25 mg PO HS 02/11/17 [History] Betamethasone Dipropionate [Diprolene AF 0.05% Cream] 1 applic TOPICAL DAILY [History] Desvenlafaxine [Pristiq ER] 100 mg PO DAILY 02/11/17 [History] Hydroxychloroquine Sulfate [Plaquenil] 200 mg PO DAILY 02/11/17 [History] Ibuprofen [Motrin] 800 mg PO Q8H PRN 02/11/17 [History] Lisinopril-Hctz 20-25 mg [Zestoretic 20-25] 1 tab PO DAILY 02/11/17 [History] Multivitamins, Thera [Multivitamin (formulary)] 1 tab PO DAILY 02/11/17 [History ] Niacin 1,000 mg PO HS 02/11/17 [History] Omeprazole [PriLOSEC] 20 mg PO BID 02/11/17 [History] predniSONE 10 mg PO DAILY 02/11/17 [History] Pregabalin [Lyrica] 75 mg PO BID 04/06/17 [History] amLODIPine [Norvasc] 10 mg PO DAILY 04/06/17 [History] Metoprolol Tartrate [Lopressor] 50 mg PO BID #60 tab 04/14/17 [Rx] SILVER sulfADIAZINE CREAM [Silvadene Cream] 1 applic TOPICAL BID dose 04/14/17 [Rx] Follow up Appointment(s)/Referral(s): [facility], [NON-STAFF] - Christopher Bradshaw DO [Primary Care Provider] - 3 Days Regina Ross MD [STAFF PHYSICIAN] - 1 Week Patient Instructions/Handouts: Pneumonitis (DC), Fall Prevention (DC) Discharge Disposition: HOME WITH HOME HEALTH SERVICES
[2017-04-15] MEDS ORDERED: PANTOPRAZOLE 40 MG TABLET PO SCH (07:30)
--- NOTE | 2017-04-15 19:01 | DS ---
DISCHARGE SUMMARY ADDENDUM: ATTENDING NOTE: This patient seen and examined by me. I discussed with my nurse practitioner, Mai. This patient is seen by me on April 14, 2017. The patient doing much better. Sitting up and up and about. Doing pulse ox well on room air. On exam, LUNGS: Fair air entry. CARDIOVASCULAR: First and second sounds normal. ASSESSMENT: 1. Acute hypoxic respiratory failure probably due to acute viral pneumonitis causing ARDS. 2. All other conditions are stable. Patient to follow up with Dr. Bradshaw and Dr. Ross. Care was discussed with the patient and family at the bedside. Questions were answered. Discharge planning more than 35 minutes. MMODL / IJN: [id number] /
== END 2017-04-14 14:21 | disposition home health service (06) | DRG 987 ==
LOC: EC 03:43 → 4MS4W 07:39 → 6ICU 18:12 → 4MS4W 04-14 04:52
PROVIDERS: ADMIT Hospitalist; ATTEND Hospitalist
PROC: 0D9670Z Drainage of Stomach with Drainage Device, Via Natural or Artificial Opening (ICD-10-PCS; 2017-04-06)
PROC: 0BH17EZ Insertion of Endotracheal Airway into Trachea, Via Natural or Artificial Opening (ICD-10-PCS; 2017-04-06)
PROC: 5A1945Z Respiratory Ventilation, 24-96 Consecutive Hours (ICD-10-PCS; 2017-04-06)
PROC: 03HY32Z Insertion of Monitoring Device into Upper Artery, Percutaneous Approach (ICD-10-PCS; 2017-04-07)
PROC: 3E0G76Z Introduction of Nutritional Substance into Upper GI, Via Natural or Artificial Opening (ICD-10-PCS; 2017-04-07)
PROC: 4A133B1 Monitoring of Arterial Pressure, Peripheral, Percutaneous Approach (ICD-10-PCS; 2017-04-07)
PROC: 4A133J1 Monitoring of Arterial Pulse, Peripheral, Percutaneous Approach (ICD-10-PCS; 2017-04-07)
PROC: 02H633Z Insertion of Infusion Device into Right Atrium, Percutaneous Approach (ICD-10-PCS; 2017-04-07)
PROC: 0B9D8ZX Drainage of Right Middle Lung Lobe, Via Natural or Artificial Opening Endoscopic, Diagnostic (ICD-10-PCS; principal; 2017-04-07 10:00)
DX: N17.9 Acute kidney failure, unspecified (principal); J96.01 Acute respiratory failure with hypoxia; G93.41 Metabolic encephalopathy; J12.9 Viral pneumonia, unspecified; I11.0 Hypertensive heart disease with heart failure; I50.9 Heart failure, unspecified; E87.2 Acidosis; I48.0 Paroxysmal atrial fibrillation; R47.01 Aphasia; D86.0 Sarcoidosis of lung; S91.112A Laceration without foreign body of left great toe without damage to nail, initial encounter; F32.9 Major depressive disorder, single episode, unspecified; M21.372 Foot drop, left foot; G89.21 Chronic pain due to trauma; I49.3 Ventricular premature depolarization; M54.9 Dorsalgia, unspecified; E66.9 Obesity, unspecified; T39.395A Adverse effect of other nonsteroidal anti-inflammatory drugs [NSAID], initial encounter; T46.4X5A Adverse effect of angiotensin-converting-enzyme inhibitors, initial encounter; Z79.52 Long term (current) use of systemic steroids; Z79.899 Other long term (current) drug therapy; Z68.31 Body mass index [BMI] 31.0-31.9, adult; Z78.1 Physical restraint status; R29.6 Repeated falls; Z91.81 History of falling; Z90.49 Acquired absence of other specified parts of digestive tract; Z87.891 Personal history of nicotine dependence; W01.10XA Fall on same level from slipping, tripping and stumbling with subsequent striking against unspecified object, initial encounter; Y92.002 Bathroom of unspecified non-institutional (private) residence as the place of occurrence of the external cause
CPT/HCPCS: 31624; 36415; 36600; 70450; 70551; 71010; 71250; 76770; 78582; 80048; 80053; 81003; 82164; 82533; 82550; 82553; 82805; 83036; 83735; 83880; 83935; 84100; 84484; 85025; 85379; 85610; 85652; 85730; 87040; 87070; 87086; 87102; 87116; 87205; 87206; 87252; 87449; 87496; 87498; 87502; 87529; 87798; 88108; 88305; 89050; 93306; 94002; 94003; 94640; 94760; 95816; 95819; 96374; 99285

== ENCOUNTER → 2017-05-09 | Outpatient (CLI) | payer OTHER ==
--- NOTE | 2017-05-09 16:19 | BD ---
EXAMINATION TYPE: MG DEXA axial skeleton. DATE OF EXAM: 05/09/2017 CLINICAL HISTORY: 56-year-old male long-term drug therapy Height: 68 inches Weight: 216 FRAX RISK QUESTIONS: Alcohol (3 or more units per day): no Family History (Parent hip fracture): no Glucocorticoids (More than 3mos): yes (Ex: prednisone, prednisolone, methylprednisolone, dexamethasone, and hydrocortisone). History of Fracture in Adulthood: no Secondary Osteoporosis: 1. Type 1 Diabetes: no 2. Hyperthyroidism: no 3. Menopause before 45: N/A 4. Malnutrition: no 5. Chronic liver disease: no Rheumatoid Arthritis: no Current Tobacco Use: no RISK FACTORS HISTORY OF: Family History of Osteoporosis: no Active: somewhat-uses walker at times Diet low in dairy products/other sources of calcium: somewhat Lost more than 2 inches in height since high school: yes Frequent falls: occasionally Poor Health: somewhat Hyperparathyroidism: no Adrenal Insufficiency: no MEDICATIONS: Prednisone or other steroids: yes How Long: over 15 years Thyroid Medications: no Osteoporosis Medications: no Additional Medications: vitamin, blood pressure Additional History: recent fall..was inpatient for several days - induced coma; Sarcoidosis; degenera tive disc disease, spinal stenosis, left side hip & back of leg feels like being "stretched out" EXAM MEASUREMENTS: Bone mineral densitometry was performed using the Film[employer] System. Bone mineral density as measured about the Lumbar spine is: ----- L1-L4(G/cm2): 1.477 T Score Values are as follows: ----- L2: 2.1 ----- L3: 2.3 ----- L4: 3.6 ----- L1-L4: 2.5 Bone mineral density has: Decreased -5.5% since study of: 01/02/2015 Bone mineral density about the R hip (g/cm2): 1.189 Bone mineral density about the L hip (g/cm2): 1.099 T Score values are as follows: -----R Neck: 1.1 -----L Neck: 0.4 -----R Total: 1.4 -----L Total: 0.8 Bone mineral density has: Decreased -2.5% since study of: 01/02/2015 IMPRESSION: Normal (Values between +1 and -1 indicate normal bone mass). Consider repeating this study in 5 years or sooner if there is some new clinical indication. NOTE: T-SCORE=SD OF THE YOUNG ADULT MEAN.
== END | disposition home or self-care (01) ==
LOC: RADBDWWP 07:27
PROVIDERS: ATTEND Family Medicine
DX: Z51.81 Encounter for therapeutic drug level monitoring (principal); Z79.899 Other long term (current) drug therapy
CPT/HCPCS: 77080

== ENCOUNTER → 2018-04-18 | Outpatient (CLI) | payer OTHER ==
[2018-04-18 14:39] LABS: ALT 38 U/L (21-72); AST 51 U/L (17-59); Albumin 4.1 g/dL (3.5-5.0); Alkaline Phosphatase 79 U/L (38-126); Anion Gap 10 mmol/L; Blood Urea Nitrogen 15 mg/dL (9-20); Carbon Dioxide 29 mmol/L (22-30); Chloride 98 mmol/L (98-107); Creatine Kinase 614 U/L (55-170); Glucose 95 mg/dL (74-99); Potassium 4.8 mmol/L (3.5-5.1); Sodium 137 mmol/L (137-145); Total Bilirubin 0.2 mg/dL (0.2-1.3)
[2018-04-18 14:42] LABS: HCT 36.7 % (39.0-53.0); HGB 12.3 gm/dL (13.0-17.5); MCH 29.6 pg (25.0-35.0); MCHC 33.7 g/dL (31.0-37.0); MCV 88.1 fL (80.0-100.0); Mean Platelet Volume 7.4; Platelet Count 237 k/uL (150-450); RBC 4.17 m/uL (4.30-5.90); RDW 13.4 % (11.5-15.5); WBC 5.7 k/uL (3.8-10.6)
[2018-04-18 14:51] LABS: Eosinophils # (M) 0.34 k/uL (0-0.7); Monocytes # (M) 0.91 k/uL (0-1.0); Neutrophils # (M) 2.45 k/uL (1.3-7.7); Neutrophils % (M) 43 %; Nucleated Red Blood Cells 0 /100 WBC (0-0); T4, Free (Free Thyroxine) 0.81 ng/dL (0.78-2.19); Total Cells Counted 100
== END | disposition home or self-care (01) ==
LOC: LABWHC1 12:34
PROVIDERS: ATTEND Internal Medicine Critical Care Medicine
DX: D86.9 Sarcoidosis, unspecified (principal)
CPT/HCPCS: 36415; 80053; 82164; 82550; 84439; 84443; 85025

== ENCOUNTER → 2018-07-03 | Outpatient (CLI) | payer OTHER ==
--- NOTE | 2018-07-03 23:33 | MR ---
EXAMINATION TYPE: MR femur/thigh RT wo con DATE OF EXAM: 07/03/2018 COMPARISON: None HISTORY: Bilateral thigh pain/weakness from hips down, pain is greater in lt hip Standard multiplanar, multisequence MRI departmental protocol Multiplanar, multisequence images of the right hip and femur were acquired. FINDINGS: The right femur has fairly normal signal pattern. There is no edema. There is no evidence o f a fracture. There is no sign of avascular necrosis. Acetabulum appears intact. There is no evidence of a soft tissue mass. Bladder distends smoothly. I see no pelvic mass. There is no free fluid in th e pelvis. There is bilateral knee joint effusions and larger on the right side. There is posterior mu scle atrophy of the left thigh noted. IMPRESSION: Bilateral knee joint effusions. No fracture. No evidence of a discrete mass of the right thigh. Left thigh posterior muscle atrophy is noted.
--- NOTE | 2018-07-03 23:47 | MR ---
EXAMINATION TYPE: MR femur/thigh LT wo con DATE OF EXAM: 07/03/2018 COMPARISON: None HISTORY: Bilateral thigh pain/weakness from hips down, pain is greater in lt hip Standard multiplanar, multisequence MRI departmental protocol Multiplanar, multisequence images of the left femur and thigh were acquired. FINDINGS: The proximal left femur and hip joint are intact. There is no sign of hip dysplasia. There is no sign of avascular necrosis. I see no discrete thymic mass. There is some fatty replacement of p osterior thigh muscle. This is consistent with atrophy. This involves mainly biceps femoris and semim embranosus muscle. I see no evidence of a soft tissue mass. There is no pathologic fluid collection. There is left knee joint effusion. Knee joint appears intact. IMPRESSION: There is posterior muscle atrophy. No discrete mass seen. No fracture. Mild left knee joint effusion.
== END ==
LOC: RADMRIMAIN 19:27
PROVIDERS: ATTEND Physician Assistant Medical
DX: M62.552 Muscle wasting and atrophy, not elsewhere classified, left thigh (principal); M62.551 Muscle wasting and atrophy, not elsewhere classified, right thigh

== ENCOUNTER → 2018-07-04 | Outpatient (CLI) | payer OTHER ==
--- NOTE | 2018-07-04 19:35 | PN ---
PROGRESS NOTE SLEEP CENTER PROGRESS NOTE: This is a 57-year-old -[place] male patient with known history of COPD and pulmonary sarcoidosis. The patient is very well known to me and has seen me in my office for more than 10 years. During the course of his treatment he was diagnosed having neurosarcoidosis and briefly treated with high-dose steroids. For now his sarcoidosis is currently inactive and stable. His last MRI of the brain was done in March 2017 and showed age-related atrophy without any known abnormalities. He has a preserved LV function with ejection fraction of 60% to 65% and he has a mild to moderate degree of pulmonary hypertension with a PA pressure in the 40 range. His other comorbidities include paroxysmal atrial fibrillation and hypertension. He is obese. During a recent evaluation at his primary care physician's office, he was suspected to have obstructive sleep apnea and he was referred to me. He snores. He wakes up tired and fatigued during the day. He goes to bed around 11:30 p.m. and wakes up at 5 a.m. in the morning. His Packwood score is 3. No sleep paralysis. No hallucinations. No cataplexy. No recent weight gain or weight loss. He does have some degree of restlessness in his lower extremities bilaterally. He is edentulous. No anxiety or panic attacks. HIS VITALS: BP is 124/94, pulse 94, respirations 16, temperature 98.4, saturation 97% on room air. Neck size is 17. BMI 39.1. Packwood Score is 3. GENERAL APPEARANCE: Calm, comfortable. Head is atraumatic, normocephalic. He is edentulous. NECK: No goiter or neck masses. No mucous membranes or thrush. LUNGS: Clear to auscultation. HEART: Heart sounds are regular rate and rhythm. Normal S1, S2. No S3, S4. No murmurs. ABDOMEN: Soft, non-tender. No organomegaly. EXTREMITIES: No edema. No cyanosis or clubbing. IMPRESSION: 1. Obstructive sleep apnea, under investigation. Overall suspicion is low. 2. Snoring. 3. Paroxysmal atrial fibrillation. 4. History of pulmonary sarcoidosis. 5. Remote history of neurosarcoidosis. 6. Hypertension. PLAN: We will proceed with a screening polysomnogram and will make further recommendations based on the results of the sleep study. Encourage weight loss. His sarcoidosis is currently inactive and stable. He is being followed by his primary care physician regarding his other medical issues. MMODL / IJN: [id number] /
== END ==
LOC: SLEEP 15:37
PROVIDERS: ATTEND Internal Medicine Critical Care Medicine
DX: R06.83 Snoring (principal); I48.0 Paroxysmal atrial fibrillation; I10 Essential (primary) hypertension; Z87.09 Personal history of other diseases of the respiratory system
CPT/HCPCS: 99211

== ENCOUNTER 2018-07-06 07:41 | Day surgery (SDC) | payer OTHER ==
[2018-07-04 08:48] VITALS: BMI 34.8
[~2018-07-06 07:41] MED LIST: DEXAMETHASONE SOD PHOSPHATE 10 MG/ML 1 ML VIAL IV ONE; HEPARIN SODIUM,PORCINE 5,000 UNIT/ML 1 ML VIAL SQ ONE; HYDROmorphone 1 MG/ML 1 ML SYRINGE IVP PRN; LACTATED RINGERS 1,000 ML IV SCH; LIDOCAINE 1% 20 ML VIAL (10MG/ML) FOR IV START INTRADERMA PRN; MIDAZOLAM 2 MG/2 ML VIAL IV PRN; ONDANSETRON 4 MG/2 ML VIAL IVP ONE; Pre Op ABX Message 1 EACH MISC MISCELLANE ONE; SCOPOLAMINE 1.5MG/72HR PATCH TRANSDERM ONE
[2018-07-06 08:15] VITALS: RESP 16
--- NOTE | 2018-07-06 08:38 | P.GSHP ---
History of Present Illness H&P Date: 07/06/18 Chief Complaint: Myositis This is a 57-year-old male who is being worked up for myositis. Patient complains of weakness in his legs. Past Medical History Past Medical History: Hypertension Additional Past Medical History / Comment(s): Spouse states that pt has had increased congestion/cough last couple days-he was coughing and after that was experiencing difficulty hearing. Spouse states that the past couple days he has had some periods of confusion. 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 History of Any Multi-Drug Resistant Organisms: None Reported Past Surgical History: Cholecystectomy, Orthopedic Surgery, Prostate Surgery Additional Past Surgical History / Comment(s): 02/14/17 I&D penile abscess, PICC line since removed, R arm surgery (secondary to injury fell through plate glass) . Past Anesthesia/Blood Transfusion Reactions: No Reported Reaction Additional Psychological History / Comment(s): lives in the family home with his and 2 grandchildren. 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 No experience. No international travel. No animal exposures. No curent tobacco use-quit in 2003. No alcohol or recreational drug use. his only sexual partner Additional Past Alcohol Use History / Comment(s): Pt started smoking as a teen and quit in 2003. He has a nebulizer in the home. He uses a cane to ambulate. He has L foot drop and has a brace but needs to get a larger size shoe to accomodate the brace. Pt just completed home care for IV abx-cannot recall name of company. He drives. Pt states he has had to use oxygen in the home but none at this time. - Past Family History Mother Family Medical History: Coronary Artery Disease (CAD) Additional Family Medical History / Comment(s): Mother at the age of 86yrs. Father Family Medical History: No Reported History Additional Family Medical History / Comment(s): Father was healthy and lived into his late 70's. Medications and Allergies Home Medications Medication Instructions Recorded Confirmed Type Albuterol Inhaler [Ventolin Hfa 2 puff INHALATION RT-Q6H PRN 02/11/17 07/06/18 History Inhaler] Amitriptyline HCl 25 mg PO HS 02/11/17 07/06/18 History Desvenlafaxine [Pristiq ER] 100 mg PO DAILY 02/11/17 07/06/18 History Hydroxychloroquine Sulfate 200 mg PO DAILY 02/11/17 07/06/18 History [Plaquenil] Lisinopril-Hctz 20-25 mg 0.5 tab PO DAILY 02/11/17 07/06/18 History [Zestoretic 20-25] Omeprazole [PriLOSEC] 20 mg PO BID 02/11/17 07/06/18 History Pregabalin [Lyrica] 75 mg PO BID 04/06/17 07/06/18 History amLODIPine [Norvasc] 10 mg PO DAILY 04/06/17 07/06/18 History Albuterol Nebulizer 1 dose INHALATION DIRECTED PRN 07/04/18 07/06/18 History Calcium 600 W/Vit D 1 tab PO DAILY 07/04/18 07/06/18 History Ferrous Sulfate [Feosol] 325 mg PO DAILY 07/04/18 07/06/18 History HYDROcodone/APAP 10-325MG [[place] 1 tab PO TID PRN 07/04/18 07/06/18 History 10-325] Magnesium 400 mg PO DAILY 07/04/18 07/06/18 History Allergies Allergy/AdvReac Type Severity Reaction Status Date / Time No Known Allergies Allergy Verified 07/04/18 08:23 Surgical - Exam Vital Signs Temp Pulse Resp BP Pulse Ox 98.2 F 89 16 166/82 95 07/06/18 08:11 07/06/18 08:11 07/06/18 08:11 07/06/18 08:11 07/06/18 08:11 - General well developed, well nourished, no distress - Eyes PERRL - ENT normal pinna - Neck no masses - Respiratory normal expansion - Cardiovascular Rhythm: regular - Abdomen Abdomen: soft, non tender Assessment and Plan Assessment: Myositis. We'll perform left thigh muscle biopsy.
[2018-07-06] MEDS ORDERED: HYDROCORTISONE SUCCINATE 100 MG/2 ML VIAL IV ONE (08:40)
[2018-07-06] MEDS ORDERED: PROPOFOL 10 MG/ML 20 ML VIAL IV ONE (08:50)
[2018-07-06] MEDS ORDERED: LIDOCAINE 1% INJ 10MG/ML (20 ML MDV) ONE (08:50)
[2018-07-06] MEDS ORDERED: fentaNYL (PF) 50 MCG/ML 2 ML AMP ONE (08:50)
[2018-07-06] MEDS ORDERED: SUCCINYLCHOLINE CHLORIDE 100 MG/5 ML SYR IV ONE (08:50)
[2018-07-06] MEDS ORDERED: MIDAZOLAM 2 MG/2 ML VIAL ONE (08:50)
[2018-07-06] MEDS ORDERED: BUPIVACAIN-EPI 0.25%-1:200,000 30 ML VIAL SQ ONE ×2 (09:11)
[2018-07-06] MEDS ORDERED: SODIUM CHLORIDE 0.9% 50 ML with ceFAZolin 2,000 MG IV ONE ×2 (09:48)
--- NOTE | 2018-07-06 10:09 | P.OP ---
Date of Procedure: 07/06/18 Preoperative Diagnosis: Myositis Postoperative Diagnosis: Myositis Procedure(s) Performed: Left thigh muscle biopsy Anesthesia: MAC Surgeon: Shan Munoz Estimated Blood Loss (ml): 5 Pathology: other (Left thigh muscle biopsy) Condition: stable Disposition: PACU Description of Procedure: The patient was placed on the operating table in the supine position. He received general anesthesia. His left thigh was prepped and draped usual sterile fashion. A skin incision was made in the anterior thigh. And then using cautery the subcutaneous tissues were divided. The fascia was then opened with metastases months scissors. And then a muscle biopsy performed. The specimen measured 1.5 x 3 cm in length. This was divided and sent to pathology for direct position. The fascia was closed with 0 Vicryl suture. The skin was closed with 3-0 Monocryl suture. Dermabond was applied. Patient top procedure well and was sent to recovery in stable condition.
[2018-07-06 10:10] VITALS: TEMP 98
[2018-07-06] MEDS ORDERED: LACTATED RINGERS 1,000 ML IV ONE ×2 (10:12)
[2018-07-06 11:40] VITALS: BP 131/85; PULSE 68
== END 2018-07-06 11:56 | disposition home or self-care (01) ==
LOC: OR 07:41
PROVIDERS: ATTEND Surgery
DX: M60.9 Myositis, unspecified (principal); J44.9 Chronic obstructive pulmonary disease, unspecified; I10 Essential (primary) hypertension; J80 Acute respiratory distress syndrome; K21.9 Gastro-esophageal reflux disease without esophagitis; Z79.52 Long term (current) use of systemic steroids; Z79.899 Other long term (current) drug therapy; D86.0 Sarcoidosis of lung; Z87.891 Personal history of nicotine dependence
CPT/HCPCS: 20205; J2250; J1644; J1100; J1720; J2405; J2001; J3010; J1170; J0690; J0330; J2704

== ENCOUNTER 2019-04-10 10:52 | Emergency (ER) | payer OTHER ==
[2019-04-10 10:58] VITALS: BP 136/89; PULSE 92; RESP 18; TEMP 99.2
--- NOTE | 2019-04-10 11:20 | ED ---
Extremity Problem HPI - General Chief complaint: Extremity Problem,Nontraumatic Stated complaint: Lump on elbow Time Seen by Provider: 04/10/19 11:08 Source: patient, RN notes reviewed Mode of arrival: wheelchair Limitations: no limitations - History of Present Illness Initial comments: This a 58 year old male presents emergency Department chief complaint right elbow swelling. Patient states that feels sore. Patient denies any trauma. Denies fevers or chills no paresthesias. Patient is right-hand dominant. Patient states she's never had any like this in the past. He has not applied any heat or ice no medications taken for. - Related Data Home Medications Medication Instructions Recorded Confirmed Albuterol Inhaler [Ventolin Hfa 2 puff INHALATION RT-Q6H PRN 02/11/17 07/06/18 Inhaler] Amitriptyline HCl 25 mg PO HS 02/11/17 07/06/18 Desvenlafaxine [Pristiq ER] 100 mg PO DAILY 02/11/17 07/06/18 Hydroxychloroquine Sulfate 200 mg PO DAILY 02/11/17 07/06/18 [Plaquenil] Lisinopril-Hctz 20-25 mg 0.5 tab PO DAILY 02/11/17 07/06/18 [Zestoretic 20-25] Omeprazole [PriLOSEC] 20 mg PO BID 02/11/17 07/06/18 Pregabalin [Lyrica] 75 mg PO BID 04/06/17 07/06/18 amLODIPine [Norvasc] 10 mg PO DAILY 04/06/17 07/06/18 Albuterol Nebulizer 1 dose INHALATION DIRECTED PRN 07/04/18 07/06/18 Calcium 600 W/Vit D 1 tab PO DAILY 07/04/18 07/06/18 Ferrous Sulfate [Feosol] 325 mg PO DAILY 07/04/18 07/06/18 HYDROcodone/APAP 10-325MG [[place] 1 tab PO TID PRN 07/04/18 07/06/18 10-325] Magnesium 400 mg PO DAILY 07/04/18 07/06/18 Previous Rx's Medication Instructions Recorded Docusate [Colace] 100 mg PO BID #20 capsule 07/06/18 HYDROcodone/APAP 7.5-325MG [[place] 1 tab PO Q4H PRN 3 Days #18 tab 07/06/18 7.5-325] Ibuprofen [Motrin] 600 mg PO Q8HR PRN #20 tab 04/10/19 Allergies Allergy/AdvReac Type Severity Reaction Status Date / Time No Known Allergies Allergy Verified 04/10/19 10:56 Review of Systems ROS Statement: Those systems with pertinent positive or pertinent negative responses have been documented in the HPI. ROS Other: All systems not noted in ROS Statement are negative. Past Medical History Past Medical History: Hypertension Additional Past Medical History / Comment(s): Spouse states that pt has had increased congestion/cough last couple days-he was coughing and after that was experiencing difficulty hearing. Spouse states that the past couple days he has had some periods of confusion. 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 History of Any Multi-Drug Resistant Organisms: None Reported Past Surgical History: Cholecystectomy, Orthopedic Surgery, Prostate Surgery Additional Past Surgical History / Comment(s): 02/14/17 I&D penile abscess, PICC line since removed, R arm surgery (secondary to injury fell through plate glass). Past Anesthesia/Blood Transfusion Reactions: No Reported Reaction Past Psychological History: No Psychological Hx Reported Smoking Status: Former smoker Past Alcohol Use History: None Reported Past Drug Use History: None Reported - Past Family History Mother Family Medical History: Coronary Artery Disease (CAD) Additional Family Medical History / Comment(s): Mother at the age of 86yrs. Father Family Medical History: No Reported History Additional Family Medical History / Comment(s): Father was healthy and lived into his late 70's. General Exam Limitations: no limitations General appearance: alert, in no apparent distress Head exam: Present: atraumatic, normocephalic, normal inspection Respiratory exam: Present: normal lung sounds bilaterally. Absent: respiratory distress, wheezes, rales, rhonchi, stridor Cardiovascular Exam: Present: regular rate, normal rhythm, normal heart sounds. Absent: systolic murmur, diastolic murmur, rubs, gallop, clicks Extremities exam: Present: other (Right elbow full range of motion neurovascular intact there is swelling noted over the posterior aspect, over the olecranon process. Patient has no localized tenderness neurovascular intact there is no erythema no open sores or wounds. There is no increased warmth.) Course Vital Signs 04/10/19 10:56 Temperature 99.2 F Pulse Rate 92 Respiratory 18 Rate Blood Pressure 136/89 O2 Sat by Pulse 97 Oximetry Medical Decision Making - Medical Decision Making 58-year-old male presented for right elbow pain. Patient has olecranon bursitis. Patient we placed an Jey wrap. Patient advised ice, take anti- inflammatories. Patient will follow-up with orthopedics for possible drainage. Return parameters discussed. Disposition Clinical Impression: Olecranon bursitis, right elbow Disposition: HOME SELF-CARE Condition: Stable Instructions (If sedation given, give patient instructions): Elbow Bursitis (ED) Additional Instructions: Please return to the Emergency Department if symptoms worsen or any other concerns. Prescriptions: Ibuprofen [Motrin] 600 mg PO Q8HR PRN #20 tab PRN Reason: Pain Is patient prescribed a controlled substance at d/c from ED?: No Referrals: Christopher Bradshaw DO [Primary Care Provider] - 1-2 days Rik Overton MD [STAFF PHYSICIAN] - 1-2 days Time of Disposition: 11:19
== END 2019-04-10 11:22 | disposition home or self-care (01) ==
LOC: EC 10:52
DX: M70.21 Olecranon bursitis, right elbow (principal); I10 Essential (primary) hypertension; Z79.899 Other long term (current) drug therapy; Z87.891 Personal history of nicotine dependence
CPT/HCPCS: 99283

== ENCOUNTER 2020-12-30 13:10 | Inpatient (IN) | payer OTHER ==
[2020-12-30] MEDS ORDERED: SODIUM CHLORIDE 0.9% 1,000 ML IV ONE (13:18)
[2020-12-30 13:19] LABS: Glucose,Whole Blood 106 mg/dL (75-99)
--- NOTE | 2020-12-30 13:21 | ED ---
Altered Mental Status HPI - General Stated Complaint: AMS Time Seen by Provider: 12/30/20 13:11 - History of Present Illness Initial Comments: Patient presents with altered mental status. He has been getting progressively more somnolent and confused for at least one week according to the . Patient was found on the ground today. He was brought in by EMS. They cannot tell me any additional information. There is no one else in attendance provide further details. - Related Data Home Medications Medication Instructions Recorded Confirmed Desvenlafaxine [Pristiq ER] 100 mg PO DAILY 02/11/17 12/30/20 Hydroxychloroquine Sulfate 200 mg PO DAILY 02/11/17 12/30/20 [Plaquenil] Lisinopril-Hctz 20-25 mg 1 tab PO DAILY 02/11/17 12/30/20 [Zestoretic 20-25] amLODIPine [Norvasc] 10 mg PO DAILY 04/06/17 12/30/20 Ferrous Sulfate [Feosol] 325 mg PO DAILY 07/04/18 12/30/20 Albuterol Nebulized [Ventolin 2.5 mg INHALATION RT-QID PRN 12/30/20 12/30/20 Nebulized] Albuterol Sulfate [Proair Hfa] 2 puff INHALATION RT-QID PRN 12/30/20 12/30/20 Amitriptyline HCl [Elavil] 75 mg PO HS 12/30/20 12/30/20 Ascorbic Acid [Vitamin C] 500 - 1,000 mg PO DAILY 12/30/20 12/30/20 Calcium Carbonate/Vitamin D3 2 tab PO BID 12/30/20 12/30/20 [Calcium 600 mg-D3 20 mcg (800 unit)] Ibuprofen [Motrin] 800 mg PO TID PRN 12/30/20 12/30/20 QUEtiapine [SEROquel] 100 mg PO HS 12/30/20 12/30/20 Vitamin B Complex 1 cap PO DAILY 12/30/20 12/30/20 Allergies Allergy/AdvReac Type Severity Reaction Status Date / Time No Known Allergies Allergy Verified 12/30/20 14:36 Review of Systems ROS Statement: Those systems with pertinent positive or pertinent negative responses have been documented in the HPI. ROS Other: All systems not noted in ROS Statement are negative. Past Medical History Past Medical History: Hypertension Additional Past Medical History / Comment(s): Spouse states that pt has had increased congestion/cough last couple days-he was coughing and after that was experiencing difficulty hearing. Spouse states that the past couple days he has had some periods of confusion. 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 History of Any Multi-Drug Resistant Organisms: None Reported Past Surgical History: Cholecystectomy, Orthopedic Surgery, Prostate Surgery Additional Past Surgical History / Comment(s): 02/14/17 I&D penile abscess, PICC line since removed, R arm surgery (secondary to injury fell through plate glass). Past Anesthesia/Blood Transfusion Reactions: No Reported Reaction Past Psychological History: No Psychological Hx Reported Past Alcohol Use History: None Reported Past Drug Use History: None Reported - Past Family History Mother Family Medical History: Coronary Artery Disease (CAD) Additional Family Medical History / Comment(s): Mother at the age of 86yrs. Father Family Medical History: No Reported History Additional Family Medical History / Comment(s): Father was healthy and lived into his late 70's. General Exam Limitations: altered mental status General appearance: lethargic Head exam: Present: atraumatic Eye exam: Present: normal appearance, PERRL ENT exam: Present: mucous membranes dry Neck exam: Present: normal inspection. Absent: tenderness Respiratory exam: Present: normal lung sounds bilaterally. Absent: respiratory distress, wheezes Cardiovascular Exam: Present: regular rate, normal rhythm GI/Abdominal exam: Present: soft. Absent: distended, tenderness Extremities exam: Present: normal capillary refill. Absent: tenderness Back exam: Present: normal inspection. Absent: tenderness, CVA tenderness (R) Neurological exam: Present: altered Course Vital Signs 12/30/20 12/30/20 12/30/20 13:11 13:53 14:58 Temperature 98.5 F Pulse Rate 88 78 80 Respiratory 16 18 18 Rate Blood Pressure 112/62 124/74 103/72 O2 Sat by Pulse 95 99 99 Oximetry 12/30/20 12/30/20 16:09 18:20 Temperature Pulse Rate 80 75 Respiratory 18 18 Rate Blood Pressure 100/59 96/56 O2 Sat by Pulse 100 97 Oximetry Medical Decision Making - Medical Decision Making Patient presented with confusion and altered mental status. He has rhabdomyolysis. He is given IV fluids. He will be admitted to the hospital. - Lab Data Result diagrams: 12/30/20 13:38 12/30/20 13:38 Lab Results 12/30/20 12/30/20 12/30/20 Range/Units 11:30 13:17 13:38 WBC 8.7 (3.8-10.6) k/uL RBC 3.80 L (4.30-5.90) m/uL Hgb 11.5 L (13.0-17.5) gm/dL Hct 32.9 L (39.0-53.0) % MCV 86.5 (80.0-100.0) fL MCH 30.2 (25.0-35.0) pg MCHC 34.9 (31.0-37.0) g/dL RDW 14.6 (11.5-15.5) % Plt Count 274 (150-450) k/uL MPV 7.5 Neutrophils % 58 % Lymphocytes % 27 % Monocytes % 8 % Eosinophils % 5 % Basophils % 1 % Neutrophils # 5.0 (1.3-7.7) k/uL Lymphocytes # 2.4 (1.0-4.8) k/uL Monocytes # 0.7 (0-1.0) k/uL Eosinophils # 0.4 (0-0.7) k/uL Basophils # 0.0 (0-0.2) k/uL PT (9.0-12.0) sec INR (<1.2) APTT (22.0-30.0) sec Sodium (137-145) mmol/L Potassium (3.5-5.1) mmol/L Chloride (98-107) mmol/L Carbon Dioxide (22-30) mmol/L Anion Gap mmol/L BUN (9-20) mg/dL Creatinine (0.66-1.25) mg/dL Est GFR (CKD-EPI)AfAm (>60 ml/min/1.73 sqM) Est GFR (CKD-EPI)NonAf (>60 ml/min/1.73 sqM) Glucose (74-99) mg/dL POC Glucose (mg/dL) 106 H (75-99) mg/dL POC Glu Costume Mistress ID Denis Thomas Calcium (8.4-10.2) mg/dL Total Bilirubin (0.2-1.3) mg/dL AST (17-59) U/L ALT (4-49) U/L Alkaline Phosphatase (38-126) U/L Ammonia (<30) umol/L Creatine Kinase (55-170) U/L Troponin I (0.000-0.034) ng/mL Total Protein (6.3-8.2) g/dL Albumin (3.5-5.0) g/dL Urine Color Urine Appearance (Clear) Urine pH (5.0-8.0) Ur Specific Garber (1.001-1.035) Urine Protein (Negative) Urine Glucose (UA) (Negative) Urine Ketones (Negative) Urine Blood (Negative) Urine Nitrite (Negative) Urine Bilirubin (Negative) Urine Urobilinogen (<2.0) mg/dL Ur Leukocyte Esterase (Negative) Urine Opiates Screen (NotDetected) Ur Oxycodone Screen (NotDetected) Urine Methadone Screen (NotDetected) Ur Propoxyphene Screen (NotDetected) Ur Barbiturates Screen (NotDetected) U Tricyclic Antidepress (NotDetected) Ur Phencyclidine Scrn (NotDetected) Ur Amphetamines Screen (NotDetected) U Methamphetamines Scrn (NotDetected) U Benzodiazepines Scrn (NotDetected) Urine Cocaine Screen (NotDetected) U Marijuana (THC) Screen (NotDetected) Serum Alcohol mg/dL Coronavirus (PCR) Not Detected (Not Detectd) 12/30/20 12/30/20 12/30/20 Range/Units 13:38 13:38 13:38 WBC (3.8-10.6) k/uL RBC (4.30-5.90) m/uL Hgb (13.0-17.5) gm/dL Hct (39.0-53.0) % MCV (80.0-100.0) fL MCH (25.0-35.0) pg MCHC (31.0-37.0) g/dL RDW (11.5-15.5) % Plt Count (150-450) k/uL MPV Neutrophils % % Lymphocytes % % Monocytes % % Eosinophils % % Basophils % % Neutrophils # (1.3-7.7) k/uL Lymphocytes # (1.0-4.8) k/uL Monocytes # (0-1.0) k/uL Eosinophils # (0-0.7) k/uL Basophils # (0-0.2) k/uL PT 10.5 (9.0-12.0) sec INR 1.0 (<1.2) APTT 24.1 (22.0-30.0) sec Sodium 136 L (137-145) mmol/L Potassium 3.9 (3.5-5.1) mmol/L Chloride 102 (98-107) mmol/L Carbon Dioxide 24 (22-30) mmol/L Anion Gap 10 mmol/L BUN 13 (9-20) mg/dL Creatinine 0.89 (0.66-1.25) mg/dL Est GFR (CKD-EPI)AfAm >90 (>60 ml/min/1.73 sqM) Est GFR (CKD-EPI)NonAf >90 (>60 ml/min/1.73 sqM) Glucose 101 H (74-99) mg/dL POC Glucose (mg/dL) (75-99) mg/dL POC Glu Costume Mistress ID Calcium 10.0 (8.4-10.2) mg/dL Total Bilirubin 0.3 (0.2-1.3) mg/dL AST 68 H (17-59) U/L ALT 54 H (4-49) U/L Alkaline Phosphatase 89 (38-126) U/L Ammonia (<30) umol/L Creatine Kinase 1370 H* (55-170) U/L Troponin I (0.000-0.034) ng/mL Total Protein 7.0 (6.3-8.2) g/dL Albumin 4.3 (3.5-5.0) g/dL Urine Color Light Yellow Urine Appearance Clear (Clear) Urine pH 6.0 (5.0-8.0) Ur Specific Garber 1.008 (1.001-1.035) Urine Protein Negative (Negative) Urine Glucose (UA) Negative (Negative) Urine Ketones Negative (Negative) Urine Blood Negative (Negative) Urine Nitrite Negative (Negative) Urine Bilirubin Negative (Negative) Urine Urobilinogen <2.0 (<2.0) mg/dL Ur Leukocyte Esterase Negative (Negative) Urine Opiates Screen Not Detected (NotDetected) Ur Oxycodone Screen Not Detected (NotDetected) Urine Methadone Screen Not Detected (NotDetected) Ur Propoxyphene Screen Not Detected (NotDetected) Ur Barbiturates Screen Not Detected (NotDetected) U Tricyclic Antidepress Not Detected (NotDetected) Ur Phencyclidine Scrn Not Detected (NotDetected) Ur Amphetamines Screen Not Detected (NotDetected) U Methamphetamines Scrn Not Detected (NotDetected) U Benzodiazepines Scrn Detected H (NotDetected) Urine Cocaine Screen Not Detected (NotDetected) U Marijuana (THC) Screen Not Detected (NotDetected) Serum Alcohol mg/dL Coronavirus (PCR) (Not Detectd) 12/30/20 12/30/20 12/30/20 Range/Units 13:38 13:38 13:38 WBC (3.8-10.6) k/uL RBC (4.30-5.90) m/uL Hgb (13.0-17.5) gm/dL Hct (39.0-53.0) % MCV (80.0-100.0) fL MCH (25.0-35.0) pg MCHC (31.0-37.0) g/dL RDW (11.5-15.5) % Plt Count (150-450) k/uL MPV Neutrophils % % Lymphocytes % % Monocytes % % Eosinophils % % Basophils % % Neutrophils # (1.3-7.7) k/uL Lymphocytes # (1.0-4.8) k/uL Monocytes # (0-1.0) k/uL Eosinophils # (0-0.7) k/uL Basophils # (0-0.2) k/uL PT (9.0-12.0) sec INR (<1.2) APTT (22.0-30.0) sec Sodium (137-145) mmol/L Potassium (3.5-5.1) mmol/L Chloride (98-107) mmol/L Carbon Dioxide (22-30) mmol/L Anion Gap mmol/L BUN (9-20) mg/dL Creatinine (0.66-1.25) mg/dL Est GFR (CKD-EPI)AfAm (>60 ml/min/1.73 sqM) Est GFR (CKD-EPI)NonAf (>60 ml/min/1.73 sqM) Glucose (74-99) mg/dL POC Glucose (mg/dL) (75-99) mg/dL POC Glu Costume Mistress ID Calcium (8.4-10.2) mg/dL Total Bilirubin (0.2-1.3) mg/dL AST (17-59) U/L ALT (4-49) U/L Alkaline Phosphatase (38-126) U/L Ammonia 29 (<30) umol/L Creatine Kinase (55-170) U/L Troponin I <0.012 (0.000-0.034) ng/mL Total Protein (6.3-8.2) g/dL Albumin (3.5-5.0) g/dL Urine Color Urine Appearance (Clear) Urine pH (5.0-8.0) Ur Specific Garber (1.001-1.035) Urine Protein (Negative) Urine Glucose (UA) (Negative) Urine Ketones (Negative) Urine Blood (Negative) Urine Nitrite (Negative) Urine Bilirubin (Negative) Urine Urobilinogen (<2.0) mg/dL Ur Leukocyte Esterase (Negative) Urine Opiates Screen (NotDetected) Ur Oxycodone Screen (NotDetected) Urine Methadone Screen (NotDetected) Ur Propoxyphene Screen (NotDetected) Ur Barbiturates Screen (NotDetected) U Tricyclic Antidepress (NotDetected) Ur Phencyclidine Scrn (NotDetected) Ur Amphetamines Screen (NotDetected) U Methamphetamines Scrn (NotDetected) U Benzodiazepines Scrn (NotDetected) Urine Cocaine Screen (NotDetected) U Marijuana (THC) Screen (NotDetected) Serum Alcohol <10 mg/dL Coronavirus (PCR) (Not Detectd) 12/30/20 14:15 Twelve-lead EKG shows ventricular rate 88 bpm, normal KS interval and QRS complexes, no ST elevation or depression, interpreted by me as normal sinus rhythm. Disposition Clinical Impression: Rhabdomyolysis, Confusion Disposition: ADMITTED IP TO THIS HOSP Condition: Fair Is patient prescribed a controlled substance at d/c from ED?: No
[2020-12-30 14:03] LABS: Basophils % (A) 1 %; Eosinophils # (A) 0.4 k/uL (0-0.7); Eosinophils % (A) 5 %; HCT 32.9 % (39.0-53.0); HGB 11.5 gm/dL (13.0-17.5); Lymphocytes # (A) 2.4 k/uL (1.0-4.8); Lymphocytes % (A) 27 %; MCH 30.2 pg (25.0-35.0); MCHC 34.9 g/dL (31.0-37.0); MCV 86.5 fL (80.0-100.0); Mean Platelet Volume 7.5; Monocytes # (A) 0.7 k/uL (0-1.0); Monocytes % (A) 8 %; Neutrophils % (A) 58 %; Platelet Count 274 k/uL (150-450); RDW 14.6 % (11.5-15.5); WBC 8.7 k/uL (3.8-10.6)
--- NOTE | 2020-12-30 14:03 | CT ---
EXAMINATION TYPE: CT brain wo con DATE OF EXAM: 12/30/2020 COMPARISON: 04/10/2017 HISTORY: 60-year-old male confusion, altered mental status TECHNIQUE: Examination was done in axial plane without intravenous contrast. Coronal and sagittal r econstructions performed. CT DLP: 1099.4 mGycm Automated exposure control for dose reduction was used. FINDINGS: There is no evidence of acute intracranial hemorrhage, acute ischemic changes, mass, mass-effect, or extra-axial fluid collection. There is no effacement of cerebral sulci or basal subarachnoid cister ns. There is no hydrocephalus. There is no midline shift. Haywood-white matter distinction is preserv ed. Dense dural calcifications along the falx cerebri are unchanged. Partially empty sella. Paranasal sinuses and mastoid air cells are well pneumatized. Orbits and globes are intact. IMPRESSION: No acute intracranial abnormality seen.
[2020-12-30 14:04] LABS: Appearance,Urine Clear (Clear); Bilirubin,Urine Negative (Negative); Blood,Urine Negative (Negative); Color,Urine Light Yellow; Glucose,Urine (UA) Negative (Negative); Ketones,Urine Negative (Negative); Leukocyte Esterase,Urine Negative (Negative); Nitrite,Urine Negative (Negative); Protein,Urine Negative (Negative); Specific Gravity,Urine 1.008 (1.001-1.035); Urobilinogen,Urine <2.0 mg/dL (<2.0)
[2020-12-30 14:08] LABS: Partial Thromboplastin Time 24.1 sec (22.0-30.0); Prothrombin Time 10.5 sec (9.0-12.0)
[2020-12-30 14:10] LABS: ALT 54 U/L (4-49); AST 68 U/L (17-59); African American GFR (CKD) >90 (>60 ml/min/1.73 sqM); Albumin 4.3 g/dL (3.5-5.0); Alkaline Phosphatase 89 U/L (38-126); Anion Gap 10 mmol/L; Blood Urea Nitrogen 13 mg/dL (9-20); Carbon Dioxide 24 mmol/L (22-30); Chloride 102 mmol/L (98-107); Glucose 101 mg/dL (74-99); Non-African American GFR(CKD) >90 (>60 ml/min/1.73 sqM); Potassium 3.9 mmol/L (3.5-5.1); Sodium 136 mmol/L (137-145); Total Bilirubin 0.3 mg/dL (0.2-1.3)
[2020-12-30 14:17] LABS: Amphetamine Screen,Urine Not Detected (NotDetected); Barbiturate Screen,Urine Not Detected (NotDetected); Benzodiazepines Screen,Urine Detected (NotDetected); Cocaine Screen,Urine Not Detected (NotDetected); Methadone Screen, Urine Not Detected (NotDetected); Opiate Screen,Urine Not Detected (NotDetected); Oxycodone Screen, Urine Not Detected (NotDetected); Phencyclidine Screen,Urine Not Detected (NotDetected); Tricyclic Antidepressant,Urine Not Detected (NotDetected); Urn Cannabinoid Scrn Not Detected (NotDetected)
[2020-12-30 14:20] LABS: Creatine Kinase 1370 U/L (55-170)
--- NOTE | 2020-12-30 14:40 | XR ---
EXAMINATION TYPE: XR chest 1V portable DATE OF EXAM: 12/30/2020 COMPARISON: 04/13/2017 INDICATION: Altered mental status TECHNIQUE: Single frontal view of the chest is obtained. FINDINGS: The heart size is normal. The pulmonary vasculature is prominent. The lungs are clear. IMPRESSION: 1. Correlate for early volume overload.
[2020-12-30] MEDS ORDERED: DOCUSATE 100 MG CAP PO PRN (15:30)
[2020-12-30] MEDS ORDERED: ONDANSETRON 4 MG/2 ML VIAL IVP PRN (15:30)
[2020-12-30] MEDS ORDERED: TEMAZEPAM 15 MG CAP PO PRN (15:30)
[2020-12-30] MEDS ORDERED: MAG HYDROX/AL HYDROX/SIMETH 30 ML CUP PO PRN (15:30)
[2020-12-30] MEDS ORDERED: NALOXONE 0.4 MG/ML 1 ML VIAL IV PRN (15:30)
[2020-12-30] MEDS ORDERED: HYDROcodone/APAP 5-325MG 1 EACH TAB PO PRN (15:30)
[2020-12-30] MEDS ORDERED: ALBUTEROL NEBULIZED 2.5 MG/3 ML INHALATION PRN (15:35)
[2020-12-30] MEDS ORDERED: ALBUTEROL HFA INHALER INHALATION PRN (15:35)
[2020-12-30] MEDS ORDERED: SODIUM CHLORIDE 0.9% 1,000 ML IV STA (16:41)
[2020-12-30] MEDS ORDERED: HALOPERIDOL LACTATE 5 MG/ML 1 ML VIAL IVP PRN (19:22)
[2020-12-30] MEDS ORDERED: LORazepam 2 MG/ML INJ IV PRN (19:37)
[2020-12-30] MEDS ORDERED: AMITRIPTYLINE HCL 25 MG TAB PO SCH (21:00)
[2020-12-30] MEDS: QUEtiapine 100 MG TAB PO SCH (22:39)
--- NOTE | 2020-12-30 23:00 | P.HPIM ---
History of Present Illness H&P Date: 12/30/20 Chief Complaint: Confusion Patient is a 60-year-old male with a known history of hypertension and other multiple medical problems and possible psychiatric condition was brought to the hospital by EMS due to altered mental status and confusion. According to his patient has been more somnolent and confused since last Tuesday. Apparently patient was found on the ground by his neighbor. Last couple days patient has been more confused and even took his grandkids to store and also buying erratic things. Patient was having slurred speech on admission. Does not any fever or chills. no focal weakness, No nausea vomiting or diarrhea. No abdominal pain as per the family. No cough or sputum production. No chest pain or shortness of breath. Initially while in the ER patient was confused but lateral became very agitated and pulled out his lines. Patient was also having at his family and became paranoid. CT head showed no acute intracranial abnormality. Chest x-ray showed correlate for early volume overload. EKG showed normal sinus rhythm Lab data showed WBC 8.7 hemoglobin 11.5 and platelets 274 Sodium 136 potassium 3.9 chloride 102 BUN 13 creatinine 0.89 AST 68 ALT 54 alk phos 89 ammonia 29 CPK 1370 Troponin x3 - UDS is positive for benzodiazepines. Coronavirus PCR not detected. Review of Systems Complete review of systems could not be obtained from the patient. Past Medical History Past Medical History: Hypertension Additional Past Medical History / Comment(s): Spouse states that pt has had increased congestion/cough last couple days-he was coughing and after that was experiencing difficulty hearing. Spouse states that the past couple days he has had some periods of confusion. 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 History of Any Multi-Drug Resistant Organisms: None Reported Past Surgical History: Cholecystectomy, Orthopedic Surgery, Prostate Surgery Additional Past Surgical History / Comment(s): 02/14/17 I&D penile abscess, PICC line since removed, R arm surgery (secondary to injury fell through plate glass). Past Anesthesia/Blood Transfusion Reactions: No Reported Reaction Past Psychological History: No Psychological Hx Reported Past Alcohol Use History: None Reported Past Drug Use History: None Reported - Past Family History Mother Family Medical History: Coronary Artery Disease (CAD) Additional Family Medical History / Comment(s): Mother at the age of 86yrs. Father Family Medical History: No Reported History Additional Family Medical History / Comment(s): Father was healthy and lived into his late 70's. Medications and Allergies Home Medications Medication Instructions Recorded Confirmed Type Desvenlafaxine [Pristiq ER] 100 mg PO DAILY 02/11/17 12/30/20 History Hydroxychloroquine Sulfate 200 mg PO DAILY 02/11/17 12/30/20 History [Plaquenil] Lisinopril-Hctz 20-25 mg 1 tab PO DAILY 02/11/17 12/30/20 History [Zestoretic 20-25] amLODIPine [Norvasc] 10 mg PO DAILY 04/06/17 12/30/20 History Ferrous Sulfate [Feosol] 325 mg PO DAILY 07/04/18 12/30/20 History Albuterol Nebulized [Ventolin 2.5 mg INHALATION RT-QID PRN 12/30/20 12/30/20 History Nebulized] Albuterol Sulfate [Proair Hfa] 2 puff INHALATION RT-QID PRN 12/30/20 12/30/20 History Amitriptyline HCl [Elavil] 75 mg PO HS 12/30/20 12/30/20 History Ascorbic Acid [Vitamin C] 500 - 1,000 mg PO DAILY 12/30/20 12/30/20 History Calcium Carbonate/Vitamin D3 2 tab PO BID 12/30/20 12/30/20 History [Calcium 600 mg-D3 20 mcg (800 unit)] Ibuprofen [Motrin] 800 mg PO TID PRN 12/30/20 12/30/20 History QUEtiapine [SEROquel] 100 mg PO HS 12/30/20 12/30/20 History Vitamin B Complex 1 cap PO DAILY 12/30/20 12/30/20 History Allergies Allergy/AdvReac Type Severity Reaction Status Date / Time No Known Allergies Allergy Verified 12/30/20 14:36 Physical Exam Vitals: Vital Signs Temp Pulse Resp BP Pulse Ox 12/30/20 18:20 75 18 96/56 97 12/30/20 16:09 80 18 100/59 100 12/30/20 14:58 80 18 103/72 99 12/30/20 13:53 78 18 124/74 99 12/30/20 13:11 98.5 F 88 16 112/62 95 Intake and Output 12/30/20 12/30/20 12/30/20 06:59 14:59 22:59 Other: Weight 122.47 kg PHYSICAL EXAMINATION: Patient is lying in the bed comfortably, no acute distress.Unresponsive. .. HEENT: Normocephalic. Neck is supple. Pupils reactive. Nostrils clear. Oral cavity is moist. Ears reveal no drainage. Neck reveals no JVD, carotid bruits, or thyromegaly. CHEST EXAMINATION: Trachea is central. Symmetrical expansion. Lung bhagat clear to auscultation and percussion. CARDIAC: Normal S1, S2 with no gallops. No murmurs ABDOMEN: Soft. Bowel sounds normal. No organomegaly. No abdominal bruits. Extremities: reveal no edema. No clubbing or cyanosis Neurologically. Unresponsive. No gross focal deficits noted Skin: No rash or skin lesions. Psychiatric: could not be assesed.l Musculoskeletal: No joint swelling or deformity. Results CBC & Chem 7: 12/30/20 13:38 12/30/20 13:38 Labs: Abnormal Lab Results - Last 24 Hours (Table) 12/30/20 12/30/20 12/30/20 Range/Units 13:17 13:38 13:38 RBC 3.80 L (4.30-5.90) m/uL Hgb 11.5 L (13.0-17.5) gm/dL Hct 32.9 L (39.0-53.0) % Sodium (137-145) mmol/L Glucose (74-99) mg/dL POC Glucose (mg/dL) 106 H (75-99) mg/dL AST (17-59) U/L ALT (4-49) U/L Creatine Kinase (55-170) U/L U Benzodiazepines Scrn Detected H (NotDetected) 12/30/20 Range/Units 13:38 RBC (4.30-5.90) m/uL Hgb (13.0-17.5) gm/dL Hct (39.0-53.0) % Sodium 136 L (137-145) mmol/L Glucose 101 H (74-99) mg/dL POC Glucose (mg/dL) (75-99) mg/dL AST 68 H (17-59) U/L ALT 54 H (4-49) U/L Creatine Kinase 1370 H* (55-170) U/L U Benzodiazepines Scrn (NotDetected) Thrombosis Risk Factor Assmnt - DVT/VTE Prophylaxis DVT/VTE Prophylaxis: Pharmacologic Prophylaxis ordered Assessment and Plan Assessment: Confusion/altered mental status possible toxic encephalopathy. Rule out acute CVA. CT head is negative. Acute rhabdomyolysis with CPK level 1370 Mild transaminitis Hypertension Underlying unknown psychiatric condition. DVT prophylaxis with heparin subcu Plan Patient will be continued IV hydration and monitor renal function and CK level. Continue with home medications and neurology consultation.Continue with neurochecks. Follow-up closely. Prognosis is guarded at this time. Time with Patient: Greater than 30
[2020-12-31] MEDS: HEPARIN SODIUM,PORCINE/PF 5,000 UNIT/0.5 ML SYRINGE SQ SCH ×4 (00:27→23:50)
[2020-12-31] MEDS ORDERED: NON FORMULARY DRUG (Vitamin B Complex [Vitamin B Complex] 1 EACH Capsule) PO SCH (09:00)
[2020-12-31] MEDS: amLODIPine 10 MG TAB PO SCH (09:47)
--- NOTE | 2020-12-31 10:45 | P.CNNES ---
History of Present Illness Consult date: 12/31/20 Requesting physician: Jaspreet Mancia Reason for Consult: confusion History of Present Illness: This is a 60-year-old gentleman with medical history of pulmonary sarcoidosis (diagnosed in year 1999), hypertension, unknown psych disorder, ex-tobacco use and alcohol use (last use for both was in 1999) who presented emergency department on 12/30/2020 with altered mental status. Per the patient he stated that he was working on his car and it was hot yesterday and then when he got up to go to his porch at his house he passed out. Prior to episode he said that he was drenched in sweat. He denies of any visual disturbance, any chest pain prior to episode that. He stated that he was found down by his neighbor. According to the patient he denies being told that he had any jerking of any extremities, rolling of the eyes backward foaming around the mouth. He denies any urinary or bowel incontinence. He denies any previous episodes similar to this. He denies any history of seizures. Patient denies of any fever or sick contacts. He denies any history of stroke or TIA. Patient feels like he is doing much better today and asked me if he can go home today. Per the ED team and it is stated the patient has been progressively more somnolent and confused for the last 1 week and that was reported by the the to the ED team. And was found on the ground on 12/30/2020 and that led him of come to the hospital. Patient stated that he has a diagnosis of pulmonary sarcoidosis diagnosed according to the patient thousand by Dr. Larose. He stated that he is on prednisone. He has history of tobacco and alcohol use and he stated that he used to the smoke 2 packs a day and he smoked for 3-4 years and the drank heavily in the last drink and smoke in the was in the year 1999. He cannot tell me what psych history he has but when I looked at the medication he is on 3 different medication and he is unsure why. Patient home medication is seen over the medical records is amlodipine, Seroquel, amitriptyline, Desvenlafaxine, Lisnopril. Upon reviewing Dr. Ross's notes and impression: it is mentioned that the patient has obstructive sleep apnea which is under investigation. Overall suspicion is low. Snoring; proximal atrial fibrillation, history of pulmonary sarcoidosis, remote history of neurosarcoidosis and hypertension. Some of the workup in the hospital consisted of: Initial vital signs: Blood pressure of 112/62, heart rate of 88, respiratory of 16, temperature of 98.5. Oral and pulse ox of 95% room air. Since the patient has been the hospital he's been afebrile. CT of the head is reported as no acute intracranial abnormality seen. I personally reviewed the CT of the head and I felt like the patient has calcified meningioma over the falx region on the anterior middle portion. EKG is reported as normal sinus rhythm. Normal EKG. Initial white blood cell is 8.7 which is normal. The hemoglobin is 11.5 with slightly low. Initial sodium is 136 which is minimally low. Initial POC glucose is 106 and the serum glucose is 101 which is unremarkable. Patient AST 68 and the ALT is 54 which slightly elevated. The CK level is 1370 which is elevated. Otherwise the creatinine is 0.89, calcium is 10.0, ammonia level is 29 and those are unremarkable. Urine drug screen is positive for benzo otherwise the basic is nondetected in the serum alcohol was less than 10. Review of Systems Review of system: The 12 point system was reviewed and apparent positive and negative per HPI. Past Medical History Past Medical History: Hypertension Additional Past Medical History / Comment(s): Spouse states that pt has had increased congestion/cough last couple days-he was coughing and after that was experiencing difficulty hearing. Spouse states that the past couple days he has had some periods of confusion. 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 History of Any Multi-Drug Resistant Organisms: None Reported Past Surgical History: Cholecystectomy, Orthopedic Surgery, Prostate Surgery Additional Past Surgical History / Comment(s): 02/14/17 I&D penile abscess, PICC line since removed, R arm surgery (secondary to injury fell through plate glass). Past Anesthesia/Blood Transfusion Reactions: No Reported Reaction Past Psychological History: No Psychological Hx Reported Past Alcohol Use History: None Reported Past Drug Use History: None Reported - Past Family History Mother Family Medical History: Coronary Artery Disease (CAD) Additional Family Medical History / Comment(s): Mother at the age of 86yrs. Father Family Medical History: No Reported History Additional Family Medical History / Comment(s): Father was healthy and lived into his late 70's. Medications and Allergies Home Medications Medication Instructions Recorded Confirmed Type Desvenlafaxine [Pristiq ER] 100 mg PO DAILY 02/11/17 12/30/20 History Hydroxychloroquine Sulfate 200 mg PO DAILY 02/11/17 12/30/20 History [Plaquenil] Lisinopril-Hctz 20-25 mg 1 tab PO DAILY 02/11/17 12/30/20 History [Zestoretic 20-25] amLODIPine [Norvasc] 10 mg PO DAILY 04/06/17 12/30/20 History Ferrous Sulfate [Feosol] 325 mg PO DAILY 07/04/18 12/30/20 History Albuterol Nebulized [Ventolin 2.5 mg INHALATION RT-QID PRN 12/30/20 12/30/20 History Nebulized] Albuterol Sulfate [Proair Hfa] 2 puff INHALATION RT-QID PRN 12/30/20 12/30/20 History Amitriptyline HCl [Elavil] 75 mg PO HS 12/30/20 12/30/20 History Ascorbic Acid [Vitamin C] 500 - 1,000 mg PO DAILY 12/30/20 12/30/20 History Calcium Carbonate/Vitamin D3 2 tab PO BID 12/30/20 12/30/20 History [Calcium 600 mg-D3 20 mcg (800 unit)] Ibuprofen [Motrin] 800 mg PO TID PRN 12/30/20 12/30/20 History QUEtiapine [SEROquel] 100 mg PO HS 12/30/20 12/30/20 History Vitamin B Complex 1 cap PO DAILY 12/30/20 12/30/20 History Allergies Allergy/AdvReac Type Severity Reaction Status Date / Time No Known Allergies Allergy Verified 12/30/20 14:36 Physical Examination - Vital Signs Vital Signs: Vital Signs Temp Pulse Pulse Pulse Resp BP BP 12/31/20 09:29 12/31/20 08:00 82 65 18 12/31/20 07:49 97.9 F 65 18 109/64 12/31/20 02:00 96.8 F L 82 18 93/58 12/30/20 21:34 98.5 F 74 18 97/56 12/30/20 18:20 75 18 96/56 12/30/20 16:09 80 18 100/59 12/30/20 14:58 80 18 103/72 12/30/20 13:53 78 18 124/74 12/30/20 13:11 98.5 F 88 16 112/62 Pulse Ox 12/31/20 09:29 99 12/31/20 08:00 12/31/20 07:49 99 12/31/20 02:00 92 L 12/30/20 21:34 97 12/30/20 18:20 97 12/30/20 16:09 100 12/30/20 14:58 99 12/30/20 13:53 99 12/30/20 13:11 95 Intake and Output 12/30/20 12/31/20 12/31/20 22:59 06:59 14:59 Output Total 1600 Balance -1600 Output: Urine 1600 Other: Voiding Method Indwelling Catheter Indwelling Catheter Weight 122.47 kg GENERAL: The patient is lying in bed and is not in acute distress. CHEST: The heart rate is regular rate rhythm. No murmurs to auscultation. No carotid bruit bilaterally. LUNG: Clear to auscultation bilaterally no wheezing noted throughout. Not labored breathing. ABDOMEN/GI: Bowel sounds present in all 4 quadrants. No tenderness to palpation throughout. NEUROLOGICAL: Higher mental function: The patient is awake, alert, oriented to self, place and time. Patient is following commands. No aphasia and no neglect. Cranial nerves: The pupils are round, equal and reactive to light and accommodation. Visual bhagat are full to confrontation throughout. Extraocular movement is intact no nystagmus is noted. Facial sensation is normal to touch throughout. The facial strength is normal throughout. Hearing is normal bilaterally to hand rub. Tongue is midline and moved [id number] without any difficulty. No dysarthria is noted. Shoulder shrug is normal bilaterally. Motor: Gait is deferred. The strength is 5 over 5 throughout. Normal tone and bulk. Cerebellum: Normal finger to nose heel to chin bilaterally. Sensation: Sensation is normal to touch throughout. Reflexes (right/left): 2+ throughout. Plantars are downgoing bilaterally. Results Urinalysis negative for urinary tract infection. Goldsmith virus PCR is nondetected - Laboratory Findings CBC and BMP: 06/08/21 13:38 12/30/20 13:38 Abnormal Lab Findings: Abnormal Labs 12/30/20 12/30/20 12/30/20 13:17 13:38 13:38 RBC 3.80 L Hgb 11.5 L Hct 32.9 L Sodium Glucose POC Glucose (mg/dL) 106 H AST ALT Creatine Kinase U Benzodiazepines Scrn Detected H 12/30/20 13:38 RBC Hgb Hct Sodium 136 L Glucose 101 H POC Glucose (mg/dL) AST 68 H ALT 54 H Creatine Kinase 1370 H* U Benzodiazepines Scrn Assessment and Plan Assessment: Syncopal episode. Possibly due to dehdryation. Rule out seizure (especially with history of neurosarcoidosis) vs cardiac in etiology (especially with hx of paroxysmal atrial fibrillation per medical records) Altered mentation for past one week. Encephalopathy of unknown etiology. Rule out intracranial process. Remote history of neurosarcoidosis (per medical records) Mild elevated AST and ALT with elevated CPK I feel it's a reactive since the patient was found down. History of Pulmonary sarodisois Hypertension Snoring Underlying unknown psychiatric condition Plan: * CT of the head is reported as no acute intracranial abnormality seen. I personally reviewed the CT of the head and I felt like the patient has calcified meningioma over the falx region on the anterior middle portion. * Patient AST 68 and the ALT is 54 which slightly elevated. The CK level is 1370 which is elevated. Otherwise the creatinine is 0.89, calcium is 10.0, ammonia level is 29 and those are unremarkable. * Urine drug screen is positive for benzo otherwise the basic is nondetected in the serum alcohol was less than 10. * I ordered routine EEG. I'll not start the patient on antiepileptic drugs unless there is epileptiform discharges or seizure on the EEG. * I ordered MRI of the brain with and without gadolinium to rule out any intracranial mass. * I ordered orthostatic vitals. * I consulted cardiology for syncopal episode. Patient has history of Paroxysmal atrial fibrillation. * Placed on Q4 hour neuro-check and continuos cardiac monitoring. * I consulted psychiatry team for unknown psychiatric disorder and on 3 different medications. * Currently the patient is on Ativan 2 mg IV every 6 hours for agitation and anxiety, [place] every 4 hours when necessary. Recommend avoiding any sedation/narcotic 00. That would affect the patient's mentation. * Will defer the rest of medical management to the primary team. Upon discharge, the patient needs to follow-up with neurologist as outpatient within 1-2 weeks as outpatient. The plan is discussed with the patient's nurse. Thank you for the consultation. Ravinder Ying MD Neuro-Hospitalist Time with Patient: Greater than 30
--- NOTE | 2020-12-31 13:01 | P.CRDCN ---
History of Present Illness History of present illness: HISTORY OF PRESENTING ILLNESS This is a pleasant 60-year-old male past medical history significant for sarcoidosis, hypertension and chronic back pain. 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 We have been asked to see in consultation for syncope. He is seen and examined laying flat resting comfortably in bed in no acute distress. He states he remembers going shopping yesterday and was feeling in his usual state of health. He was walking up on his porch and that is the last thing he can remember. He does not recall feeling dizzy or lightheaded, he had no symptoms of chest pain, shortness of breath or palpitations. His apparently found him on the porch. According to ER documentation he has been confused over the past couple weeks as well. He underwent an echocardiogram in 2017 revealing prese rved LV systolic function with ejection fraction 60-65%, at that time he had a trivial pericardial effusion and mild pulmonary hypertension with an RVSP of 40 mmHg. Review of previous EKGs for 2017 reveals sinus rhythm with PACs, PVCs and multifocal atrial tachycardia. No arrhythmias or A. fib noted. DIAGNOSTICS EKG reveals sinus mechanism with no acute ST or T-wave abnormalities. He has not been on telemetry since admission. Chest xray possible early volume fluid overload. CT of the brain is unremarkable. Laboratory reviewed, WBC 8.7, hemoglobin 11.5, platelets 274, sodium 136, potassium 3.9, creatinine 0.84, troponin negative 3, NT proBNP 1370. Current cardiac medications include amlodipine 10 mg daily and lisinopril/hydrochlorothiazide 20/25 mg daily. REVIEW OF SYSTEMS At the time of my exam: CONSTITUTIONAL: Denies fever or chills. CARDIOVASCULAR: Denies chest pain, shortness of breath, orthopnea, PND or palpitations. RESPIRATORY: Denies cough. GASTROINTESTINAL: Denies abdominal pain, diarrhea, constipation, nausea or vomiting. MUSCULOSKELETAL: Denies myalgias. NEUROLOGIC: Denies numbness, tingling, headacbe or weakness. ENDOCRINE: Denies fatigue, weight change, polydipsia or polyurina. GENITOURINARY: Denies burning, hematuria or urgency with micturation. HEMATOLOGIC: Denies history of anemia or bleeding. PHYSICAL EXAMINATION Blood pressure 109/64 heart rate 82 afebrile and maintaining oxygen saturation on room air. CONSTITUTIONAL: No apparent distress. HEENT: Head is normocephalic. Pupils are equal, round. Sclerae anicteric. Mucous membranes of the mouth are moist. No JVD. No carotid bruit. CHEST EXAMINATION: Lungs are clear to auscultation. No chest wall tenderness is noted on palpation or with deep breathing. HEART EXAMINATION: Regular rate and rhythm. S1, S2 heard. No murmurs, gallops or rub. ABDOMEN: Soft, nontender. Positive bowel sounds. EXTREMITIES: 2+ peripheral pulses, no lower extremity edema and no calf tenderness. NEUROLOGIC EXAMINATION: Patient is awake, alert and oriented x3. ASSESSMENT Syncope Rhabomyolysis Hypertension Sarcoidosis PLAN Syncope is concerning for possible cardiac arrhythmia. An acute coronary event has been ruled out. No evidence to suggest angina or fluid overload clinically. Echocardiogram has been obtained and will be reviewed. 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 Check for orthostatic changes. Ongoing monitoring overnight for any evidence of a significant arrhythmia. Thank you kindly for this consultation. Nurse Practitioner note has been reviewed, I agree with a documented findings and plan of care. Patient was seen and examined. Past Medical History Past Medical History: Hypertension Additional Past Medical History / Comment(s): Spouse states that pt has had increased congestion/cough last couple days-he was coughing and after that was experiencing difficulty hearing. Spouse states that the past couple days he has had some periods of confusion. 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 History of Any Multi-Drug Resistant Organisms: None Reported Past Surgical History: Cholecystectomy, Orthopedic Surgery, Prostate Surgery Additional Past Surgical History / Comment(s): 02/14/17 I&D penile abscess, PICC line since removed, R arm surgery (secondary to injury fell through plate glass). Past Anesthesia/Blood Transfusion Reactions: No Reported Reaction Past Psychological History: No Psychological Hx Reported Past Alcohol Use History: None Reported Past Drug Use History: None Reported - Past Family History Mother Family Medical History: Coronary Artery Disease (CAD) Additional Family Medical History / Comment(s): Mother at the age of 86yrs. Father Family Medical History: No Reported History Additional Family Medical History / Comment(s): Father was healthy and lived into his late 70's. Medications and Allergies Home Medications Medication Instructions Recorded Confirmed Type Desvenlafaxine [Pristiq ER] 100 mg PO DAILY 02/11/17 12/30/20 History Hydroxychloroquine Sulfate 200 mg PO DAILY 02/11/17 12/30/20 History [Plaquenil] Lisinopril-Hctz 20-25 mg 1 tab PO DAILY 02/11/17 12/30/20 History [Zestoretic 20-25] amLODIPine [Norvasc] 10 mg PO DAILY 04/06/17 12/30/20 History Ferrous Sulfate [Feosol] 325 mg PO DAILY 07/04/18 12/30/20 History Albuterol Nebulized [Ventolin 2.5 mg INHALATION RT-QID PRN 12/30/20 12/30/20 History Nebulized] Albuterol Sulfate [Proair Hfa] 2 puff INHALATION RT-QID PRN 12/30/20 12/30/20 History Amitriptyline HCl [Elavil] 75 mg PO HS 12/30/20 12/30/20 History Ascorbic Acid [Vitamin C] 500 - 1,000 mg PO DAILY 12/30/20 12/30/20 History Calcium Carbonate/Vitamin D3 2 tab PO BID 12/30/20 12/30/20 History [Calcium 600 mg-D3 20 mcg (800 unit)] Ibuprofen [Motrin] 800 mg PO TID PRN 12/30/20 12/30/20 History QUEtiapine [SEROquel] 100 mg PO HS 12/30/20 12/30/20 History Vitamin B Complex 1 cap PO DAILY 12/30/20 12/30/20 History Allergies Allergy/AdvReac Type Severity Reaction Status Date / Time No Known Allergies Allergy Verified 12/30/20 14:36 Physical Exam Vitals: Vital Signs Temp Pulse Pulse Pulse Resp BP BP 12/31/20 09:29 12/31/20 08:00 82 65 18 12/31/20 07:49 97.9 F 65 18 109/64 12/31/20 02:00 96.8 F L 82 18 93/58 12/30/20 21:34 98.5 F 74 18 97/56 12/30/20 18:20 75 18 96/56 12/30/20 16:09 80 18 100/59 12/30/20 14:58 80 18 103/72 12/30/20 13:53 78 18 124/74 12/30/20 13:11 98.5 F 88 16 112/62 Pulse Ox 12/31/20 09:29 99 12/31/20 08:00 12/31/20 07:49 99 12/31/20 02:00 92 L 12/30/20 21:34 97 12/30/20 18:20 97 12/30/20 16:09 100 12/30/20 14:58 99 12/30/20 13:53 99 12/30/20 13:11 95 Intake and Output 12/30/20 12/31/20 12/31/20 22:59 06:59 14:59 Output Total 1600 Balance -1600 Output: Urine 1600 Other: Voiding Method Indwelling Catheter Indwelling Catheter Weight 122.47 kg Results 12/30/20 13:38 12/30/20 13:38 Cardiac Enzymes 12/30/20 12/30/20 12/30/20 Range/Units 13:38 13:38 17:28 AST 68 H (17-59) U/L Troponin I <0.012 <0.012 (0.000-0.034) ng/mL 12/30/20 Range/Units 19:39 AST (17-59) U/L Troponin I <0.012 (0.000-0.034) ng/mL Coagulation 12/30/20 Range/Units 13:38 PT 10.5 (9.0-12.0) sec APTT 24.1 (22.0-30.0) sec CBC 12/30/20 Range/Units 13:38 WBC 8.7 (3.8-10.6) k/uL RBC 3.80 L (4.30-5.90) m/uL Hgb 11.5 L (13.0-17.5) gm/dL Hct 32.9 L (39.0-53.0) % Plt Count 274 (150-450) k/uL Comprehensive Metabolic Panel 12/30/20 Range/Units 13:38 Sodium 136 L (137-145) mmol/L Potassium 3.9 (3.5-5.1) mmol/L Chloride 102 (98-107) mmol/L Carbon Dioxide 24 (22-30) mmol/L BUN 13 (9-20) mg/dL Creatinine 0.89 (0.66-1.25) mg/dL Glucose 101 H (74-99) mg/dL Calcium 10.0 (8.4-10.2) mg/dL AST 68 H (17-59) U/L ALT 54 H (4-49) U/L Alkaline Phosphatase 89 (38-126) U/L Total Protein 7.0 (6.3-8.2) g/dL Albumin 4.3 (3.5-5.0) g/dL Current Medications Generic Name Dose Route Start Last Admin Trade Name Freq PRN Reason Stop Dose Admin Hydrocodone Bitart/Acetaminophen 1 each 12/30/20 15:30 Hydrocodone/Apap 5-325mg 1 Each Tab PO Q4HR PRN Moderate Pain Al Hydroxide/Mg Hydroxide 15 ml 12/30/20 15:30 Mag Hydrox/Al Hydrox/Simeth 30 Ml Cup PO Q6HR PRN Indigestion Albuterol Sulfate 2.5 mg 12/30/20 15:35 Albuterol Nebulized 2.5 Mg/3 Ml INHALATION RT-QID PRN Shortness Of Breath Amitriptyline HCl 75 mg 12/30/20 21:00 12/30/20 22:39 Amitriptyline Hcl 25 Mg Tab PO 75 mg HS JERAMY Administration Amlodipine Besylate 10 mg 12/31/20 09:00 12/31/20 09:47 Amlodipine 10 Mg Tab PO Not Given DAILY COUNT INCLUDES THE [facility] Desvenlafaxine Succinate 100 mg 12/31/20 09:00 Desvenlafaxine Succinate 50 Mg Tab.Er.24h PO DAILY COUNT INCLUDES THE [facility] Docusate Sodium 100 mg 12/30/20 15:30 Docusate 100 Mg Cap PO BID PRN Constipation Lisinopril/HCTZ 1 each 12/31/20 09:00 Lisinopril-Hctz 20-25 Mg 1 Each Tab PO DAILY COUNT INCLUDES THE [facility] Heparin Sodium (Porcine) 5,000 unit 12/31/20 00:00 12/31/20 09:51 Heparin Sodium,Porcine/Pf 5,000 Unit/0.5 Ml Syringe SQ 5,000 unit Q8HR JERAMY Administration Hydroxychloroquine Sulfate 200 mg 12/31/20 09:00 Hydroxychloroquine Sulfate 200 Mg Tab PO DAILY COUNT INCLUDES THE [facility] Lorazepam 2 mg 12/30/20 19:37 Lorazepam 2 Mg/Ml Inj IV Q6HR PRN Agitation or Acute Anxiety Naloxone HCl 0.2 mg 12/30/20 15:30 Naloxone 0.4 Mg/Ml 1 Ml Vial IV Q2M PRN Opioid Reversal Ondansetron HCl 4 mg 12/30/20 15:30 Ondansetron 4 Mg/2 Ml Vial IVP Q8HR PRN Nausea And Vomiting Quetiapine Fumarate 100 mg 12/30/20 21:00 12/30/20 22:39 Quetiapine 100 Mg Tab PO 100 mg HS JERAMY Administration Temazepam 15 mg 12/30/20 15:30 Temazepam 15 Mg Cap PO HS PRN Insomnia Intake and Output 12/30/20 12/31/20 12/31/20 22:59 06:59 14:59 Output Total 1600 Balance -1600 Output: Urine 1600 Other: Voiding Method Indwelling Catheter Indwelling Catheter Weight 122.47 kg 12/30/20 13:38 12/30/20 13:38
--- NOTE | 2020-12-31 13:16 | ECHOF ---
Referral Reason:syncope MEASUREMENTS -------- HEIGHT: 188.0 cm WEIGHT: 122.5 kg BP: RVIDd: 2.9 cm (< 3.3) IVSd: 1.0 cm (0.6 - 1.1) LVIDd: 4.6 cm (3.9 - 5.3) LVPWd: 1.0 cm (0.6 - 1.1) IVSs: 1.6 cm LVIDs: 3.3 cm LVPWs: 1.7 cm Ao Diam: 3.5 cm (2.0 - 3.7) AV Cusp: 2.4 cm (1.5 - 2.6) LA Diam: 3.5 cm (2.7 - 3.8) MV EXCURSION: 16.312 mm (> 18.000) MV EF SLOPE: 79 mm/s (70 - 150) EPSS: 0.3 cm MV E Jourdan: 0.79 m/s MV DecT: 248 ms MV A Jourdan: 0.62 m/s MV E/A Ratio: 1.26 RAP: 5.00 mmHg RVSP: 36.41 mmHg FINDINGS -------- This was a technically difficult study with suboptimal views. The left ventricular size is normal. Left ventricular wall thickness is normal. Overall left vent ricular systolic function is normal with, an EF between 55 - 60 %. The right ventricle is normal in size. The left atrial size is normal. The right atrial size is normal. Aortic valve is trileaflet and is mildly thickened. The mitral valve is normal. There is trace mitral regurgitation. The tricuspid valve appears structurally normal. Mild tricuspid regurgitation present. Right vent ricular systolic pressure is normal at < 35 mmHg. There is no pulmonic regurgitation present. The aortic root size is normal. IVC Not well visulized. There is no pericardial effusion. CONCLUSIONS -------- 1. The left ventricular size is normal. 2. Left ventricular wall thickness is normal. 3. Overall left ventricular systolic function is normal with, an EF between 55 - 60 %. 4. Aortic valve is trileaflet and is mildly thickened. 5. There is trace mitral regurgitation. 6. Mild tricuspid regurgitation present. 7. There is no pericardial effusion. WILDLIFE ECOLOGIST: Dalia Pope RD
--- NOTE | 2020-12-31 15:41 | P.CN ---
Psychiatric Consult - . Consult date: 12/31/20 Consult:: 12/31/20 15:32 IDENTIFYING DATA: This patient is a 60-year-old -[place] male currently lives with his in the house has 4 kids and is on disability. REASON FOR REFERRAL: Psychiatry was consulted for "unknown psychiatric history and on multiple medications". HISTORY OF PRESENT ILLNESS: The patient presented to the hospital and according to ER report patient had altered mental status and apparently has been more somnolent and confused for about one week according to patient's . Patient was found on the ground and EMS took patient to the hospital. Patient was admitted to the medical floors and found to have rhabdomyolysis, UDS is positive for benzodiazepines. Patient had a computed tomography scan of his head which did not show any acute changes. Neurology on board who ordered EEG and MRI. Patient nurse claims that he has no complaints with the patient and he has been doing fairly well. Patient was seen at bedside and agreeable sphincter movie writer. She was very mildly confused however was able to answer most questions appropriately. He claims that he was working on his car after going shopping and claims that he's been working harder on his car recently. He states that he couldn't get up the stairs and his neighbor was helping him however he claims that he "passed out". He states that this occurred yesterday before coming in the hospital. He claims that he has been "a little day" and claims that he is feeling fairly hot when this happened. He states that he is working hard on his car for the past 9 months. He claims that he has been taking his medications as prescribed. He states his sleep is fair. He claims that he is not having any depression or any changes in his mood. He states that he has been taking Elavil and Pristiq for the past 3-4 years and denies any recent changes in medications . At this time patient denies any suicidal or homical ideations, intent or plan. Patient denies any auditory, visual hallucinations and denies any paranoia or delusions. Patients admits to using no recreational drugs. He was alert and oriented 3 and had fair attention span. He denies any history of manic episodes in the past. PAST PSYCHIATRIC HISTORY: Patient has an unknown psychiatric history and does not know his diagnosis. Patient is on Seroquel, Restoril, Pristiq and Elavil [Patient denies any previous psychiatric hospitalizations.] [Patient denies any psychiatric outpatient follow-up.] [Patient denies any history of suicide attempts in the past.] Patient claims that he gets his medications from his primary care physician. PAST MEDICAL HISTORY: Hypertension and sarcoidosis ALLERGIES: as per EMR. CHEMICAL DEPENDENCY HISTORY: as per HPI. FAMILY PSYCHIATRIC/SUBSTANCE USE HISTORY: [denies] SOCIAL HISTORY: Patient was born and raised in [facility]. He states that he completed up to 12th grade in school. 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 He states that he has no legal history. He claims that he lives with his in a house has 4 kids.. MENTAL STATUS EXAM: General Appearance: Patient appears to be overweight, stated age is alert, pleasant, and cooperative. Patient appears to have [fair] hygiene and grooming wearing hospital gown with [fair] eye contact. Behavior: [Patient is calmly lying in bed without any agitated behavior.] Mildly confused Speech: Patient's speech is fluent and nonpressured. Mood/Affect: Patient reports their mood is "ok", affect is congruent Suicidality/Homicidality: Patient denies having any suicidal or homicidal ideation intent or plan. Perceptions: Patient denies any visual hallucinations [and denies any auditory hallucinations] Though content/process: There is no evidence of any delusional thought content and thought process is linear and goal-directed. Memory and concentration: AOX3, grossly intact for the purposes of this session. Can spell "WORLD" backwards Judgment and insight: Fair IMPRESSIONS: Delirium, likely mixed etiology medications (benzos, opiates etc.) and toxic metabolic History of depression PLAN: -At this time patient DOES NOT meet criteria for inpatient psychiatric admission. -Delirium precautions recommended with patient including - avoiding use of narcotics and PROJECTION PRINTER sedatives, limit anticholinergic medications when possible, frequent re-orientation, minimize use of restraints, open window shades during the day and close them at night -Would recommend the following medication changes/additions: Please avoid benzodiazepines at this time as this will exacerbate patient's delirium, decreasing Elavil (due to its anticholinergic properties) to 50 mg daily at bedtime with a plan to continued titrating down. Can continue with Pristiq 100 mg daily, Seroquel 100 mg daily at bedtime. Discontinued Ativan and Restoril. -electronic instrument trades worker to provide patient with outpatient mental health/psychiatry resources for appropriate follow up upon discharge] -Communicated plan to patient's nurse -Will continue to follow along and likely sign off on case tomorrow if patient improves overnight. -Please contact with any questions.
[2020-12-31] MEDS: DESVENLAFAXINE SUCCINATE 50 MG TAB.ER.24H PO SCH (18:04)
[2020-12-31] MEDS: LISINOPRIL-HCTZ 20-25 MG 1 EACH TAB PO SCH (18:04)
[2020-12-31] MEDS: HYDROXYCHLOROQUINE SULFATE 200 MG TAB PO SCH (18:04)
--- NOTE | 2020-12-31 18:21 | EEG ---
ELECTROENCEPHALOGRAM REPORT DATE OF SERVICE: 12/31/2020. This is a 60-year-old gentleman with a syncopal episode. This video EEG is obtained to evaluate for seizure epileptiform activity. RELEVANT MEDICATION: The patient is not on any antiepileptic drugs. EEG TYPE: A routine 21 channel EEG is performed with video using the 10/20 electrode system. DESCRIPTION: Brief wakefulness but predominantly the study is obtained during drowsiness and sleep. During the brief wakefulness, there is a posterior dominant rhythm of low voltage of 8- 8.5 hertz activity. While predominant study is in drowsy and sleep study state. There is no focal slowing. Interictal and ictal is none. ACTIVATION PROCEDURES: Photic stimulation did not evoke a posterior driving response. Hyperventilation is not performed. CLINICAL INTERPRETATION: This is a normal routine EEG. There are no focal slowing, epileptiform discharge or seizure on the EEG. Clinical correlation is recommended. MANA / RONEY: [id number] / MTDD
--- NOTE | 2020-12-31 20:03 | MR ---
EXAMINATION TYPE: MR brain wo/w con DATE OF EXAM: 12/31/2020 COMPARISON: 04/12/2017 HISTORY: Episode of syncope, possible seizure. CONTRAST: Standard multiplanar, multisequence MRI departmental protocol utilizing 12 mL intravenous Gadavist ga dolinium contrast. Diffusion images show no evidence of an acute infarct. Ventricles have normal size. There is no mass effect nor midline shift. There is no evidence of intracranial hemorrhage. There is some mild increas ed signal in the periventricular white matter without discrete foci. The brainstem is intact. Cerebel lum is intact. There is no evidence of a posterior fossa mass. There is mild cerebral atrophy. Contrast images show no pathologic enhancement. There is normal enhancement of the venous sinuses. IMPRESSION: There is some cerebral cortical atrophy. There is slight diffuse increased white matter signal around the lateral ventricles of uncertain significance. This could relate to some diffuse microvascular is chemia. There is not a significant change compared to old exam.
[2020-12-31] MEDS: QUEtiapine 100 MG TAB PO SCH (20:13)
[2020-12-31] MEDS: AMITRIPTYLINE HCL 50 MG TAB PO SCH (20:59)
--- NOTE | 2020-12-31 22:23 | P.PN ---
Subjective Progress Note Date: 12/31/20 Principal diagnosis: Syncopal episode Altered mental status possible metabolic and toxic/delirium. Patient is a 60-year-old male with a known history of hypertension and other mul tiple medical problems and possible psychiatric condition was brought to the hospital by EMS due to altered mental status and confusion. According to his patient has been more somnolent and confused since last Tuesday. Apparently patient was found on the ground by his neighbor. Last couple days patient has been more confused and even took his grandkids to store and also buying erratic things. Patient was having slurred speech on admission. Does not any fever or chills. no focal weakness, No nausea vomiting or diarrhea. No abdominal pain as per the family. No cough or sputum production. No chest pain or shortness of breath. Initially while in the ER patient was confused but lateral became very agitated and pulled out his lines. Patient was also having at his family and became paranoid. CT head showed no acute intracranial abnormality. Chest x-ray showed correlate for early volume overload. EKG showed normal sinus rhythm Lab data showed WBC 8.7 hemoglobin 11.5 and platelets 274 Sodium 136 potassium 3.9 chloride 102 BUN 13 creatinine 0.89 AST 68 ALT 54 alk phos 89 ammonia 29 CPK 1370 Troponin x3 - UDS is positive for benzodiazepines. Coronavirus PCR not detected. 12/31/2020 Patient is awake alert and oriented x3 today. Patient states that he was working all day in the hot weather yesterday. Patient was delirious on admission. Apparently patient was found on the floor with possible syncopal episode. Due to prior history of paroxysmal atrial fibrillation as per medical records, cardiology was consulted for further evaluation. EKG showed normal sinus rhythm. Patient also has history of sarcoidosis and does take Plaquenil and prednisone at home. Prior history of neurosarcoidosis. MRI of the brain was ordered an EEG was ordered as per neurology recommendations. Patient does not meet inpatient psychiatric admission at this time. Otherwise patient denies any complaints of chest pain or shortness of. No palpitations. No headache or dizziness or lightheadedness. Tolerating oral diet. Continued on IV hydration CPK level is trending down. Current medications reviewed Objective - Vital Signs Vital signs: Vital Signs Temp 97.5 F L 12/31/20 13:45 Pulse 112 H 12/31/20 13:47 Resp 18 12/31/20 13:45 BP 164/92 12/31/20 13:47 Pulse Ox 98 12/31/20 13:45 Intake & Output 12/30/20 12/31/20 12/31/20 18:59 06:59 18:59 Output Total 1600 Balance -1600 Weight 122.47 kg 122.47 kg Output: Urine 1600 Other: Voiding Method Indwelling Catheter Indwelling Catheter - Exam PHYSICAL EXAMINATION: Patient is lying in the bed comfortably, no acute distress, awake alert and oriented.. HEENT: Normocephalic. Neck is supple. Pupils reactive. Nostrils clear. Oral cavity is moist. Ears reveal no drainage. Neck reveals no JVD, carotid bruits, or thyromegaly. CHEST EXAMINATION: Trachea is central. Symmetrical expansion. Lung bhagat clear to auscultation and percussion. CARDIAC: Normal S1, S2 with no gallops. No murmurs ABDOMEN: Soft. Bowel sounds normal. No organomegaly. No abdominal bruits. Extremities: reveal no edema. No clubbing or cyanosis Neurologically awake, alert, oriented x3 with well-coordinated movements. No focal deficits noted Skin: No rash or skin lesions. Psychiatric: Coperative. Nonsuicidal Musculoskeletal: No joint swelling or deformity. Normal range of motion. - Labs CBC & Chem 7: 12/30/20 13:38 12/30/20 13:38 Assessment and Plan Assessment: Acute syncopal episode. Patient was found lying on the ground. Rule out intracranial etiology and cardiac arrhythmia. Confusion/altered mental status possible toxic encephalopathy. Rule out acute CVA. CT head is negative. improved now, Acute rhabdomyolysis with CPK level 1370 History of paroxysmal atrial fibrillation. Mild transaminitis Sarcoidosis. Hypertension Underlying unknown psychiatric condition. DVT prophylaxis with heparin subcu Plan Patient will be continued on telemetry monitoring. Continue with IV hydration and monitor CK level. Patient was seen by neurology and recommends EEG and MRI of the brain which was ordered. Cardiology was consulted due to prior history of atrial fibrillation to rule out arrhythmia. Cultures have been negative. Psychiatry does not recommend any inpatient psych admission at this time. Co ntinue to follow closely. Time with Patient: Greater than 30
[2021-01-01] MEDS: HEPARIN SODIUM,PORCINE/PF 5,000 UNIT/0.5 ML SYRINGE SQ SCH ×3 (08:08→23:51)
[2021-01-01] MEDS: HYDROXYCHLOROQUINE SULFATE 200 MG TAB PO SCH (08:08)
[2021-01-01] MEDS: DESVENLAFAXINE SUCCINATE 50 MG TAB.ER.24H PO SCH (08:08)
[2021-01-01] MEDS: LISINOPRIL-HCTZ 20-25 MG 1 EACH TAB PO SCH (08:08)
[2021-01-01] MEDS: amLODIPine 10 MG TAB PO SCH (08:09)
[2021-01-01 09:07] LABS: Basophils % (A) 1 %; Eosinophils # (A) 0.5 k/uL (0-0.7); Eosinophils % (A) 7 %; HCT 36.6 % (39.0-53.0); HGB 11.7 gm/dL (13.0-17.5); Lymphocytes # (A) 2.7 k/uL (1.0-4.8); Lymphocytes % (A) 36 %; MCH 28.6 pg (25.0-35.0); MCHC 32.1 g/dL (31.0-37.0); MCV 89.3 fL (80.0-100.0); Mean Platelet Volume 7.8; Monocytes # (A) 0.5 k/uL (0-1.0); Monocytes % (A) 7 %; Neutrophils # (A) 3.6 k/uL (1.3-7.7); Neutrophils % (A) 48 %; Platelet Count 292 k/uL (150-450); WBC 7.4 k/uL (3.8-10.6)
[2021-01-01 09:24] LABS: African American GFR (CKD) >90 (>60 ml/min/1.73 sqM); Anion Gap 7 mmol/L; Blood Urea Nitrogen 12 mg/dL (9-20); Calcium 9.3 mg/dL (8.4-10.2); Carbon Dioxide 27 mmol/L (22-30); Chloride 108 mmol/L (98-107); Creatine Kinase 398 U/L (55-170); Glucose 89 mg/dL (74-99); Non-African American GFR(CKD) 83 (>60 ml/min/1.73 sqM); Potassium 4.4 mmol/L (3.5-5.1); Sodium 142 mmol/L (137-145)
--- NOTE | 2021-01-01 10:33 | P.PN ---
Subjective HISTORY OF PRESENTING ILLNESS This is a pleasant 60-year-old male past medical history significant for sarcoidosis, hypertension and chronic back pain. He denies prior history of coronary artery disease and does not follow in the office with a engraving press operator. We have been asked to see in consultation for syncope. He is seen and examined laying flat resting comfortably in bed in no acute distress. He states he remembers going shopping yesterday and was feeling in his usual state of health. He was walking up on his porch and that is the last thing he can remember. He does not recall feeling dizzy or lightheaded, he had no symptoms of chest pain, shortness of breath or palpitations. His apparently found him on the porch. According to ER documentation he has been confused over the past couple weeks as well. He underwent an echocardiogram in 2017 revealing preserved LV systolic function with ejection fraction 60-65%, at that time he had a trivial pericardial effusion and mild pulmonary hypertension with an RVSP of 40 mmHg. Review of previous EKGs for 2017 reveals sinus rhythm with PACs, PVCs and multifocal atrial tachycardia. No arrhythmias or A. fib noted. 01/01/2021 Pt is seen and examined sitting up in bed in no acute distress. He denies symptoms of chest pain, shortness of breath, dizziness or palpitations. He has had no further episodes of syncope. Telemetry tracings are revealing SR with significant arrhythmia or pauses. Blood pressure 139/79 heart rate 72 afebrile maintaining oxygen saturation on room air. Echocardiogram obtained reveals preserved LV systolic function with ejection fraction 55-60%. He underwent an MRI of his brain revealing cerebral cortical atrophy, slightly diffuse increased white matter signal around the lateral ventricles of unclear significance could be related to microvascular ischemia with no significant change compared to old exam. PHYSICAL EXAMINATION CONSTITUTIONAL: No apparent distress. HEENT: Head is normocephalic. Pupils are equal, round. Sclerae anicteric. Mucous membranes of the mouth are moist. No JVD. No carotid bruit. CHEST EXAMINATION: Lungs are clear to auscultation. No chest wall tenderness is noted on palpation or with deep breathing. HEART EXAMINATION: Regular rate and rhythm. S1, S2 heard. No murmurs, gallops or rub. EXTREMITIES: 2+ peripheral pulses, no lower extremity edema and no calf tenderness. ASSESSMENT Syncope Rhabomyolysis Hypertension Sarcoidosis PLAN No evidence of arrhythmia noted on telemetry tracings. Recommend outpatient event monitoring upon discharge. Follow-up in the office with Dr. Carter in 4-6 weeks. Nurse Practitioner note has been reviewed, I agree with a documented findings and plan of care. Patient was seen and examined. Objective - Vital Signs Vital signs: Vital Signs Temp 98.1 F 01/01/21 07:59 Pulse 72 01/01/21 07:59 Resp 18 01/01/21 07:59 BP 139/79 01/01/21 07:59 Pulse Ox 97 01/01/21 07:59 Intake & Output 12/31/20 01/01/21 01/01/21 18:59 06:59 18:59 Output Total 900 800 Balance -900 -800 Output: Urine 900 800 Other: Voiding Method Indwelling Catheter Indwelling Catheter Indwelling Catheter - Labs CBC & Chem 7: 01/01/21 06:40 01/01/21 06:40 Labs: Abnormal Lab Results - Last 24 Hours (Table) 12/31/20 01/01/21 01/01/21 Range/Units 07:36 06:40 06:40 RBC 4.10 L (4.30-5.90) m/uL Hgb 11.7 L (13.0-17.5) gm/dL Hct 36.6 L (39.0-53.0) % Chloride 108 H (98-107) mmol/L Creatine Kinase 928 H 398 H (35-257) U/L Microbiology - Last 24 Hours (Table) 12/30/20 13:48 Blood Culture - Preliminary Blood No Growth after 24 hours 12/30/20 13:34 Blood Culture - Preliminary Blood No Growth after 24 hours
--- NOTE | 2021-01-01 13:28 | P.PN ---
Subjective Progress Note Date: 01/01/21 Patient seen at bedside and he feels is back to baseline. He denies any further episodes of confusion or any further reported that passing out episode that. Per the patient nurse no further passing out episodes noted that. Objective - Vital Signs Vital signs: Vital Signs Temp 98.1 F 01/01/21 07:59 Pulse 72 01/01/21 07:59 Resp 18 01/01/21 07:59 BP 139/79 01/01/21 07:59 Pulse Ox 97 01/01/21 07:59 Intake & Output 12/31/20 01/01/21 01/01/21 18:59 06:59 18:59 Output Total 900 800 Balance -900 -800 Output: Urine 900 800 Other: Voiding Method Indwelling Catheter Indwelling Catheter Indwelling Catheter - Exam GENERAL: The patient is lying in bed and is not in acute distress. NEUROLOGICAL: Higher mental function: The patient is awake, alert, oriented to self, place and time. Patient is following commands. No aphasia and no neglect. Cranial nerves: The pupils are round, equal and reactive to light and accommodation. Visual bhagat are full to confrontation throughout. Extraocular movement is intact no nystagmus is noted. Facial sensation is normal to touch throughout. The facial strength is normal throughout. Hearing is normal bilaterally to hand rub. Tongue is midline and moved [id number] without any difficulty. No dysarthria is noted. Shoulder shrug is normal bilaterally. Motor: Gait is deferred. The strength is 5 over 5 throughout. Normal tone and bulk. Cerebellum: Normal finger to nose heel to chin bilaterally. Sensation: Sensation is normal to touch throughout. Reflexes (right/left): 2+ throughout. Plantars are downgoing bilaterally. - Labs CBC & Chem 7: 01/01/21 06:40 01/01/21 06:40 Labs: Abnormal Lab Results - Last 24 Hours (Table) 12/31/20 01/01/21 01/01/21 Range/Units 07:36 06:40 06:40 RBC 4.10 L (4.30-5.90) m/uL Hgb 11.7 L (13.0-17.5) gm/dL Hct 36.6 L (39.0-53.0) % Chloride 108 H (98-107) mmol/L Creatine Kinase 928 H 398 H (35-257) U/L Microbiology - Last 24 Hours (Table) 12/30/20 13:48 Blood Culture - Preliminary Blood No Growth after 24 hours 12/30/20 13:34 Blood Culture - Preliminary Blood No Growth after 24 hours Assessment and Plan Assessment: Syncopal episode. Possibly due to dehdryation. Altered mentation for past one week. Encephalopathy of unknown etiology. Rule out intracranial process.---mentation improved. Remote history of neurosarcoidosis (per medical records) Mild elevated AST and ALT with elevated CPK I feel it's a reactive since the patient was found down. History of Pulmonary sarodisois Hypertension Snoring Underlying unknown psychiatric condition Plan: * CT of the head is reported as no acute intracranial abnormality seen. I personally reviewed the CT of the head and I felt like the patient has calcified meningioma over the falx region on the anterior middle portion. * Patient AST 68 and the ALT is 54 which slightly elevated. The CK level is 1370 which is elevated. Otherwise the creatinine is 0.89, calcium is 10.0, ammonia level is 29 and those are unremarkable. * Urine drug screen is positive for benzo otherwise the basic is nondetected in the serum alcohol was less than 10. * EEG on 12/31/2020 is normal. There are no focal slowing, epileptiform discharges or seizure on the EEG. * MR the brain there is some cerebral cortical atrophy. There is slight diffuse increased white matter signal around the lateral ventricles of uncertain significance. This could relate to some diffuse chronic microvascular ischemia. There is not a significant change compared to old exam. I had Dr. Gallagher (reading Radiology) review the images on 01/01/2021 in AM and he stated he felt no mass, no acute or subacute ischemia. He felt it seemed unremarkable. * Orthostatic vitals: Supine is 136/85 HR 74; sitting is 140/87 HR 90 and standing is 164/92 HR112. * Cardiology is consulted. They reported that there is no evidence of arrhythmia noted on telemetry tracing. Recommend outpatient event monitoring upon discharge per the recommendation which I agree. Patient to follow-up with Dr. Carter within 4-6 weeks. * Placed on Q4 hour neuro-check and continuos cardiac monitoring. * Psychiatry team is on board for unknown psychiatric disorder and on 3 different medications. * Will defer the rest of medical management to the primary team. Upon discharge, the patient needs to follow-up with neurologist as outpatient within 1-2 weeks as outpatient. The plan is discussed with the patient's nurse. Patient is clear from neurological stand point. Ravinder Ying MD Neuro-Hospitalist Time with Patient: Less than 30
--- NOTE | 2021-01-01 14:14 | P.PN ---
Progress Note - Text Progress Note Date: 01/01/21 Interval History: Patient was seen today for psychiatric follow-up regarding patient's delirium. Patient's nurse claims the patient has been doing well today and offers no complaints. Patient was seen at the bedside and was agreeable to speak a automotive service writer. He was fairly appropriate and claims that he is back to his baseline. He is denying any troubles at all with his mood depression anxiety today. Claims that he's been taking his medications. I spoke with patient about the side effects of his medications and possible polypharmacy. Patient was agreeable to follow up with his outpatient primary care physician. She was alert and oriented 3 today. He claims that he slept fairly last night. At this time patient denies any suicidal or homical ideations, intent or plan. Patient denies any auditory, visual hallucinations and denies any paranoia or delusions. Patient denies any side effects from the medications and has been compliant with meds. Mental Status Exam: General Appearance: Patient appears to be overweight, stated age is alert, pleasant, and cooperative. Patient appears to have fair hygiene and grooming wearing hospital gown with fair eye contact. Behavior: Patient is calmly lying in bed without any agitated behavior. Speech: Patient's speech is fluent and nonpressured. Mood/Affect: Patient reports their mood is "ok", affect is congruent Suicidality/Homicidality: Patient denies having any suicidal or homicidal ideation intent or plan. Perceptions: Patient denies any visual hallucinations and denies any auditory hallucinations Though content/process: There is no evidence of any delusional thought content and thought process is linear and goal-directed. Memory and concentration: AOX3, grossly intact for the purposes of this session. Can spell "WORLD" backwards Judgment and insight: Fair Assessment Delirium, likely mixed etiology medications (benzos, opiates etc.) and toxic metabolic History of depression Plan: -At this time patient DOES NOT meet criteria for inpatient psychiatric admission. -Delirium precautions recommended with patient including - avoiding use of narcotics and [employer] sedatives, limit anticholinergic medications when possible, frequent re-orientation, minimize use of restraints, open window shades during the day and close them at night -Would recommend the following medication changes/additions: Please avoid benzodiazepines at this time as this will exacerbate patient's delirium, continue with Elavil 50 mg daily at bedtime. Can continue with Pristiq 100 mg daily, Seroquel 100 mg daily at bedtime. Discontinued Ativan and Restoril. -social worker delinquency prevention to provide patient with outpatient mental health/psychiatry resources for appropriate follow up upon discharge -Communicated plan to patient's nurse -Will sign off at this time. -Please contact with any questions.
[2021-01-01] MEDS: QUEtiapine 100 MG TAB PO SCH (22:34)
[2021-01-01] MEDS: AMITRIPTYLINE HCL 50 MG TAB PO SCH (22:34)
[2021-01-02 07:39] VITALS: RESP 18; TEMP 98.8
[2021-01-02] MEDS: DESVENLAFAXINE SUCCINATE 50 MG TAB.ER.24H PO SCH (07:56)
[2021-01-02] MEDS: LISINOPRIL-HCTZ 20-25 MG 1 EACH TAB PO SCH (07:56)
[2021-01-02] MEDS: HEPARIN SODIUM,PORCINE/PF 5,000 UNIT/0.5 ML SYRINGE SQ SCH (07:56)
[2021-01-02] MEDS: amLODIPine 10 MG TAB PO SCH (07:56)
[2021-01-02] MEDS: HYDROXYCHLOROQUINE SULFATE 200 MG TAB PO SCH (07:56)
[2021-01-02 13:10] VITALS: BP 126/78; PULSE 50
--- NOTE | 2021-01-19 09:58 | P.PN ---
Subjective Progress Note Date: 01/01/21 Principal diagnosis: Syncopal episode Altered mental status possible metabolic and toxic/delirium. Patient is a 60-year-old male with a known history of hypertension and other mul tiple medical problems and possible psychiatric condition was brought to the hospital by EMS due to altered mental status and confusion. According to his patient has been more somnolent and confused since last Tuesday. Apparently patient was found on the ground by his neighbor. Last couple days patient has been more confused and even took his grandkids to store and also buying erratic things. Patient was having slurred speech on admission. Does not any fever or chills. no focal weakness, No nausea vomiting or diarrhea. No abdominal pain as per the family. No cough or sputum production. No chest pain or shortness of breath. Initially while in the ER patient was confused but lateral became very agitated and pulled out his lines. Patient was also having at his family and became paranoid. CT head showed no acute intracranial abnormality. Chest x-ray showed correlate for early volume overload. EKG showed normal sinus rhythm Lab data showed WBC 8.7 hemoglobin 11.5 and platelets 274 Sodium 136 potassium 3.9 chloride 102 BUN 13 creatinine 0.89 AST 68 ALT 54 alk phos 89 ammonia 29 CPK 1370 Troponin x3 - UDS is positive for benzodiazepines. Coronavirus PCR not detected. 12/31/2020 Patient is awake alert and oriented x3 today. Patient states that he was working all day in the hot weather yesterday. Patient was delirious on admission. Apparently patient was found on the floor with possible syncopal episode. Due to prior history of paroxysmal atrial fibrillation as per medical records, cardiology was consulted for further evaluation. EKG showed normal sinus rhythm. Patient also has history of sarcoidosis and does take Plaquenil and prednisone at home. Prior history of neurosarcoidosis. MRI of the brain was ordered an EEG was ordered as per neurology recommendations. Patient does not meet inpatient psychiatric admission at this time. Otherwise patient denies any complaints of chest pain or shortness of. No palpitations. No headache or dizziness or lightheadedness. Tolerating oral diet. Continued on IV hydration CPK level is trending down. 01/01/2021 Patient is more awake and oriented today. Mentation is at baseline. Denied any episodes of confusion overnight. No further episodes of passing out. Patient was seen by cardiology. No evidence of arrhythmia noted on telemetry tracing. Outpatient event monitoring up on discharge was recommended. Patient denied any compressive fever or chills. Tolerating oral diet. Continue with telemetry monitoring and anticipate discharge next 24 hours. Current medications reviewed Objective - Vital Signs Vital signs: Vital Signs Temp 98.7 F 01/01/21 14:00 Pulse 82 01/01/21 14:00 Resp 18 01/01/21 14:00 BP 151/82 01/01/21 14:00 Pulse Ox 97 01/01/21 14:00 Intake & Output 01/01/21 01/01/21 01/02/21 06:59 18:59 06:59 Output Total 800 1600 Balance -800 -1600 Output: Urine 800 1600 Other: Voiding Method Indwelling Catheter Indwelling Catheter - Exam PHYSICAL EXAMINATION: Patient is lying in the bed comfortably, no acute distress, awake alert and oriented.. HEENT: Normocephalic. Neck is supple. Pupils reactive. Nostrils clear. Oral cavity is moist. Ears reveal no drainage. Neck reveals no JVD, carotid bruits, or thyromegaly. CHEST EXAMINATION: Trachea is central. Symmetrical expansion. Lung bhagat clear to auscultation and percussion. CARDIAC: Normal S1, S2 with no gallops. No murmurs ABDOMEN: Soft. Bowel sounds normal. No organomegaly. No abdominal bruits. Extremities: reveal no edema. No clubbing or cyanosis Neurologically awake, alert, oriented x3 with well-coordinated movements. No focal deficits noted Skin: No rash or skin lesions. Psychiatric: Coperative. Nonsuicidal Musculoskeletal: No joint swelling or deformity. Normal range of motion. - Labs CBC & Chem 7: 01/01/21 06:40 01/01/21 06:40 Labs: Abnormal Lab Results - Last 24 Hours (Table) 01/01/21 01/01/21 Range/Units 06:40 06:40 RBC 4.10 L (4.30-5.90) m/uL Hgb 11.7 L (13.0-17.5) gm/dL Hct 36.6 L (39.0-53.0) % Chloride 108 H (98-107) mmol/L Creatine Kinase 398 H (55-170) U/L Microbiology - Last 24 Hours (Table) 12/30/20 13:48 Blood Culture - Preliminary Blood No Growth after 48 hours 12/30/20 13:34 Blood Culture - Preliminary Blood No Growth after 48 hours Assessment and Plan Assessment: Acute syncopal episode. Patient was found lying on the ground. Ruled out intracranial etiology and cardiac arrhythmia. Confusion/altered mental status possible toxic encephalopathy. Ruled out acute CVA. CT head is negative. improved now, Acute rhabdomyolysis with CPK level 1370 History of paroxysmal atrial fibrillation. Mild transaminitis Sarcoidosis. Hypertension Underlying unknown psychiatric condition. DVT prophylaxis with heparin subcu Plan Patient will be continued on telemetry monitoring. Continue with IV hydration and monitor CK level. Patient was seen by neurology and recommends EEG and MRI of the brain which was ordered. MRI of the brain showed cerebral cortical atrophy. And diffuse microvascular ischemia. No significant change from the p rior. Cardiology was consulted due to prior history of atrial fibrillation to rule out arrhythmia. No arrhythmias noted and telemetry. Cultures have been negative. Psychiatry does not recommend any inpatient psych admission at this time. Continue to follow closely. Time with Patient: Greater than 30
--- NOTE | 2021-01-19 10:01 | P.DS ---
Providers Date of admission: 12/30/20 15:30 Expected date of discharge: 01/02/21 Attending physician: Radha Stark Consults: 12/30/20 15:32 Consult Physician Routine Consulting Provider: Ravinder Ying Consult Reason/Comments: confusion Do you want consulting provider notified?: Yes 12/31/20 10:29 Consult Physician Routine Consulting Provider: Lianet Reilly Consult Reason/Comments: syncope Do you want consulting provider notified?: Yes 12/31/20 10:32 Consult Physician Routine Consulting Provider: Osmin Springer Consult Reason/Comments: unknown psych hx and on multiple meds Do you want consulting provider notified?: Yes Primary care physician: [facility] Course: Discharge diagnosis Acute syncopal episode. Likely due to dehydration. Patient was found lying on the ground. Ruled out intracranial etiology and cardiac arrhythmia. Confusion/altered mental status possible toxic encephalopathy. Ruled out acute CVA. CT head is negative. improved now, Acute rhabdomyolysis with CPK level 1370 History of paroxysmal atrial fibrillation. Mild transaminitis Sarcoidosis. Hypertension Underlying unknown psychiatric condition. DVT prophylaxis with heparin subcu Hospital course Patient is a 60-year-old male with a known history of hypertension and other multiple medical problems and possible psychiatric condition was brought to the hospital by EMS due to altered mental status and confusion. According to his patient has been more somnolent and confused since last Tuesday. Apparently patient was found on the ground by his neighbor. Last couple days patient has been more confused and even took his grandkids to store and also buying erratic things. Patient was having slurred speech on admission. Does not any fever or chills. no focal weakness, No nausea vomiting or diarrhea. No abdominal pain as per the family. No cough or sputum production. No chest pain or shortness of breath. Initially while in the ER patient was confused but lateral became very agitated and pulled out his lines. Patient was also having at his family and became paranoid. CT head showed no acute intracranial abnormality. Chest x-ray showed correlate for early volume overload. EKG showed normal sinus rhythm Lab data showed WBC 8.7 hemoglobin 11.5 and platelets 274 Sodium 136 potassium 3.9 chloride 102 BUN 13 creatinine 0.89 AST 68 ALT 54 alk phos 89 ammonia 29 CPK 1370 Troponin x3 - UDS is positive for benzodiazepines. Coronavirus PCR not detected. 12/31/2020 Patient is awake alert and oriented x3 today. Patient states that he was working all day in the hot weather yesterday. Patient was delirious on admission. Apparently patient was found on the floor with possible syncopal episode. Due to prior history of paroxysmal atrial fibrillation as per medical records, cardiology was consulted for further evaluation. EKG showed normal sinus rhythm. Patient also has history of sarcoidosis and does take Plaquenil and prednisone at home. Prior history of neurosarcoidosis. MRI of the brain was ordered an EEG was ordered as per neurology recommendations. Patient does not meet inpatient psychiatric admission at this time. Otherwise patient denies any complaints of chest pain or shortness of. No palpitations. No headache or dizziness or lightheadedness. Tolerating oral diet. Continued on IV hydration CPK level is trending down. 01/01/2021 Patient is more awake and oriented today. Mentation is at baseline. Denied any episodes of confusion overnight. No further episodes of passing out. Patient was seen by cardiology. No evidence of arrhythmia noted on telemetry tracing. Outpatient event monitoring up on discharge was recommended. Patient denied any compressive fever or chills. Tolerating oral diet. Continue with telemetry monitoring and anticipate discharge next 24 hours. 01/02/2021 Patient is awake alert and oriented 3. Mentation is at baseline. No evidence of arrhythmia in the telemetry monitoring. MRI of the brain and EEG was done without any new significant changes. Continued on IV hydration CPK level improved to 398 today. Serial EKGs and troponins 3 negative. Records to follow with cardiology for event monitor placement. Patient is being discharged home today. Afebrile. Tolerating oral diet. PHYSICAL EXAMINATION: Patient is lying in the bed comfortably, no acute distress, awake alert and oriented.. HEENT: Normocephalic. Neck is supple. Pupils reactive. Nostrils clear. Oral cavity is moist. Ears reveal no drainage. Neck reveals no JVD, carotid bruits, or thyromegaly. CHEST EXAMINATION: Trachea is central. Symmetrical expansion. Lung bhagat clear to auscultation and percussion. CARDIAC: Normal S1, S2 with no gallops. No murmurs ABDOMEN: Soft. Bowel sounds normal. No organomegaly. No abdominal bruits. Extremities: reveal no edema. No clubbing or cyanosis Neurologically awake, alert, oriented x3 with well-coordinated movements. No focal deficits noted Skin: No rash or skin lesions. Psychiatric: Coperative. Nonsuicidal Musculoskeletal: No joint swelling or deformity. Normal range of motion. Discharge vitals reviewed. Patient Condition at Discharge: Fair Plan - Discharge Summary Discharge Rx Participant: No New Discharge Prescriptions: Continue Hydroxychloroquine Sulfate [Plaquenil] 200 mg PO DAILY Desvenlafaxine [Pristiq ER] 100 mg PO DAILY Lisinopril-Hctz 20-25 mg [Zestoretic 20-25] 1 tab PO DAILY amLODIPine [Norvasc] 10 mg PO DAILY Ferrous Sulfate [Iron (65 MG Elemental)] 325 mg PO DAILY QUEtiapine [SEROquel] 100 mg PO HS Vitamin B Complex 1 cap PO DAILY Calcium Carbonate/Vitamin D3 [Calcium 600 mg-D3 20 mcg (800 unit)] 2 tab PO BID Ascorbic Acid [Vitamin C] 500 - 1,000 mg PO DAILY Albuterol Sulfate [Proair Hfa] 2 puff INHALATION RT-QID PRN PRN Reason: Shortness Of Breath Ibuprofen [Motrin] 800 mg PO TID PRN PRN Reason: Pain Amitriptyline HCl [Elavil] 75 mg PO HS Albuterol Nebulized [Ventolin Nebulized] 2.5 mg INHALATION RT-QID PRN PRN Reason: Shortness Of Breath Discharge Medication List Desvenlafaxine [Pristiq ER] 100 mg PO DAILY 02/11/17 [History] Hydroxychloroquine Sulfate [Plaquenil] 200 mg PO DAILY 02/11/17 [History] Lisinopril-Hctz 20-25 mg [Zestoretic 20-25] 1 tab PO DAILY 02/11/17 [History] amLODIPine [Norvasc] 10 mg PO DAILY 04/06/17 [History] Ferrous Sulfate [Iron (65 MG Elemental)] 325 mg PO DAILY 07/04/18 [History] Albuterol Nebulized [Ventolin Nebulized] 2.5 mg INHALATION RT-QID PRN 12/30/20 [History] Albuterol Sulfate [Proair Hfa] 2 puff INHALATION RT-QID PRN 12/30/20 [History] Amitriptyline HCl [Elavil] 75 mg PO HS 12/30/20 [History] Ascorbic Acid [Vitamin C] 500 - 1,000 mg PO DAILY 12/30/20 [History] Calcium Carbonate/Vitamin D3 [Calcium 600 mg-D3 20 mcg (800 unit)] 2 tab PO BID 12/30/20 [History] Ibuprofen [Motrin] 800 mg PO TID PRN 12/30/20 [History] QUEtiapine [SEROquel] 100 mg PO HS 12/30/20 [History] Vitamin B Complex 1 cap PO DAILY 12/30/20 [History] Follow up Appointment(s)/Referral(s): Ion Miranda MD [REFERRING] - 1 Week (Office will call you early next week with your appointment date and time.) Darrell Carter MD [STAFF PHYSICIAN] - 6 Weeks (Office will call you with your appointment date and time. Thank you,) Christopher Bradshaw DO [Primary Care Provider] - 01/09/21 1:30 pm Patient Instructions/Handouts: Rhabdomyolysis (DC) Discharge Disposition: HOME SELF-CARE
--- NOTE | 2021-02-02 19:23 | P.CEMON ---
Event monitor 141 the only Occasional atrial triplets Occasional slow ventricular triplets Few PVCs
--- NOTE | 2021-02-03 09:02 | EM ---
Event monitor 141 the only Occasional atrial triplets Occasional slow ventricular triplets Few PVCs MTDD
== END 2021-01-02 15:12 | disposition home or self-care (01) | DRG 557 ==
LOC: EC 13:10 → 4SSUR 15:30
PROVIDERS: ADMIT Internal Medicine; ATTEND Internal Medicine
DX: M62.82 Rhabdomyolysis (principal); G92 Toxic encephalopathy; I10 Essential (primary) hypertension; Z20.822 Contact with and (suspected) exposure to COVID-19; E86.0 Dehydration; Z87.891 Personal history of nicotine dependence; Z79.899 Other long term (current) drug therapy; D86.89 Sarcoidosis of other sites; T42.4X5A Adverse effect of benzodiazepines, initial encounter; T40.605A Adverse effect of unspecified narcotics, initial encounter; I48.0 Paroxysmal atrial fibrillation; G47.33 Obstructive sleep apnea (adult) (pediatric)
CPT/HCPCS: 36415; 70450; 70553; 71045; 80048; 80053; 80306; 80320; 81003; 82140; 82550; 84484; 85025; 85610; 85730; 87040; 87635; 93005; 93270; 93306; 94760; 95819; 96361; 99285

== ENCOUNTER 2022-08-13 14:21 | Emergency (ER) | payer OTHER ==
[2022-08-13 14:33] VITALS: TEMP 97.9
[2022-08-13] MEDS ORDERED: MORPHINE SULFATE 4 MG/ML SYRINGE IM STA (15:22)
[2022-08-13] MEDS ORDERED: LIDOCAINE 5% PATCH TOPICAL STA (15:23)
--- NOTE | 2022-08-13 15:38 | ED ---
General Adult HPI - General Chief complaint: Back Pain/Injury Stated complaint: Back pain Time Seen by Provider: 08/13/22 15:04 Source: patient Mode of arrival: ambulatory Limitations: no limitations - History of Present Illness Initial comments: Dictation was produced using [employer] dictation software. please excuse any grammatical, word or spelling errors. Chief Complaint: 61-year-old male past medical history of back surgery and chronic back pain presents to the ER for 1 hour back pain History of Present Illness: Is 61-year-old male presents emergency department for atraumatic back pain. Patient states that he was going about his usual business. He sat down in his recliner chair. Shortly after he started to feel tightness in his right lower back. Patient has history of back surgery that was performed at [facility] 3-4 years ago. He has not had much complications since then. However, he does report having had bouts of sporadic back pain. Patient states that he does not have any accompanied numbness doing paresthesias to the lower extremities. No bowel or bladder dysfunction. Denies any saddle anesthesia. No fever. Patient denies any falls. Couple days ago he was working on a chair where he was flipping it over and thinks maybe he may have harmed his back then. The ROS documented in this emergency department record has been reviewed and confirmed by me. Those systems with pertinent positive or negative responses have been documented in the HPI. All other systems are other negative and/or noncontributory. PHYSICAL EXAM: General Impression: Alert and oriented x3, not in acute distress HEENT: Normocephalic atraumatic, extra-ocular movements intact, pupils equal and reactive to light bilaterally, mucous membranes moist. Cardiovascular: Heart regular rate and rhythm Chest: Able to complete full sentences, no retractions, no tachypnea Abdomen: abdomen soft, non-tender, non-distended, no organomegaly Musculoskeletal: Pulses present and equal in all extremities, no peripheral edema, bogginess to the right paraspinal soft tissues to the lower back Motor: no focal deficits noted Neurological: CN II-XII grossly intact, no focal motor or sensory deficits noted Skin: Intact with no visualized rashes Psych: Normal affect and mood ED course: 61-year-old male clinical presentation consistent with musculoskeletal back strain. Vital signs upon arrival are within acceptable limits. Patient has no red flag symptoms. Physical examination is otherwise benign. Imaging was considered however patient's pain is atraumatic. Patient was offered analgesic medications. Nursing notes and chart review was performed Patient given analgesic medications and Lidoderm patch. Observed in emergency department for 3 hours. Reevaluated bedside at 5:18 PM found to be stable medical condition. Patient reports improvement of his symptoms he is agreeable for discharge. Was pt. sent in by a medical professional or institution ([facility], [facility], urgent care, hospital, or assisted...) When possible be specific @ -No Did you speak to anyone other than the patient for history (EMS, parent, family, police, friend...)? What history was obtained from this source @ -No Did you review nursing and triage notes (agree or disagree)? Why? @ -I reviewed and agree with nursing and triage notes Were old charts reviewed (outside hosp., previous admission, EMS record, old EKG, old radiological studies, urgent care reports/EKG's, assisted records)? Report findings @ -No old charts were reviewed Differential Diagnosis (chest pain, altered mental status, abdominal pain women, abdominal pain men, vaginal bleeding, weakness, fever, dyspnea, syncope, headache, dizziness, GI bleed, back pain, seizure, CVA, palpatations, mental health)? @ -not applicable EKG interpreted by me (3pts min.). @ -None done X-rays interpreted by me (1pt min.). @ -None done CT interpreted by me (1pt min.). @ -None done U/S interpreted by me (1pt. min.). @ -None done What testing was considered but not performed or refused? (CT, X-rays, U/S, labs)? Why? @ -See above What meds were considered but not given or refused? Why? @ -See above Did you discuss the management of the patient with other professionals (professionals i.e. [facility], [employer], lab, RT, psych nurse, social media manager, adult caregiver, teacher, special loan officer, top case assembler)? Give summary @ -No Was smoking cessation discussed for >3mins.? @ -No Was critical care preformed (if so, how long)? @ -No Were there social determinants of health that impacted care today? How? (Homelessness, low income, unemployed, alcoholism, drug addiction, transportation, low edu. Level, literacy, decrease access to med. care, [place] [facility], rehab)? @ -No Was there de-escalation of care discussed even if they declined (Discuss DNR or withdrawal of care, Hospice)? DNR status @ -No What co-morbidities impacted this encounter? (DM, HTN, Smoking, COPD, CAD, Cancer, CVA, ARF, Chemo, Hep., AIDS, mental health diagnosis, sleep apnea, morbid obesity)? @ -None Was patient admitted / discharged? Hospital course, mention meds given and route, prescriptions, significant lab abnormalities, going to OR and other pertinent info. @ -See above Undiagnosed new problem with uncertain prognosis? @ -No Drug Therapy requiring intensive monitoring for toxicity (Heparin, Nitro, Insulin, Cardizem)? @ -No Were any procedures done? @ -No Diagnosis/symptom? @ -Acute back strain Acute, or Chronic, or Acute on Chronic? @ -Acute Uncomplicated (without systemic symptoms) or Complicated (systemic symptoms)? @ -Uncomplicated Side effects of treatment? @ -No Exacerbation, Progression, or Severe Exacerbation? @ -No Poses a threat to life or bodily function? How? (Chest pain, [place], [place], pneumonia, PE, COPD, DKA, ARF, appy, cholecystitis, CVA, Diverticulitis, Homicidal, Suicidal, threat to staff... and all critical care pts) @ -No - Related Data Home Medications Medication Instructions Recorded Confirmed Desvenlafaxine [Pristiq ER] 100 mg PO HS 02/11/17 08/13/22 Lisinopril-Hctz 20-25 mg 1 tab PO DAILY 02/11/17 08/13/22 [Zestoretic 20-25] amLODIPine [Norvasc] 10 mg PO HS 04/06/17 08/13/22 Ferrous Sulfate [Iron (65 MG 325 mg PO DAILY 07/04/18 08/13/22 Elemental)] QUEtiapine [SEROquel] 200 mg PO HS 12/30/20 08/13/22 Albuterol Sulfate [Ventolin HFA] 2 puff INHALATION RT-QID PRN 08/13/22 08/13/22 Docusate [Colace] 100 mg PO BID 08/13/22 08/13/22 predniSONE 10 mg PO DAILY 08/13/22 08/13/22 Allergies Allergy/AdvReac Type Severity Reaction Status Date / Time No Known Allergies Allergy Verified 08/13/22 16:00 Review of Systems ROS Statement: Those systems with pertinent positive or pertinent negative responses have been documented in the HPI. ROS Other: All systems not noted in ROS Statement are negative. Past Medical History Past Medical History: Hypertension Additional Past Medical History / Comment(s): Spouse states that pt has had increased congestion/cough last couple days-he was coughing and after that was experiencing difficulty hearing. Spouse states that the past couple days he has had some periods of confusion. 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 History of Any Multi-Drug Resistant Organisms: None Reported Past Surgical History: Cholecystectomy, Orthopedic Surgery, Prostate Surgery Additional Past Surgical History / Comment(s): 02/14/17 I&D penile abscess, PICC line since removed, R arm surgery (secondary to injury fell through plate glass). Past Anesthesia/Blood Transfusion Reactions: No Reported Reaction Past Psychological History: No Psychological Hx Reported Smoking Status: Never smoker Past Alcohol Use History: None Reported Past Drug Use History: None Reported - Past Family History Mother Family Medical History: Coronary Artery Disease (CAD) Additional Family Medical History / Comment(s): Mother at the age of 86yrs. Father Family Medical History: No Reported History Additional Family Medical History / Comment(s): Father was healthy and lived into his late 70's. General Exam Limitations: no limitations Course Vital Signs 08/13/22 08/13/22 14:29 16:46 Temperature 97.9 F Pulse Rate 102 H Respiratory 24 Rate Blood Pressure 145/71 Blood Pressure 141/84 [Left Arm] Blood Pressure 151/85 [Right Arm] O2 Sat by Pulse 97 Oximetry Disposition Clinical Impression: Low back strain Disposition: HOME SELF-CARE Condition: Good Instructions (If sedation given, give patient instructions): Acute Low Back Pain (ED) Is patient prescribed a controlled substance at d/c from ED?: No Referrals: Christopher Bradshaw DO [Primary Care Provider] - 1-2 days Time of Disposition: 17:19
[2022-08-13] MEDS ORDERED: HYDROmorphone 0.5 MG/0.5 ML SYRINGE IVP STA (16:58)
[2022-08-13 17:39] VITALS: BP 138/79; PULSE 89; RESP 15
== END 2022-08-13 17:39 | disposition home or self-care (01) ==
LOC: EC 14:21
DX: S39.012A Strain of muscle, fascia and tendon of lower back, initial encounter (principal); I10 Essential (primary) hypertension; Z79.52 Long term (current) use of systemic steroids; W07.XXXA Fall from chair, initial encounter
CPT/HCPCS: 99283; 96374; 96372; J2270; J1170

== ENCOUNTER 2023-10-14 06:02 | Day surgery (SDC) | payer OTHER ==
[~2023-10-14 06:02] MED LIST changes: -DEXAMETHASONE SOD PHOSPHATE 10 MG/ML 1 ML VIAL IV ONE; -HEPARIN SODIUM,PORCINE 5,000 UNIT/ML 1 ML VIAL SQ ONE; -HYDROmorphone 1 MG/ML 1 ML SYRINGE IVP PRN; -LACTATED RINGERS 1,000 ML IV SCH; +LIDOCAINE 1% (10MG/ML) FOR IV START INTRADERMA PRN; -LIDOCAINE 1% 20 ML VIAL (10MG/ML) FOR IV START INTRADERMA PRN; -MIDAZOLAM 2 MG/2 ML VIAL IV PRN; -ONDANSETRON 4 MG/2 ML VIAL IVP ONE; -Pre Op ABX Message 1 EACH MISC MISCELLANE ONE; -SCOPOLAMINE 1.5MG/72HR PATCH TRANSDERM ONE
[2023-10-14 06:32] VITALS: RESP 20; TEMP 97.8
[2023-10-14] MEDS: LACTATED RINGERS 1,000 ML IV SCH (06:32)
[2023-10-14 06:44] LABS: Glucose,Whole Blood 96 mg/dL (70-110)
[2023-10-14] MEDS ORDERED: PROPOFOL 10 MG/ML 20 ML VIAL IV ONE (07:26)
--- NOTE | 2023-10-14 07:50 | P.PCN ---
Date of Procedure: 10/14/23 Procedure(s) Performed: BRIEF HISTORY: Patient is a 63-year-old pleasant white female scheduled for an elective colonoscopy as a part of evaluation of iron deficiency anemia. Patient denies any rectal bleeding. PROCEDURE PERFORMED: Colonoscopy. PREOPERATIVE DIAGNOSIS: Iron deficiency anemia. IV sedation per Anesthesia. PROCEDURE: After informed consent was obtained, the patient, was brought into the endoscopy unit. IV sedation was administered by Anesthesia under continuous monitoring. Digital rectal examination was normal. Initially the Olympus CF-160 flexible video colonoscope was then inserted in the rectum, gradually advanced into the cecum without any difficulty. Careful examination was performed as the scope was gradually being withdrawn. Ileocecal valve and the appendiceal orifice were visualized and appeared normal. Prep was excellent. Mucosa of the cecum, ascending colon, transverse colon, descending colon, sigmoid colon, and rectum appeared normal. Scattered similar diverticulosis. Retroflexion was performed in the rectum and no lesions were seen. The patient tolerated the procedure well. IMPRESSION: Normal-appearing colon from rectum to cecum with no evidence of colorectal neoplasia Scattered sigmoid diverticulosis. RECOMMENDATIONS: Findings of this examination were discussed with the patient as well as his family. He was advised to be a high-fiber diet and take fiber supplements a regular basis. Recommend repeat scanning colonoscopy in 10 years.
[2023-10-14 08:19] VITALS: BP 106/55; PULSE 68
== END 2023-10-14 08:22 | disposition home or self-care (01) ==
LOC: ORWHC2ENDO 06:02
PROVIDERS: ATTEND Internal Medicine Gastroenterology
DX: K57.30 Diverticulosis of large intestine without perforation or abscess without bleeding (principal); D50.9 Iron deficiency anemia, unspecified; I10 Essential (primary) hypertension; Z87.891 Personal history of nicotine dependence; Z79.899 Other long term (current) drug therapy
CPT/HCPCS: 45378; J2704

== ENCOUNTER → 2024-06-18 | Outpatient (CLI) | payer OTHER ==
--- NOTE | 2024-06-18 11:31 | CT ---
EXAMINATION TYPE: CT chest w con CT DLP: 756 mGycm, Automated exposure control for dose reduction was used. DATE OF EXAM: 06/18/2024 11:00 AM COMPARISON: Chest radiograph 12/30/2020 CLINICAL INDICATION:Male, 63 years old with history of D86.9; PHH, COPD TECHNIQUE: Multiple axial images were obtained through the chest following the administration of 100 cc of Isovue 300. . Coronal and sagittal reformats reviewed. FINDINGS: LUNGS/ PLEURA: No pleural effusion or pneumothorax. Scattered diffuse regions of patchy interstitial thickening and reticular opacities. There are scattered regions of bronchiectasis identified. There i s some honeycombing identified within the bilateral lung bases. AIRWAY: Patent and unremarkable.. HEART: Size within normal limits.No pericardial effusion. MEDIASTINUM: No evidence of adenopathy. Multiple nonenlarged mediastinal and bilateral hilar calcifie d lymph nodes. VASCULATURE: No aortic aneurysm. MUSCULOSKELETAL: Mild disc degeneration changes are present throughout the thoracolumbar spine. No ac calvin osseous abnormality. SOFT TISSUES/LYMPH NODES: Unremarkable. LOWER NECK: No significant findings. UPPER ABDOMEN: Gallbladder is surgical absent. Tiny hiatal hernia. 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 Etiologies include granulomatous with polyangiitis versus sarcoidosis versus tuberculosis versus other etiologie s. [facility], , 06/18/2024 11:29 AM
== END | disposition home or self-care (01) ==
LOC: RADCTMAIN 10:34
PROVIDERS: ATTEND Internal Medicine Critical Care Medicine
DX: J44.9 Chronic obstructive pulmonary disease, unspecified (principal); D86.9 Sarcoidosis, unspecified; J84.10 Pulmonary fibrosis, unspecified; K44.9 Diaphragmatic hernia without obstruction or gangrene; J47.9 Bronchiectasis, uncomplicated
CPT/HCPCS: 71260; Q9967